=== PATIENT | female | born 1970 | race Caucasian/White ===

== ENCOUNTER 2018-05-03 14:53 | Observation (INO) | payer BC, SELFPAY ==
[2018-05-03] VITALS (9 sets, daily range): BP systolic 123–171; BP diastolic 69–94; PULSE 62–97; RESP 8–18; TEMP 36.3–37; O2SAT 92–100; BMI 36.5; BMI 43.9
--- NOTE | 2018-05-03 16:12 | EKG12_ITS ---
Test Reason : Blood Pressure : / mmHG Vent. Rate : 067 BPM Atrial Rate : 067 BPM P-R Int : 132 ms QRS Dur : 088 ms QT Int : 380 ms P-R-T Axes : 100 142 -06 degrees QTc Int : 401 ms Suspect arm lead reversal, interpretation assumes no reversal Normal sinus rhythm Nonspecific T wave abnormality Abnormal ECG LEAD PLACEMENT VERIFED AND CORRECT Confirmed by NHUNG WHITE, JOSSUE ([id number]), order editor KAMI CARRILLO ([id number]) on 05/10/2018 3:47:51 PM Referred By: MACI Confirmed By:JOSSUE HOOKER MD
--- NOTE | 2018-05-03 16:12 | RAD_ITS ---
STUDY: X-RAY CHEST REASON FOR EXAM: Female, 47 years old. Dizziness pressure in chest TECHNIQUE: Single AP portable view of the chest. COMPARISON: None. FINDINGS: There is elevation of the right hemidiaphragm. There is no demonstrated pleural abnormality. Normal size heart. Normal mediastinum and xavier. Normal visualized pulmonary arteries. Normal visualized aortic arch and descending thoracic aorta. There are diffuse degenerative changes of the visualized thoracic spine. Normal visualized ribs, clavicles, and shoulders. There is no demonstrated abnormality of the visualized soft tissue structures of the upper abdomen. RAD/Chest 1 View (Portable) IMPRESSION: Degenerative changes, as described above. No demonstrated acute cardiopulmonary process. Electronically Signed: Frances Torres MD at 16:28 EDT Tel , Service support ,
--- NOTE | 2018-05-03 16:13 | ED.VISSUMM ---
- ER Visit Summary Date of Service: 05/03/18 Chief Complaint: Chest pain History of Present Illness: The patient is a 47 F denies any significant past medical history. States she has had a cardiac workup including a negative stress test done at the [facility] last year. She has never had a cardiac cath. Patient states she has intermittent chest pain for the last 2 months. She says at times it last hours. It is not at all associated with exertion. She denies any shortness of breath. No prior history of DVT or PEs. No recent travel, surgery or mobilization. No leg pain or swelling. She denies any hemoptysis. The pain is not pleuritic. Nothing specifically makes it better or worse. Physical Examination: Well-appearing middle-aged female vital signs. Pulse ox 90% on room air no signs of hypoxia. HEENT exam unremarkable. Neck nontender. Lungs clear to auscultation bilaterally. Heart regular rhythm no murmur. Rate about 90. No murmur. Chest wall no reproducible tenderness. Abdomen obese but soft. Nontender. Nondistended. Normal bowel sounds. She is moving all 4 extremities. They are neurovascularly intact. 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 Calves are nontender without edema or cords. Neurologically she is awake alert with no focal motor deficits. Test Results: CBC normal. Chemistries normal. Normal creatinine and gap. Troponin normal. EKG sinus rhythm 7 no acute [place] or ischemia. Chest x-ray normal cardiac silhouette mediastinum read both by myself and the radiologist. Emergency Department Course and Treatment: Patient with chest pain that is nonexertional. Intermittent for 2 months. Will undergo a cardiac workup. Treatment Plan: Repeat exam the patient is doing well at 1704. Currently symptom-free pain-free. [facility] they had no old stress tests on record for her. I discussed this with the patient. She is willing to stay to be further evaluated for her chest pain. She and I went over all of her test results. Disposition: Admission Impression: Acute chest pain of uncertain etiology This note was generated with farmbuyation software. It may contain incorrect words, spelling, and punctuation that were not noted in review of the chart prior to signing ED Disposition - Plan for ED Patient: Chief Complaint: Chest Pain
[2018-05-03 16:32] LABS: Absolute Lymphocyte Count 2.42 X10^3/ul (0.83-4.51); Basophil# 0.05 X10^3/uL; Basophil% 0.5 % (0-1); Eosinophil# 0.24 X10^3/uL; Eosinophils% 2.5 % (0-5); Hematocrit 43.7 % (37-47); Hemoglobin 14.1 g/dl (12.0-15.0); Lymphocyte # 2.42 X10^3/ul (4.0); Lymphocyte % 25.5 % (19-41); Mean Corp Hgb Conc 32.3 g/gl (32-36); Mean Corpuscular Hgb 28.7 pg (27.0-32.0); Mean Platelet Vol. 10.2 fl (6.2-12.0); Monocyte# 0.75 X10^3/uL; Monocyte% 7.9 % (0-10); Neutrophil # 6.01 X10^3/uL (2.7-7.7); Neutrophil % 63.4 % (47-70); Platelet Count 332 K/mm3 (150-450); RBC Distribution Width CV 14.4 % (11.6-14.6); Red Blood Count 4.91 M/mm3 (4.2-5.4); White Blood Count 9.5 K/mm3 (4.4-11.0)
[2018-05-03 16:36] LABS: POSITIVE COUNT NO; POSITIVE DIFFERENTIAL NO; POSITIVE MORPHOLOGY NO
[2018-05-03] MEDS: Aspirin 81 MG TAB.CHEW 324 MG PO (16:46)
[2018-05-03 16:48] LABS: Anion Gap 6 (5-15); BUN 12 mg/dL (7-18); BUN/Creat Ratio 17.9 RATIO (10-20); Calcium,Total 9.3 mg/dL (8.5-10.1); Chloride 106 mmol/L (98-107); Creatinine, Serum 0.67 mg/dL (0.55-1.02); EST Glomerular Filtration Rate 99 mL/min (>60); Est Glom Filt Rate - Afr Amer 120 mL/min (>60); Estimated Creatinine Clearance 84.02 ml/min; Glucose 87 mg/dL (74-106); Potassium 4.1 mmol/L (3.5-5.1); Sodium Level 138 mmol/L (136-145)
--- NOTE | 2018-05-03 17:54 | EKG12_ITS ---
Test Reason : ADMISSION EKG Blood Pressure : / mmHG Vent. Rate : 062 BPM Atrial Rate : 062 BPM P-R Int : 132 ms QRS Dur : 092 ms QT Int : 406 ms P-R-T Axes : 014 137 -01 degrees QTc Int : 412 ms Normal sinus rhythm Right axis deviation Nonspecific T wave abnormality Poor R wave progression Abnormal ECG Confirmed by RAINA WHITE, VERN ([id number]), editor managing newspaper KAMI CARRILLO ([id number]) on 05/06/2018 2:27:33 PM Referred By: LUIS Confirmed By:VERN PARIS MD
--- NOTE | 2018-05-03 18:11 | PCM.HP.STD ---
<Epifanio Geiger - Last Filed: 05/03/18 18:11> Problem List (1) Chest pain Status: Acute (2) Morbid obesity Status: Chronic (3) Nicotine abuse Status: Chronic History of Present Illness Date of Admission: 05/03/18 Chief Complaint: chest pain The patient is a 47 year old F with a hx of nicotine abuse and morbid obesity who came to the ER after being advised to come here by her PCP when she told them that she has been having intermittent chest pain over the past 2 months. She has not had any chest pain episodes today. She states that the last episode was thursday night. She was sitting in bed trying to fall asleep when she felt a pressure like someone sitting on her chest that went into her back. She had no SOB, diaphoresis, lh/dizziness, palpitations. She states this sometimes happens daily, sometimes not. She has no medical problems for which she takes any medications. Her father did have heart disease. She smokes 1/2 ppd. [] Past Medical History Past Medical History (Chronic Problems): Chronic Problems Morbid obesity (Chronic) Nicotine abuse (Chronic) Allergies No Known Allergies Allergy (Verified 05/03/18 14:55) Home Medications: Ambulatory Orders Medication Instructions Recorded NK 05/03/18 Surgical History: - - c section Psychiatric History: No pertinent psych hx PARKS RECREATION COORDINATOR History: No pertinent PARKS RECREATION COORDINATOR history Lives: Spouse/ Significant Other Smoking Status: Current every day smoker Tobacco Use: Cigarettes Alcohol: None Drugs: None - *Family History Maternal History Items: COPD Paternal History Items: Heart Disease Review of Systems Constitutional: Denies: Chills, Fever, Weight Change HEENT: Denies: Head Aches, Sinus Congestion, Sinus Drainage Cardiovascular: Reports: Chest Pain, Chest Pressure, Heaviness. Denies: Palpitations Respiratory: Denies: Cough, Shortness of breath at rest, Sputum production Gastrointestinal: Denies: Abdominal Pain, Nausea, Vomiting Genitourinary: Denies: Dysuria Musculoskeletal: Denies: Joint Pain, Joint Tenderness Skin: Denies: Rash, Wounds Neurological: Denies: Numbness, Tingling, Focal weakness Psychiatric: Denies: Anxiety, Depression, Homicidal Ideations, Suicidal Ideations Hematologic/ Lymphatic: Denies: Easy Bruising, Easy Bleeding VTE Information - Inpt Only VTE Present on Admission: No VTE Mechan Device Prophylaxis: None VTE Pharm Prophylaxis ordered?: No Reason prophylaxis not ordered:: Procedure Not Indicated Patient Problems: Active and Suspected Problems Chest pain (Acute) - Physical Exam General: Alert, Oriented x3, Cooperative HEENT: Atraumatic, PERRLA, EOMI, Normocephalic Neck: Supple, No JVD, Negative Carotid Bruits Lungs: Clear to auscultation, Normal air movement Cardiovascular: Regular rate, No murmurs Abdomen: Bowel Sounds Present, Soft, Non Tender, Obese Extremities: No edema, Capillary Refill Less than 3 Seconds Skin: No rashes, No breakdown Musculoskeletal: No Tenderness to Palpation of Joints or Extremities Neurological: Cranial nerves II-XII grossly intact Psych/Mental Status: Normal Affect, Appropriate Vital Signs Temp Pulse Resp BP Pulse Ox 97.3 F L 66 16 123/84 H 99 05/03/18 18:01 05/03/18 18:01 05/03/18 18:01 05/03/18 18:01 05/03/18 18:01 Oxygen Flow Rate (L/min) 2 Oxygen Delivery Method Nasal Cannula Weight: 247 lb 12.793 oz Body Mass Index (BMI) 43.9 Laboratory Tests Past 24 Hrs 05/03/18 05/03/18 16:15 16:15 WBC 9.5 RBC 4.91 Hgb 14.1 Hct 43.7 MCV 89.0 MCH 28.7 MCHC 32.3 RDW 14.4 RDW Differential 47.0 H Plt Count 332 MPV 10.2 Immature Gran % (Auto) 0.200 Neut % (Auto) 63.4 Lymph % (Auto) 25.5 [place] % (Auto) 7.9 Eos % (Auto) 2.5 Baso % (Auto) 0.5 Absolute Neuts (auto) 6.0 Absolute Lymphs (auto) 2.42 Total Counted Not Reportable Sodium 138 Potassium 4.1 Chloride 106 Carbon Dioxide 26.0 Anion Gap 6 BUN 12 Creatinine 0.67 Estim Creat Clear Calc 84.02 Est GFR (MDRD) Af Amer 120 Est GFR (MDRD) Non-Af 99 BUN/Creatinine Ratio 17.9 Glucose 87 Calcium 9.3 Troponin I < 0.015 Assessment/Plan All Active Problems Chest pain (Acute) 1. Chest pain - intermittent x2 months. Last EKG with some t wave flattening. + smoking, + family hx, + obesity. trop neg, cxr neg. Cycle enzymes, repeat am EKG, stress test in AM. 2. Nicotine abuse - patch if desired 3. Morbid obesity - dietary eval. DVT ppx: early ambulation This patient was seen by Epifanio Geiger PA-C under the supervision of Doctor Gallo. <Hussain Holder F - Last Filed: 05/03/18 20:22> History of Present Illness The patient is a 47 year old F [] Past Medical History Allergies No Known Allergies Allergy (Verified 05/03/18 14:55) - Physical Exam Vital Signs Temp Pulse Resp BP Pulse Ox 97.3 F L 66 16 123/84 H 99 05/03/18 18:01 05/03/18 18:01 05/03/18 18:01 05/03/18 18:01 05/03/18 18:01 Oxygen Flow Rate (L/min) 2 Oxygen Delivery Method Nasal Cannula Weight: 247 lb 12.793 oz Body Mass Index (BMI) 43.9 Laboratory Tests Past 24 Hrs 05/03/18 05/03/18 05/03/18 16:15 16:15 19:20 WBC 9.5 RBC 4.91 Hgb 14.1 Hct 43.7 MCV 89.0 MCH 28.7 MCHC 32.3 RDW 14.4 RDW Differential 47.0 H Plt Count 332 MPV 10.2 Immature Gran % (Auto) 0.200 Neut % (Auto) 63.4 Lymph % (Auto) 25.5 [place] % (Auto) 7.9 Eos % (Auto) 2.5 Baso % (Auto) 0.5 Absolute Neuts (auto) 6.0 Absolute Lymphs (auto) 2.42 Total Counted Not Reportable Sodium 138 Potassium 4.1 Chloride 106 Carbon Dioxide 26.0 Anion Gap 6 BUN 12 Creatinine 0.67 Estim Creat Clear Calc 84.02 Est GFR (MDRD) Af Amer 120 Est GFR (MDRD) Non-Af 99 BUN/Creatinine Ratio 17.9 Glucose 87 Calcium 9.3 Troponin I < 0.015 < 0.015 Code Visit Addendum: Dr. Holder I personally examined the patient and reviewed the chart. I agree with the above. 47-year-old female who has been having chest pain intermittently over the last 2 months. Last episode of chest pain was on Thursday. Pain-free on Thursday and Thursday and today she called her doctor to let him know that she been having chest pain and was advised to go to the ER. Denies any syncope, shortness of breath, lightheadedness, dizziness, palpitations. In the ER her EKG was unremarkable and initial troponin was negative. We will do serial cardiac enzymes and schedule her for a stress test in the morning. OBSV E&M: 16192 Initial observation care L3
[2018-05-03] MEDS: Heparin Injection (Vial) 5,000 UNIT/ML VIAL 5000 UNIT SC (22:08)
[2018-05-04 03:00] VITALS: PULSE 62
[2018-05-04 04:00] VITALS: BP 123/63; PULSE 73; RESP 16; TEMP 36.9; O2SAT 96
[2018-05-04 04:13] LABS: Absolute Lymphocyte Count 2.32 X10^3/ul (0.83-4.51); Absolute Neutrophil Count 4.8 X10^3/uL (2.0-7.7); Basophil# 0.05 X10^3/uL; Basophil% 0.6 % (0-1); Eosinophil# 0.25 X10^3/uL; Eosinophils% 3.1 % (0-5); Hematocrit 43.2 % (37-47); Lymphocyte # 2.32 X10^3/ul (4.0); Lymphocyte % 29.1 % (19-41); Mean Corp Hgb Conc 32.4 g/gl (32-36); Mean Corpuscular Volume 89.4 fL (81-99); Mean Platelet Vol. 10.3 fl (6.2-12.0); Monocyte# 0.57 X10^3/uL; Monocyte% 7.2 % (0-10); Neutrophil # 4.77 X10^3/uL (2.7-7.7); Neutrophil % 59.9 % (47-70); Platelet Count 345 K/mm3 (150-450); RBC Distribution Width CV 14.6 % (11.6-14.6); RBC Distribution Width SD 47.2 fl (35.1-43.9); Red Blood Count 4.83 M/mm3 (4.2-5.4)
[2018-05-04 04:14] LABS: POSITIVE COUNT NO; POSITIVE DIFFERENTIAL NO; POSITIVE MORPHOLOGY NO
[2018-05-04 04:20] LABS: Prothrombin Time (Protime)PT. 13.4 SECONDS (11.7-14.9)
[2018-05-04 04:21] LABS: Partial Thromboplast Time 29.5 Seconds (24.1-36.2)
[2018-05-04 04:29] LABS: Anion Gap 7 (5-15); BUN 15 mg/dL (7-18); BUN/Creat Ratio 21.7 RATIO (10-20); Calcium,Total 8.9 mg/dL (8.5-10.1); Chloride 107 mmol/L (98-107); Cholesterol 170 mg/dL (200); Creatinine, Serum 0.69 mg/dL (0.55-1.02); EST Glomerular Filtration Rate 96 mL/min (>60); Est Glom Filt Rate - Afr Amer 116 mL/min (>60); Estimated Creatinine Clearance 81.58 ml/min; Glucose 103 mg/dL (74-106); High Density Lipoprotein 36 mg/dL; Potassium 4.3 mmol/L (3.5-5.1); Sodium Level 141 mmol/L (136-145); Triglycerides 184 mg/dL; Very Low Density Lipoprotein 37 mg/dL (5-40)
--- NOTE | 2018-05-04 05:55 | EKG12_ITS ---
Test Reason : Blood Pressure : / mmHG Vent. Rate : 065 BPM Atrial Rate : 065 BPM P-R Int : 138 ms QRS Dur : 094 ms QT Int : 398 ms P-R-T Axes : 048 133 001 degrees QTc Int : 413 ms Normal sinus rhythm Right axis deviation Low voltage QRS (LIMB LEADS) Nonspecific T wave abnormality Poor R wave progression Abnormal ECG When compared with ECG of 03-MAY-2018 18:04, MANUAL COMPARISON REQUIRED, DATA IS UNCONFIRMED Confirmed by RAINA WHITE, VERN ([id number]), sports editor KAMI CARRILLO ([id number]) on 05/06/2018 2:22:59 PM Referred By: Confirmed By:VERN PARIS MD
[2018-05-04 07:23] VITALS: PULSE 72
[2018-05-04 08:19] VITALS: BP 111/55; PULSE 77; RESP 15; TEMP 36.6; O2SAT 95
[2018-05-04 11:07] VITALS: PULSE 75
--- NOTE | 2018-05-04 12:26 | STRESSREP ---
Stress Test Report Date: 05/04/2018 Procedure: Pharmacologic stress nuclear imaging study Indications: Pain Consent: Per the patient Procedure: The patient underwent pharmacologic (Regadenoson) evaluation with a peak heart rate of 114 beats per minute (66 predicted maximal heart rate) and a peak blood pressure of 144/90 mmHg. The baseline ECG demonstrated normal sinus rhythm; nonspecific T wave abnormality; PVC. The peak pharmacologic ECG demonstrated continued nonspecific T wave abnormality. There was a rare PVC pretest. [There was no complaint of chest discomfort during pharmacologic infusion or recovery]. The examination was discontinued secondary to completion of protocol. Impression: 1. Pharmacologic (Regadenoson) evaluation 2. Peak pharmacologic ECG with continued nonspecific T wave abnormality. 3. There was a rare PVC pretest. 4. Nuclear images pending Myocardial perfusion imaging study: Technique: The patient was injected with 14.3 millicuries of technetium 99m Cardiolite and subsequently rest SPECT Cardiolite nuclear imaging was obtained in the horizontal long, vertical long, and short axis views. The patient underwent pharmacologic (Regadenoson) evaluation with a peak heart rate of 114 beats per minute (66 % percent predicted maximal heart rate) and a peak blood pressure of 144/90 mmHg. The patient was injected with 44.6 millicuries of technetium 99m Cardiolite and subsequently stress SPECT Cardiolite nuclear imaging was obtained in the horizontal long, vertical long, and short axis views. A gated Cardiolite study at peak stress was obtained. Interpretation: Rest and stress SPECT Cardiolite nuclear imaging status post realignment, normalization, and attenuation correction demonstrate significant extracardiac/gastrointestinal tracer uptake and a small area of subtle diminished tracer uptake near the apical segments without significant change between rest and stress. [There is end systolic thickening and brightening]. [The gated Cardiolite study demonstrates myocardial thickening and inward wall motion]. The reported LVEF is 45 %. Impression: 1. Rest and stress SPECT Cardiolite nuclear imaging demonstrate myocardial perfusion changes appearing compatible with extracardiac/gastrointestinal tracer uptake in a small area of subtle diminished tracer uptake near the apical segments without significant change between rest and stress appearing compatible with physiologic apical thinning with no myocardial perfusion changes considered diagnostic for associated stress-induced myocardial ischemia or previous myocardial injury/infarction. 2. The gated Cardiolite study reports an LVEF of 45 %. This note was generated with Snapverse software. It may contain incorrect words, spelling, and punctuation that were not noted in checking the note before signing.
--- NOTE | 2018-05-04 12:32 | STRESSREP_ITS ---
Stress Test Report Date: 05/04/2018 Procedure: Pharmacologic stress nuclear imaging study Indications: Pain Consent: Per the patient Procedure: The patient underwent pharmacologic (Regadenoson) evaluation with a peak heart rate of 114 beats per minute (66 predicted maximal heart rate) and a peak blood pressure of 144/90 mmHg. The baseline ECG demonstrated normal sinus rhythm; nonspecific T wave abnormality; PVC. The peak pharmacologic ECG demonstrated continued nonspecific T wave abnormality. There was a rare PVC pretest. [There was no complaint of chest discomfort during pharmacologic infusion or recovery]. The examination was discontinued secondary to completion of protocol. Impression: 1. Pharmacologic (Regadenoson) evaluation 2. Peak pharmacologic ECG with continued nonspecific T wave abnormality. 3. There was a rare PVC pretest. 4. Nuclear images pending Myocardial perfusion imaging study: Technique: The patient was injected with 14.3 millicuries of technetium 99m Cardiolite and subsequently rest SPECT Cardiolite nuclear imaging was obtained in the horizontal long, vertical long, and short axis views. The patient underwent pharmacologic (Regadenoson) evaluation with a peak heart rate of 114 beats per minute (66 % percent predicted maximal heart rate) and a peak blood pressure of 144/90 mmHg. The patient was injected with 44.6 millicuries of technetium 99m Cardiolite and subsequently stress SPECT Cardiolite nuclear imaging was obtained in the horizontal long, vertical long, and short axis views. A gated Cardiolite study at peak stress was obtained. Interpretation: Rest and stress SPECT Cardiolite nuclear imaging status post realignment, normalization, and attenuation correction demonstrate significant ex tracardiac/gastrointestinal tracer uptake and a small area of subtle diminished tracer uptake near the apical segments without significant change between rest and stress. [There is end systolic thickening and brightening]. [The gated Cardiolite study demonstrates myocardial thickening and inward wall motion]. The reported LVEF is 45 %. Impression: 1. Rest and stress SPECT Cardiolite nuclear imaging demonstrate myocardial perfusion changes appearing compatible with extracardiac/gastrointestinal tracer uptake in a small area of subtle diminished tracer uptake near the apical segments without significant change between rest and stress appearing compatible with physiologic apical thinning with no myocardial perfusion changes considered diagnostic for associated stress-induced myocardial ischemia or previous myocardial injury/infarction. 2. The gated Cardiolite study reports an LVEF of 45 %. This note was generated with SurIDx software. It may contain incorrect words, spelling, and punctuation that were not noted in checking the note before signing.
--- NOTE | 2018-05-04 13:41 | DCINST_ITS ---
- Discharge Diagnoses Current Active Problems: Current Active and Chronic Problems Chest pain (Acute) Morbid obesity (Chronic) Nicotine abuse (Chronic) You will use the following diet at home:: Cardiac Your food should be the consistency of: Regular Your liquids should be the consistency of: Regular/Thin Discharge Activity: Return to Normal Activity Allergies/Adverse Reactions: Allergies No Known Allergies Allergy (Verified 05/03/18 14:55) Medications to take at Discharge NK 05/03/18 Primary Care Physician: Care Physician,No Primary [Primary Care Provider] - Please follow up with your Primary Care Physician in: 1-2 weeks Test Results: Test results from this visit will be discussed in further detail at your follow- up appointment, if applicable. Proposed Discharge Date: 05/04/18
--- NOTE | 2018-05-04 13:45 | PCM.DC.SUM ---
<Epifanio Geiger - Last Filed: 05/04/18 13:45> Discharge Date and Diagnosis Date of Admission: 05/03/18 Date of Discharge: 05/04/18 - Primary Discharge Diagnosis Active and Suspected Problems Chest pain (Acute) - musculoskeletal Nicotine abuse morbid obesity - Secondary Discharge Diagnosis Chronic Problems Morbid obesity (Chronic) Nicotine abuse (Chronic) Hospital Course and Treatment Imaging Results: 05/04/18 05:55 Nuclear Stress Test - Chemical [NM] AM (NON MEDS) Impression: 1. Rest and stress SPECT Cardiolite nuclear imaging demonstrate myocardial perfusion changes appearing compatible with extracardiac/gastrointestinal tracer uptake in a small area of subtle diminished tracer uptake near the apical segments without significant change between rest and stress appearing compatible with physiologic apical thinning with no myocardial perfusion changes considered diagnostic for associated stress-induced myocardial ischemia or previous myocardial injury/infarction. 2. The gated Cardiolite study reports an LVEF of 45 %. RAD/Chest 1 View (Portable) IMPRESSION: Degenerative changes, as described above. No demonstrated acute cardiopulmonary process. Operations: None Procedures: Stress test Summary of Care Provided: Physical exam on day of discharge: General: Resting comfortably NAD Psych: A/Ox3 normal affect HEENT: PEARRLA AT NC Neck: Supple NT CV: RRR no m/t/r/g/h Resp: CTA Abd: [id number] Soft NT no guarding or rigidity Ext: DP2+= no edema Skin: W/D normal turgor Lymph/Heme: No active bleeding or adenopathy Neuro: CN2-12 intact Hospital course: The patient is a 47 year old F with a hx of morbid obesity and nicotine abuse who presents to the ER with c/o chest pain off and on x2 months that last occurred last thursday. She describes it as a heaviness that comes on last time when she laid down at night to fall asleep. In the ER she had an EKG with nonspecific T wave changes. Negative troponin negative CXR. She was admitted to the PCU for chest pain workup. No events on tele. Neg trop x 3. Stress test negative. She was felt to have had musculoskeletal pain. She was discharged in stable condition to follow up with her PCP in 1-2 weeks. This patient was seen by Epifanio Geiger PA-C under the supervision of Doctor Almaraz. [] Discharge Diet: Low fat/ Low Cholesterol, 2000 mg Sodium Diet Discharge Activity: Return to Normal Activity Home Medications: Medications to take at Discharge NK 05/03/18 Primary Care Physician: Care Physician,No Primary [Primary Care Provider] - Please follow up with your Primary Care Physician in: 1-2 weeks Disposition: Home Minutes spent on discharge:: 35 Patient Condition:: Stable Medical Necessity - Tobacco Use Smoking Status: Current every day smoker Tobacco Use: Cigarettes Meaningful Use Info Meaningful Use Diagnoses (Choose all that apply): None applicable <Augustine Almaraz - Last Filed: 05/04/18 14:46> Discharge Date and Diagnosis - Secondary Discharge Diagnosis Chronic Problems Morbid obesity (Chronic) Nicotine abuse (Chronic) Hospital Course and Treatment Imaging Results: 05/04/18 05:55 Nuclear Stress Test - Chemical [NM] AM (NON MEDS) Summary of Care Provided: This patient was seen in conjunction withEpifanio Geiger PA-C. I have independently interviewed and examined the patient and reviewed pertinent historical, laboratory, and other data. Please refer to Epifanio Geiger PA-C note for details of this patient's presentation, findings, and recommendations. I have reviewed Epifanio Geiger PA-C note and concur with documented findings. In brief, patient is a 47-year-old female who was admitted with chest pain. Patient was placed on a monitored bed NH was ruled out with serial cardiac enzymes subsequently underwent a nuclear stress test which is negative for stress-induced ischemia discharge home instructed to follow-up with PCP Code Visit OBSV E&M: 49704 Observation care discharge
--- NOTE | 2018-05-04 13:49 | DS.PCM_ITS ---
<Epifanio Geiger - Last Filed: 05/04/18 13:45> Discharge Date and Diagnosis Date of Admission: 05/03/18 Date of Discharge: 05/04/18 - Primary Discharge Diagnosis Active and Suspected Problems Chest pain (Acute) - musculoskeletal Nicotine abuse morbid obesity - Secondary Discharge Diagnosis Chronic Problems Morbid obesity (Chronic) Nicotine abuse (Chronic) Hospital Course and Treatment Imaging Results: 05/04/18 05:55 Nuclear Stress Test - Chemical [NM] AM (NON MEDS) Impression: 1. Rest and stress SPECT Cardiolite nuclear imaging demonstrate myocardial perfusion changes appearing compatible with extracardiac/gastrointestinal tracer uptake in a small area of subtle diminished tracer uptake near the apical segments without significant change between rest and stress appearing compatible with physiologic apical thinning with no myocardial perfusion changes considered diagnostic for associated stress-induced myocardial ischemia or previous myocardial injury/infarction. 2. The gated Cardiolite study reports an LVEF of 45 %. RAD/Chest 1 View (Portable) IMPRESSION: Degenerative changes, as described above. No demonstrated acute cardiopulmonary process. Operations: None Procedures: Stress test Summary of Care Provided: Physical exam on day of discharge: General: Resting comfortably NAD Psych: A/Ox3 normal affect HEENT: PEARRLA AT NC Neck: Supple NT CV: RRR no m/t/r/g/h Resp: CTA Abd: [id number] Soft NT no guarding or rigidity Ext: DP2+= no edema Skin: W/D normal turgor Lymph/Heme: No active bleeding or adenopathy Neuro: CN2-12 intact Hospital course: The patient is a 47 year old F with a hx of morbid obesity and nicotine abuse wh o presents to the ER with c/o chest pain off and on x2 months that last occurred last thursday. She describes it as a heaviness that comes on last time when she laid down at night to fall asleep. In the ER she had an EKG with nonspecific T wave changes. Negative troponin negative CXR. She was admitted to the PCU for chest pain workup. No events on tele. Neg trop x 3. Stress test negative. She was felt to have had musculoskeletal pain. She was discharged in stable condition to follow up with her PCP in 1-2 weeks. This patient was seen by Epifanio Geiger PA-C under the supervision of Doctor Almaraz. [] Discharge Diet: Low fat/ Low Cholesterol, 2000 mg Sodium Diet Discharge Activity: Return to Normal Activity Home Medications: Medications to take at Discharge NK 05/03/18 Primary Care Physician: Care Physician,No Primary [Primary Care Provider] - Please follow up with your Primary Care Physician in: 1-2 weeks Disposition: Home Minutes spent on discharge:: 35 Patient Condition:: Stable Medical Necessity - Tobacco Use Smoking Status: Current every day smoker Tobacco Use: Cigarettes Meaningful Use Info Meaningful Use Diagnoses (Choose all that apply): None applicable <Augustine Almaraz - Last Filed: 05/04/18 14:46> Discharge Date and Diagnosis - Secondary Discharge Diagnosis Chronic Problems Morbid obesity (Chronic) Nicotine abuse (Chronic) Hospital Course and Treatment Imaging Results: 05/04/18 05:55 Nuclear Stress Test - Chemical [NM] AM (NON MEDS) Summary of Care Provided: This patient was seen in conjunction withEpifanio Geiger PA-C. I have independently interviewed and examined the patient and reviewed pertinent historical, laboratory, and other data. Please refer to Epifanio Geiger PA-C note for details of this patient's presentation, findings, and recommendations. I have reviewed Epifanio Geiger PA-C note and concur with documented findings. In brief, patient is a 47-year-old female who was admitted with chest pain. Patient was placed on a monitored bed IA was ruled out with serial cardiac enzymes subsequently underwent a nuclear stress test which is negative for stre ss-induced ischemia discharge home instructed to follow-up with PCP Code Visit OBSV E&M: 43084 Observation care discharge
[2018-05-04 14:18] VITALS: BP 123/73; PULSE 69; RESP 16; TEMP 36.8; O2SAT 96
--- NOTE | 2018-05-04 14:26 | CHAPLAIN ---
Type of Pastoral Visit _x__ Initial Visit ___ Follow-up Visit ___ On-call Visit ___ General Patient Visit ___ Spiritual Assessment ___ Family Conference ___ Bereavement ___ Rapid Response ___ Code Blue ___ Other (describe below) Pastoral Care Referral From _x__ Patient ___ Family ___ Nurse ___ Physician ___ Hospital Nursing Assistant ___ Payroll And Benefits Specialist ___ Other (describe below) Sacrament/Intervention ___ Active listening ___ Anointing ___ Temple ___ Bereavement ___ Communion ___ Hollie exploration ___ ___ Life review _x__ Prayer ___ Reconciliation ___ Sacrament of Sick _x__ Supportive presence ___ Wedding ___ Other (describe below) Pastoral Comments
== END 2018-05-04 13:41 | disposition home or self-care (01) ==
LOC: ED 16:26 → PCU 17:37
PROVIDERS: Admitting Provider Family Medicine; Emergency Provider Emergency Medicine; Visit Provider Internal Medicine
DX: R07.89 Other chest pain (principal); E66.01 Morbid (severe) obesity due to excess calories; Z68.41 Body mass index [BMI] 40.0-44.9, adult; Z71.3 Dietary counseling and surveillance; F17.210 Nicotine dependence, cigarettes, uncomplicated
CPT/HCPCS: 36415; 71045; 78452; 80048; 80061; 84484; 85025; 85610; 85730; 93005; 93017; 96372; 99218; 99285; 99406; A9500; A4216; G0378; J2785

== ENCOUNTER 2022-11-17 16:42 | Emergency (ER) | payer OTHER, SELFPAY ==
[2022-11-17 16:42] VITALS: BP 162/110; PULSE 71; RESP 14; TEMP 36.6; O2SAT 97; BMI 45.0
--- NOTE | 2022-11-17 18:49 | CT_ITS ---
STUDY: CT BRAIN WITHOUT CONTRAST REASON FOR EXAM: Female, 52 years old. Trauma TECHNIQUE: Transaxial CT imaging of the brain was performed without administration of intravenous contrast material. Individualized dose optimization techniques were used for this CT. COMPARISON: None FINDINGS: Normal calvarium. Normal soft tissues. Normal size ventricles and extra-axial spaces for the patient''s age. Normal white matter tracts of the cerebral hemispheres. Normal basal ganglia and thalami. Normal brainstem. Normal cerebellum. There is no intracranial hemorrhage. There are no findings of an acute ischemic infarction. There is sinus disease. ASPECTS 10 CT/Brain/Head without Contrast IMPRESSION: There are no acute intracranial findings. Electronically Signed: Cory Singh MD at 19:21 EDT ,
--- NOTE | 2022-11-17 18:58 | EX.ED.GENINJ ---
HPI History of Present Illness Chief Complaint: Head Injury Informant: patient Narrative Narrative: Patient had a mechanical fall almost 2 weeks ago. She fell down steps. No loss consciousness. She does report having a CT scan of her head that showed no acute process. But since then she still having a headache where she had an impact on the back of her head. She also gets a headache on the front right side. Her sleep has been very poor. Her appetite is a little bit off. She occasionally gets some mild nausea but is able to eat and drink and is never vomited. No numbness tingling weakness. No vision complaints. She has had a little bit of moodiness which is not typical for her. Her family is concerned because she is not getting better. PFSH PFSH Medical History no medical history Home Medications ondansetron 4 mg disintegrating tablet 4 mg PO Q8H PRN PRN Nausea #10 tabs 11/17/22 [Rx Last Taken Unknown] Allergy/AdvReac Type Severity Reaction Status Date / Time No Known Allergies Allergy Verified 05/03/18 14:55 Surgical History (Updated 11/17/22 @ 19:34 by Leti Cramer) History of Social History Smoking Status: Current every day smoker tobacco type: cigarettes ROS ROS ED Constitutional Constitutional ED: Denies chills, fever(s) or subjective Eyes Eyes: Denies blurry vision or change in vision ENT ENT ED: Denies sore throat Cardiovascular Cardiovascular: Denies palpitations Respiratory/Chest Respiratory/Chest: Denies cough Gastrointestinal Gastrointestinal: Reports nausea; Denies diarrhea or vomiting Genitourinary Genitourinary ED: Denies hematuria Musculoskeletal Musculoskeletal: Denies back pain or neck pain Integumentary Reports other Details: Patient did have a laceration of the back of her scalp but it is healing Neurologic Neurologic: Reports headache(s); Denies paresthesias or weakness Endocrine Endocrinology: Denies polydipsia or polyuria Hematologic/Lymphatic Hematologic/Lymphatic: Denies easy bleeding or easy bruising Allergic/Immunologic Allergic/Immunologic ED: Denies urticaria EXAM Physical Exam Narrative Exam Narrative: Patient awake alert no acute distress. Carries on normal conversation. HEENT does show a healing laceration about 2 cm in length on the back of the scalp. No sign of infection or swelling. No step-off. No other trauma noted. Mucous membranes are moist. Eyes: Normal range of motion. No limitation of gauge. No disconjugate gaze. Pupillary response is normal her pupils go from about 3 to 2 mm with light. Neck is supple no pain with motion and no tenderness. Lungs are clear bilaterally. No pain with a deep breath. Saturations are normal. Heart is regular. No murmur gallop or rub Abdomen is soft nontender. There is no tenderness of cervical thoracic or lumbar spine Extremities show no deformities. Neurologically she is awake alert appropriate. Consistent informant. No confusion. No balance or discoordination. Const Vital Signs: 11/17/22 16:42 11/17/22 19:31 11/17/22 19:31 Temperature 97.9 F Temperature Source Temporal Pulse Rate 71 72 Respiratory Rate 14 18 Respiratory Effort Normal Blood Pressure 162/110 H 148/76 H Blood Pressure Mean 127 100 Pulse Ox 97 96 Oxygen Delivery Method Room Air Room Air MDM MDM MDM Narrative Medical decision making narrative: My independent interpretation of the patient's CT of the head shows no acute process. Final reading is similar. I think patient is safe to go home. I will write for some Zofran as she has had some intermittent nausea. She has Tylenol and nonsteroidals at home which I think are appropriate therapy for this. We explained that concussions can go on for a while. We will give her information about this. Radiography Diagnostic Testing: Clinical Impression(s) from Imaging Studies Brain CT 11/17/22 18:49 IMPRESSION: There are no acute intracranial findings. Electronically Signed: Cory Singh MD at 19:21 EDT Reading Location ID and State: [facility] / [place] , Service support , Discharge Plan Triage Chief Complaint: Head Injury ED Provider: Blayne De Dios Dx/Rx/DC Orders Clinical Impression: Fall from steps, Closed head injury, Concussion Instructions: ED Concussion Prescriptions: New ondansetron [ondansetron] 4 mg tablet,disintegrating 4 mg PO Q8H PRN PRN (Reason: Nausea) Qty: 10 0RF Primary Care Provider: Care Physician,No Primary Referrals: Frida Haq MD [Med Staff - Patient Account Liaison] - 1 Week if not improving Care Physician,No Primary [Primary Care Provider] - Disposition Disposition: Home, Self Care
[2022-11-17 19:31] VITALS: BP 148/76; PULSE 72; RESP 18; O2SAT 96
[2022-11-17 20:23] VITALS: BP 162/82
== END 2022-11-17 20:24 | disposition home or self-care (01) ==
PROVIDERS: Emergency Provider Emergency Medicine; Visit Provider Emergency Medicine
DX: S06.0X0A Concussion without loss of consciousness, initial encounter (principal); F17.210 Nicotine dependence, cigarettes, uncomplicated; R11.0 Nausea; W10.9XXA Fall (on) (from) unspecified stairs and steps, initial encounter
CPT/HCPCS: 70450; 99283

== ENCOUNTER 2024-02-23 14:36 | Emergency (ER) | payer OTHER, SELFPAY ==
[2024-02-23 14:37] VITALS: BP 175/102; PULSE 89; RESP 16; TEMP 36.1; O2SAT 98; BMI 44.4
--- NOTE | 2024-02-23 15:02 | EX.ED.DYSGE1 ---
HPI History of Present Illness Chief Complaint: Back Detail of Chief Complaint: Right flank pain that is started 3 days ago Informant: patient Onset/Context/Timing Onset: Days Context: Sudden Onset Timing: Intermittent (Initially. Now continuously) Quality: Pain Location: Right flank that wraps around anteriorly to the right upper quadrant as wel Current Severity: Mild Maximum Severity: Severe Worsened by: Nothing Relieved by: Nothing Associated Symptoms Associated Symptoms: Nothing Narrative Narrative: Patient is a 53-year-old woman who has not seen a physician in over a decade. She is on no medication. She lists no allergies. There may be a family history cholelithiasis. There is no known family history of ureteral or renal lithiasis. She denies dysuria, frequency, urgency or hematuria. She has slight intolerance to greasy and fried foods. She denies fever, chills night sweats. She does not have history of PE or DVT. She denies shortness of breath, dyspnea exertion or pain with breathing. She denies orthopnea or PND. She denies leg pain, swelling discoloration. She states she has a bruised area on her anterior mid left thigh that is been there for years. Prior similar symptoms: No Recent Illness/Hospitalization: No PFSH PFSH Medical History no medical history no medical history Home Medications ?Medication ?Instructions ?Recorded ?Last Taken ?Type ondansetron 4 mg disintegrating 4 mg PO Q8H PRN PRN Nausea #10 tabs 11/17/22 Unknown Rx tablet cephalexin 500 mg capsule 500 mg PO Q6 #40 CAPSULES 02/23/24 Unknown Rx metformin 500 mg tablet,extended 500 mg PO DAILY #30 tabs 02/23/24 Unknown Rx release 24 hr Allergy/AdvReac Type Severity Reaction Status Date / Time No Known Allergies Allergy Verified 05/03/18 14:55 Surgical History History of Social History (Updated 02/23/24 @ 15:[address] Rocky Velez MD) household members: none Smoking Status: Current every day smoker tobacco type: cigarettes ROS ROS ED Constitutional Constitutional ED: Denies chills, fever(s), subjective or sweats Eyes Eyes: Denies blurry vision or change in vision ENT ENT ED: Denies ear pain, rhinorrhea or sore throat Cardiovascular Cardiovascular: Denies chest pain, orthopnea, palpitations, paroxysmal nocturnal dyspnea or racing heartbeat Respiratory/Chest Respiratory/Chest: Denies cough, dyspnea, dyspnea on exertion, orthopnea or paroxysmal nocturnal dyspnea Gastrointestinal Gastrointestinal: Reports abdominal pain; Denies nausea or vomiting Genitourinary Genitourinary ED: Reports urinary frequency; Denies dysuria or hematuria Musculoskeletal Musculoskeletal: Denies arthralgias, back pain, myalgias or neck pain Integumentary Denies rash Neurologic Neurologic: Denies paresthesias Endocrine Endocrinology: Denies cold intolerance or heat intolerance Hematologic/Lymphatic Hematologic/Lymphatic: Reports systems reviewed and no addt'l complaints, except as documented EXAM Physical Exam Const Vital Signs: 02/23/24 14:37 02/23/24 16:38 Temperature 97.0 F L Temperature Source Temporal Pulse Rate 89 77 Respiratory Rate 16 18 Blood Pressure 175/102 H 132/72 H Blood Pressure Mean 126 92 Pulse Ox 98 98 Oxygen Delivery Method Room Air Room Air Positive well nourished and well developed Constitutional Narrative: BMI is 44.4. Patient appears in slight discomfort. General Appearance ED: well developed; Negative for pallor HEENT Reports moist mucous membranes HEENT Narrative: Head is atraumatic and normocephalic. Ears normal. Nares patent. Eyes PERRL and EOMs intact bilaterally General Eye ED: Negative for pale conjunctiva or scleral icterus Neck no lymphadenopathy, supple and no JVD Resp normal respiratory effort and clear to auscultation bilaterally Cardio regular rate, regular rhythm, S1 normal heart sound, S2 normal heart sound and no murmurs GI normal to inspection, nondistended, normoactive bowel sounds, non-distended and no masses; Negative for non-tender or hepatosplenomegaly GI Narrative: Unable to appreciate hepatosplenomegaly or masses due to BMI greater than 40. Patient has a clinical Hogan sign. Auscultation: hypoactive bowel sounds Palpation: soft Back/Spine Back/Spine Narrative: Equivocal tenderness right flank. Cervical Spine: Negative for cervical spine tenderness Thoracic Spine / Upper Back: Negative for thoracic spinal tenderness Lumbar Spine / Lower Back: Negative for lumbar spinal tenderness Extremity normal to inspection General Extremety ED: Negative for edema or tenderness General Extremity: Negative for edema Neuro oriented x3, CN's II-XII intact bilaterally and no sensory deficits noted Sensorium / Orientation: alert Motor Exam: strength 5/5 throughout Psych mental status grossly normal Skin no rashes or lesions noted, no wounds and skin turgor normal General Skin Exam: Negative for jaundice or pallor MDM MDM MDM Narrative Medical decision making narrative: Differential diagnosis is right flank pain/right upper quadrant pain of unknown etiology, ureterolithiasis, cholelithiasis, cholecystitis. Will obtain appropriate blood work, UA and patient was medicated with IV Toradol since she has no contraindication. Lab Data Attestation: I reviewed the patient's lab results. Lab results narrative: White count is slightly elevated. Differential is normal. Competence of metabolic panel is remarkable glucose of 229. CO2 and anion gap are normal. Patient was told she has diabetes. Urine is suggestive of a UTI. Since she has frequency and right flank pain to percussion will treat for pyelonephritis since CAT scan does not show evidence of stone. Labs: Laboratory Results - last 24 hr 02/23/24 02/23/24 15:00 15:05 WBC 11.6 H RBC 5.19 Hgb 14.9 Hct 45.2 MCV 87.1 MCH 28.7 MCHC 33.0 RDW Std Deviation 43.8 RDW Coeff of Bong 13.7 Plt Count 376 MPV 10.2 Immature Gran % (Auto) 0.600 Neut % (Auto) 58.1 Lymph % (Auto) 30.6 Carlton % (Auto) 7.3 Eos % (Auto) 2.4 Baso % (Auto) 1.0 Absolute Neuts (auto) 6.7 Absolute Lymphs (auto) 3.54 Nucleated RBC % 0 Sodium 139 Potassium 3.9 Chloride 104 Carbon Dioxide 28.0 Anion Gap 7 BUN 13 Creatinine 0.73 Estim Creat Clear Calc 105.77 Est GFR (MDRD) Af Amer 107 Est GFR (MDRD) Non-Af 88 BUN/Creatinine Ratio 17.9 Glucose 229 H Calcium 9.6 Total Bilirubin 0.30 AST 24 ALT 41 Alkaline Phosphatase 123 H Total Protein 7.9 Albumin 3.8 Globulin 4.1 Albumin/Globulin Ratio 0.9 Lipase 51 Urine Color Yellow Urine Clarity Clear Urine pH 5.0 Ur Specific [place] 1.025 Urine Protein Negative Urine Glucose (UA) 1000 H Urine Ketones 5 H Urine Occult Blood 10 H Urine Nitrite Negative Urine Bilirubin Negative Urine Urobilinogen 1 H Ur Leukocyte Esterase 25 H Urine RBC 0-5 SEEN Urine WBC 0-5 SEEN Ur Squamous Epith Cells 0-5 SEEN Urine Bacteria 2+ Urine Mucus 0 SEEN Radiography Diagnostic Testing: Clinical Impression(s) from Imaging Studies Abdomen/Pelvis CT 02/23/24 15:33 IMPRESSION: No acute findings in the abdomen or pelvis. Electronically Signed: Hang Brunson MD at 16:28 EDT Reading Location ID and State: [facility] / [place] Tel , Service support , Treatment and Re-Evaluation :: Culture was sent. Patient was treated with Rocephin. Since she does not have a physician she was assigned to Dr. Bird. Will also start her on metformin. Discharge Plan Triage Chief Complaint: Back ED Provider: Rocky Velez Dx/Rx/DC Orders Clinical Impression: Acute bacterial pyelonephritis, New onset type 2 diabetes mellitus, BMI 40.0-44.9, adult, Elevated blood-pressure reading without diagnosis of hypertension Instructions: ED Diabetes- Overview, ED Hypertension, To Be Confirmed, ED Pyelonephritis, Female (Adult) Prescriptions: New cephalexin 500 mg capsule 500 mg PO Q6 Qty: 40 0RF metformin 500 mg tablet extended release 24 hr 500 mg PO DAILY Qty: 30 0RF No Action ondansetron [ondansetron] 4 mg tablet,disintegrating 4 mg PO Q8H PRN PRN (Reason: Nausea) Qty: 10 0RF Primary Care Provider: Care Physician,No Primary Referrals: Shweta Bird DO [Med Staff - Active Staff] - 5-7 Days Care Physician,No Primary [Primary Care Provider] - Activity Restrictions/Additional Instructions: Contact Dr. Donnelly. You were assigned to her since you do not have a doctor. You will need your blood pressure rechecked since it is elevated. You were started on medication for diabetes. You are also prescribed an antibiotic. Take for the entire 10 days even if you start to feel better. Print Language: French Disposition Disposition: Home, Self Care
[2024-02-23] MEDS: Ketorolac 15 MG/ML Vial IV (15:09)
[2024-02-23 15:11] LABS: Absolute Lymphocyte Count 3.54 X10^3/uL (0.83-4.51); Absolute Neutrophil Count 6.7 X10^3/uL (2.0-7.7); Basophil# 0.11 X10^3/uL; Eosinophil# 0.28 X10^3/uL; Eosinophils% 2.4 % (0-5); Hematocrit 45.2 % (37-47); Hemoglobin 14.9 g/dL (12.0-15.0); Lymphocyte # 3.54 X10^3/ul (0.83-4.51); Lymphocyte % 30.6 % (19-41); Mean Corpuscular Hgb 28.7 pg (27.0-32.0); Mean Corpuscular Volume 87.1 fL (81-99); Mean Platelet Vol. 10.2 fl (6.2-12.0); Monocyte# 0.84 X10^3/uL; Monocyte% 7.3 % (0-10); NRBC Flagged by Analyzer 0 % (0-5); Neutrophil # 6.71 X10^3/uL (2.7-7.7); Neutrophil % 58.1 % (47-70); Platelet Count 376 K/mm3 (150-450); RBC Distribution Width CV 13.7 % (11.6-14.6); RBC Distribution Width SD 43.8 fl (35.1-43.9); Red Blood Count 5.19 M/mm3 (4.2-5.4); White Blood Count 11.6 K/mm3 (4.4-11.0)
[2024-02-23 15:11] LABS: Mucous, Urine 0 SEEN /hpf (<or=2+)
[2024-02-23 15:21] LABS: Color, Urine Yellow (Yellow); Glucose, Dipstick 1000 mg/dl (Normal); Ketone-Dipstick 5 mg/dl (Negative); Leukocyte Esterase-Dipstick 25 /ul (Negative); Nitrite-Dipstick Negative (Negative); Occult Blood-Urine 10 /ul (Negative); Protein-Dipstick Negative (Negative); Specific Gravity, Urine 1.025 (1.002-1.030); Urine Bilirubin Dipstick Negative (Negative); Urine Clarity Clear (Clear); Urine Urobilinogen 1 mg/dl (Normal)
[2024-02-23 15:26] LABS: ALB/GLOB Ratio 0.9 RATIO (0.9-2.4); AST(SGOT) 24 U/L (15-37); Alanine Aminotransfer ALT/SGPT 41 U/L (13-56); Albumin, Serum 3.8 g/dL (3.2-5.0); Alkaline Phosphatase 123 U/L (45-117); Anion Gap 7 (5-15); BUN 13 mg/dL (7-18); BUN/Creat Ratio 17.9 RATIO (10-20); Calcium,Total 9.6 mg/dL (8.5-10.1); Chloride 104 mmol/L (98-107); Creatinine, Serum 0.73 mg/dL (0.55-1.02); EST Glomerular Filtration Rate 88 mL/min (>60); Est Glom Filt Rate - Afr Amer 107 mL/min (>60); Estimated Creatinine Clearance 105.77 ml/min; Globulin 4.1 g/dL (2.2-4.2); Glucose 229 mg/dL (74-106); Lipase 51 U/L (13-75); Potassium 3.9 mmol/L (3.5-5.1); Protein, Total 7.9 g/dL (6.4-8.2); Sodium Level 139 mmol/L (136-145)
[2024-02-23 15:28] LABS: Bacteria 2+ /hpf (None Seen); Red Blood Cells-Urine 0-5 SEEN /hpf (0-5); Squamous Epithelial Cells - UA 0-5 SEEN /hpf (5-10); White Blood Cells 0-5 SEEN /hpf (0-5)
--- NOTE | 2024-02-23 15:33 | CT_ITS ---
EXAM: CT ABDOMEN AND PELVIS WITHOUT INTRAVENOUS CONTRAST CLINICAL INDICATION: Kidney Stone Right flank pain TECHNIQUE: Helically acquired images were obtained of the abdomen and pelvis without intravenous contrast. This CT exam was performed using one or more of the following dose reduction techniques: automated exposure control, adjustment of the mA and/or kV according to patient size, and/or use of iterative reconstruction technique. COMPARISON: No relevant prior studies available. FINDINGS: LOWER THORAX: Unremarkable. Lung bases are clear. No cardiomegaly. No significant pericardial effusion. ABDOMEN: LIVER: Unremarkable. Homogeneous. GALLBLADDER AND BILE DUCTS: Unremarkable. No calcified gallstones. No gallbladder distention or wall edema. No intra- or extrahepatic biliary ductal dilation. PANCREAS: Unremarkable. No focal cystic mass. SPLEEN: Unremarkable. Normal size without focal cystic or solid mass. ADRENALS: There is a low-density lesion on the right adrenal gland that measures 1.9 x 2.0 cm compatible with an adenoma. No follow-up imaging is necessary. Consider biochemical assays to determine functional status and exclude pheochromocytoma if biopsy/resection is planned. KIDNEYS AND URETERS: Unremarkable. Normal renal size and position. No hydronephrosis. STOMACH AND BOWEL: Unremarkable. No stomach or bowel distention. No focal inflammatory change. PELVIS: APPENDIX: No evidence of acute appendicitis. BLADDER: Unremarkable. REPRODUCTIVE: Unremarkable as visualized. No mass. ABDOMEN and PELVIS: INTRAPERITONEAL SPACE: Unremarkable. No ascites or other fluid collection. No free air. BONES/JOINTS: Unremarkable. No suspicious lytic or blastic abnormality. SOFT TISSUES: Unremarkable. No discrete abdominal or pelvic wall hernia. VASCULATURE: Unremarkable. Abdominal aorta is non-dilated. LYMPH NODES: Unremarkable. No enlarged lymph nodes. TUBES, LINES AND DEVICES: Intrauterine device in place. CT/Abdomen/Pelvis without Cont IMPRESSION: No acute findings in the abdomen or pelvis. Electronically Signed: Hang Brunson MD at 16:28 EDT ,
[2024-02-23] MEDS: Ceftriaxone 1 GM/50 ML BAG IV (16:25)
[2024-02-23 16:38] VITALS: BP 132/72; PULSE 77; RESP 18; O2SAT 98
[2024-02-23 17:32] VITALS: BP 147/82; PULSE 71; RESP 16; TEMP 36.4; O2SAT 95
== END 2024-02-23 17:35 | disposition home or self-care (01) ==
PROVIDERS: Emergency Provider Emergency Medicine; Visit Provider Emergency Medicine
DX: N10 Acute pyelonephritis (principal); E11.9 Type 2 diabetes mellitus without complications; F17.210 Nicotine dependence, cigarettes, uncomplicated; R03.0 Elevated blood-pressure reading, without diagnosis of hypertension; Z79.84 Long term (current) use of oral hypoglycemic drugs; R35.0 Frequency of micturition
CPT/HCPCS: 74176; 80053; 81001; 83690; 85025; 87086; 87088; 96365; 96375; 99284; J7030; A4216

== ENCOUNTER 2024-02-24 04:21 | Emergency (ER) | payer OTHER, SELFPAY ==
[2024-02-24 04:22] VITALS: BP 180/96; PULSE 82; RESP 18; TEMP 35.6; O2SAT 96; BMI 45.2
[2024-02-24 04:25] VITALS: BP 180/96; PULSE 75; RESP 18; TEMP 35.6; O2SAT 97
--- NOTE | 2024-02-24 04:40 | EDS_ITS ---
HPI History of Present Illness Chief Complaint: Flank Pain Informant: patient Narrative Narrative: Patient is a 53-year-old female who is seen roughly 12 hours ago secondary to right-sided flank/back pain. At that time she was worked up with a noncontrast CT scan as well as basic blood work and a urine sample. Noncontrast CT scan revealed no acute. Blood work revealed no clinically significant findings other than mild leukocytosis and urine showed questionable infection with +2 bacteria but no white blood cells. She was given Rocephin and Toradol in the ER covering her for pyelonephritis and pain relief. According to the vitals in the chart her blood pressure improved with pain control. Patient states that she was unable to get to the pharmacy to start her antibiotics and while at home the pain began to worsen. She states that there was no injury or excessive activity. She denies any loss of bowel or bladder control or IV drug use. However she took [id number] medications without improvement of her pain and therefore returns for repeat evaluation. [facility] Medical History (Updated 02/24/24 @ 04:[address] Ramo Garcia DO) Kidney infection Home Medications ?Medication ?Instructions ?Recorded ?Last Taken ?Type cephalexin 500 mg capsule 500 mg PO Q6 #40 CAPSULES 02/23/24 Unknown Rx metformin 500 mg tablet,extended 500 mg PO DAILY #30 tabs 02/23/24 Unknown Rx release 24 hr oxycodone-acetaminophen 5 mg-325 1 tab PO Q6H PRN pain 3 days #12 02/24/24 Unknown Rx mg tablet (Percocet) tabs Allergy/AdvReac Type Severity Reaction Status Date / Time No Known Allergies Allergy Verified 05/03/18 14:55 Surgical History History of Social History (Updated 02/23/24 @ 15:[address] Rocky Velez MD) household members: none Smoking Status: Current every day smoker tobacco type: cigarettes ROS ROS ED Constitutional Constitutional ED: Denies chills or fever(s) ENT ENT ED: Denies sore throat Cardiovascular Cardiovascular: Denies chest pain Respiratory/Chest Respiratory/Chest: Denies cough or dyspnea Gastrointestinal Gastrointestinal: Denies abdominal pain, diarrhea, nausea or vomiting Genitourinary Genitourinary ED: Reports urinary frequency; Denies dysuria or hematuria Musculoskeletal Musculoskeletal: Reports back pain; Denies myalgias Integumentary Denies rash Neurologic Neurologic: Denies headache(s) or weakness Hematologic/Lymphatic Hematologic/Lymphatic: Denies easy bleeding or easy bruising EXAM Physical Exam Const Vital Signs: 02/24/24 04:22 02/24/24 04:25 Temperature 96.1 F L 96.1 F L Temperature Source Temporal Temporal Pulse Rate 82 75 Respiratory Rate 18 18 Blood Pressure 180/96 H 180/96 H Blood Pressure Mean 124 124 Pulse Ox 96 97 Oxygen Delivery Method Room Air Room Air Positive well nourished, well developed and obese General Appearance ED: well developed; Negative for pallor Nutritional Appearance: obese HEENT HEENT Narrative: Normocephalic atraumatic Eyes PERRL and EOMs intact bilaterally General Eye ED: Negative for scleral icterus Neck supple Neck Narrative: No nuchal rigidity or meningeal signs Resp normal respiratory effort and clear to auscultation bilaterally Cardio regular rate and regular rhythm Rate: other Other Details: Heart is regular rate and rhythm without murmurs rubs or gallops Radial and carotid pulses equal and symmetric GI normal to inspection, nondistended, normoactive bowel sounds, non-tender, non- distended and no masses GI Narrative: No voluntary guarding or rigidity. No pulsatile mass or fluid wave. Negative Hogan sign. No pain with palpation over top McBurney's point. Auscultation: normoactive bowel sounds Palpation: soft Back/Spine Back/Spine Narrative: Mild right CVA pain noted No bony deformity or step-off of the thoracic or lumbar spine no midline tenderness to palpation No saddle anesthesia. Negative straight leg raise. No clonus or Babinski. Patellar reflexes are plus 2 out of 4 bilaterally Extremity normal to inspection Neuro oriented x3, CN's II-XII intact bilaterally and no sensory deficits noted Sensorium / Orientation: alert Motor Exam: strength 5/5 throughout Psych mental status grossly normal Skin no rashes or lesions noted General Skin Exam: Negative for jaundice or pallor MDM MDM MDM Narrative Medical decision making narrative: Patient arrived to the ER hypertensive but chart review reveals that she has been hypertensive previously and that the blood pressure did improve with improvement of pain. She was worked up roughly 12 hours ago with blood work urine sample and noncontrast CT. I discussed with patient the potential of repeating laboratory studies as well as a potential CT scan with IV contrast. However she does not have pain in the right upper quadrant to suggest atypical presentation for biliary colic or acute cholecystitis there is no pain in the midepigastric region going against pancreatitis and there is no pain located in the right lower quadrant going against acute appendicitis. Also her radial and carotid pulses are equal and she does not have a pulsatile mass and therefore my concern for a aortic dissection or aneurysm is low as well. We did discuss to the patient's back pain may not be related to infection but simply related to a anatomical issue such as spinal stenosis or a compressed nerve root from a ruptured disc. However because there is no radiation of the pain down the leg reflexes are equal there is no derangement and strength this is less likely as well. Also there is no overlying soft tissue changes to suggest a skin infection such as shingles or cellulitis or abscess. The patient states that the only reason she is return is that the pain has persisted and she does not want any type of workup but would like pain control. Therefore as the patient was worked up fully roughly 12 hours ago does not want repeat studies done at this time and the only derangement is to her blood pressure with chart review reveals has been elevated in the past I will comply and he will be provided pain medication and discharged home in still recommend outpatient follow-up History & Record Review Discussion w/independent historian: Patient Discharge Plan Triage Chief Complaint: Flank Pain ED Provider: Ramo Garcia Dx/Rx/DC Orders Clinical Impression: Acute bacterial pyelonephritis, New onset type 2 diabetes mellitus, Morbid obesity, Elevated blood-pressure reading without diagnosis of hypertension Instructions: ED Pyelonephritis, Female (Adult) Prescriptions: New oxycodone-acetaminophen [Percocet] 5-325 mg tablet 1 tab PO Q6H PRN (Reason: pain) 3 Days Qty: 12 0RF No Action cephalexin 500 mg capsule 500 mg PO Q6 Qty: 40 0RF Patient Comments: has not picked up from pharmacy yet metformin 500 mg tablet extended release 24 hr 500 mg PO DAILY Qty: 30 0RF Patient Comments: has not picked up from pharmacy yet Primary Care Provider: Care Physician,No Primary Referrals: Shweta Bird DO [Med Staff - Active Staff] - Care Physician,No Primary [Primary Care Provider] - Activity Restrictions/Additional Instructions: Please take your antibiotic as directed. Will typically take 48 to 72 hours for the antibiotic to take effect. Use the prescribed pain medication to help keep pain under control during this time. Follow-up with your family doctor for repeat evaluation and return to the ER should you have any further concerns. Print Language: Hebrew Disposition Disposition: Home, Self Care
[2024-02-24 04:43] VITALS: BP 180/96; PULSE 75; RESP 18; TEMP 35.6; O2SAT 97
[2024-02-24] MEDS: oxyCODONE 5 MG Tablet 10 MG PO (04:47)
== END 2024-02-24 04:49 | disposition home or self-care (01) ==
PROVIDERS: Emergency Provider Emergency Medicine; Visit Provider Emergency Medicine
DX: N10 Acute pyelonephritis (principal); E66.01 Morbid (severe) obesity due to excess calories; E11.9 Type 2 diabetes mellitus without complications; R03.0 Elevated blood-pressure reading, without diagnosis of hypertension; F17.210 Nicotine dependence, cigarettes, uncomplicated
CPT/HCPCS: 99282

== ENCOUNTER 2024-03-01 08:20 | Emergency (ER) | payer OTHER, SELFPAY ==
[2024-03-01 08:20] VITALS: BP 168/91; PULSE 73; RESP 16; TEMP 36.1; O2SAT 97; BMI 44.3
[2024-03-01 08:22] VITALS: BP 163/91; PULSE 73; RESP 16; TEMP 36.1; O2SAT 97
--- NOTE | 2024-03-01 08:57 | EX.ED.DYSGE1 ---
HPI History of Present Illness Chief Complaint: Complaint Informant: patient Narrative Narrative: Presents waxing waning right flank pain radiating to her lower back for the past week. Patient reports was seen a week ago in the ED for her pain symptoms workup including CAT scan. States she was treated for pyelonephritis. She is on Keflex 4 times a day she has been taking this. She is also started on metformin once a day. She is taking with food. Over the last couple days increasing nausea. No vomiting. She only able to take her pills early this morning for Keflex. She is having hot flashes. Denies fever. She has appointment with PCP scheduled for this Thursday. She states per pain she did return to the ED later that evening was prescribed Percocet however she does not like taking them. She denies history of kidney injury or gastric ulcers. Pain does sometimes worse with movement. Denies any dysuria or frequency. After workup initiated, I evaluated records, noncontrast CT scan flank no acute process incidental adenoma up to 2.0 cm with no recommended further workup. No nephrolithiasis noted normal appendix noted. Labs were urine had slight leukocytes and bacteria however culture had contaminated specimen with multiple gram-positive organisms. She was treated for pyelonephritis due to her flank pain symptoms. She had abdominal pain at that time, however no current abdominal pain today. No issues with eating. Prior similar symptoms: No PFSH PFSH Medical History Kidney infection Home Medications ?Medication ?Instructions ?Recorded ?Last Taken ?Type cephalexin 500 mg capsule 500 mg PO Q6 #40 CAPSULES 02/23/24 Unknown Rx metformin 500 mg tablet,extended 500 mg PO DAILY #30 tabs 02/23/24 Unknown Rx release 24 hr oxycodone-acetaminophen 5 mg-325 1 tab PO Q6H PRN pain 3 days #12 02/24/24 Unknown Rx mg tablet (Percocet) tabs ibuprofen 600 mg tablet 600 mg PO Q6H PRN PRN pain #20 03/01/24 Unknown Rx TABLETS ondansetron 4 mg disintegrating 4 mg PO Q8H PRN PRN Nausea #10 tabs 03/01/24 Unknown Rx tablet Allergy/AdvReac Type Severity Reaction Status Date / Time No Known Allergies Allergy Verified 05/03/18 14:55 Surgical History History of Social History household members: none Smoking Status: Current every day smoker tobacco type: cigarettes ROS ROS ED Constitutional Constitutional ED: Denies chills, fever(s) or sweats Eyes Eyes: Denies change in vision ENT ENT ED: Denies dysphagia or sore throat Cardiovascular Cardiovascular: Denies chest pain, leg edema, palpitations or racing heartbeat Respiratory/Chest Respiratory/Chest: Denies cough, dyspnea or dyspnea on exertion Gastrointestinal Gastrointestinal: Denies abdominal pain, diarrhea, nausea or vomiting Genitourinary Genitourinary ED: Denies dysuria, hematuria or urinary frequency Musculoskeletal Musculoskeletal: Reports back pain; Denies extremity pain or neck pain Integumentary Denies rash or wounds Neurologic Neurologic: Denies headache(s), paresthesias or weakness EXAM Physical Exam Const Vital Signs: 03/01/24 08:20 03/01/24 08:22 03/01/24 09:22 Temperature 97.0 F L 97 F L 98.1 F Temperature Source Temporal Temporal Oral Pulse Rate 73 73 74 Respiratory Rate 16 16 15 Blood Pressure 168/91 H 163/91 H 131/69 H Blood Pressure Mean 116 115 89 Pulse Ox 97 97 97 Oxygen Delivery Method Room Air Room Air Room Air 03/01/24 10:00 Temperature 97.5 F L Temperature Source Oral Pulse Rate 69 Respiratory Rate 15 Blood Pressure 125/67 H Blood Pressure Mean 86 Pulse Ox 97 Oxygen Delivery Method Room Air Positive well nourished and well developed General Appearance ED: well developed and NAD HEENT Reports moist mucous membranes normocephalic and atraumatic Eyes EOMs intact bilaterally and conjunctivae normal General Eye ED: Yes normal appearance of both eyes Neck no lymphadenopathy and supple General: Negative for tenderness Chest Wall Chest: Negative for tenderness Resp normal respiratory effort and normal air movement Effort and Inspection: symmetric chest movement; Negative for respiratory distress Cardio regular rate, regular rhythm and no murmurs Peripheral Pulses: pulses 2+ throughout GI normal to inspection, nondistended, normoactive bowel sounds and non-tender GI Narrative: Negative Hogan's or McBurney's tenderness. No rash of the abdomen. Palpation: Negative for guarding or rebound tenderness present Back/Spine no thoracic nor lumbar tenderness Back/Spine Narrative: Tenderness right flank, there is no rash noted. Extremity normal to inspection General Extremety ED: Negative for edema or tenderness General Extremity: Negative for edema Neuro oriented x3 and no sensory deficits noted Sensorium / Orientation: awake and alert Skin no rashes or lesions noted and no wounds MDM MDM MDM Narrative Medical decision making narrative: Interventions / MDM: Differential diagnosis: Musculoskeletal flank pain, electrolyte abnormalities Diagnosis considered but do not suspect: Shingles however no rash. No nephrolithiasis on recent CT for concerns for kidney stones. My EKG interpretation: N/A Imaging independently reviewed and interpreted by myself: N/A External documents reviewed: Recent workup in the ED with image studies. Test considered but not ordered:N/A ED course: Patient nontoxic vital signs stable. Increasing nausea today with persistent pain. Will recheck labs and urine, fluids and IV Toradol ordered. 1015: Symptom proving on reevaluation. Labs are all stable glucose of 227, gap is normal. Urine essentially negative. Patient pain symptoms that did not fully improve with her antibiotics, lower suspicion for pyelonephritis at this time. Discussed this with the patient. However she has 3 more days of antibiotics that she will finish as she is being treated. Prescription for ibuprofen as she did not like the opiates. Zofran also given for symptom control. She has a follow-up in 3 days with primary care office she will keep this appointment. In addition I reviewed the imaging from 6 days ago, did not appreciate any spinal issues especially at T10 region for any etiologies from this. At this time do not feel repeat imaging's are necessary. She is able to ambulate. All questions were answered. Re-evaluation: stable Disposition discussed with patient/family/significant other: Patient Case discussed with consulting clinician: N/A This note was generated with Inuvo dictation software. It may contain incorrect words, spelling, and punctuation that were not noted in checking the note before signing. Lab Data Attestation: I reviewed the patient's lab results. Labs: Laboratory Results - last 24 hr 03/01/24 03/01/24 08:50 09:37 WBC 7.7 RBC 5.01 Hgb 14.2 Hct 44.5 MCV 88.8 MCH 28.3 MCHC 31.9 L RDW Std Deviation 44.8 H RDW Coeff of Bong 13.7 Plt Count 335 MPV 10.5 Immature Gran % (Auto) 0.300 Neut % (Auto) 62.9 Lymph % (Auto) 28.1 [place] % (Auto) 5.2 Eos % (Auto) 2.6 Baso % (Auto) 0.9 Absolute Neuts (auto) 4.9 Absolute Lymphs (auto) 2.17 Nucleated RBC % 0 Sodium 139 Potassium 4.0 Chloride 107 Carbon Dioxide 26.0 Anion Gap 6 BUN 10 Creatinine 0.67 Estim Creat Clear Calc 115.08 Est GFR (MDRD) Af Amer 117 Est GFR (MDRD) Non-Af 97 BUN/Creatinine Ratio 14.9 Glucose 227 H Calcium 9.1 Urine Color Yellow Urine Clarity Clear Urine pH 5.0 Ur Specific [place] 1.025 Urine Protein Negative Urine Glucose (UA) 250 H Urine Ketones Negative Urine Occult Blood Negative Urine Nitrite Negative Urine Bilirubin Negative Urine Urobilinogen Normal Ur Leukocyte Esterase Negative Urine RBC 0 SEEN Urine WBC 0-5 SEEN Ur Squamous Epith Cells 0-5 SEEN Ur Transition Epith Cell 0 SEEN Amorphous Sediment 1+ Urine Bacteria 1+ Urine Mucus 1+ Discharge Plan Triage Chief Complaint: Complaint ED Provider: Santi Reyes Dx/Rx/DC Orders Clinical Impression: Right flank pain, Nausea, Hyperglycemia Instructions: ED Flank Pain, Uncertain Cause Prescriptions: New ibuprofen 600 mg tablet 600 mg PO Q6H PRN PRN (Reason: pain) Qty: 20 0RF ondansetron 4 mg tablet,disintegrating 4 mg PO Q8H PRN PRN (Reason: Nausea) Qty: 10 0RF No Action cephalexin 500 mg capsule 500 mg PO Q6 Qty: 40 0RF Patient Comments: has not picked up from pharmacy yet metformin 500 mg tablet extended release 24 hr 500 mg PO DAILY Qty: 30 0RF Patient Comments: has not picked up from pharmacy yet oxycodone-acetaminophen [Percocet] 5-325 mg tablet 1 tab PO Q6H PRN (Reason: pain) 3 Days Qty: 12 0RF Primary Care Provider: Care Physician,No Primary Referrals: Care Physician,No Primary [Primary Care Provider] - Activity Restrictions/Additional Instructions: Your labs are stable urine without infection glucose 222. Finish your antibiotic, use Motrin. Zofran as needed. Keep your follow-up in 3 days. Print Language: Malian Disposition Disposition: Home, Self Care
[2024-03-01] MEDS: 0.9% Normal Saline (500mL Bag) 500 ML 1000 ML IV (08:59)
[2024-03-01] MEDS: Ketorolac 15 MG/ML Vial IV (08:59)
[2024-03-01] MEDS: Ondansetron 4 MG/2 ML Vial IV (09:01)
[2024-03-01 09:03] LABS: Absolute Lymphocyte Count 2.17 X10^3/uL (0.83-4.51); Absolute Neutrophil Count 4.9 X10^3/uL (2.0-7.7); Basophil# 0.07 X10^3/uL; Basophil% 0.9 % (0-1); Eosinophils% 2.6 % (0-5); Hematocrit 44.5 % (37-47); Hemoglobin 14.2 g/dL (12.0-15.0); Lymphocyte # 2.17 X10^3/ul (0.83-4.51); Lymphocyte % 28.1 % (19-41); Mean Corp Hgb Conc 31.9 g/dL (32-36); Mean Corpuscular Hgb 28.3 pg (27.0-32.0); Mean Corpuscular Volume 88.8 fL (81-99); Mean Platelet Vol. 10.5 fl (6.2-12.0); Monocyte% 5.2 % (0-10); NRBC Flagged by Analyzer 0 % (0-5); Neutrophil # 4.85 X10^3/uL (2.7-7.7); Neutrophil % 62.9 % (47-70); Platelet Count 335 K/mm3 (150-450); RBC Distribution Width CV 13.7 % (11.6-14.6); RBC Distribution Width SD 44.8 fl (35.1-43.9); Red Blood Count 5.01 M/mm3 (4.2-5.4); White Blood Count 7.7 K/mm3 (4.4-11.0)
[2024-03-01 09:22] VITALS: BP 131/69; PULSE 74; RESP 15; TEMP 36.7; O2SAT 97
[2024-03-01 09:22] LABS: Anion Gap 6 (5-15); BUN 10 mg/dL (7-18); BUN/Creat Ratio 14.9 RATIO (10-20); Calcium,Total 9.1 mg/dL (8.5-10.1); Chloride 107 mmol/L (98-107); Creatinine, Serum 0.67 mg/dL (0.55-1.02); EST Glomerular Filtration Rate 97 mL/min (>60); Est Glom Filt Rate - Afr Amer 117 mL/min (>60); Estimated Creatinine Clearance 115.08 ml/min; Glucose 227 mg/dL (74-106); Sodium Level 139 mmol/L (136-145)
[2024-03-01 09:42] LABS: Red Blood Cells-Urine 0 SEEN /hpf (0-5)
[2024-03-01 09:49] LABS: Color, Urine Yellow (Yellow); Glucose, Dipstick 250 mg/dl (Normal); Ketone-Dipstick Negative (Negative); Leukocyte Esterase-Dipstick Negative /ul (Negative); Nitrite-Dipstick Negative (Negative); Occult Blood-Urine Negative /ul (Negative); Protein-Dipstick Negative (Negative); Specific Gravity, Urine 1.025 (1.002-1.030); Urine Bilirubin Dipstick Negative (Negative); Urine Clarity Clear (Clear); Urine Urobilinogen Normal (Normal)
[2024-03-01 09:56] LABS: Bacteria 1+ /hpf (None Seen); Mucous, Urine 1+ /hpf (<or=2+)
[2024-03-01 09:57] LABS: Squamous Epithelial Cells - UA 0-5 SEEN /hpf (5-10); Transitional Epithelial - Ur 0 SEEN /hpf (0-5); White Blood Cells 0-5 SEEN /hpf (0-5)
[2024-03-01 09:58] LABS: Amorphous Sediment 1+
[2024-03-01 10:00] VITALS: BP 125/67; PULSE 69; RESP 15; TEMP 36.4; O2SAT 97
[2024-03-01 10:17] VITALS: BP 124/69; PULSE 75; RESP 16; TEMP 36.2; O2SAT 99
== END 2024-03-01 10:19 | disposition home or self-care (01) ==
PROVIDERS: Emergency Provider Emergency Medicine; Visit Provider Emergency Medicine
DX: R10.9 Unspecified abdominal pain (principal); R11.0 Nausea; R73.9 Hyperglycemia, unspecified; F17.210 Nicotine dependence, cigarettes, uncomplicated
CPT/HCPCS: 80048; 81001; 85025; 96361; 96374; 96375; 99283; J7040; A4216; J2405

== ENCOUNTER → 2024-04-01 | Outpatient (CLI) | payer OTHER, SELFPAY ==
--- NOTE | 2024-04-01 08:19 | BI_ITS ---
MAMMOGRAPHY - BILATERAL SCREENING REASON FOR EXAM: Female, 53 years old. Routine annual screening examination. PERTINENT HISTORY: Non-contributory. TECHNIQUE: Digital bilateral breast [place] (3D mammographic acquisition) in the CC and MLO projections. 2-D mediolateral oblique (MLO) and craniocaudad (CC) views of both breasts were obtained. CAD: Full Field Digital Mammography with Computer Added Detection was performed. COMPARISON: Comparison is made with prior outside examination of September 06, 2018. FINDINGS: Breast Composition: The breasts are almost entirely fatty. There are no dominant masses or suspicious calcifications. Bilateral axillary lymph nodes. No other significant abnormalities are identified. There has been no significant change since the prior study. BI/SCRN MAMM (CAD)W/[place] BILAT IMPRESSION: Stable bilateral screening mammogram. Yearly follow-up mammogram recommended. (A) ASSESSMENT CATEGORY: BIRADS Category 2: Benign. A letter regarding these results will be sent to the patient by the facility within 30 days. Approximately 10% of breast cancers are not detected by mammography. A normal mammogram should not delay biopsy of a clinically suspicious abnormality. [id number] Electronically Signed: Addison Tate MD at 8:26 EDT ,
== END | disposition home or self-care (01) ==
LOC: OPBI 08:18
PROVIDERS: PCP Nurse Practitioner Family; Referring Provider Nurse Practitioner Family; Visit Provider Nurse Practitioner Family
DX: Z12.31 Encounter for screening mammogram for malignant neoplasm of breast (principal)
CPT/HCPCS: 77063; 77067

== ENCOUNTER 2024-04-15 07:04 | Day surgery (SDC) | payer OTHER, SELFPAY ==
[2024-04-15] VITALS (10 sets, daily range): BP systolic 80–145; BP diastolic 39–80; PULSE 68–87; RESP 16–18; TEMP 36.1; O2SAT 92–97; BMI 43.4
[2024-04-15] MEDS: Lactated Ringers 1,000 ML 15 ML IV (07:21)
--- NOTE | 2024-04-15 07:33 | PRE.ANES_ITS ---
ASA Classification* ASA Classification ASA Classification: 3 Assessment & Plan Anesthesia* Anesthesia Assessment Anesthesia Assessment: Discussed sedation and/or anesthesia options, risks, benefits, and alternatives with patient/parents/legal guardian/POA. Questions invited. The patient/parents/legal guardian/POA seems to understand and agrees to proceed with anesthesia plan. Reviewed the physical assessment, medical history, allergy history and patient home medications list prior to surgery/procedure/anesthetic and documented any changes. Performed airway and anesthesia risk assessments. Anesthesia Type Anesthesia Type: MAC (see written pre anesthesia record for full assessment) Anesthesia Focused Assessment* Temperature: 96.9 F Pulse Rate: 87 Blood Pressure: 145/71 Respiratory Rate: 18 Pulse Ox: 97 Airway Assessment Mouth opens: >3 cm Mallampati Score: II Focused Labs Anesthesia Preop lab: CBC WBC 7.7 K/mm3 (4.4-11.0) 03/01/24 08:50 RBC 5.01 M/mm3 (4.2-5.4) 03/01/24 08:50 Hgb 14.2 g/dL (12.0-15.0) 03/01/24 08:50 Hct 44.5 % (37-47) 03/01/24 08:50 Plt Count 335 K/mm3 (150-450) 03/01/24 08:50 CHEMISTRY Potassium 4.0 mmol/L (3.5-5.1) 03/01/24 08:50 Sodium 139 mmol/L (136-145) 03/01/24 08:50 BUN 10 mg/dL (7-18) 03/01/24 08:50 Creatinine 0.67 mg/dL (0.55-1.02) 03/01/24 08:50 Glucose 227 mg/dL (74-106) H 03/01/24 08:50 COAG PT 13.4 SECONDS (11.7-14.9) 05/04/18 04:00 Pre-Assessment Diagnosis/Proposed Procedure Planned Operative Procedure(s): CSCOPE Anesthesia History Anesthesia History - auto servicer: Anesthesia History - auto servicer Hx Hospitalization No 04/12/24 13:28 Any Problems With Anesthesia No 04/12/24 13:28 Cholinesterase deficiency No 04/12/24 13:28 You/Your Family Experience No 04/12/24 13:28 fever (hyperthermia) with Relationship Recent Exposure to Contagious No 04/15/24 07:23 Disease Does patient have nerve No 04/12/24 13:28 stimulator Patient instructed to have device shut off --Does patient have Pacemaker No 04/15/24 07:23 or ICD? When Was Last Pacemaker Check QUESTION #4 FULL TEXT: You/Your Family Experience fever (hyperthermia) with Anesthesia Last Oral Intake Last Oral intake: Last Oral Intake NPO since 04:00 04/15/24 07:23 Meds taken in AM with sips of No 04/15/24 07:23 water? Meds patient instructed to take am of surgery PONV PONV - auto servicer: PONV - auto servicer Female Yes 04/12/24 13:28 HX of Motion Sickness No 04/12/24 13:28 HX of N/V After Surgery No 04/12/24 13:28 Non-Smoker No 04/12/24 13:28 Duration of Surgery greater Yes 04/12/24 13:28 than 60 minutes Number of Risk Factors 2 04/12/24 13:28 PONV Score Moderate Risk 04/12/24 13:28 Height & Weight Height & Weight: Anesthesia: Height & Weight Height 5 ft 3 in 04/15/24 07:23 Weight: 111.13 kg 04/15/24 07:23 Body Mass Index (BMI) 43.4 04/15/24 07:23 Respiratory Assessment Respiratory Assessment - auto servicer: Respiratory Tract Infection Hx - auto servicer Hx Respiratory Tract Infection No 04/12/24 13:28 STOP Sleep Apnea STOP Sleep Apnea - auto servicer: STOP Sleep Apnea - auto servicer Hx Hypertension No: CURRENTLY BEING LOOKED 04/12/24 13:28 AT BY PCP Hx Sleep Apnea No 04/12/24 13:28 CPAP BIPAP Do you snore loudly (louder Yes 04/12/24 13:28 than talking or can be heard Do you often feel tired/ No 04/12/24 13:28 fatigued/ sleepy during daytime? Has anyone observed you stop No 04/12/24 13:28 breathing during sleep? STOP Results Negative 04/12/24 13:28 QUESTION #5 FULL TEXT : Do you snore loudly (louder than talking or can be heard through closed doors)? Tobacco Use History Tobacco Use History - auto servicer: Tobacco Use History - auto servicer Tobacco Use Smoking Status Current every day smoker 04/12/24 13:28 Hx Tobacco Use Yes 04/12/24 13:28 Years Smoking 20 04/12/24 13:28 Packs Smoked per Day 1 04/12/24 13:28 Smoking Cessation Date was within the last 15 years Hx Smoking Cessation Date Hx Smoking Cessation No 04/12/24 13:28 Counseling Hematologic Medial History Hematologic Hx - auto servicer: Hematologic Medical Hx - physician pediatrician Hx of Blood Transfusion No 04/12/24 13:28 Hx of Transfusion in last 3 No 04/12/24 13:28 Months Date of Last Transfusion (if within last 3 months) Ever experience any problems No 04/12/24 13:28 with transfusion(s)? Specify any problems Hx of Preganancy in last 3 N/A 04/12/24 13:28 Months Nurse Filling Out Transfusion NBUCHER 04/12/24 13:28 & Questions: Date: 04/12/24 04/12/24 13:28 Time: 13:30 04/12/24 13:28 Patient unable to answer at this time (ie. confused, unrespo /Reproduction History /Reproductive History - auto servicer: /Reproductive Hx- auto servicer Hx Now No 04/12/24 13:28 Gestational Age (in weeks): EDC: Hx Hx Para Hx Section SAB No 04/12/24 13:28 Active Medications Active Medications: Current Medications Generic Name Dose Route Start Last Admin Trade Name Freq PRN Reason Stop Dose Admin Lactated Ringer's 1,000 mls @ 15 mls/hr 04/15/24 07:15 04/15/24 07:21 IV 15 mls/hr .Q48H MIGUEL ANGEL Administration PFSH Medical History Wears glasses Heartburn Gastric reflux History of edema History of echocardiogram History of stress test Smoker Headache, migraine Type 2 diabetes mellitus Kidney infection Home Medications ?Medication ?Instructions ?Recorded ?Last Taken ?Type metformin 500 mg tablet,extended 500 mg PO BID 04/01/24 04/13/24 History release 24 hr Allergy/AdvReac Type Severity Reaction Status Date / Time No Known Allergies Allergy Verified 04/15/24 07:22 Family History Father Diabetes Heart disease Mother COPD (chronic obstructive pulmonary disease) Surgical History History of tubal ligation (~1995) History of (~1989) Social History household members: none current occupational status: employed current occupation: [employer] Smoking Status: Current every day smoker tobacco type: cigarettes substance use type: does not use Review of Systems (Anesthesia) ROS Narrative System reviewed and no additional complaints, except as documented.
--- NOTE | 2024-04-15 07:42 | HP.PCM_ITS ---
HPI - General General Date of Admission: 04/15/24 Date of Service: 04/15/24 HPI Narrative SIDDHARTH MARVIN, is a 53 F who presents for screening colonoscopy no prior no sympotoms no family h/o PFSH Medical History Wears glasses Heartburn Gastric reflux History of edema History of echocardiogram History of stress test Smoker Headache, migraine Type 2 diabetes mellitus Kidney infection Home Medications ?Medication ?Instructions ?Recorded ?Last Taken ?Type metformin 500 mg tablet,extended 500 mg PO BID 04/01/24 04/13/24 History release 24 hr Allergy/AdvReac Type Severity Reaction Status Date / Time No Known Allergies Allergy Verified 04/15/24 07:22 Family History Father Diabetes Heart disease Mother COPD (chronic obstructive pulmonary disease) Surgical History History of tubal ligation (~1995) History of (~1989) Social History household members: none current occupational status: employed 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 Smoking Status: Current every day smoker tobacco type: cigarettes substance use type: does not use ROS Constitutional Constitutional: Reports systems reviewed and no addt'l complaints, except as documented Vital Signs Vital Signs Vital Signs: 04/15/24 07:23 04/15/24 07:23 04/15/24 07:33 Temperature 96.9 F L 96.9 F L Temperature Source Temporal Pulse Rate 87 87 Respiratory Rate 18 18 Respiratory Pattern Normal Blood Pressure 145/71 H 145/71 H Blood Pressure Mean 95 Blood Pressure Source Monitor Blood Pressure Position Semi-Fowlers Blood Pressure Location Left Arm Pulse Ox 97 97 Oxygen Delivery Method Room Air Weight Weight: 245 lb Body Mass Index (BMI) 43.4 Physical Exam Const General Appearance: cooperative and comfortable Orientation / Consciousness: awake, oriented to person and oriented to place HEENT Head and Scalp: normal to inspection Chest Chest: symmetrical chest wall rise Resp Effort and Inspection: able to speak in complete sentences Cardio regular rate and regular rhythm Assessment & Plan Assessment/Plan (1) Encounter for screening for malignant neoplasm of colon: PLAN: Plan colonoscopy today Charges/Coding Visit Charges Inpatient E&M: 76429 Init Hosp L2
[2024-04-15 07:51] LABS: Bedside Glucose 169 mg/dL (74-106)
--- NOTE | 2024-04-15 08:42 | OP.CCLET_ITS ---
04/15/2024 Emeka Andino Re : Colonoscopy procedure for Aletha Hubbard Dear Caleb This procedure was performed on Monday, April 15, 2024. My impressions and recommendations are as follows: Impressions : - Preparation of the colon was fair. - The entire examined colon is normal on direct and retroflexion views. - No specimens collected. Recommendations : - Discharge patient to home (ambulatory). - High fiber diet. - Repeat colonoscopy in 10 years for screening purposes. - Return to my office PRN. - Continue present medications. My findings are described in the full procedure note, which is enclosed. If I can be of further assistance, please feel free to contact me at . Sincerely, Antonio Rios MD 04/15/2024 8:41:41 AM This report has been signed electronically.
--- NOTE | 2024-04-15 08:42 | OP.COLON_ITS ---
Patient Name: Aletha Hubbard Procedure Date: 04/15/2024 7:41 AM Date of : 1970 Age: 53 Procedure: Colonoscopy Indications: Screening for colorectal malignant neoplasm Providers: Antonio Rios MD Referring MD: Emeka Andino Medicines: Propofol per Anesthesia Patient Profile: Refer to note in patient chart for documentation of history and physical. Last Colonoscopy: none. The patient's first colonoscopy is today. Complications: No immediate complications. Estimated blood loss: None. Procedure: Pre-Anesthesia Assessment: - Prior to the procedure, a History and Physical was performed, and patient medications and allergies were reviewed. The patient's tolerance of previous anesthesia was also reviewed. The risks and benefits of the procedure and the sedation options and risks were discussed with the patient. All questions were answered, and informed consent was obtained. Prior Anticoagulants: The patient has taken no anticoagulant or antiplatelet agents. ASA Grade Assessment: II - A patient with mild systemic disease. After reviewing the risks and benefits, the patient was deemed in satisfactory condition to undergo the procedure. After I obtained informed consent, the scope was passed under direct vision. Throughout the procedure, the patient's blood pressure, pulse, and oxygen saturations were monitored continuously. The colonoscope was introduced through the anus and advanced to the cecum, identified by the appendiceal orifice, ileocecal valve and palpation. The ileocecal valve, appendiceal orifice, and rectum were photographed. The entire colon was well visualized. The colonoscopy was performed without difficulty. The patient tolerated the procedure well. The quality of the bowel preparation was fair. Moderate Sedation: See the other procedure note for documentation of moderate sedation with intraservice time. Scope In: 7:57:06 AM Scope Withdrawal Time 0 hours 8 minutes 7 seconds Scope Out: 8:30:01 AM Total Procedure Duration Time 0 hours 32 minutes 55 seconds Findings: The perianal and digital rectal examinations were normal. The entire examined colon appeared normal on direct and retroflexion views. Impression: - Preparation of the colon was fair. - The entire examined colon is normal on direct and retroflexion views. - No specimens collected. Recommendation: - Discharge patient to home (ambulatory). - High fiber diet. - Repeat colonoscopy in 10 years for screening purposes. - Return to my office PRN. - Continue present medications. Procedure Code(s): --- Professional --- 97778, Colonoscopy, flexible; diagnostic, including collection of specimen(s) by brushing or washing, when performed (separate procedure) Diagnosis Code(s): --- Professional --- Z12.11, Encounter for screening for malignant neoplasm of colon CPT copyright 2021 [employer]. All rights reserved. The codes documented in this report are preliminary and upon emergency vehicle dispatcher review may be revised to meet current compliance requirements. Antonio Rios MD 04/15/2024 8:41:41 AM This report has been signed electronically. Number of Addenda: 0 Note Initiated On: 04/15/2024 7:41 AM
--- NOTE | 2024-04-15 08:43 | PCM.POST.ANE ---
Anesthesia: Postop Eval I Current Vital Signs Temperature: 97 F Pulse Rate: 79 Blood Pressure: 108/80 Respiratory Rate: 16 Pulse Ox: 97 Oxygen Delivery Method: Room Air Assessment Airway patent: Yes Spontaneous unlabored respirations: Yes Mental status: Awake and Calm nausea: No Vomiting: No Anesthesia Complication: No Fluid Hydration Crystalloid volume administer (ml): 800 Total IV fluid infused: 800 Progress Note Anesthesia document: Postop Eval 1 completed: Yes
--- NOTE | 2024-04-15 08:58 | PCM.POSTANE2 ---
Anesthesia Postop Eval I Sum Postop Eval Completion status Anesthesia document: Postop Eval 1 completed: Yes Anesthesia Postop Eval I Summary Anesthesia Postop Eval I Summary: Anesthesia Postop Eval I: Assessment Summary Airway patent Yes 04/15/24 08:44 [email or web address] Spontaneous unlabored Yes 04/15/24 08:44 [email or web address] respirations Mental status Awake,Calm 04/15/24 08:44 [email or web address] nausea No 04/15/24 08:44 [email or web address] Vomiting No 04/15/24 08:44 [email or web address] Anesthesia Postop Eval I: Fluid Summary Crystalloid volume administer 800 04/15/24 08:44 [email or web address] (ml) Colloids volume administered ( ml) Blood Product volume administered (ml) Total IV fluid infused 800 04/15/24 08:44 [email or web address] Anesthesia Postop Eval I: Summary Notes Anesthesia Complication No 04/15/24 08:44 [email or web address] Anesthesia Complication Comment: Post-operative progress note Anesthesia: Postop Eval II Evaluation Mental status: Awake Pain Level: 0 nausea: No Vomiting: No
== END 2024-04-15 09:37 | disposition home or self-care (01) ==
LOC: EN 07:06 → AC 07:07
PROVIDERS: PCP Nurse Practitioner Family; Referring Provider Nurse Practitioner Family; Visit Provider Surgery
PROC: 0DJD8ZZ Inspection of Lower Intestinal Tract, Via Natural or Artificial Opening Endoscopic (ICD-10-PCS; CPT 45378; principal; 2024-04-15 08:10)
DX: Z12.11 Encounter for screening for malignant neoplasm of colon (principal); E11.9 Type 2 diabetes mellitus without complications; Z79.84 Long term (current) use of oral hypoglycemic drugs; F17.210 Nicotine dependence, cigarettes, uncomplicated; K21.9 Gastro-esophageal reflux disease without esophagitis
CPT/HCPCS: 45378; 82962; J7120; J2405

== ENCOUNTER → 2024-04-19 | Outpatient (CLI) | payer OTHER, SELFPAY ==
--- NOTE | 2024-04-19 12:55 | CT_ITS ---
STUDY: LOW DOSE CT LUNG CANCER SCREENING REASON FOR EXAM: Female, 53 years old. Lung cancer screening -- and gt;30 pk yr hx;current smoker; asymptomatic RADIATION DOSAGE (If Supplied By Facility): CTDIvol = ( 4.02 ) mGy, DLP = ( 140.94 ) mGycm TECHNIQUE: No contrast was administered. Low dose technique was utilized (average mAS-38 and kVp 120). 1.25 mm axial source images with a slice interval of 1.25-mm were reconstructed in lung windows. 2.5 mm axial source images with a slice interval of 2.5-mm were reconstructed in lung windows. 5.0 mm axial source images with a slice interval of 5.0-mm were reconstructed in soft tissue windows. COMPARISON: None. NODULES: No suspicious nodules are seen. Emphysema: No significant emphysematous changes. Endobronchial lesion: None Aorta: Minimal atherosclerotic calcification of the aortic arch. CORONARY ARTERIES: Coronary artery calcification is seen. Heart: Unremarkable Pulmonary artery: Unremarkable Mediastinal nodes: Unremarkable Other chest and abdominal findings: CT/Low Dose CT Lung Screening IMPRESSION: Lung-RADS category 2 - Continue annual screening with LDCT in 12 months. IMPORTANT NOTES FOR USE: ACR Lung-RADS Version 1.1 Assessment Categories Release Date: 2018 Category: Coded 0-4 bases on nodule(s) with highest degree of suspicion. Negative screen is defined as categories 1 and 2; a positive screen is defined as categories 3 and 4. Category 3 and 4A nodules that are unchanged on interval CT should be coded as category 2, and individuals returned to screening in 12 months. Category 4X: Category 3 or 4 nodules with additional imaging findings that increase the suspicion of lung cancer, such as spiculation, GGN that doubles in size in 1 year, enlarged lymph notes, etc. Category Modifiers: S (significant finding unrelated to lung cancer) Electronically Signed: Addison Tate MD at 13:48 EDT ,
== END | disposition home or self-care (01) ==
LOC: CT 12:54
PROVIDERS: PCP Nurse Practitioner Family; Referring Provider Nurse Practitioner Family; Visit Provider Nurse Practitioner Family
DX: Z12.2 Encounter for screening for malignant neoplasm of respiratory organs (principal); Z87.891 Personal history of nicotine dependence
CPT/HCPCS: 71271

== ENCOUNTER 2024-04-29 10:24 | Emergency (ER) | payer OTHER, SELFPAY ==
[2024-04-29 10:25] VITALS: BP 172/100; PULSE 81; RESP 16; TEMP 36.3; O2SAT 97; BMI 44.2
--- NOTE | 2024-04-29 11:42 | EX.ED.DYSGE1 ---
HPI <GRIFFIN Deutsch - Last Filed: 04/29/24 12:01> History of Present Illness Chief Complaint: Rash Narrative Narrative: Patient is a 53-year-old female with complaints of diabetes who presents to the emergency department for rash, itching to the neck, bilateral arms and face. 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 Patient states she does start itching, she denies any shortness of breath, fever chills nausea or vomiting. Patient states that this scared her if she was itching and is here for evaluation. [facility] <GRIFFIN Deutsch - Last Filed: 04/29/24 12:01> [facility] Medical History (Updated 04/29/24 @ 11:45 by GRIFFIN Deutsch) Tobacco use disorder, continuous Encounter for screening for malignant neoplasm of lung Wears glasses Heartburn Gastric reflux History of edema History of echocardiogram History of stress test Smoker Headache, migraine Type 2 diabetes mellitus Kidney infection Home Medications ?Medication ?Instructions ?Recorded ?Last Taken ?Type metformin 500 mg tablet,extended 500 mg PO BID 04/01/24 04/13/24 History release 24 hr amoxicillin 500 mg capsule 500 mg PO TID 04/19/24 Unknown History prednisone 50 mg tablet 50 mg PO DAILY #5 tabs 04/29/24 Unknown Rx Allergy/AdvReac Type Severity Reaction Status Date / Time No Known Allergies Allergy Verified 04/29/24 10:27 Family History Father Diabetes Heart disease Mother COPD (chronic obstructive pulmonary disease) Surgical History History of tubal ligation (~1995) History of (~1989) Social History household members: none current occupational status: employed 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 Smoking Status: Current every day smoker tobacco type: cigarettes substance use type: does not use ROS <GRIFFIN Deutsch - Last Filed: 04/29/24 12:01> ROS ED ROS Narrative Constitutional: Negative for fever, chills, weight loss, weakness Eyes: Negative for vision loss, vision change, double vision ENT: Negative for any sore throat, ear pain, congestion Cardiovascular: Negative for any chest pain, tightness, palpitations Respiratory: Negative for any cough, sputum production, hemoptysis, dyspnea, dyspnea on exertion, orthopnea Gastrointestinal: Negative for any abdominal pain, nausea, vomiting, diarrhea, constipation, blood in stool, blood in vomit : Negative for any urinary frequency, dysuria, retention, blood in urine Muscle skeletal: Negative for any neck pain, back pain Neurological: Negative for any headache, syncope, dizziness Skin: Negative for any abrasions, lacerations. Positive for itching, rash Psychiatric: Negative for any depression, anxiety, stress, suicidal ideation, homicidal ideation Hematologic: Negative for any excessive bruising, easy bleeding EXAM <GRIFFIN Deutsch - Last Filed: 04/29/24 12:01> Physical Exam Narrative Exam Narrative: Vital signs reviewed. HEET: Head normocephalic atraumatic, TMs clear bilaterally. Posterior pharynx is clear, moist mucous membranes. Nares clear bilaterally. Neck: Supple with no lymphadenopathy or tenderness. No signs of meningismus. No angioedema. Speaking without difficulty, no stridor Cardiac: Regular rate and rhythm no murmurs gallops or rubs, equal peripheral pulses bilaterally. Respiratory: Lungs clear to auscultation bilaterally. No chest tenderness. Abdomen: Soft, nontender, nondistended. No abdominal bruit or pulsatile masses. No hepatosplenomegaly Extremities: No peripheral edema, no signs of gross trauma or deformity. Active full range of motion of all extremities. Neuro: Cranial nerves II through XII intact, no focal neurological deficits. Skin: Clean dry and intact with no rash, purpura, petechiae, vesicles or pustules. Patient does have hives to the back of her neck, both arms, left side of neck and face. Backs/flank: No CVA tenderness, no midline spinal tenderness, no deformity. Psych: Normal mood and affect. No SI, HI or acute psychosis. Const Vital Signs: 04/29/24 10:25 Temperature 97.4 F L Temperature Source Oral Pulse Rate 81 Respiratory Rate 16 Blood Pressure 172/100 H Blood Pressure Mean 124 Pulse Ox 97 Oxygen Delivery Method Room Air <Dr. Orlando Knight DO - Last Filed: 04/29/24 12:02> Physical Exam Const Vital Signs: 04/29/24 10:25 Temperature 97.4 F L Temperature Source Oral Pulse Rate 81 Respiratory Rate 16 Blood Pressure 172/100 H Blood Pressure Mean 124 Pulse Ox 97 Oxygen Delivery Method Room Air [facility] [place] <GRIFFIN Deutsch - Last Filed: 04/29/24 12:01> [facility] [place] Treatment and Re-Evaluation :: Differential diagnosis includes however is not limited to: Contact dermatitis, allergic rhinitis, cellulitis, urticaria. Patient appears generally well, vital signs are stable, patient is nontoxic-appearing. Presenting to the emergency department with complaints of itching, hives to both her arms, neck, face. Patient will be given oral Benadryl here, as well as oral prednisone. Patient placed on prednisone burst. Instructed to check her sugars regularly. All questions answered, instructed return for any worsening symptoms. Stable for discharge. <Dr. Orlando Knight DO - Last Filed: 04/29/24 12:02> [facility] [place] Treatment and Re-Evaluation :: Differential diagnosis includes however is not limited to: Contact dermatitis, allergic rhinitis, cellulitis, urticaria. Patient appears generally well, vital signs are stable, patient is nontoxic-appearing. Presenting to the emergency department with complaints of itching, hives to both her arms, neck, face. Patient will be given oral Benadryl here, as well as oral prednisone. Patient placed on prednisone burst. Instructed to check her sugars regularly. All questions answered, instructed return for any worsening symptoms. Stable for discharge. I have personally performed a face to face assessment of the patient and have reviewed the HOWARD Note. I performed a substantive portion of the visit including all aspects of the following. My barriga findings include: History is 53-year-old female presenting to the emergency room with hives. Patient denies any usual changes in soaps lotions detergents. She denies any recent illnesses. No diarrhea shortness of breath tongue swelling change in voice. She notes some hives on her arms and neck. Patient is a diabetic Exam is there are obvious hives to the back of the neck and bilateral AC regions. There is no uvular swelling tongue swelling. Lung sounds are clear and equal. She clinically appears well. Medical Decison Making patient was given Benadryl and prednisone. She will continue these at home. She will monitor for any worsening symptoms return if needed. No clear offending cause is noted at this time Discharge Plan Triage Chief Complaint: Rash ED Midlevel Provider: Avinash John ED Provider: Orlando Knight Dx/Rx/DC Orders Clinical Impression: Urticaria Instructions: Understanding Hives (Urticaria), ED Hives (Adult) Prescriptions: New prednisone 50 mg tablet 50 mg PO DAILY Qty: 5 0RF No Action metformin 500 mg tablet extended release 24 hr 500 mg PO BID amoxicillin 500 mg capsule 500 mg PO TID Rx Instructions: x7days Primary Care Provider: Raya Ellis Referrals: Raya Ellis, TEST CELL TECHNICIAN-C [Primary Care Provider] - Activity Restrictions/Additional Instructions: He may use 25 mg Benadryl for the itching, this does cause tiredness. Take the prednisone for the next 5 days in the morning. Print Language: New Zealander Disposition Disposition: Home, Self Care
[2024-04-29] MEDS: predniSONE 20 MG Tablet 60 MG PO (11:44)
[2024-04-29] MEDS: DiphenhydrAMINE 25 MG Capsule PO (11:44)
[2024-04-29 12:19] VITALS: BP 146/73; PULSE 90; RESP 16; TEMP 36.8; O2SAT 99
== END 2024-04-29 12:20 | disposition home or self-care (01) ==
PROVIDERS: Emergency Provider Emergency Medicine; PCP Nurse Practitioner Family; Visit Provider Emergency Medicine
DX: L50.9 Urticaria, unspecified (principal); E11.9 Type 2 diabetes mellitus without complications; F17.210 Nicotine dependence, cigarettes, uncomplicated; K21.9 Gastro-esophageal reflux disease without esophagitis
CPT/HCPCS: 99283

== ENCOUNTER 2024-04-30 19:36 | Emergency (ER) | payer OTHER, SELFPAY ==
[2024-04-30 19:36] VITALS: BP 157/87; PULSE 88; RESP 17; TEMP 36.1; O2SAT 96; BMI 43.9
--- NOTE | 2024-04-30 19:47 | EDS_ITS ---
HPI History of Present Illness Chief Complaint: Allergic Reaction [facility] Medical History (Updated 04/30/24 @ 22:[address] Blair Lopez, DO) Tobacco use disorder, continuous Encounter for screening for malignant neoplasm of lung Wears glasses Heartburn Gastric reflux History of edema History of echocardiogram History of stress test Smoker Headache, migraine Type 2 diabetes mellitus Kidney infection Home Medications ?Medication ?Instructions ?Recorded ?Last Taken ?Type metformin 500 mg tablet,extended 500 mg PO BID 04/01/24 04/13/24 History release 24 hr amoxicillin 500 mg capsule 500 mg PO TID 04/19/24 Unknown History prednisone 50 mg tablet 50 mg PO DAILY #5 tabs 04/29/24 Unknown Rx Allergy/AdvReac Type Severity Reaction Status Date / Time No Known Allergies Allergy Verified 04/30/24 19:36 Family History Father Diabetes Heart disease Mother COPD (chronic obstructive pulmonary disease) Surgical History History of tubal ligation (~1995) History of (~1989) Social History household members: none current occupational status: employed 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 She know she was seen yesterday and diagnosed with urticaria. Notes today the hives are more irritated and starting approximately 5 hours prior to arrival patient's mouth and throat became scratchy and sore. REVIEW OF SYSTEMS: Pertinent positives: Hives, throat scratchiness and soreness Pertinent negatives: Vomiting, shortness of breath, abdominal pain, drooling, difficulty swallowing PHYSICAL EXAM: Nursing triage notes reviewed, Vital signs reviewed Constitutional: please see mdm HENT: MMM, patent oral pharynx, no posterior oropharyngeal edema, slight swelling the left tonsil, no exudates. Uvula midline, no pooling secretions, no trismus. No submandibular edema. Neck: No stridor, no JVD, full neck ROM, no anterior lymphadenopathy Lungs: Clear to auscultation, No wheezing or rales. No increased work of breathing, no conversational dyspnea, no accessory muscle use, no nasal flaring. No respiratory distress noted Heart: Regular rate and rhythm, No murmurs, No rubs and No gallops, 2+ distal pulses (radial, femoral, posterior tibial) in all extremities Abdomen: Soft, there is no tenderness, rigidity, rebound or guarding, no obvious peritoneal signs, no palpable pulsatile abdominal masses, no auscultated abdominal bruit Neuro: No focal neurological deficits, cranial nerves II through XII intact, 5/5 strength in all extremities. Intact sensation to light touch in all extremities, 2+ reflexes bilateral patella tendons. Normal gait. No ataxia. Skin: No rash or lesions noted MEDICAL DECISION MAKING: Chief Complaint: Hives/allergic reaction External records reviewed: Reviewed patient's vital signs, problems, allergy list, medication list. Reviewed ED note from yesterday Factors affecting care: Type 2 diabetes, urticaria Social determinants of health: History of tobacco abuse History obtained from others: none Consults: none MDM Narrative: Patient was initially hemodynamically stable, afebrile and nontoxic-appearing. No signs of sepsis with initial vital signs without tachycardia, tachypnea or fever. Exam without signs of respiratory compromise. No indication for advanced airway at this time. No clinical signs of Marquez's angina, Lemierre's syndrome, RPA or [employer]. I considered the following differential diagnosis: Allergic reaction, urticaria, anaphylaxis, anaphylactic shock There is no clinical physical exam evidence to suggest anaphylaxis or anaphylactic shock. I treat patient symptomatically with IM epinephrine, Pepcid, loratadine and Decadron. ALL IMAGES (IF OBTAINED) HAVE BEEN PERSONALLY REVIEWED AND INTERPRETED BY MY SELF. Upon reassessment P approximately 3-1/2 hours into the patient's ED course she noted NO improvement in symptoms still noted a sore throat. On reassessment of her throat exam I did noted some left tonsillar swelling, but no exudates so obtained a strep test which was negative. There is no submandibular edema or signs of Marquez angina. There is no significant neck stiffness to suggest Paul ierre's syndrome. No signs of RPA or [employer]. She had no fever. No indication for advanced imaging at this time. Patient was observed for approximately 3 and half hours with no rebound symptoms. Offered to 4-hour observation however patient refused and she like to go home. Recommended the patient to continue oral antihistamines including Zyrtec or Claritin as well as Pepcid. Encouraged her to continue steroids. Strict return precautions were discussed including fever, drooling, difficulty opening the mouth or neck stiffness. The patient and/or family, caregivers express understanding. The patient and/or family, caregivers agrees with the plan. Shared decision making: I will have a discussion with the patient and or visitors regarding risk/benefits of further testing or admission. They will be made aware of of the risk/benefits inherent in this decision they will be given the opportunity to voice understanding. Total critical care time today provided was at least 0 minutes. This excludes separately billable procedures. Critical care time (if documented) is secondary to the patient having high probability of clinically significant/life threatening deterioration in the patient's condition which required my urgent intervention. Impression: 1. Allergic reaction 2. Urticaria 3. Sore throat Dispo: Discharge home This note was generated with [employer] dictation software. It may contain incorrect words, spelling, and punctuation that were not noted in review of the chart prior to signing. Discharge Plan Triage Chief Complaint: Allergic Reaction ED Provider: Blair Lopez Dx/Rx/DC Orders Clinical Impression: Urticaria Instructions: ED Hives (Adult) Prescriptions: No Action metformin 500 mg tablet extended release 24 hr 500 mg PO BID amoxicillin 500 mg capsule 500 mg PO TID Rx Instructions: x7days prednisone 50 mg tablet 50 mg PO DAILY Qty: 5 0RF Primary Care Provider: Raya Ellis Referrals: Raya Ellis, [facility]ER-C [Primary Care Provider] - Activity Restrictions/Additional Instructions: Thank you for trusting us with your care today! Your strep test was negative. Please continue to take your steroid as prescribed. Please add to this Pepcid and Zyrtec or Claritin. These are histamine blockers. Please take Tylenol (2 pills, 650 mg), ibuprofen (2 pills, 400 mg) every 6 hours as needed for pain and fever control. Please return to the emergency department if your symptoms change or worsen. Specifically develop fever, sore throat, difficulty swallowing, drooling, neck stiffness, difficulty opening her mouth, feeling of scratchiness or soreness in her throat. Please follow with your primary care physician for further outpatient evaluation and management. Print Language: Citizen Of [place] Disposition Disposition: Home, Self Care
[2024-04-30] MEDS: dexAMETHasone 4 MG/ML Vial 8 MG IM (20:03)
[2024-04-30] MEDS: Famotidine 20 MG Tablet PO (20:03)
[2024-04-30] MEDS: Loratadine 10 MG Tablet PO (20:03)
[2024-04-30] MEDS: Epi Pen (EQUIV) 0.3 MG Syringe IM (20:03)
[2024-04-30 21:36] VITALS: BP 147/90; PULSE 81; RESP 20; TEMP 36.6; O2SAT 99
[2024-04-30 22:55] VITALS: BP 125/75; PULSE 86; RESP 16; TEMP 37.3; O2SAT 98
== END 2024-04-30 22:56 | disposition home or self-care (01) ==
PROVIDERS: Emergency Provider Emergency Medicine; PCP Nurse Practitioner Family; Visit Provider Emergency Medicine
DX: T78.40XA Allergy, unspecified, initial encounter (principal); E11.9 Type 2 diabetes mellitus without complications; J02.9 Acute pharyngitis, unspecified; F17.210 Nicotine dependence, cigarettes, uncomplicated; L50.9 Urticaria, unspecified; K21.9 Gastro-esophageal reflux disease without esophagitis; Z79.52 Long term (current) use of systemic steroids; X58.XXXA Exposure to other specified factors, initial encounter
CPT/HCPCS: 87651; 96372; 99285

== ENCOUNTER → 2024-06-17 | Outpatient (CLI) | payer OTHER, SELFPAY ==
[2024-06-27 12:08] LABS: Age Gdln ACOG Testing 30-65 (.); HPV APTIMA, High Risk Negative (Negative)
[2024-06-27 12:49] LABS: HPV Reflexed? YES, CHARGE PATIENT
== END | disposition home or self-care (01) ==
LOC: LABSPEC 09:54
PROVIDERS: PCP Nurse Practitioner Family; Referring Provider Nurse Practitioner Family; Visit Provider Nurse Practitioner Family
DX: Z12.4 Encounter for screening for malignant neoplasm of cervix (principal)
CPT/HCPCS: 87624; 88175; G0145

== ENCOUNTER → 2025-03-20 | Outpatient (CLI) | payer OTHER, SELFPAY ==
[2025-03-20 12:04] LABS: Hematocrit 42.9 % (37-47); Hemoglobin 14.0 g/dL (12.0-15.0); Immature Granulocytes Count 0.030 X10^3/uL (0.0-0.0); Mean Corp Hgb Conc 32.6 g/dL (32-36); Mean Corpuscular Volume 90.5 fL (81-99); Mean Platelet Vol. 10.6 fl (6.2-12.0); NRBC Flagged by Analyzer 0 % (0-5); Platelet Count 350 K/mm3 (150-450); RBC Distribution Width CV 13.8 % (11.6-14.6); RBC Distribution Width SD 45.8 fl (35.1-43.9); Red Blood Count 4.74 M/mm3 (4.2-5.4); White Blood Count 8.7 K/mm3 (4.4-11.0)
[2025-03-20 12:46] LABS: AST(SGOT) 21 U/L (<=31); Alanine Aminotransfer ALT/SGPT 26 U/L (<=34); Albumin, Serum 4.2 g/dL (3.5-5.0); Alkaline Phosphatase 85 U/L (35-104); Anion Gap 14 (5-15); BUN 10 mg/dL (4-19); BUN/Creat Ratio 17.2 RATIO (10-20); Calcium,Total 9.4 mg/dL (7.6-11.0); Carbon Dioxide 23.8 mmol/L (21.0-32.0); Chloride 103 mmol/L (98-108); Cholesterol 180 mg/dL (<=200); Globulin 3.0 g/dL (2.2-4.2); Glucose 111 mg/dL (70-99); Low Density Lipoprotein Calc. 85 mg/dL; Potassium 4.2 mmol/L (3.3-5.1); Triglycerides 224 mg/dL; Very Low Density Lipoprotein 45 mg/dL (5-40); cholesterol:hdl ratio screen 3.59
== END | disposition home or self-care (01) ==
LOC: BFHLAB 08:54
PROVIDERS: PCP Nurse Practitioner Family; Visit Provider Nurse Practitioner Family
DX: Z00.01 Encounter for general adult medical examination with abnormal findings (principal)
CPT/HCPCS: 36415; 80053; 80061; 85025

== ENCOUNTER 2025-03-21 16:27 | Observation (INO) | payer OTHER, SELFPAY ==
[2025-03-21 16:29] VITALS: BP 154/109; PULSE 91; RESP 16; TEMP 36.7; O2SAT 98; BMI 41.3
--- NOTE | 2025-03-21 17:20 | CT_ITS ---
PROCEDURE: CT BRAIN/HEAD WITHOUT CONTRAST 03/21/2025 REASON FOR EXAM: HEADACHE TECHNIQUE: CT BRAIN/HEAD WITHOUT CONTRAST Coronal and Sagittal reconstruction series were provided. One or more dose reduction techniques were used (e.g., Automated exposure control, adjustment of the mA and/or kV according to patient size, use of iterative reconstruction technique. RADIATION DOSE SUMMARY: CTDlvol: 44.99 mGy DLP: 796.11 mGycm COMPARISON: CT head 11/17/2022 FINDINGS: No acute intracranial hemorrhage, extra-axial collection, mass-effect, or hydrocephalus. Nonspecific partially empty sella turcica. Borderline low-lying cerebellar tonsils. There is a small ill-defined parenchymal hypodense focus within the right frontal bartholomew radiata white matter, which is new from prior exam, and probably related to chronic small-vessel ischemic change, however is indeterminate. No other regions of abnormal parenchymal attenuation appreciated. No acute territorial infarct. Unremarkable orbits. Mild mucosal thickening in the floors of the maxillary sinuses without fluid levels. No mastoid effusions. The skull base and calvarium are intact. CT/Brain/Head without Contrast IMPRESSION: 1. No acute intracranial hemorrhage, mass-effect, hydrocephalus, or territorial infarct. 2. Small indeterminate hypodense focus in the right frontal bartholomew radiata whit e matter, new since prior exam. Suggest contrast-enhanced MRI to further evaluate. 3. Partially empty sella, and borderline low-lying cerebellar tonsils, both of which are nonspecific but can be associated with headaches in the setting of elevated intracranial CSF pressure. Reading Location: [id number]
--- NOTE | 2025-03-21 17:55 | EDS_ITS ---
HPI History of Present Illness Chief Complaint: Headache Narrative Narrative: Patient is a 54-year-old female with past medical history of GERD, tobacco use, migraine headaches, type 2 diabetes who presents to the emergency department the chief complaint of discomfort in her head. She states that this been going on for years however over the last few months she feels like it has been more intermittent than it was in the past. States that her family numbers wanted her to be evaluated therefore she came here. Patient notes that she has not had any injuries to her head recently. She notes that she is on a blood thinner medications. She states that she not take anything for pain as she does not have a headache she states that just is a warm sensation. Patient states that she did not want anything for pain here in the emergency department as she does not like to take medication [facility] Medical History Tobacco use disorder, continuous Encounter for screening for malignant neoplasm of lung Wears glasses Heartburn Gastric reflux History of edema History of echocardiogram History of stress test Smoker Headache, migraine Type 2 diabetes mellitus Kidney infection Home Medications ?Medication ?Instructions ?Recorded ?Last Taken ?Type metformin 1,000 mg tablet 1,000 mg PO BID 03/21/25 Unk nown History Allergy/AdvReac Type Severity Reaction Status Date / Time amoxicillin Allergy Rash Verified 03/21/25 16:31 Family History Father Diabetes Heart disease Mother COPD (chronic obstructive pulmonary disease) Surgical History History of tubal ligation (~1995) History of (~1989) Social History household members: none current occupational status: employed 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 Smoking Status: Current every day smoker tobacco type: cigarettes substance use type: does not use ROS ROS ED ROS Narrative Constitutional: Denies fevers, chills, lightness, dizziness Eyes: Denies double vision Cardiovascular: Denies chest pain Respiratory: Shortness of breath Abdomen: Denies nausea vomit diarrhea : Denies any urinary symptoms Neurological: Denies any numbness, weakness, tingling Musculoskeletal: Denies back pain Skin: Denies any rashes or lesions EXAM Physical Exam Narrative Exam Narrative: General: Patient was lying in bed rest comfortably did not appear to be in acute distress Head: Atraumatic, normocephalic Eyes: PERRL bilaterally, EOMI bilateral, no conjunctival injection noted Neck: Soft, supple, trachea midline Cardiovascular: Regular rate Respiratory: Clear to auscultation bilaterally Abdomen: No tenderness to palpation Extremities: +5/5 strength noted in the bilateral lower extremities, radial pulses +2/4 in above extremities, no pedal edema on exam Neurological: Patient on commands that she was at [facility] year is 2024 sensation grossly intact NIH of 0 GCS 15. Patient completed finger-nose testing bilaterally without any difficulty Skin: Warm, dry, intact no rashes or lesions noted Const Vital Signs: 03/21/25 16:29 03/21/25 18:33 03/21/25 18:33 Temperature 98.0 F Temperature Source Oral Pulse Rate 91 72 Respiratory Rate 16 18 Blood Pressure 154/109 H 156/86 H Blood Pressure Mean 124 109 Pulse Ox 98 97 97 Oxygen Delivery Method Room Air Room Air Room Air 03/21/25 20:00 03/21/25 20:54 Temperature 98.6 F Temperature Source Pulse Rate 69 70 Respiratory Rate 18 18 Blood Pressure 131/73 H 148/61 H Blood Pressure Mean 92 90 Pulse Ox 94 99 Oxygen Delivery Method Room Air MDM MDM MDM Narrative Medical decision making narrative: Patient is a 54-year-old female who presents to the emergency department with a sensation of warmth in her head. On the differential diagnosis includes but limited to intracranial mass, migraine headache although she states that she does not feel like she has a headache, intracranial hemorrhage, aneurysm, trigeminal neuralgia. Once workup is obtained reviewed she will be reevaluated. Patient once again states that she does not want take any medication for pain Patient CT and brain without contrast showed no acute intracranial hemorrhage mass effect or territorial infarct. Small indeterminate hyperdense focus in the right frontal bartholomew radiata white matter new since prior exam suggesting an MRI to further evaluate. Partially empty sella and borderline low-lying cerebellar tonsils both of which are nonspecific but can be associate with headaches in the setting of elevated intracranial CSF pressure. Given the abnormality of the small and indeterminate hypodense focus this could be related to a previous stroke and she was noted be hypertensive here in the emergency department and she is not any blood pressure medication and she is also diabetic do believe she would likely benefit from admission for a stroke workup. Remainder of the workup was added on which showed a white blood count of 12.9, he was 14.3, platelet count 376. Patient sodium normal at 140, potassium normal at 4, creatinine was 0.64. Patient's hemoglobin A1c was 6. Patient TSH normal at 2.41, free T4 and T3 was noted be 1.10 and 3.3 respectively. Patient chest x-ray reviewed by myself by radiology which showed no acute cardiopulmonary processes. Patient's EKG showed sinus rhythm rate of 69 bpm. At this point time will discuss case with hospitalist for admission for observation for stroke workup with the new finding on her CT her head and her headaches/sensation increasing recently. Patient was given 325 mg aspirin. Discussed case with hospitalist Dr. Curtis who accept patient for admission. Patient notified is agreeable spinal course concerns answered. Lab Data Labs: Laboratory Results - last 24 hr 03/21/25 18:35 WBC 12.9 H RBC 4.89 Hgb 14.3 Hct 43.7 MCV 89.4 MCH 29.2 MCHC 32.7 RDW Std Deviation 44.8 H RDW Coeff of Bong 13.8 Plt Count 376 MPV 9.9 Immature Gran % (Auto) 0.400 Neut % (Auto) 49.4 Lymph % (Auto) 40.2 [place] % (Auto) 6.0 Eos % (Auto) 3.3 Baso % (Auto) 0.7 Absolute Neuts (auto) 6.4 Absolute Lymphs (auto) 5.19 H Nucleated RBC % 0 Atypical Lymphocytes 2+ Platelet Estimate ADEQUATE Sodium 140 Potassium 4.0 Chloride 102 Carbon Dioxide 24.2 Anion Gap 15 BUN 12 Creatinine 0.64 L Estim Creat Clear Calc 114.33 Est GFR (MDRD) Non-Af 104 BUN/Creatinine Ratio 19.3 Glucose 83 Hemoglobin A1c 6.0 H Calcium 10.1 TSH 2.410 Free T4 1.10 Free T3 pg/dL 3.3 Radiography Diagnostic Testing: Clinical Impression(s) from Imaging Studies Brain CT 03/21/25 17:20 IMPRESSION: 1. No acute intracranial hemorrhage, mass-effect, hydrocephalus, or territorial infarct. 2. Small indeterminate hypodense focus in the right frontal bartholomew radiata white matter, new since prior exam. Suggest contrast-enhanced MRI to further evaluate. 3. Partially empty sella, and borderline low-lying cerebellar tonsils, both of which are nonspecific but can be associated with headaches in the setting of elevated intracranial CSF pressure. Reading Location: [facility] Chest X-Ray 03/21/25 18:25 IMPRESSION: No evidence of acute cardiopulmonary disease. Reading Location: [facility] Discharge Plan Triage Chief Complaint: Headache ED Provider: Kashif Wan Dx/Rx/DC Orders Clinical Impression: Headache, Hypertension, Abnormal CT of the head Prescriptions: No Action metformin 1,000 mg tablet 1,000 mg PO BID Primary Care Provider: Raya Ellis Referrals: Raya Ellis, BUSINESS REPRESENTATIVE-C [Primary Care Provider] - Print Language: Finnish Disposition Disposition: Home, Self Care
--- NOTE | 2025-03-21 18:19 | EKG12_ITS ---
Test Reason : DYSRHYTHMIA Blood Pressure : */* mmHG Vent. Rate : 69 BPM Atrial Rate : 69 BPM P-R Int : 148 ms QRS Dur : 94 ms QT Int : 422 ms P-R-T Axes : 19 137 22 degrees QTcB Int : 452 ms Normal sinus rhythm Right axis deviation Abnormal ECG Confirmed by MOHAN ABBOTT ([id number]), social media editor HILARIO HOWARD ([id number]) on 03/22/2025 1:52:00 PM Referred By: TB Confirmed By: MOHAN ABBOTT
--- NOTE | 2025-03-21 18:25 | RAD_ITS ---
PROCEDURE: CHEST 1 VIEW (PORTABLE) 03/21/2025 REASON FOR EXAM: CHEST PAIN TECHNIQUE: Frontal view of the chest. COMPARISON: 05/03/2018 FINDINGS: Lungs/Pleura: Clear. No pneumothorax or sizable pleural effusion. Heart/Mediastinum: Mildly enlarged, although likely exaggerated by technique. Bones/Soft tissues: Mild degenerative changes of the thoracic spine. RAD/Chest 1 View (Portable) IMPRESSION: No evidence of acute cardiopulmonary disease. Reading Location: [id number]
[2025-03-21 18:33] VITALS: BP 156/86; PULSE 72; RESP 18; O2SAT 97
[2025-03-21 18:53] LABS: Hematocrit 43.7 % (37-47); Hemoglobin 14.3 g/dL (12.0-15.0); Immature Granulocytes Count 0.050 X10^3/uL (0.0-0.0); Mean Corp Hgb Conc 32.7 g/dL (32-36); Mean Corpuscular Volume 89.4 fL (81-99); Mean Platelet Vol. 9.9 fl (6.2-12.0); NRBC Flagged by Analyzer 0 % (0-5); POSITIVE DIFFERENTIAL YES; POSITIVE MORPHOLOGY YES; Platelet Count 376 K/mm3 (150-450); RBC Distribution Width CV 13.8 % (11.6-14.6); RBC Distribution Width SD 44.8 fl (35.1-43.9); Red Blood Count 4.89 M/mm3 (4.2-5.4); White Blood Count 12.9 K/mm3 (4.4-11.0)
[2025-03-21 18:59] LABS: Differential Indicated SCAN CRITERIA MET
[2025-03-21 19:52] LABS: Free T3 3.3 pg/mL (2.18-3.98)
[2025-03-21 19:55] LABS: Anion Gap 15 (5-15); BUN 12 mg/dL (4-19); BUN/Creat Ratio 19.3 RATIO (10-20); Calcium,Total 10.1 mg/dL (7.6-11.0); Carbon Dioxide 24.2 mmol/L (21.0-32.0); Chloride 102 mmol/L (98-108); Estimated Creatinine Clearance 114.33 ml/min (50-250); Glucose 83 mg/dL (70-99); Potassium 4.0 mmol/L (3.3-5.1)
[2025-03-21 20:00] VITALS: BP 131/73; PULSE 69; RESP 18; O2SAT 94
[2025-03-21 20:54] VITALS: BP 148/61; PULSE 70; RESP 18; TEMP 37; O2SAT 99
--- NOTE | 2025-03-21 20:54 | HP.PCM.HOS_ITS ---
[facility] - General General Date of Admission: 03/21/25 Date of Service: 03/21/25 Chief Complaint: Headache. [facility] Narrative SIDDHARTH MARVIN, is a 54 F with a past medical history of morbid obesity (class III); with BMI of 41.3 this admission, DM-2; of unknown control on metformin BID, history of tobacco abuse, history of migraine headaches for years and history of GERD who presents to [facility] ER complaining of headache. Ms. Marvin reports her symptoms began a few months prior to admission with a gradual-worsening of her chronic headaches with increased intensity and frequency with not specifically pain - but a warm sensation in her head. She denies recent head trauma or other injury. She denies taking medicine to treat her symptoms because she does not like to take medications. Her family members wanted her to be evaluated further so they insisted she be brought here. There was no reports of fever, chills, nausea, vomiting, diarrhea, constipation, chest pain, palpitations, heart racing, lower extremity edema, dysuria, hematuria, rash or visual disturbances. In the ER she underwent a CT of the brain without contrast that revealed no acute ICH, mass-effect, hydrocephalus or territorial infarct but did reveal indeterminate hypodense focus in the Right bartholomew radiata white matter, mew since previous exam with contrast-enhanced MRI recommended to further evaluate with partially empty sella, and borderline low-lying cerebellar tonsils, both of which are nonspecific but can be associated with headaches om the setting of elevated intracranial CSF pressure in the setting of Worsening Headaches with Leukocytosis of 12.9K present on admission suspected to be due to acute-stress response with no signs of infection at this time. She was then admitted to the PCU under observation status for ongoing care for a stay that is expected to be less than 2 midnights. [facility] Medical History Tobacco use disorder, continuous Encounter for screening for malignant neoplasm of lung Wears glasses Heartburn Gastric reflux History of edema History of echocardiogram History of stress test Smoker Headache, migraine Type 2 diabetes mellitus Kidney infection Home Medications ?Medication ?Instructions ?Recorded ?Last Taken ?Type metformin 1,000 mg tablet 1,000 mg PO BID 03/21/25 Unk nown History Allergy/AdvReac Type Severity Reaction Status Date / Time amoxicillin Allergy Rash Verified 03/21/25 16:31 Family History Father Diabetes Heart disease Mother COPD (chronic obstructive pulmonary disease) Surgical History History of tubal ligation (~1995) History of (~1989) Social History household members: none current occupational status: employed current occupation: [employer] Smoking Status: Current every day smoker tobacco type: cigarettes substance use type: does not use ROS ROS Narrative Review of Systems: Constitutional: Patient denies fever or chills. Eyes: Patient denies changes in vision or discharge from eyes. ENT: Patient denies runny nose, sore throat or ear pain. Resp: Patient denies SOB or cough. CV: Patient denies chest pain, palpitations or heart racing. GI: Patient denies abdominal pain, nausea, vomiting, diarrhea or constipation. : Patient denies dysuria or hematuria. MSK: Patient denies arthralgias or myalgias. Skin: Patient denies rash, abscess, wounds or jaundice. Psych: Patient denies symptoms of uncontrolled depression or anxiety. Neuro: Patient admits to worsening of headaches with increased intensity and frequency with warm sensation as per HPI. Allergy: Patient denies lip swelling, tongue swelling or urticaria. Hematology: Patient denies easy bleeding or easy bruisability. Endocrinology: Patient denies polyuria, polydipsia, polyphagia or heat/cold intolerance. 14 point ROS otherwise negative except for positives noted above in HPI. Vital Signs Vital Signs Vital Signs: 03/21/25 16:29 03/21/25 18:33 03/21/25 18:33 Temperature 98.0 F Temperature Source Oral Pulse Rate 91 72 Respiratory Rate 16 18 Blood Pressure 154/109 H 156/86 H Blood Pressure Mean 124 109 Pulse Ox 98 97 97 Oxygen Delivery Method Room Air Room Air Room Air 03/21/25 20:00 Temperature Temperature Source Pulse Rate 69 Respiratory Rate 18 Blood Pressure 131/73 H Blood Pressure Mean 92 Pulse Ox 94 Oxygen Delivery Method Room Air Weight Weight: 233 lb 6.4 oz Body Mass Index (BMI) 41.3 Physical Exam Const alert, oriented x3, no apparent distress and healthy appearing Constitutional Narrative: Morbidly obese. General Appearance: cooperative HEENT normocephalic, head/scalp atraumatic and hearing grossly normal bilaterally Eyes PERRL, EOMs intact bilaterally and conjunctivae normal Neck no lymphadenopathy, supple and no JVD Resp normal respiratory effort, no use of accessory muscles and clear to auscultation bilaterally Cardio regular rate and regular rhythm GI normal to inspection, nondistended, normoactive bowel sounds, soft to palpation, non-tender and non-distended GI Narrative: Morbidly obese. Extremity normal to inspection, full ROM and no clubbing, cyanosis or edema Skin Skin Narrative: Patient has no evidence of rash, abscess, wounds or jaundice. Neuro oriented x3, CN's II-XII intact bilaterally, moves all extremities and no focal motor deficits Sensorium / Orientation: awake, alert, oriented to person, oriented to place and oriented to time Speech: speech normal Psych affect normal Results Medical Records Data Attestation: I reviewed the patient's medical records Lab / Micro Data Attestation: I reviewed the patient's lab results. 03/21/25 18:35 03/21/25 18:35 Labs: Laboratory Results - last 24 hr 03/21/25 18:35: WBC 12.9 H, RBC 4.89, Hgb 14.3, Hct 43.7, MCV 89.4, MCH 29.2, MCHC 32.7, RDW Std Deviation 44.8 H, RDW Coeff of Bong 13.8, Plt Count 376, MPV 9.9, Immature Gran % (Auto) 0.400, Neut % (Auto) 49.4, Lymph % (Auto) 40.2, [place] % (Auto) 6.0, Eos % (Auto) 3.3, Baso % (Auto) 0.7, Absolute Neuts (auto) 6.4, A bsolute Lymphs (auto) 5.19 H, Nucleated RBC % 0, Atypical Lymphocytes 2+, Platelet Estimate ADEQUATE, Sodium 140, Potassium 4.0, Chloride 102, Carbon Dioxide 24.2, Anion Gap 15, BUN 12, Creatinine 0.64 L, Estim Creat Clear Calc 114.33, Est GFR (MDRD) Non-Af 104, BUN/Creatinine Ratio 19.3, Glucose 83, H emoglobin A1c 6.0 H, Calcium 10.1, TSH 2.410, Free T4 1.10, Free T3 pg/dL 3.3 Imaging Radiology Impression Brain CT 03/21/25 17:20 IMPRESSION: 1. No acute intracranial hemorrhage, mass-effect, hydrocephalus, or territorial infarct. 2. Small indeterminate hypodense focus in the right frontal bartholomew radiata white matter, new since prior exam. Suggest contrast-enhanced MRI to further evaluate. 3. Partially empty sella, and borderline low-lying cerebellar tonsils, both of which are nonspecific but can be associated with headaches in the setting of elevated intracranial CSF pressure. Reading Location: [facility], [place] Chest X-Ray 03/21/25 18:25 IMPRESSION: No evidence of acute cardiopulmonary disease. Reading Location: [facility] [place] Assessment & Plan Assessment/Plan (1) Headache: QUALIFIERS: Headache type: unspecified Headache chronicity pattern: chronic headache Intractability: not intractable Qualified Code(s): R 51.9 - Headache, unspecified; G89.29 - Other chronic pain (2) History of migraine headaches: (3) Abnormal CT of the head: (4) Tobacco use disorder, continuous: (5) Morbid obesity: PLAN: Plan 1. CT of the brain without contrast that revealed no acute ICH, mass-effect, hydrocephalus or territorial infarct but did reveal indeterminate hypodense focus in the Right bartholomew radiata white matter, mew since previous exam with contrast-enhanced MRI recommended to further evaluate with partially empty sella, and borderline low-lying cerebellar tonsils, both of which are nonspecific but can be associated with headaches om the setting of elevated intracranial CSF pressure in the setting of Worsening Headaches with Leukocytosis of 12.9K present on admission suspected to be due to acute-stress response - Admit to PCU under observation status. Check MRI of the brain with IV contrast to evaluate apparently new lesion in Right bartholomew radiata as per radiologist's recommendations. Check LP at IR to evaluate for possible elevated opening pressure. Check UA C&S to evaluate for possible underlying infection with increased WBC. Check TSH, B12, Folate, HgbA1c, Lipid Profile, MICAH and UDS. Continue ECASA and begin statin. Give acetaminophen prn pain or fever. Check echocardiogram to evaluate LVEF. Check carotid Doppler to evaluate for stenosis. Finally, we will consult [facility] to evaluate this patient on-rounds in the AM for further recommendations with help appreciated in advance. 2. History of migraine headaches for years complicating #1 - Noted. 3. Chronic Tobacco Abuse compounding #1 & #2 - Tobacco Cessation was strongly encouraged with Nicotine patch offered to control cravings. 4. Morbid obesity (class III); with BMI of 41.3 this admission adding to the burden of disease outlined from #1 - #3 - Weight loss will be recommended. Check TSH. This complicates her case and may hamper recovery. 5. DM-2; of unknown control on metformin BID - Hold metformin and cover with SSI plus FSBS q. AC/HS. Check HgbA1c to objectively assess quality of diabetic control. 6. History of GERD - Continue PPI. 7. DVT prophylaxis - Enoxaparin 40 mg sq BID plus SCD's. Total time: Approximately (but not less than) 70 minutes. Charges/Coding Visit Charges OBSV E&M: 08427 Observ/hosp same date L2
--- NOTE | 2025-03-21 21:24 | CDU_ITS ---
Reason For Study Reason For Study: Evaluate for stenosis Rt. Velocities/BP Lt. Velocities/BP Prox CCA 69.1/16.3 cm/sec. Prox CCA 88.2/27.9 cm/sec. Mid CCA 60.5/16.3 cm/sec. Mid CCA 63.0/18.8 cm/sec. Dist CCA 66.7/18.8 cm/sec. Dist CCA 67.9/22.5 cm/sec. Prox ICA 72.8/24.9 cm/sec. Prox ICA 82.6/27.4 cm/sec. Mid ICA 99.2/38.9 cm/sec. Mid ICA 115.6/38.9 cm/sec. Dist ICA 90.0/29.8 cm/sec. Dist ICA 83.2/32.4 cm/sec. Rt. ICA/CCA = 1.6. Lt. ICA/CCA = 1.8. Prox ECA 85.1/11.4 cm/sec. Prox ECA 77.7/9.0 cm/sec. Rt. Vert. 46.2/18.8 cm/sec. Lt. Vert. 73.6/18.8 cm/sec. Right Extracranial There is homogeneous, smooth atherosclerotic plaque noted in the right common carotid artery. There is heterogeneous, irregular atherosclerotic plaque noted in the right internal carotid artery. There is intimal thickening but no significant atherosclerotic plaque noted in the right external carotid artery. Antegrade flow is noted in the right vertebral artery. Left Extracranial There is homogeneous, smooth atherosclerotic plaque noted in the left common carotid artery. There is homogeneous, smooth atherosclerotic plaque noted in the left internal carotid artery. There is heterogeneous, irregular atherosclerotic plaque noted in the left external carotid artery. Antegrade flow is noted in the left vertebral artery. Procedure Carotid Duplex 74883. This is a Carotid Duplex examination using B-mode, color flow and specral Doppler. Exam performed portable in patient room. VL/Carotid Duplex Ultrasound Interpretation Summary Mild (<50%) stenosis right extracranial internal carotid. Mild (<50%) stenosis left extracranial internal carotid. Patent and antegrade vertebrals bilaterally. Ordering Physician: Augustine Flores Performed By: Hollie Hallman RVT
--- NOTE | 2025-03-21 21:24 | ECHOD_ITS ---
Reason For Study Reason For Study: TIA/CVA Procedure This was a 2D Doppler, Color Flow transthoracic echocardiogram. Exam performed portable in patient room. Left Ventricle Normal left ventricle. The left ventricle is normal in size, thickness, and systolic function. The left ventricular ejection fraction is 65 %. Normal diastololic function. No regional wall motion abnormalities noted. Right Ventricle Normal right ventricle. Normal systolic function. Atria Normal left atrium. Normal right atrium. Bubble study is positive for left to right shunt. Mitral Valve The mitral valve is structurally normal. No prolapse or stenosis seen. Trivial mitral valve insufficiency. Tricuspid Valve Normal tricuspid valve. Trivial tricuspid valve insufficiency. Aortic Valve Trisinus/trileaflet aortic valve. There is no aortic stenosis. No aortic valve insufficiency. Pulmonic Valve Normal pulmonic valve. Great Vessels Normal ascending aorta. The inferior vena cava is dilated. Inferior vena cava collapse with sniff. Pericardium/Pleural No pericardial effusion. Medication Performed a rapid injection of agitated mix of 9 cc saline and 1cc air to assess for atrial septal defect. MMode/2D Measurements & Calculations LVIDd: 5.7 cm IVSd: 0.93 cm LVOT diam: 2.1 cm LVIDs: 4.0 cm LVPWd: 0.99 cm RVDd: 3.4 cm FS: 29.8 % LVOT area: 3.5 cm2 CO(Teich): 6.4 l/min asc Aorta Diam: 3.4 cm LAV(MOD- bp): 36.2 ml LAV(MOD- bp) Indexed: 17.6 ml/m2 LAV(MOD- sp2): 31.3 ml LAV(MOD- sp4): 39.6 ml CO(MOD- sp4): 2.7 l/min LVAd ap4: 21.4 cm2 LVAd ap2: 23.0 cm2 SV(MOD- sp4): 38.7 ml LVLd ap4: 6.9 cm LVLd ap2: 6.9 cm EDV(MOD-sp4): 57.7 ml EDV(MOD-sp2): 62.9 ml SI(MOD- sp4): 18.8 ml/m2 EDV(sp4-el): 56.6 ml EDV(sp2-el): 64.7 ml LVAs ap4: 10.8 cm2 LVAs ap2: 11.3 cm2 LVLs ap4: 5.6 cm LVLs ap2: 5.6 cm ESV(MOD-sp4): 19.0 ml ESV(MOD-sp2): 20.2 ml ESV(sp4-el): 17.9 ml ESV(sp2-el): 19.3 ml EF(MOD-sp4): 67.1 % EF(MOD-sp2): 67.9 % EF(sp4-el): 68.3 % SV(MOD-sp2): 42.7 ml SV(sp4-el): 38.7 ml Ao sinus diam: 3.2 cm SI(MOD-sp2): 20.7 ml/m2 Ao ST Junction: 2.7 cm LA dimension(2D): 4.2 cm LA A4 area: 15.3 cm2 RA A4 area: 13.9 cm2 TAPSE: 1.8 cm Time Measurements MV dec time: 0.22 sec Doppler Measurements & Calculations MV E max jeremy: 67.3 cm/sec Lat Peak E' Jeremy: 8.8 cm/sec Med Peak E' Jeremy: 6.6 cm/sec MV A max jeremy: 79.0 cm/sec E/E' lat: 7.7 E/E' med: 10.2 MV E/A: 0.85 Ao V2 max: 161.6 cm/sec LV V1 max: 116.8 cm/sec MV dec slope: 309.3 cm/sec2 Ao max P.4 mmHg LV V1 max P.5 mmHg Ao V2 mean: 107.9 cm/sec LV V1 mean P.0 mmHg Ao mean P.3 mmHg LV V1 mean: 80.8 cm/sec Ao V2 VTI: 35.1 cm LV V1 VTI: 25.6 cm AV (velocity ratio): 0.73 KEYSHAWN(I,D): 2.5 cm2 KEYSHAWN(V,D): 2.5 cm2 CO(LVOT): 6.3 l/min PA V2 max: 73.4 cm/sec TR max jeremy: 201.4 cm/sec SV(LVOT): 88.7 ml TR max P.2 mmHg ECHO/Echo Complete Interpretation Summary The left ventricular ejection fraction is 65 %. Bubble study is positive for left to right shunt. No previous echo to compare Ordering Physician: Augustine Flores Performed By: Rea Talbert RDCS
[2025-03-21 22:04] LABS: Alcohol, Blood (Medical)-Serum < 10.1 mg/dL (<=10.0)
[2025-03-21 22:12] VITALS: BP 155/84; PULSE 65; RESP 18; TEMP 36.7; O2SAT 96; BMI 41.2
--- OUTSIDE RECORDS SUMMARY | 2025-03-21 22:37 | XMS RPT_ITS | CCD ---
Author Organization [facility] RECRUITER COORDINATOR [facility] Care Team Providers Care Ski Tow Operator Name Role Phone OMAYRA CHAO DO Unavailable Unavailable DIDOMAYRA ALEXANDER DO Unavailable Unavailable DIDOMAYRA ALEXANDER DO Unavailable Unavailable NO, DOCTOR ON Unavailable Unavailable NO, DOCTOR ON Unavailable Unavailable MANSI RIDER Attending Unavailable NO, PHYSICIAN Primary Care Unavailable Required, No Pcp Unavailable Unavailable MoomagokulAntoinette Vic Unavailable Unavailable [place], Mr. Antoinette Bennett Attending Unavailable NICOLETTE HERNANDEZ DO Attending Unavailable ONEYDA COMMERCIAL LOAN MANAGER, CORTEZ Primary Care Unavailable ONEYDA COMMERCIAL LOAN MANAGER, CORTEZ Primary Care Physician [phone] Melanie DATA TECHNICIAN, Pam Attending Unavailable Melanie DATA TECHNICIAN, Pam Referring Unavailable Oneyda, Cortez Primary Care Unavailable Deedee Anders Attending Unavailable Oneyda, Cortez Primary Care Unavailable Oneyda, Cortez Primary Care Unavailable Antonio Rios Consulting Unavailable Antonio Rios Attending Unavailable Oneyda, Cortez Referring Unavailable Oneyda, Cortez Primary Care Unavailable Orlando Knight Attending Unavailable Oneyda, Cotrez Primary Care Unavailable Oneyda, Cortez Attending Unavailable Oneyda, Cortez Primary Care Unavailable Oneyda, Cortez Attending Unavailable Oneyda, Cortez Referring Unavailable Oneyda, Cortez Referring Unavailable Oneyda, Cortez Primary Care Unavailable Oneyda, Cortez Attending Unavailable Melanie DATA TECHNICIAN, Pam Attending Unavailable Melanie DATA TECHNICIAN, Pam Referring Unavailable Oneyda, Cortez Primary Care Unavailable Oneyda, Cortez Primary Care Unavailable Antonio Rios Attending Unavailable Oneyda, Cortez Referring Unavailable Oneyda, Cortez Primary Care Unavailable Blair Lopez Attending Unavailable Medications Current Medications Medication Drug Class(es) Dates Sig (Normalized) Sig (Original) amoxicillin 500 mg oral capsule (1 source) Penicillin-class Antibacterial Start: 05-02-2024 End: 05-09-2024 amoxicillin 500 mg oral capsule Dose : 500 mg = 1 cap(s), Oral, TID, # 21 cap(s), 0 Refill(s) Start Date: 05/02/24 Stop Date: 05/09/24 Status: Ordered amoxicillin 875 mg / clavulanate 125 mg oral tablet (1 source) Penicillin-class Antibacterial Start: 05-02-2024 End: 05-09-2024 take 1 tablet by mouth every twelve hours amoxicillin-clavu lanate 875 mg-125 mg oral tablet 1 tab(s), Oral, q12h, X 7 day(s), # 14 tab(s), 0 Refill(s), 05/09/24 9:12:00 AM EDT, 11.6 Start Date: 05/02/24 Stop Date: 05/09/24 Status: Ordered metFORMIN hydrochloride 500 mg oral tablet (1 source) Biguanide Start: 05-02-2024 MetFORMIN (Eqv-Glucophage XR) 500 mg oral tablet, EXTENDED RELEASE Dose : 500 mg = 1 tab(s), Oral, qDay, # 100 tab(s), 0 Refill(s) Start Date: 05/02/24 Status: Ordered ondansetron 4 mg disintegrating oral tablet (1 source) Serotonin-3 Receptor Antagonist Start: 11-17-2022 take 4 mg by mouth every eight hours as needed Ondansetron Active 4 MG PO EVERY 8 HOURS NEEDED November 17, 2022 12:00am predniSONE 20 mg oral tablet (2 sources) Start: 05-02-2024 End: 05-07-2024 predniSONE 20 mg oral tablet Dose : 40 mg = 2 tab(s), Oral, qDay, Take with food, X 5 day(s), # 10 tab(s), 0 Refill(s), 05/07/24 9:13:00 AM EDT Start Date: 05/02/24 Stop Date: 05/07/24 Status: Ordered Start: 05-02-2024 predniSONE 50 mg oral tablet Dose : 50 mg = 1 tab(s), Oral, qDay, # 10 tab(s), 0 Refill(s) Start Date: 05/02/24 Status: Ordered Problems Active Problems Problem Classification Problem Date Documented Da te Episodic/Chronic E Codes: Fall (3 sources) Fall; Translations: [Unspecified fall] Onset: 11-04-2022 11-03-2022 Episodic E Codes: Fall (3 sources) Fall 11-03-2022 Comment on above: FALL Headache; including migraine (1 source) Headache; including migraine; Translations: [Headache, unspecified] Onset: 11-04-2022 Intracranial injury (1 source) Concussion injury of body structure; Translations: [Concussion] 11-17-2022 Episodic Nonspecific chest pain (1 source) Chest pain; Translations: [Chest pain, unspecified] 05-03-2018 Episodic Other injuries and conditions due to external causes (1 source) Unspecified injury of head, initial encounter; Translations: [Unspecified injury of head, initial encounter] Onset: 11-04-2022 Episodic Other injuries and conditions due to external causes (1 source) Closed injury of head; Translations: [Unspecified injury of head, initial encounter] 11-17-2022 Episodic Other nutritional; endocrine; and metabolic disorders (1 source) Morbid obesity; Translations: [Morbid (severe) obesity due to excess calories] 05-03-2018 Chronic Residual codes; unclassified (1 source) Harmful pattern of use of nicotine; Translations: [Tobacco use] 05-03-2018 Episodic Substance-related disorders (1 source) Nicotine dependence, unspecified, with unspecified nicotine-induced disorders; Translations: [Nicotine dependence, unspecified, with unspecified nicotine-induced disorders] Onset: 04-27-2024 Chronic Superficial injury; contusion (3 sources) Abrasion of scalp; Translations: [Abrasion or friction burn of face, neck, and scalp except eye, without mention of infection] Onset: 11-04-2022 11-03-2022 Episodic Unclassified (1 source) Scalp abrasion 11-03-2022 Viral infection (2 sources) COVID-19; Translations: [COVID-19] Onset: 07-25-2022 Past or Other Problems Problem Classification Problem Date Documented Da te Episodic/Chronic Allergic reactions (3 sources) Urticaria; Translations: [Urticaria, unspecified] Onset: 05-02-2024 Episodic Other screening for suspected conditions (not mental disorders or infectious disease) (5 sources) Encounter for screening for malignant neoplasm of cervix; Translations: [Encounter for screening for malignant neoplasm of respiratory organs] Onset: 04-22-2024 Episodic Other skin disorders (1 source) Rash and other nonspecific skin eruption; Translations: [Rash and other nonspecific skin eruption] Onset: 05-24-2024 Episodic Results Test Name Value Interpretation Reference Range Facil ity CBC W/Diff, Automatedon -2 Absolute Lymph 3.10 X10 3/uL Normal 0.83-4.51 [facility] Comment on above: Performed By: #### L 500.4050, L500.4100, L100.0100 #### [facility] [address] [place], [address] Absolute Neut 4.7 X10 3/uL Normal 2.0-7.7 [facility] Comment on above: Performed By: #### L 500.4050, L500.4100, L100.0100 #### [facility] [address] [place], [address] Basophils/100 WBC (Bld) 0.7 % Normal 0-1 [facility] Comment on above: Performed By: #### L 500.4050, L500.4100, L100.0100 #### [facility] [address] [place], [address] Eosinophils/100 WBC (Bld) 3.6 % Normal 0-5 [facility] Comment on above: Performed By: #### L 500.4050, L500.4100, L100.0100 #### [facility] [address] [place], [address] Erythrocyte distribution width (RBC) [Ratio] 13.8 % Normal 11.6-14.6 [facility] Comment on above: Performed By: #### L 500.4050, L500.4100, L100.0100 #### [facility] [address] [place], [address] Hematocrit (Bld) [Volume fraction] 42.9 % Normal 37-47 [facility] Comment on above: Performed By: #### L 500.4050, L500.4100, L100.0100 #### [facility] [address] [place], [address] Hemoglobin (Bld) [Mass/Vol] 14.0 g/dL Normal 12.0-15.0 [facility] Comment on above: Performed By: #### L 500.4050, L500.4100, L100.0100 #### [facility] [address] [place], [address] IG% 0.300 Normal 0.0-0.9 [facility] Comment on above: Result Comment: IG% - Immature Granulocytes (promyelocytes, myelocytes and metamyelocytes) > 1% indicates that a LEFT SHIFT is Present. Performed By: #### L 500.4050, L500.4100, L100.0100 #### [facility] [address] [place], [address] Lymphocytes/100 WBC (Bld) 35.8 % Normal 19-41 [facility] Comment on above: Performed By: #### L 500.4050, L500.4100, L100.0100 #### [facility] [address] [place], [address] MCH (RBC) [Entitic mass] 29.5 pg Normal 27.0-32.0 [facility] Comment on above: Performed By: #### L 500.4050, L500.4100, L100.0100 #### [facility] [address] [place], [address] MCHC (RBC) [Mass/Vol] 32.6 g/dL Normal 32-36 [facility] Comment on above: Performed By: #### L 500.4050, L500.4100, L100.0100 #### [facility] [address] [place], [address] MCV (RBC) [Entitic vol] 90.5 fL Normal 81-99 [facility] Comment on above: Performed By: #### L 500.4050, L500.4100, L100.0100 #### [facility] [address] [place], [address] Monocytes/100 WBC (Bld) 5.9 % Normal 0-10 [facility] Comment on above: Performed By: #### L 500.4050, L500.4100, L100.0100 #### [facility] [address] [place], [address] Neutrophils/100 WBC (Bld) 53.7 % Normal 47-70 [facility] Comment on above: Performed By: #### L 500.4050, L500.4100, L100.0100 #### [facility] [address] [place], [address] Nucleated RBC (Bld) [#/Vol] 0 10*3/uL Normal 0-5 [facility] Comment on above: Performed By: #### L 500.4050, L500.4100, L100.0100 #### [facility] [address] [place], [address] Platelet mean volume (Bld) [Entitic vol] 10.6 fL Normal 6.2-12.0 [facility] Comment on above: Performed By: #### L 500.4050, L500.4100, L100.0100 #### [facility] [address] [place], [address] Platelets (Bld) [#/Vol] 350 10*3/uL Normal 150-450 [facility] Comment on above: Performed By: #### L 500.4050, L500.4100, L100.0100 #### [facility] [address] [place], [address] RBC (Bld) [#/Vol] 4.74 10*6/uL Normal 4.2-5.4 [facility] Comment on above: Performed By: #### L 500.4050, L500.4100, L100.0100 #### [facility] [address] [place], [address] RDW SD 45.8 fl High 35.1-43.9 [facility] Comment on above: Performed By: #### L 500.4050, L500.4100, L100.0100 #### [facility] [address] [place], [address] WBC (Bld) [#/Vol] 8.7 10*3/uL Normal 4.4-11.0 [facility] Comment on above: Performed By: #### L 500.4050, L500.4100, L100.0100 #### [facility] [address] [place], [address] Comprehensive Metabolic Prof [facility] 03-20-2025 Albumin [Mass/Vol] 4.2 g/dL Normal 3.5-5.0 [facility] Comment on above: Performed By: #### L 500.4050, L500.4100, L100.0100 #### [facility] [address] [place], [address] Albumin/Globulin [Mass ratio] 1.4 {ratio} Normal 0.9-2.4 [facility] Comment on above: Performed By: #### L 500.4050, L500.4100, L100.0100 #### [facility] [address] [place], [address] ALK PHOS 85 U/L Normal 35-104 [facility] Comment on above: Performed By: #### L 500.4050, L500.4100, L100.0100 #### [facility] [address] [place], [address] ALT [Catalytic activity/Vol] 26 U/L Normal <=34 [facility] Comment on above: Performed By: #### L 500.4050, L500.4100, L100.0100 #### [facility] [address] [place], [address] AST [Catalytic activity/Vol] 21 U/L Normal <=31 [facility] Comment on above: Performed By: #### L 500.4050, L500.4100, L100.0100 #### [facility] [address] [place], [address] Bilirubin [Mass/Vol] 0.33 mg/dL Normal 0.00-1.30 [facility] Comment on above: Performed By: #### L 500.4050, L500.4100, L100.0100 #### [facility] [address] [place], [address] BUN/CRE 17.2 RATIO Normal 10-20 [facility] Comment on above: Performed By: #### L 500.4050, L500.4100, L100.0100 #### [facility] [address] [place], [address] Calcium [Mass/Vol] 9.4 mg/dL Normal 7.6-11.0 [facility] Comment on above: Performed By: #### L 500.4050, L500.4100, L100.0100 #### [facility] [address] [place], [address] Chloride [Moles/Vol] 103 mmol/L Normal 98-108 [facility] Comment on above: Performed By: #### L 500.4050, L500.4100, L100.0100 #### [facility] [address] [place], [address] CO2 [Moles/Vol] 23.8 mmol/L Normal 21.0-32.0 [facility] Comment on above: Performed By: #### L 500.4050, L500.4100, L100.0100 #### [facility] [address] [place], [address] Creatinine [Mass/Vol] 0.57 mg/dL Low 0.70-1.20 [facility] Comment on above: Performed By: #### L 500.4050, L500.4100, L100.0100 #### [facility] [address] [place], [address] GAP 14 Normal 5-15 [facility] Comment on above: Performed By: #### L 500.4050, L500.4100, L100.0100 #### [facility] [address] [place], [address] GFR/1.73 sq M.predicted among non-blacks MDRD (S/P/Bld) [Vol rate/Area] 107 mL/min/{1.73_m2} Normal >60 [facility] Comment on above: Result Comment: mL/m in/1.73m2 CKD-EPI Creatinine Equation (2020) Performed By: #### L 500.4050, L500.4100, L100.0100 #### [facility] [address] [place], [address] Globulin (S) [Mass/Vol] 3.0 g/dL Normal 2.2-4.2 [facility] Comment on above: Performed By: #### L 500.4050, L500.4100, L100.0100 #### [facility] [address] [place], [address] Glucose [Mass/Vol] 111 mg/dL High 70-99 [facility] Comment on above: Performed By: #### L 500.4050, L500.4100, L100.0100 #### [facility] [address] [place], [address] Potassium [Moles/Vol] 4.2 mmol/L Normal 3.3-5.1 [facility] Comment on above: Performed By: #### L 500.4050, L500.4100, L100.0100 #### [facility] [address] [place], [address] Sodium [Moles/Vol] 141 mmol/L Normal 133-145 [facility] Comment on above: Performed By: #### L 500.4050, L500.4100, L100.0100 #### [facility] [address] [place], [address] T PROT 7.2 g/dL Normal 5.9-8.4 [facility] Comment on above: Performed By: #### L 500.4050, L500.4100, L100.0100 #### [facility] [address] [place], [address] Urea nitrogen [Mass/Vol] 10 mg/dL Normal 4-19 [facility] Comment on above: Performed By: #### L 500.4050, L500.4100, L100.0100 #### [facility] [address] [place], [address] Lipid Profileon 03-20-2025 CHOL:HDL 3.59 Normal [facility] Comment on above: Performed By: #### L 500.4050, L500.4100, L100.0100 #### [facility] [address] [place], [address] Cholesterol [Mass/Vol] 180 mg/dL Normal <=200 [facility] Comment on above: Result Comment: Chol esterol level, Desirable <200 mg/dL Borderline high cholesterol 200-239 mg/dL High cholesterol >=240 mg/dL Recommendations of the NCEP Adult Treatment Panel for the following risk-cutoff thresholds for the [place] population. Performed By: #### L 500.4050, L500.4100, L100.0100 #### [facility] [address] [place], [address] Cholesterol in HDL [Mass/Vol] 50 mg/dL Normal [facility] Comment on above: Result Comment: Natalia onal Cholesterol Education Program (NCEP) guidelines: <40 mg/dL: Low HDL-cholesterol (major risk factor for CHD) >= 60 mg/dL: High HDL-cholesterol (negative risk factor for CHD) HDL-cholesterol is affected by a number of factors, e.g. smoking, exercise, hormones, sex and age. Performed By: #### L 500.4050, L500.4100, L100.0100 #### [facility] [address] [place], [address] Cholesterol in LDL [Mass/Vol] 85 mg/dL Normal [facility] Comment on above: Result Comment: Bord prbktr=507-704 mg/dL Higher Inmj=894 mg/dL or greater Friedwald Equation for LDL-C Performed By: #### L 500.4050, L500.4100, L100.0100 #### [facility] [address] [place], [address] Cholesterol in VLDL [Mass/Vol] 45 mg/dL High 5-40 [facility] Comment on above: Performed By: #### L 500.4050, L500.4100, L100.0100 #### [facility] [address] [place], [address] Triglyceride [Mass/Vol] 224 mg/dL High [facility] Comment on above: Result Comment: The drugs N-Acetylcysteine and Metamizole may falsely depress this assay. Normal range: <150 mg/dL Borderline High: 150-199 mg/dL High: 200-499 mg/dL Very High: >500 mg/dL Performed By: #### L 500.4050, L500.4100, L100.0100 #### [facility] [address] [place], [address] PAP IG w/Reflex HPV GDLNon 1 08-28-2023 ADEQ Comment Normal . [facility] Comment on above: Order Comment: Speci men Comment: [id number] Specimen Comment: Source.............Cervix;Endocervix Specimen Comment: No. of containers..01 ThinPrep Vial Result Comment: Sati sfactory for evaluation. Endocervical and/or squamous metaplastic cells (endocervical component) are present. Performed By: #### L 7400.0290 #### [facility] [address] [place], [place], [address] Age Gdln ACOG T 30-65 Normal . [facility] Comment on above: Order Comment: Speci men Comment: [id number] Specimen Comment: Source.............Cervix;Endocervix Specimen Comment: No. of containers..01 ThinPrep Vial Performed By: #### L 7400.0290 #### [facility] [address] [place], [place], [address] COMM . Normal . [facility] Comment on above: Order Comment: Speci men Comment: [id number] Specimen Comment: Source.............Cervix;Endocervix Specimen Comment: No. of containers..01 ThinPrep Vial Performed By: #### L 7400.0290 #### [facility] [address] [place], [place], [address] COMMENT Comment Normal . [facility] Comment on above: Order Comment: Speci men Comment: [id number] Specimen Comment: Source.............Cervix;Endocervix Specimen Comment: No. of containers..01 ThinPrep Vial Result Comment: This liquid based ThinPrep(R) pap test was screened with the use of an image guided system. Performed By: #### L 7400.0290 #### [facility] [address] [place], [place], [address] DIAG Comment Normal . [facility] Comment on above: Order Comment: Speci men Comment: [id number] Specimen Comment: Source.............Cervix;Endocervix Specimen Comment: No. of containers..01 ThinPrep Vial Result Comment: NEGA TIVE FOR INTRAEPITHELIAL LESION OR MALIGNANCY. Performed By: #### L 7400.0290 #### [facility] [address] [place], [place], [address] HPV APTIMA, HR Negative Normal Negative [facility] Comment on above: Order Comment: Speci men Comment: [id number] Specimen Comment: Source.............Cervix;Endocervix Specimen Comment: No. of containers..01 ThinPrep Vial Result Comment: This nucleic acid amplification test detects fourteen high- risk HPV types (16,18,31,33,35,39,45,51,52,56,58,59,66,68) without differentiation. Performed By: #### L 7400.0290 #### [facility] [address] [place], [address] HPV Macy Rfx Comment Normal . [facility] Comment on above: Order Comment: Speci men Comment: [id number] Specimen Comment: Source.............Cervix;Endocervix Specimen Comment: No. of containers..01 ThinPrep Vial Result Comment: Crit eria not met, HPV Genotype not performed. Performed at: =[address] [id number] Drywall Carrier: Bianca Rosenbaum MD, Phone: [phone] Performed at: [address] [id number] Drywall Carrier: Bianca Rosenbaum MD, Phone: [phone] Performed By: #### L 7400.0290 #### [facility] [address] [place], [place], [address] PAPSMR Comment Normal . [facility] Comment on above: Order Comment: Speci men Comment: [id number] Specimen Comment: Source.............Cervix;Endocervix Specimen Comment: No. of containers..01 ThinPrep Vial Result Comment: The Pap smear is a screening test designed to aid in the detection of premalignant and malignant conditions of the uterine cervix. It is not a diagnostic procedure and should not be used as the sole means of detecting cervical cancer. Both false-positive and false-negative reports do occur. Performed By: #### L 7400.0290 #### [facility] [address] [facility]. [place], [place], [address] PERFORM Comment Normal . [facility] Comment on above: Order Comment: Speci men Comment: [id number] Specimen Comment: Source.............Cervix;Endocervix Specimen Comment: No. of containers..01 ThinPrep Vial Result Comment: Catrachita Hoover, Bobcat Operator (ASCP) Performed By: #### L 7400.0290 #### [facility] [address] [facility] [place], [place], [address] Emergency Department Summary on 04-30-2024 Emergency Department Summary [facility] Medical Records Department [address] [place] [address] Emergency Department Summary 04/30/24 MR#: [id number] Acct: [id number] Name: SIDDHARTH MARVIN Rep #: [id number] : 1970 53 From: Blair Lopez DO PCP: GRIFFIN Andino Status:REG ER Location: ED HPI History of Present Illness Chief Complaint: Allergic Reaction [facility] Medical History (Updated 04/30/24 @ 22:[address] Blair Lopez DO) Tobacco use disorder, continuous Encounter for screening for malignant neoplasm of lung Wears glasses Heartburn Gastric reflux History of edema History of echocardiogram History of stress test Smoker Headache, migraine Type 2 diabetes mellitus Kidney infection Home Medications ???Medication ???Instructions ???Recorded ???Last Taken ???Type metformin 500 mg tablet,extended 500 mg PO BID 04/01/24 04/13/24 History release 24 hr amoxicillin 500 mg capsule 500 mg PO TID 04/19/24 Unknown History prednisone 50 mg tablet 50 mg PO DAILY #5 tabs 04/29/24 Unknown Rx Allergy/AdvReac Type Severity Reaction Status Date / Time No Known Allergies Allergy Verified 04/30/24 19:36 Family History Father Diabetes Heart disease Mother COPD (chronic obstructive pulmonary disease) Surgical History History of tubal ligation ( 1995) History of ( 1989) Social History household members: none current occupational status: employed current occupation: [employer] Smoking Status: Current every day smoker tobacco type: cigarettes substance use type: does not use EXAM Physical Exam Const Vital Signs: 04/30/24 19:36 04/30/24 21:36 Temperature 96.9 F L 98 F Temperature Source Temporal Oral Pulse Rate 88 81 Respiratory Rate 17 20 H Blood Pressure 157/87 H 147/90 H Blood Pressure Mean 110 109 Pulse Ox 96 99 Oxygen Delivery Method Room Air Room Air MDM MDM MDM Narrative Medical decision making narrative: HISTORY OF PRESENT ILLNESS: 53-year-old female presents concern for hives. She know she was seen yesterday and diagnosed with urticaria. Notes today the hives are more irritated and starting approximately 5 hours prior to arrival patient's mouth and throat became scratchy and sore. REVIEW OF SYSTEMS: Pertinent positives: Hives, throat scratchiness and soreness Pertinent negatives: Vomiting, shortness of breath, abdominal pain, drooling, difficulty swallowing PHYSICAL EXAM: Nursing triage notes reviewed, Vital signs reviewed Constitutional: please see mdm HENT: MMM, patent oral pharynx, no posterior oropharyngeal edema, slight swelling the left tonsil, no exudates. Uvula midline, no pooling secretions, no trismus. No submandibular edema. Neck: No stridor, no JVD, full neck ROM, no anterior lymphadenopathy Lungs: Clear to auscultation, No wheezing or rales. No increased work of breathing, no conversational dyspnea, no accessory muscle use, no nasal flaring. No respiratory distress noted Heart: Regular rate and rhythm, No murmurs, No rubs and No gallops, 2+ distal pulses (radial, femoral, posterior tibial) in all extremities Abdomen: Soft, there is no tenderness, rigidity, rebound or guarding, no obvious peritoneal signs, no palpable pulsatile abdominal masses, no auscultated abdominal bruit Neuro: No focal neurological deficits, cranial nerves II through XII intact, 5/5 strength in all extremities. Intact sensation to light touch in all extremities, 2+ reflexes bilateral patella tendons. Normal gait. No ataxia. Skin: No rash or lesions noted MEDICAL DECISION MAKING: Chief Complaint: Hives/allergic reaction External records reviewed: Reviewed patient's vital signs, problems, allergy list, medication list. Reviewed ED note from yesterday Factors affecting care: Type 2 diabetes, urticaria Social determinants of health: History of tobacco abuse History obtained from others: none Consults: none [facility] Narrative: Patient was initially hemodynamically stable, afebrile and nontoxic-appearing. No signs of sepsis with initial vital signs without tachycardia, tachypnea or fever. Exam without signs of respiratory compromise. No indication for advanced airway at this time. No clinical signs of Marquez's angina, Lemierre's syndrome, RPA or GORE SEAMER. I considered the following differential diagnosis: Allergic reaction, urticaria, anaphylaxis, anaphylactic shock There is no clinical physical exam evidence to suggest anaphylaxis or anaphylactic shock. I treat patient symptomatically with IM epinephrine, Pepcid, loratadine and Decadron. ALL IMAGES (IF OBTAINED) HAVE BEEN PERSONALLY REVIEWED AND INTERPRETED BY MYS (more content not included)... Normal [facility] M100.677on 04-30-2024 M100.677 Negative Normal [facility] Comment on above: Performed By: #### M 100.677 #### [facility] Laboratory [address] [place], [address] Emergency Department Summary on 04-29-2024 Emergency Department Summary [facility] Medical Records Department [address] [place] [address] Emergency Department Summary 04/29/24 MR#: [id number] Acct: [id number] Name: SIDDHARTH MARVIN Rep #: [id number] : 1970 53 From: Avinash MOYA PCP: GRIFFIN Andino Status:DEP ER Location: ED HPI History of Present Illness Chief Complaint: Rash Narrative Narrative: Patient is a 53-year-old female with complaints of diabetes who presents to the emergency department for rash, itching to the neck, bilateral arms and face. 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 Patient states she does start itching, she denies any shortness of breath, fever chills nausea or vomiting. Patient states that this scared her if she was itching and is here for evaluation. [facility] Medical History (Updated 04/29/24 @ 11:45 by GRIFFIN Deutsch) Tobacco use disorder, continuous Encounter for screening for malignant neoplasm of lung Wears glasses Heartburn Gastric reflux History of edema History of echocardiogram History of stress test Smoker Headache, migraine Type 2 diabetes mellitus Kidney infection Home Medications ???Medication ???Instructions ???Recorded ???Last Taken ???Type metformin 500 mg tablet,extended 500 mg PO BID 04/01/24 04/13/24 History release 24 hr amoxicillin 500 mg capsule 500 mg PO TID 04/19/24 Unknown History prednisone 50 mg tablet 50 mg PO DAILY #5 tabs 04/29/24 Unknown Rx Allergy/AdvReac Type Severity Reaction Status Date / Time No Known Allergies Allergy Verified 04/29/24 10:27 Family History Father Diabetes Heart disease Mother COPD (chronic obstructive pulmonary disease) Surgical History History of tubal ligation ( 1995) History of ( 1989) Social History household members: none current occupational status: employed current occupation: [employer] Smoking Status: Current every day smoker tobacco type: cigarettes substance use type: does not use ROS ROS ED ROS Narrative Constitutional: Negative for fever, chills, weight loss, weakness Eyes: Negative for vision loss, vision change, double vision ENT: Negative for any sore throat, ear pain, congestion Cardiovascular: Negative for any chest pain, tightness, palpitations Respiratory: Negative for any cough, sputum production, hemoptysis, dyspnea, dyspnea on exertion, orthopnea Gastrointestinal: Negative for any abdominal pain, nausea, vomiting, diarrhea, constipation, blood in stool, blood in vomit : Negative for any urinary frequency, dysuria, retention, blood in urine Muscle skeletal: Negative for any neck pain, back pain Neurological: Negative for any headache, syncope, dizziness Skin: Negative for any abrasions, lacerations. Positive for itching, rash Psychiatric: Negative for any depression, anxiety, stress, suicidal ideation, homicidal ideation Hematologic: Negative for any excessive bruising, easy bleeding EXAM Physical Exam Narrative Exam Narrative: Vital signs reviewed. HEET: Head normocephalic atraumatic, TMs clear bilaterally. Posterior pharynx is clear, moist mucous membranes. Nares clear bilaterally. Neck: Supple with no lymphadenopathy or tenderness. No signs of meningismus. No angioedema. Speaking without difficulty, no stridor Cardiac: Regular rate and rhythm no murmurs gallops or rubs, equal peripheral pulses bilaterally. Respiratory: Lungs clear to auscultation bilaterally. No chest tenderness. Abdomen: Soft, nontender, nondistended. No abdominal bruit or pulsatile masses. No hepatosplenomegaly Extremities: No peripheral edema, no signs of gross trauma or deformity. Active full range of motion of all extremities. Neuro: Cranial nerves II through XII intact, no focal neurological deficits. Skin: Clean dry and intact with no rash, purpura, petechiae, vesicles or pustules. Patient does have hives to the back of her neck, both arms, left side of neck and face. Backs/flank: No CVA tenderness, no midline spinal tenderness, no deformity. Psych: Normal mood and affect. No SI, HI or acute psychosis. Const Vital Signs: 04/29/24 10:25 Temperature 97.4 F L Temperature Source Oral Pulse Rate 81 Respiratory Rate 16 Blood Pressure 172/100 H Blood Pressure Mean 124 Pulse Ox 97 Oxygen Delivery Method Room Air Physical Exam Const Vital Signs: 04/29/24 10:25 Temperature 97.4 F L Temperature Source Oral Pulse Rate 81 Respiratory Rate 16 Blood Pressure 172/100 H Blood Pressure Mean 124 Pulse Ox 97 Oxygen Delivery Method Room Air MDM MDM Treatment and Re-Evaluation :: (more content not included)... Normal [facility] Low Dose CT Lung Screeningon 04-19-[address] Lung Screening [facility] Imaging Services [address] [place] [address] Lung Screening MR#: [id number] Acct: [id number] Name: SIDDHARTH MARVIN Rep #: [id number] : 1970 F 53 From: Addison lawson MD PCP: Cortez Call DATA TECHNICIAN-C Status: REG CLI Study: Low Dose CT Lung Screening Date of Exam: 04/19 Exam# [id number] Ordering Dr: Pam Navarro NP DATA TECHNICIAN -C [id number] STUDY: LOW DOSE CT LUNG CANCER SCREENING REASON FOR EXAM: Female, 53 years old. Lung cancer screening -- and gt;30 pk yr hx;current smoker; asymptomatic RADIATION DOSAGE (If Supplied By Facility): CTDIvol = ( 4.02 ) mGy, DLP = ( 140.94 ) mGycm TECHNIQUE: No contrast was administered. Low dose technique was utilized (average mAS-38 and kVp 120). 1.25 mm axial source images with a slice interval of 1.25-mm were reconstructed in lung windows. 2.5 mm axial source images with a slice interval of 2.5-mm were reconstructed in lung windows. 5.0 mm axial source images with a slice interval of 5.0-mm were reconstructed in soft tissue windows. COMPARISON: None. NODULES: No suspicious nodules are seen. Emphysema: No significant emphysematous changes. Endobronchial lesion: None Aorta: Minimal atherosclerotic calcification of the aortic arch. CORONARY ARTERIES: Coronary artery calcification is seen. Heart: Unremarkable Pulmonary artery: Unremarkable Mediastinal nodes: Unremarkable Other chest and abdominal findings: CT/Low Dose CT Lung Screening IMPRESSION: Lung-RADS category 2 - Continue annual screening with LDCT in 12 months. IMPORTANT NOTES FOR USE: ACR Lung-RADS Version 1.1 Assessment Categories Release Date: 2018 Category: Coded 0-4 bases on nodule(s) with highest degree of suspicion. Negative screen is defined as categories 1 and 2; a positive screen is defined as categories 3 and 4. Category 3 and 4A nodules that are unchanged on interval CT should be coded as category 2, and individuals returned to screening in 12 months. Category 4X: Category 3 or 4 nodules with additional imaging findings that increase the suspicion of lung cancer, such as spiculation, GGN that doubles in size in 1 year, enlarged lymph notes, etc. Category Modifiers: S (significant finding unrelated to lung cancer) Electronically Signed: Addison Tate MD at 13:48 EDT Reading Location ID and State: [address] [place] [address] , Service support , CC: GRIFFIN Call; GRIFFIN Navarro Mounter: Signed Normal [facility] Oncology Visit Reporton 03-28 Oncology Visit Report [facility] [address] [place] [address] [id number] OFFICE VISIT Date of Service: 04/19/24 1221 MR#: [id number] Acct: [id number] Name: SIDDHARTH MARVIN Rep #: [id number] : 1970 From: Pam Angel Age/Sex: 53/F Location: [facility] Status: Signed HPI HPI Reviewed eligibility criteria: 53 year old F with a 30+ pack year smoking history (1 ppd x 30+ years). Smoking Status: Current every day smoker (1 ppd ) Decision Making Engaged in shared decision making visit utilizing a visual aid. Discussed the risks and benefits of lung cancer screening including the total radiation exposure, false positive rate, over diagnosis and potential need for follow-up diagnostic testing all associated with low-dose chest CT. Comorbidities DM ROS Const Denies anorexia, Denies fatigue, Denies headache(s), Denies poor appetite and Denies weight loss ENT Denies headache(s) Card Denies chest pain, Reports dyspnea on exertion and Denies palpitations Resp Reports cough (occasional non productive ), Reports dyspnea on exertion, Denies hemoptysis and Denies wheezing GI Reports system reviewed and no additional complaints, except as documented Musc Reports system reviewed and no additional complaints, except as documented Skin/Breast Reports system reviewed and no additional complaints, except as documented Neuro Yes system reviewed and no additional complaints, except as documented and No headache(s) Psych Reports system reviewed and no additional complaints, except as documented Endo Reports system reviewed and no additional complaints, except as documented, Denies fatigue and Denies palpitations Brannon/Lymph Reports system reviewed and no additional complaints, except as documented Aller/Immun Denies wheezing Exam Const General: not in acute distress Orientation: alert and oriented x3 HENMT Head: normocephalic and atraumatic Neck Neck: trachea midline, supple and no lymphadenopathy noted Resp Effort Inspection: normal respiratory effort and symmetric chest movement Auscultation: Bilateral: Clear to Auscultation Cardio Rate: regular rate Rhythm: regular rhythm Heart Sounds: S1 normal and S2 normal Psych Affect: normal affect Speech and Movement: speech and movement normal Results Results April 19, [address] Lung Screening COMPARISON: None. NODULES: No suspicious nodules are seen. Emphysema: No significant emphysematous changes. Endobronchial lesion: None Aorta: Minimal atherosclerotic calcification of the aortic arch. CORONARY ARTERIES: Coronary artery calcification is seen. Heart: Unremarkable Pulmonary artery: Unremarkable Mediastinal nodes: Unremarkable Other chest and abdominal findings: IMPRESSION: Lung-RADS category 2 - Continue annual screening with LDCT in 12 months. IMPORTANT NOTES FOR USE: ACR Lung-RADS Version 1.1 Assessment Categories Release Date: 2018 Category: Coded 0-4 bases on nodule(s) with highest degree of suspicion. Negative screen is defined as categories 1 and 2; a positive screen is defined as categories 3 and 4. Category 3 and 4A nodules that are unchanged on interval CT should be coded as category 2, and individuals returned to screening in 12 months. Category 4X: Category 3 or 4 nodules with additional imaging findings that increase the suspicion of lung cancer, such as spiculation, GGN that doubles in size in 1 year, enlarged lymph notes, etc. Category Modifiers: S (significant finding unrelated to lung cancer) Intake Vital Signs 04/01/24 11:49 04/15/24 07:23 04/19/24 12:24 Height 5 ft 3 in 5 ft 3 in 5 ft 3 in Weight: 249 lb 9 oz BMI 44.1 BP 137/83 H Blood Pressure Location Lt brachial Position Sitting Respiration 16 Pulse 73 Pulse Source Monitor Temp 96.8 F L Temp Source Temporal Pulse Oximetry (%) 93 Oxygen Delivery Method room air Intake Visit Reasons: Lung Cancer Screening Is patient in pain?: No Allergies No Known Allergies Allergy (Verified 04/19/24 12:23) Medications ???Medication ???Instructions ???Recorded ???Confirmed ???Type metformin 500 mg tablet,extended 500 mg PO BID 04/01/24 04/19/24 History release 24 hr amoxicillin 500 mg capsule 500 mg PO TID 04/19/24 04/19/24 History PFSH Medical History (Updated 04/19/24 @ 14:50 by Pam Navarro NP, DATA TECHNICIAN-C) Tobacco use disorder, continuous Encounter for screening for malignant neoplasm of lung Wears glasses Heartburn Gastric reflux History of edema History of echocardiogram History of stress test Smoker Headache, migraine Type 2 diabetes mellitus Kidney infection Surgical History History of tubal ligation ( 1995) History of ( (more content not included)... Normal [facility] Bedside Glucoseon 04-15-2024 FINGERSTICK GLU 169 mg/dL High 74-106 [facility] Comment on above: Result Comment: JOSH GENAO OF PATIENT CARE PER NURSING PROTOCOL Performed By: #### L 501.080 #### [facility] [address] [place], [address] Colonoscopy Reporton 024 Colonoscopy Report [facility] Medical Records Department [address] [place] [address] Colonoscopy Report MR#: [id number] Acct: [id number] Name: SIDDHARTH MARVIN Rep #: [id number] : 1970 53 From: Antonio Rios MD PCP: GRIFFIN Andino Status:[place] [facility] Patient Name: Siddharth Marvin Procedure Date: 04/15/2024 7:41 AM Date of : 1970 Age: 53 Procedure: Colonoscopy Indications: Screening for colorectal malignant neoplasm Providers: Antonio Rios MD Referring MD: Griffin Andino Medicines: Propofol per Anesthesia Patient Profile: Refer to note in patient chart for documentation of history and physical. Last Colonoscopy: none. The patient's first colonoscopy is today. Complications: No immediate complications. Estimated blood loss: None. Procedure: Pre-Anesthesia Assessment: - Prior to the procedure, a History and Physical was performed, and patient medications and allergies were reviewed. The patient's tolerance of previous anesthesia was also reviewed. The risks and benefits of the procedure and the sedation options and risks were discussed with the patient. All questions were answered, and informed consent was obtained. Prior Anticoagulants: The patient has taken no anticoagulant or antiplatelet agents. ASA Grade Assessment: II - A patient with mild systemic disease. After reviewing the risks and benefits, the patient was deemed in satisfactory condition to undergo the procedure. After I obtained informed consent, the scope was passed under direct vision. Throughout the procedure, the patient's blood pressure, pulse, and oxygen saturations were monitored continuously. The colonoscope was introduced through the anus and advanced to the cecum, identified by the appendiceal orifice, ileocecal valve and palpation. The ileocecal valve, appendiceal orifice, and rectum were photographed. The entire colon was well visualized. The colonoscopy was performed without difficulty. The patient tolerated the procedure well. The quality of the bowel preparation was fair. Moderate Sedation: See the other procedure note for documentation of moderate sedation with intraservice time. Scope In: 7:57:06 AM Scope Withdrawal Time 0 hours 8 minutes 7 seconds Scope Out: 8:30:01 AM Total Procedure Duration Time 0 hours 32 minutes 55 seconds Findings: The perianal and digital rectal examinations were normal. The entire examined colon appeared normal on direct and retroflexion views. Impression: - Preparation of the colon was fair. - The entire examined colon is normal on direct and retroflexion views. - No specimens collected. Recommendation: - Discharge patient to home (ambulatory). - High fiber diet. - Repeat colonoscopy in 10 years for screening purposes. - Return to my office PRN. - Continue present medications. Procedure Code(s): --- Professional --- 67041, Colonoscopy, flexible; diagnostic, including collection of specimen(s) by brushing or washing, when performed (separate procedure) Diagnosis Code(s): --- Professional --- Z12.11, Encounter for screening for malignant neoplasm of colon CPT copyright 2021 [employer]. All rights reserved. The codes documented in this report are preliminary and upon group sales manager review may be revised to meet current compliance requirements. Antonio Rios MD 04/15/2024 8:41:41 AM This report has been signed electronically. Number of Addenda: 0 Note Initiated On: 04/15/2024 7:41 AM 04/15/24840 Date nAtonio Guzman Signature: Date (if indicated) CC: DATA TECHNICIAN-C Cortez Call; Dr. Antonio Rios MD Date Dictated: 04/15/24740 Date Transcribed: Mounter: RYAN Hector [facility] MR/POSTOP.[facility] [place] 04-15-2024 MR/POSTOP.[facility] Medical Records Department [address] [place] [address] Anesthesia Postop Eval I 04/15/24842 MR#: [id number] Acct: [id number] Name: SIDDHARTH MARVIN Rep #: [id number] : 1970 53 From: Gold Wan PCP: GRIFFIN Andino Status:REG SDC Y Race: C Location: [place] [address] Anesthesia: Postop Eval I Current Vital Signs Temperature: 97 F Pulse Rate: 79 Blood Pressure: 108/80 Respiratory Rate: 16 Pulse Ox: 97 Oxygen Delivery Method: Room Air Assessment Airway patent: Yes Spontaneous unlabored respirations: Yes Mental status: Awake and Calm nausea: No Vomiting: No Anesthesia Complication: No Fluid Hydration Crystalloid volume administer (ml): 800 Total IV fluid infused: 800 Progress Note Anesthesia document: Postop Eval 1 completed: Yes 04/15/24843 Date Gold Guzman Signature: Date CC: Signed Normal [facility] MR/[id number] 04-15-2024 MR/POSTOPAN2 [facility] Medical Records Department [address] [place] [address] Anesthesia Postop Eval II 04/15/24857 MR#: [id number] Acct: [id number] Name: SIDDHARTH MARVIN Rep #: [id number] : 1970 53 From: Enzo Swanson MD PCP: Cortez Call NP-C Status:REG SDC Y Race: C Location: [address] Anesthesia Postop Eval I Sum Postop Eval Completion status Anesthesia document: Postop Eval 1 completed: Yes Anesthesia Postop Eval I Summary Anesthesia Postop Eval I Summary: Anesthesia Postop Eval I: Assessment Summary Airway patent Yes 04/15/24 08:44 [email or web address] Spontaneous unlabored Yes 04/15/24 08:44 [email or web address] respirations Mental status Awake,Calm 04/15/24 08:44 [email or web address] nausea No 04/15/24 08:44 [email or web address] Vomiting No 04/15/24 08:44 [email or web address] Anesthesia Postop Eval I: Fluid Summary Crystalloid volume administer 800 04/15/24 08:44 [email or web address] (ml) Colloids volume administered ( ml) Blood Product volume administered (ml) Total IV fluid infused 800 04/15/24 08:44 [email or web address] Anesthesia Postop Eval I: Summary Notes Anesthesia Complication No 04/15/24 08:44 [email or web address] Anesthesia Complication Comment: Post-operative progress note Anesthesia: Postop Eval II Evaluation Mental status: Awake Pain Level: 0 nausea: No Vomiting: No 04/15/24857 Date Enzo Swanson MD Cosigner Signature: Date CC: Signed Normal [facility] SCRN MAMM (CAD)W/[place] BILATo n 04-01-2024 SCRN MAMM (CAD)W/[place] BILAT [facility] Imaging Services [address] [place] [address] SCRN MAMM (CAD)W/[place] BILAT MR#: [id number] Acct: [id number] Name: SIDDHARTH MARVIN Rep #: [id number] : 1970 F 53 From: Addison lawson MD PCP: GRIFFIN Andino Status: REG CL Study: SCRN MAMM (CAD)W/[place] BILAT Date of Exam: 01/17 Exam# [id number] Ordering Dr: Cortez Call [id number] MAMMOGRAPHY - BILATERAL SCREENING REASON FOR EXAM: Female, 53 years old. Routine annual screening examination. PERTINENT HISTORY: Non-contributory. TECHNIQUE: Digital bilateral breast [place] (3D mammographic acquisition) in the CC and MLO projections. 2-D mediolateral oblique (MLO) and craniocaudad (CC) views of both breasts were obtained. CAD: Full Field Digital Mammography with Computer Added Detection was performed. COMPARISON: Comparison is made with prior outside examination of September 06, 2018. FINDINGS: Breast Composition: The breasts are almost entirely fatty. There are no dominant masses or suspicious calcifications. Bilateral axillary lymph nodes. No other significant abnormalities are identified. There has been no significant change since the prior study. BI/SCRN MAMM (CAD)W/[place] BILAT IMPRESSION: Stable bilateral screening mammogram. Yearly follow-up mammogram recommended. (A) ASSESSMENT CATEGORY: BIRADS Category 2: Benign. A letter regarding these results will be sent to the patient by the facility within 30 days. Approximately 10% of breast cancers are not detected by mammography. A normal mammogram should not delay biopsy of a clinically suspicious abnormality. [id number] Electronically Signed: Addison Tate MD at 8:26 EDT , CC: GRIFFIN Call Mounter: Signed Normal [facility] CT HEAD WO CONTRASTon 2022 CT HEAD WO CONTRAST Patient Name: SIDDHARTH MARVIN STUDY: CT HEAD WO CONTRAST; 11/03/2022 9:01 pm INDICATION: Trauma. fall . COMPARISON: None. ACCESSION NUMBER(S): [id number] ORDERING CLINICIAN: ANTOINETTE ALEJANDRA TECHNIQUE: Axial noncontrast head CT FINDINGS: Parenchyma: The sun-white differentiation is intact. There is no mass effect or midline shift. There is no intracranial hemorrhage. CSF Spaces: The ventricles, sulci and basal cisterns are within normal limits. There is no extraaxial fluid collection. Calvarium: There is focal soft tissue laceration/hematoma in the left posterior high parieto-occipital region. No evidence of fracture was identified. Paranasal sinuses and mastoids: Visualized paranasal sinuses and mastoids are clear. Brain Injury (BIG) guidelines CT values: Skull fracture: No SDH (subdural hematoma): None detected EDH (epidural hemtoma): None detected IPH (intraparenchymal hemorrhage): None detected SAH (subarachnoid hemorrhage): None detected IVH (intraventricular hemorrhage): No Reference: Shabbir B, Christi RS, Ying M, et al. The BIG (brain injury guidelines) project: defining the management of traumatic brain injury by acute care surgeons. J Trauma Acute Care Surg. 2014;76:468f101. IMPRESSION: Soft tissue laceration in the left high parieto-occipital region. Otherwise no acute intracranial abnormality. Electronically signed by: AIDAN REDD MD [facility] Provider Note - ED v3on 04- Provider Note - ED v3 Provider Note: Chart Review: ED NOTES ED NOTES: HPI: Apparently patient was at a local playground and missed a step on one of the pieces of play equipment in fell back approximately a hard plastic steps. She complains of pain in the left parietal region of the scalp. She denies any loss of consciousness vomiting or vision changes. Denies any musculoskeletal pain. Unsure of tetanus status. Medical/Family HX: Denies any chronic medical history Physical Exam I have reviewed the triage vital signs. Const: Well nourished, well developed, appears stated age, no acute distress Eyes: PERRL, EOM intact, no conjunctival injection, vision grossly normal HENT: Neck supple without meningismus , no cervical vertebral tenderness. No pain with full range of motion of neck. Moist mucous membranes, no pharyengeal swelling or exudate CV: Regular rate and rhythm, Warm, well-perfused extremities. Chest non tender RESP: Lungs clear bilaterally, Unlabored respiratory effort GI: soft, non-tender, non-distended, no masses : MSK: No gross deformities appreciated Back: Non tender, no pain with ROM Skin: Warm, dry. No rashes, mid left parietal scalp there is approximately a 2 cm in diameter abrasion. Neuro: Alert and oriented x4, GCS 15 , traffic control technician II-XII grossly intact. Sensation and motor function of extremities grossly intact. Psych: Appropriate mood and affect. I have reviewed and confirmed nurses/medics notes for patient past, social and family history. Portions of this note were dictated by speech recognition. An attempt at proof reading was made to minimize errors. Minor errors in fitness teacher may be present. HISTORY OF PRESENTING ILLNESS SIDDHARTH is a 52 year old Female and was seen by me at 03-Nov-2022 20:32 for a chief complaint of head injury (Pt was at the park playing with her grandchildren and fell on the steps. When pt fell she hit her head. Pt has a laceration on her head. Pt also has an abrasion on her left thigh. Pt has no other complaints. Pt had no LOC.)(1). Triage Information: Most recent Vital Sign Value Date Temp (F): 97.2 11-03-2022 20:31 Temp (C): 36.2 11-03-2022 20:31 Heart Rate (beats/min): 85 11-03-2022 20:31 Respirations (breaths/min): 18 11-03-2022 20:31 SpO2 (%): 96 11-03-2022 20:31 BP Systolic (mm Hg): 131 11-03-2022 20:31 BP Diastolic (mm Hg): 103 11-03-2022 20:31 PAST MEDICAL HISTORY ALLERGIES/INTOLERANCES : Allergy Status Unknown HEALTH HISTORY: No documented data. OUTPATIENT MEDICATIONS: Home Medications Review Status for Reconciliation: N/A Med Status: N/A No documented data. SIGNIFICANT EVENTS: No documented data. CRITICAL CARE RESULTS: Radiology Results: Impression: No evidence for an acute fracture or traumatic malalignment of the cervical spine. CT C Spine without Contrast [Nov 03 2022 9:49PM] Impression: Soft tissue laceration in the left high parieto-occipital region. Otherwise no acute intracranial abnormality. CT Head without Contrast [Nov 03 2022 9:47PM] VITAL SIGNS: T PRBP SpO2O2(LPM) %FiO2 Method 03-Nov-2022 20:31:[id number] 03 96 room air, no respiratory support MDM MDM/ED COURSE: CT scan of the head and neck is reviewed by myself was unremarkable. Scalp area was consistent with abrasion and no suturing needed. Patient discharged home as noted below and comfortable with plan. Differential Diagnoses Considered: Subdural hematoma, scalp laceration, scalp abrasion Chronic Medical Conditions Significantly Affecting Care: None Escalation of Care: Appropriate for discharge home to follow up with PCP Social Determinants of Health Significantly Affecting Care: None that affect their care today Diagnostic testing considered: As above Independent Interpretation of Studies: I independently reviewed and agree with radiology reads: As above The CAT scan of your head and neck did not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 [facility] Comment on above: Performed By: #### 2 90523 ####[facility],[address] [place] [address] Vital Signs Date Time Vital Sign Value Performing Clinician Facility 05-02-2024 08:50-0400 Body temperature 97.7 [degF] NICOLETTE HERNANDEZ DO [facility] 05-02-2024 08:50-0400 Body weight 11.6 kg NICOLETTE HERNANDEZ DO [facility] 05-02-2024 08:50-0400 Diastolic Blood Pressure Non-Invasive 70 mm[Hg] NICOLETTE HERNANDEZ DO [facility] 05-02-2024 08:50-0400 Heart rate 98 /min NICOLETTE HERNANDEZ DO [facility] 05-02-2024 08:50-0400 Respiratory rate 16 /min NICOLETTE HERNANDEZ DO [facility] 05-02-2024 08:50-0400 Systolic Blood Pressure Non-Invasive 140 mm[Hg] NICOLETTE HERNANDEZ DO [facility] 11-17-2022 20:23-0400 Diastolic blood pressure 82 mm[Hg] [facility] 11-17-2022 20:23-0400 Systolic blood pressure 162 mm[Hg] [facility] 11-17-2022 19:31-0400 Heart rate 72 /min [facility] 11-17-2022 19:31-0400 Respiratory rate 18 /min [facility] 11-17-2022 19:31-0400 SaO2% (BldA) [Mass fraction] 96 % [facility] 11-17-2022 16:42-0400 Body height 160.02 cm [facility] 11-17-2022 16:42-0400 Body mass index (BMI) [Ratio] 45 kg/m2 [facility] 11-17-2022 16:42-0400 Body temperature 97.9 [degF] [facility] 11-17-2022 16:42-0400 Body weight 115.25 kg [facility] 11-04-2022 00:00-0400 Diastolic blood pressure 87 mm[Hg] No Pcp Required [facility] 11-04-2022 00:00-0400 Heart rate 80 /min No Pcp Required [facility] 11-04-2022 00:00-0400 Respiratory rate 17 /min No Pcp Required [facility] 11-04-2022 00:00-0400 SaO2% (BldA) [Mass fraction] 97 % No Pcp Required [facility] 11-04-2022 00:00-0400 Systolic blood pressure 127 mm[Hg] No Pcp Required [facility] 11-03-2022 22:31-0400 Body height 160 cm No Pcp Required [facility] 11-03-2022 22:31-0400 Body temperature 97.16 [degF] No Pcp Required [facility] 11-03-2022 22:31-0400 Body weight 113.5 kg No Pcp Required [facility] Encounters Encounter Date Encounter Type Care Provider Facility Start: 03-20-2025 ambulatory [facility] Facility:[facility] Start: 06-17-2024 End: 06-17-2024 ambulatory [facility] Facility:[facility] Start: 05-02-2024 End: 05-02-2024 Emergency department patient visit NICOLETTE HERNANDEZ DO Facility:[facility] Start: 04-30-2024 End: 04-30-2024 Emergency department patient visit Cortez Call Facility:[facility] Start: 04-29-2024 End: 04-29-2024 Emergency department patient visit Cortez Call Facility:[facility] Start: 04-19-2024 End: 04-19-2024 ambulatory Pam Melanie DATA TECHNICIAN Facility:[facility] Start: 04-19-2024 End: 04-19-2024 ambulatory Pam Melanie DATA TECHNICIAN Facility:[facility] Start: 04-15-2024 End: 04-15-2024 ambulatory Cortez Oneyda Facility:[facility] Start: 04-01-2024 ambulatory Deedee Chago Facility:[facility] Start: 04-01-2024 End: 04-01-2024 ambulatory [facility] Facility:[facility] Start: 11-17-2022 End: 11-17-2022 Emergency department patient visit [facility] Start: 11-03-2022 End: 11-04-2022 Emergency department patient visit Antoinette Alejandra [facility] Emergency 03 Start: 07-25-2022 End: 07-25-2022 Emergency department patient visit MANSI COLEMANW [facility] Start: 09-13-2017 End: 09-14-2017 Emergency department patient visit OMAYRA CHERRY [facility] Procedures Date Procedure Procedure Detail Performing Clinician Start: 11-17-2022 CT of head without contrast Plan of Treatment Date Care Activity Detail Author Patient Education ED Concussion [facility] Work Phone: Patient referral [facility] Work Phone: Payers Date Payer Category Payer Self-pay [id number] 2024 Private Health Insurance [id number] 1970 Unknown [id number] 1970 Unknown [id number] Unknown [id number] Unknown See Registration System\SELF PAY Unknown [id number] Unknown RAMSES [id number] Unknown [id number] Unknown [id number] .462 Unknown [id number] .462 Unknown [id number] .462 Unknown [id number] .462 Unknown [id number] .462 Unknown [id number] .462 Unknown [id number] .462 Unknown [id number] .462 Unknown [id number] .462 Social History Date Type Detail Facility [facility] Start: 11-17-2022 Tobacco smokin g consumption unknown [facility] Start: 05-03-2018 None [facility] Start: 05-03-2018 Spouse/ Signif icant Other [facility] Start: 05-04-2018 Cigarettes [facility] Start: 1970 Sex Assigned At Female [facility] Tobacco smoking status No Smoking Status Entered [facility] Functional Status Date Assessment Result Facility 05-02-2024 Functional Status ID band on, Call device within reach, Bed in low position, Wheels locked, personal items within reach [facility] Mental Status Date Assessment Result Facility 05-02-2024 Mental Status Oriented x 4 [facility] Discharge instructions 05-02-2024 Note Date & Type Note Facility 05-02-2024 Hospital Discharg e instructions Patient Education 05/02/2024 09:11:28 Hives (Adult) Hives (Adult) Hives are pink or red bumps on the skin. These bumps are also known as wheals. The bumps can itch, burn, or sting. Hives can occur anywhere on the body. They vary in size and shape and can form in clusters. Individual hives can appear and go away quickly. New hives may develop as old ones fade. Hives are common and usually harmless. Occasionally hives are a sign of a serious allergy. Hives are often caused by an allergic reaction. It may be an allergic reaction to foods such as fruit, shellfish, chocolate, nuts, or tomatoes. It may be a reaction to pollens, animal fur, or mold spores. Medicines, chemicals, and insect bites can also cause hives. And hives can be caused by hot sun or cold air. The cause of hives can be difficult to find. You may be given medicines to relieve swelling and itching. Follow all instructions when using these medicines. The hives will usually fade in a few days, but can last up to 2 weeks. Home care Follow these tips: Try to find the cause of the hives and eliminate it. Discuss possible causes with your healthcare provider. Future reactions to the same allergen may be worse. Don t scratch the hives. Scratching will delay healing. To reduce itching, apply cool, wet compresses to the skin. Dress in soft, loose cotton clothing. Don t bathe in hot water. This can make the itching worse. Apply an ice pack or cool pack wrapped in a thin towel to your skin. This will help reduce redness and itching. But if your hives were caused by exposure to cold, then do not apply more cold to them. You may use over-the counter antihistamines to reduce itching. Some older antihistamines, such as diphenhydramine and chlorpheniramine, are inexpensive. But they need to be taken often and may make you sleepy. They are best used at bedtime. Don t use diphenhydramine if you have glaucoma or have trouble urinating because of an enlarged prostate. Newer antihistamines, such as loratadine, cetirizine, and fexofenadine, are generally more expensive. But they tend to have fewer side effects, such as drowsiness. They can be taken less often. Another type of antihistamine is used to treat heartburn. This type includes ranitidine, nizatidine, famotidine, and cimetidine. These are sometimes used along with the above antihistamines if a single medicine is not working. Follow-up care Follow up with your healthcare provider if your symptoms don't get better in 2 days. Ask your provider about allergy testing if you have had a severe reaction, or have had several episodes of hives. He or she can use the allergy testing to find out what you are allergic to. When to seek medical advice Call your healthcare provider right away if any of these occur: Fever of 100.4 F (38.0 C) or higher, or as directed by your healthcare provider Redness, swelling, or pain Foul-smelling fluid coming from the rash Call 911 Call 911 if any of the following occur: Swelling of the face, throat, or tongue Trouble breathing or swallowing Dizziness, weakness, or fainting [id number] [employer] [place] [address]. All rights reserved. This information is not intended as a substitute for professional medical care. Always follow your healthcare professional's instructions. 05/02/2024 09:11:26 Allergic Reaction, Other (General) General Allergic Reactions An allergic reaction is a set of symptoms caused by an allergen. An allergen is something that causes a person s immune system to react. When a person comes in contact with an allergen, it causes the body to release chemicals. These include the chemical histamine. Histamine causes swelling and itching. It may affect the entire body. This is called a general allergic reaction. Often symptoms affect only 1 part of the body. This is called a local allergic reaction. You are having an allergic reaction. Almost anything can cause one. Different people are allergic to different things. It is usually something that you ate or swallowed, came into contact with by getting or putting it on your skin or clothes, or something you breathed in the air. This can be very annoying and sometimes scary. Most of us think of allergic reactions when we have a rash or itchy skin. Symptoms can include: Itching of the eyes, nose, and roof of the mouth Runny or stuffy nose Watery eyes Sneezing or coughing A blocked feeling in the ear Red, itchy rash called hives Red and purple spots Rash, redness, welts, blisters Itching, burning, stinging, pain Dry, flaky, cracking, scaly skin Severe symptoms include: Swelling of the face, lips, or other parts of the body Hoarse voice Trouble swallowing, feeling like your throat is closing Trouble breathing, wheezing Nausea, vomiting, diarrhea, stomach cramps Feeling faint or lightheaded, rapid heart rate Sometimes the cause may be obvious. But there are so many things that can cause a reaction that you may not be able to figure out. The most important things to help find your allergen are: Remembering when it started What you were doing at the time or just before that Any activities you were involved in Any new products or contacts Below are some common causes. But remember that almost anything can cause a reaction. You may not even be aware that you came into contact with one of these things: Dust, mold, pollen Plants (common ones are poison ethan and poison oak, but there are many others) Animals Foods such as shrimp, shellfish, peanuts, milk products, gluten, and eggs. Also food colorings, flavorings, and additives. Insect bites or stings such as bees, mosquitos, fleas, ticks Medicines such as penicillin, sulfa medicines, amoxicillin, aspirin, and ibuprofen. But any medicine can cause a reaction. Jewelry such as nickel or gold. This can be new, or something you ve worn for a while, including zippers and buttons. Latex such as in gloves, clothes, toys, balloons, or some tapes. Some people allergic to latex may also have problems with foods like bananas, avocados, kiwi, papaya, or chestnuts. Lotions, perfumes, cosmetics, soaps, shampoos, skincare products, nail products Chemicals or dyes in clothing, linen, watch assembly inspector, hair dyes, soaps, iodine Many viruses and common colds can cause a rash that is not an allergic reaction. Sometimes it is hard to tell the difference between allergies, sensitivity, or an intolerance to something. This is especially true with food. Many things can cause diarrhea, vomiting, stomach cramps, and skin irritation. Home care The goal of treatment is to help relieve the symptoms and get you feeling better. The rash will usually fade over several days. But it can sometimes last a couple of weeks. Over the next couple of days, there may be times when it is gets a little worse, and then better again. Here are some things to do: If you know what you are allergic to, stay away from it. Future reactions could be worse than this one. Avoid tight clothing and anything that heats up your skin (hot showers or baths, direct sunlight). Heat will make itching worse. An ice pack will relieve local areas of intense itching and redness. To make an ice pack, put ice cubes in a plastic bag that seals at the top. Wrap it in a thin, clean towel. Don t put the ice directly on the skin because it can damage the skin. Oral diphenhydramine is an gytd-ekb-ftosilh antihistamine sold at pharmacy and grocery stores. Unless a prescription antihistamine was given, diphenhydramine may be used to reduce itching if large areas of the skin are involved. It may make you sleepy. So be careful using it in the daytime or when going to school, working, or driving. Note: Don t use diphenhydramine if you have glaucoma or if you are a man with trouble urinating due to an enlarged prostate. There are other antihistamines that won t make you so sleepy. These are good choices for daytime use. Ask your pharmacist for suggestions. Don t use diphenhydramine cream on your skin. It can cause a further reaction in some people. To help prevent an infection, don't scratch the affected area. Scratching may worsen the reaction and damage your skin. It can also lead to an infection. Always check the affected for signs of an infection. Call your healthcare provider and ask what you can use to help decrease the itching. To decrease allergic reactions, try the following: Use heat-steam to clean your home Use high-efficiency particulate (HEPA) vacuums and filters Stay away from food and pet triggers Kill any cockroaches Clean your house often Follow-up care Follow up with your healthcare provider, or as advised. If you had a severe reaction today, or if you have had several mild to medium allergic reactions in the past, ask your provider about allergy testing. This can help you find out what you are allergic to. If your reaction included dizziness, fainting, or trouble breathing or swallowing, ask your provider about carrying auto-injectable epinephrine. Call 911 Call 911 if any of these occur: Trouble breathing or swallowing, wheezing Cool, moist, pale skin Shortness of breath Hoarse voice or trouble speaking Confused Very drowsy or trouble awakening Fainting or loss of consciousness Rapid heart rate Feeling of dizziness or weakness or a sudden drop in blood pressure Feeling of doom Feeling lightheaded Severe nausea or vomiting, or diarrhea Seizure Swelling in the face, eyelids, lips, mouth, throat or tongue Drooling When to seek medical advice Call your healthcare provider right away if any of these occur: Spreading areas of itching, redness or swelling Nausea or stomach cramps or abdominal pain Continuing or recurring symptoms Spreading areas of redness, swelling, or itching Signs of infection at the affected site: oSpreading redness oIncreased pain or swelling oFluid or colored drainage from the site oFever of 100.4 F (38 C) or above lasting for 24 to 48 hours, or as directed by your provider [id number] [employer]. [address] [place] [address]. All rights reserved. This information is not intended as a substitute for professional medical care. Always follow your healthcare professional's instructions. Follow Up Care 05/02/2024 08:47:57 With:follow up with your dentist thursday as discussed Address:Unknown When:2-4 days With:Go to emergency room if symptoms worsen Address:Unknown When:2-4 days With:CORTE[facility] CALL Address: [address] [place] [phone] When:2-[address] [facility] Clinical Note 05-02-2024 Note Date & Type Note Facility 05-02-2024 Note Discharge Instructions Thank you for allowing [facility] to assist you with your healthcare needs. The following is important discharge information regarding your hospital visit. Diagnosis from Today's Visit Allergic reaction Urticaria What to Do Next Instructions from Your Care Team Please take steroids and antibiotics as prescribed. Please avoid gluing your dentures back in as this may be contributing to recurrence of hives and allergic reaction symptoms. Please take Pepcid and Zyrtec or Claritin daily as Zyrtec and Claritin are less likely to cause drowsiness rather than Benadryl. Please follow-up with your dentist Thursday as scheduled. Please return to the emergency department if you develop any difficulty swallowing, trouble breathing, shortness of breath or experiencing any worsening symptoms or other acute concerns. Discharge Return to Work, School, or Sports (Return to Work, School, or Sports) - Ordered -- 05/04/24, May return to: work, 05/02/24 9:13:00 EDT Post Acute Orders No qualifying data available. You Need to Schedule the Following Appointments Follow Up with follow up with your dentist thursday as discussed When:Within 2-4 days Follow Up with Go to emergency room if symptoms worsen When:Within 2-4 days Follow Up with [facility] CALL When:Within 2-4 days Where:[address] [place] [phone] Allergies No Known Medication Allergies Medications Please ask your primary doctor or pharmacist before taking any other medication not listed, including over the counter drugs, herbal medications, vitamins and or supplements as they may interact with your home medications. What How Much When Instructions Last Dose New amoxicillin-clavulanate (amoxicillin-clavulanate 875 mg-125 mg oral tablet) 1 tab(s) by mouth Every 12 hours Duration: 7 Days Printed Prescription Changed predniSONE (predniSONE 20 mg oral tablet) 2 tab(s) by mouth Once a day Duration: 5 Days Take with food Printed Prescription Changed predniSONE (predniSONE 50 mg oral tablet) 1 tab(s) by mouth Once a day Unchanged amoxicillin (amoxicillin 500 mg oral capsule) 1 cap by mouth Three (3) times a day Duration: 7 Days Unchanged metFORMIN (MetFORMIN (Eqv-Glucophage XR) 500 mg oral tablet, EXTENDED RELEASE) 1 tab(s) by mouth Once a day Please take this list to your next doctor s visit. Bring all medications you take, including over the counter medications, herbals and other supplements with you to your doctor s visit. Patients and families are reminded to discard old lists and to update any records with all medication providers or retail pharmacies. Medication Leaflets prednisone (GERI Owens What is the most important information I should know about prednisone? You should not use prednisone if you have a fungal infection anywhere in your body. You should not stop using prednisone suddenly. Follow your doctor's instructions about tapering your dose. What is prednisone? Prednisone is a steroid that reduces inflammation in the body, and also suppresses your immune system. Prednisone is used to treat many different conditions such as hormonal disorders, skin diseases, arthritis, lupus, psoriasis, allergic conditions, ulcerative colitis, Crohn's disease, eye diseases, lung diseases, asthma, tuberculosis, blood cell disorders, kidney disorders, leukemia, lymphoma, multiple sclerosis, organ transplant rejection, swelling from a brain tumor or injury. Prednisone may also be used for purposes not listed in this medication guide. What should I discuss with my healthcare provider before taking prednisone? You should not use prednisone if you are allergic to it, or if you have a fungal infection anywhere in your body. Steroid medication can weaken your immune system, making it easier for you to get an infection or worsening an infection you already have. Tell your doctor about any illness or infection you've had within the past several weeks. Tell your doctor if you have ever had: heart problems, high blood pressure, or a heart attack; glaucoma or cataracts; herpes infection of the eyes; past or present tuberculosis; a parasite infection that causes diarrhea (such as threadworms); any illness that causes diarrhea; underactive thyroid; diabetes; a stomach ulcer, diverticulitis; a colostomy or ileostomy; osteoporosis or low bone mineral density (steroid medication can increase your risk of bone loss); low levels of calcium or potassium in your blood; cirrhosis or other liver disease; mental illness or psychosis; or a muscle disorder such as myasthenia gravis. Long-term use of steroids may lead to bone loss (osteoporosis), especially if you smoke or drink alcohol, if you do not exercise, or if you do not get enough vitamin D or calcium in your diet. It is not known whether this medicine will harm an unborn baby. Tell your doctor if you are or plan to become . You should not breastfeed while using prednisone. How should I take prednisone? Follow all directions on your prescription label and read all medication guides or instruction sheets. Your doctor may occasionally change your dose. Use the medicine exactly as directed. Prednisone is taken daily or every other day, depending on the condition being treated. You may need to take the medicine at a certain time of day. Follow your doctor's instructions about when and how often to take this medicine. Take with food if prednisone upsets your stomach. Measure liquid medicine carefully. Use the dosing syringe provided, or use a medicine dose-measuring device (not a kitchen spoon). Swallow the delayed-release tablet whole and do not crush, chew, or break it. Prednisone can weaken (suppress) your immune system, and you may get an infection more easily. Call your doctor if you have signs of infection (fever, weakness, cold or flu symptoms, skin sores, diarrhea, frequent or recurring illness). If you have major surgery or a severe injury or infection, your prednisone dose needs may change. Make sure any doctor caring for you knows you are using this medicine. If you use this medicine long-term, you may need medical tests and vision exams. In case of emergency, wear or carry medical identification to let others know you use a steroid. You should not stop using prednisone suddenly. Follow your doctor's instructions about tapering your dose. Store at room temperature away from moisture, heat, and light. What happens if I miss a dose? Take the medicine as soon as you can, but skip the missed dose if it is almost time for your next dose. Do not take two doses at one time. What happens if I overdose? Seek emergency medical attention or call the Poison Help line at . High doses or long-term use of prednisone can lead to thinning skin, easy bruising, changes in body fat (especially in your face, neck, back, and waist), increased acne or facial hair, menstrual problems, impotence, or loss of interest in sex. What should I avoid while taking prednisone? Do not receive a 'live' vaccine while using prednisone. The vaccine may not work as well and may not fully protect you from disease. Live vaccines include measles, mumps, rubella (MMR), polio, rotavirus, typhoid, yellow fever, varicella (chickenpox), zoster (shingles), and nasal flu (influenza) vaccine. Avoid being near people who are sick or have infections. Call your doctor for preventive treatment if you are exposed to chickenpox or measles. These conditions can be serious or even fatal in people who are using steroid medicine. Avoid drinking alcohol. What are the possible side effects of prednisone? Get emergency medical help if you have signs of an allergic reaction: hives; difficult breathing; swelling of your face, lips, tongue, or throat. Call your doctor at once if you have: muscle pain or weakness; blurred vision, tunnel vision, eye pain, or seeing halos around lights; severe depression, changes in personality, unusual thoughts or behavior; bloody or tarry stools, coughing up blood or vomit that looks like coffee grounds; swelling, rapid weight gain, feeling short of breath; irregular heartbeats; severe headache, pounding in your neck or ears; decreased adrenal gland hormones--muscle weakness, tiredness, diarrhea, nausea, menstrual changes, skin discoloration, craving salty foods, and feeling light-headed; or low potassium level--leg cramps, constipation, irregular heartbeats, fluttering in your chest, increased thirst or urination, numbness or tingling, muscle weakness or limp feeling. Prednisone can affect growth in children. Tell your doctor if your child is not growing at a normal rate while using this medicine. Common side effects may include: weight gain (especially in your face or your upper back and torso); increased appetite; mood changes, trouble sleeping; changes in your menstrual periods; problems with memory or thought; muscle or joint pain; weakness; headache, dizziness, spinning sensation; nausea, bloating, loss of appetite; slow wound healing; or acne, increased sweating, thinning skin, bruising, pinpoint spots under your skin. This is not a complete list of side effects and others may occur. Call your doctor for medical advice about side effects. You may report side effects to FDA at 8-090-LCR-5122. What other drugs will affect prednisone? Sometimes it is not safe to use certain medications at the same time. Some drugs can affect your blood levels of other drugs you take, which may increase side effects or make the medications less effective. Tell your doctor about all your current medicines. Many drugs can affect prednisone, especially: bupropion; cyclosporine; digoxin; ketoconazole; an antibiotic; control pills or hormone replacement therapy; a diuretic or 'water pill'; insulin or oral diabetes medicine; a blood thinner--warfarin, Coumadin, Jantoven; or NSAIDs (nonsteroidal anti-inflammatory drugs)--aspirin, ibuprofen (Advil, Motrin), naproxen (Aleve), celecoxib, diclofenac, indomethacin, meloxicam, and others. This list is not complete and many other drugs may affect prednisone. This includes prescription and [id number] medicines, vitamins, and herbal products. Not all possible drug interactions are listed here. Where can I get more information? Your pharmacist can provide more information about prednisone. Remember, keep this and all other medicines out of the reach of children, never share your medicines with others, and use this medication only for the indication prescribed. Every effort has been made to ensure that the information provided by [employer] is accurate, up-to-date, and complete, but no guarantee is made to that effect. Drug information contained herein may be time sensitive. [employer] information has been compiled for use by healthcare practitioners and consumers in the [place] and therefore [employer] does not warrant that uses outside of the [place] are appropriate, unless specifically indicated otherwise. [employer]'s drug information does not endorse drugs, diagnose patients or recommend therapy. [employer] drug information is an informational resource designed to assist licensed healthcare practitioners in caring for their patients and/or to serve consumers viewing this service as a supplement to, and not a substitute for, the expertise, skill, knowledge and judgment of healthcare practitioners. The absence of a warning for a given drug or drug combination in no way should be construed to indicate that the drug or drug combination is safe, effective or appropriate for any given patient. [employer] does not assume any responsibility for any aspect of healthcare administered with the aid of information [employer] provides. The information contained herein is not intended to cover all possible uses, directions, precautions, warnings, drug interactions, allergic reactions, or adverse effects. If you have questions about the drugs you are taking, check with your doctor, nurse or pharmacist. Copyright 8196-4598 [employer] Version: 10.. Revision Date: 10/21/2018. amoxicillin and clavulanate potassium (am OK i AUGUSTO in KLAV ue IRMA ate fernanda TAS ee um) Augmentin What is the most important information I should know about amoxicillin and clavulanate potassium? You should not use this medicine if you have severe kidney disease, if you have had liver problems or jaundice while taking amoxicillin and clavulanate potassium, or if you are allergic to any penicillin or cephalosporin antibiotic, such as Amoxil, Ceftin, Cefzil, Moxatag, Omnicef, and others. What is amoxicillin and clavulanate potassium? Amoxicillin is a penicillin antibiotic. Clavulanate potassium helps prevent certain bacteria from becoming resistant to amoxicillin. Amoxicillin and clavulanate potassium is a combination medicine used to treat many different infections caused by bacteria, such as sinusitis, pneumonia, ear infections, bronchitis, urinary tract infections, and infections of the skin. Amoxicillin and clavulanate potassium may also be used for purposes not listed in this medication guide. What should I discuss with my healthcare provider before taking amoxicillin and clavulanate potassium? You should not use this medicine if you are allergic to it, or if: you have severe kidney disease (or if you are on dialysis); you have had liver problems or jaundice while taking amoxicillin and clavulanate potassium; or you are allergic to any penicillin or cephalosporin antibiotic, such as Amoxil, Ceftin, Cefzil, Moxatag, Omnicef, and others. Tell your doctor if you have ever had: liver disease (hepatitis or jaundice); kidney disease; or mononucleosis. The liquid or chewable tablet may contain phenylalanine. Tell your doctor if you have phenylketonuria (PKU). Tell your doctor if you are or . Amoxicillin and clavulanate potassium can make control pills less effective. Ask your doctor about using a non-hormonal control (condom, diaphragm, cervical cap, or contraceptive sponge) to prevent . Do not give this medicine to a child without medical advice. How should I take amoxicillin and clavulanate potassium? Follow all directions on your prescription label and read all medication guides or instruction sheets. Use the medicine exactly as directed. Amoxicillin and clavulanate potassium may work best if you take it at the start of a meal. Take the medicine every 12 hours. Do not crush or chew the extended-release tablet. Swallow the pill whole, or break the pill in half and take both halves one at a time. Tell your doctor if you have trouble swallowing a whole or half pill. You must chew the chewable tablet before you swallow it. Shake the oral suspension (liquid) before you measure a dose. Use the dosing syringe provided, or use a medicine dose-measuring device (not a kitchen spoon). This medicine can affect the results of certain medical tests. Tell any doctor who treats you that you are using amoxicillin and clavulanate potassium. Use this medicine for the full prescribed length of time, even if your symptoms quickly improve. Skipping doses can increase your risk of infection that is resistant to medication. Amoxicillin and clavulanate potassium will not treat a viral infection such as the flu or a common cold. Store the tablets at room temperature away from moisture and heat. Store the liquid in the refrigerator. Throw away any unused liquid after 10 days. What happens if I miss a dose? Take the medicine as soon as you can, but skip the missed dose if it is almost time for your next dose. Do not take two doses at one time. What happens if I overdose? Seek emergency medical attention or call the Poison Help line at . Overdose can cause nausea, vomiting, stomach pain, diarrhea, skin rash, drowsiness, hyperactivity, and decreased urination. What should I avoid while taking amoxicillin and clavulanate potassium? Avoid taking this medicine together with or just after eating a high-fat meal. This will make it harder for your body to absorb the medication. Antibiotic medicines can cause diarrhea, which may be a sign of a new infection. If you have diarrhea that is watery or bloody, call your doctor before using anti-diarrhea medicine. What are the possible side effects of amoxicillin and clavulanate potassium? Get emergency medical help if you have signs of an allergic reaction (hives, difficult breathing, swelling in your face or throat) or a severe skin reaction (fever, sore throat, burning eyes, skin pain, red or purple skin rash with blistering and peeling). Stop using amoxicillin and clavulanate potassium and seek medical treatment if you have a serious drug reaction that can affect many parts of your body. Symptoms may include skin rash, fever, swollen glands, muscle aches, severe weakness, unusual bruising, or yellowing of your skin or eyes. Call your doctor at once if you have: severe stomach pain, diarrhea that is watery or bloody (even if it occurs months after your last dose); pale or yellowed skin, dark colored urine, fever, confusion or weakness; loss of appetite, upper stomach pain; little or no urination; or easy bruising or bleeding. Common side effects may include: nausea, vomiting; diarrhea; rash, itching; vaginal itching or discharge; or diaper rash. This is not a complete list of side effects and others may occur. Call your doctor for medical advice about side effects. You may report side effects to FDA at 1-733-MGR-9774. What other drugs will affect amoxicillin and clavulanate potassium? Tell your doctor about all your other medicines, especially: allopurinol; probenecid; or a blood thinner--warfarin, Coumadin, Jantoven. This list is not complete. Other drugs may affect amoxicillin and clavulanate potassium, including prescription and jesm-dmz-jlgnflp medicines, vitamins, and herbal products. Not all possible drug interactions are listed here. Where can I get more information? Your doctor or pharmacist can provide more information about amoxicillin and clavulanate potassium. Remember, keep this and all other medicines out of the reach of children, never share your medicines with others, and use this medication only for the indication prescribed. Every effort has been made to ensure that the information provided by [employer] is accurate, up-to-date, and complete, but no guarantee is made to that effect. Drug information contained herein may be time sensitive. [employer] information has been compiled for use by healthcare practitioners and consumers in the [place] and therefore [employer] does not warrant that uses outside of the [place] are appropriate, unless specifically indicated otherwise. [employer] drug information does not endorse drugs, diagnose patients or recommend therapy. [employer] drug information is an informational resource designed to assist licensed healthcare practitioners in caring for their patients and/or to serve consumers viewing this service as a supplement to, and not a substitute for, the expertise, skill, knowledge and judgment of healthcare practitioners. The absence of a warning for a given drug or drug combination in no way should be construed to indicate that the drug or drug combination is safe, effective or appropriate for any given patient. [employer] does not assume any responsibility for any aspect of healthcare administered with the aid of information [employer] provides. The information contained herein is not intended to cover all possible uses, directions, precautions, warnings, drug interactions, allergic reactions, or adverse effects. If you have questions about the drugs you are taking, check with your doctor, nurse or pharmacist. Copyright [id number] [employer] Version: 14.. Revision Date: 05/02/2022. Education [employer] Hives (Adult) Hives are pink or red bumps on the skin. These bumps are also known as wheals. The bumps can itch, burn, or sting. Hives can occur anywhere on the body. They vary in size and shape and can form in clusters. Individual hives can appear and go away quickly. New hives may develop as old ones fade. Hives are common and usually harmless. Occasionally hives are a sign of a serious allergy. Hives are often caused by an allergic reaction. It may be an allergic reaction to foods such as fruit, shellfish, chocolate, nuts, or tomatoes. It may be a reaction to pollens, animal fur, or mold spores. Medicines, chemicals, and insect bites can also cause hives. And hives can be caused by hot sun or cold air. The cause of hives can be difficult to find. You may be given medicines to relieve swelling and itching. Follow all instructions when using these medicines. The hives will usually fade in a few days, but can last up to 2 weeks. Home care Follow these tips: Try to find the cause of the hives and eliminate it. Discuss possible causes with your healthcare provider. Future reactions to the same allergen may be worse. Don t scratch the hives. Scratching will delay healing. To reduce itching, apply cool, wet compresses to the skin. Dress in soft, loose cotton clothing. Don t bathe in hot water. This can make the itching worse. Apply an ice pack or cool pack wrapped in a thin towel to your skin. This will help reduce redness and itching. But if your hives were caused by exposure to cold, then do not apply more cold to them. You may use over-the counter antihistamines to reduce itching. Some older antihistamines, such as diphenhydramine and chlorpheniramine, are inexpensive. But they need to be taken often and may make you sleepy. They are best used at bedtime. Don t use diphenhydramine if you have glaucoma or have trouble urinating because of an enlarged prostate. Newer antihistamines, such as loratadine, cetirizine, and fexofenadine, are generally more expensive. But they tend to have fewer side effects, such as drowsiness. They can be taken less often. Another type of antihistamine is used to treat heartburn. This type includes ranitidine, nizatidine, famotidine, and cimetidine. These are sometimes used along with the above antihistamines if a single medicine is not working. Follow-up care Follow up with your healthcare provider if your symptoms don't get better in 2 days. Ask your provider about allergy testing if you have had a severe reaction, or have had several episodes of hives. He or she can use the allergy testing to find out what you are allergic to. When to seek medical advice Call your healthcare provider right away if any of these occur: Fever of 100.4 F (38.0 C) or higher, or as directed by your healthcare provider Redness, swelling, or pain Foul-smelling fluid coming from the rash Call 911 Call 911 if any of the following occur: Swelling of the face, throat, or tongue Trouble breathing or swallowing Dizziness, weakness, or fainting [id number] [employer] [place] [address]. All rights reserved. This information is not intended as a substitute for professional medical care. Always follow your healthcare professional's instructions. General Allergic Reactions An allergic reaction is a set of symptoms caused by an allergen. An allergen is something that causes a person s immune system to react. When a person comes in contact with an allergen, it causes the body to release chemicals. These include the chemical histamine. Histamine causes swelling and itching. It may affect the entire body. This is called a general allergic reaction. Often symptoms affect only 1 part of the body. This is called a local allergic reaction. You are having an allergic reaction. Almost anything can cause one. Different people are allergic to different things. It is usually something that you ate or swallowed, came into contact with by getting or putting it on your skin or clothes, or something you breathed in the air. This can be very annoying and sometimes scary. Most of us think of allergic reactions when we have a rash or itchy skin. Symptoms can include: Itching of the eyes, nose, and roof of the mouth Runny or stuffy nose Watery eyes Sneezing or coughing A blocked feeling in the ear Red, itchy rash called hives Red and purple spots Rash, redness, welts, blisters Itching, burning, stinging, pain Dry, flaky, cracking, scaly skin Severe symptoms include: Swelling of the face, lips, or other parts of the body Hoarse voice Trouble swallowing, feeling like your throat is closing Trouble breathing, wheezing Nausea, vomiting, diarrhea, stomach cramps Feeling faint or lightheaded, rapid heart rate Sometimes the cause may be obvious. But there are so many things that can cause a reaction that you may not be able to figure out. The most important things to help find your allergen are: Remembering when it started What you were doing at the time or just before that Any activities you were involved in Any new products or contacts Below are some common causes. But remember that almost anything can cause a reaction. You may not even be aware that you came into contact with one of these things: Dust, mold, pollen Plants (common ones are poison ethan and poison oak, but there are many others) Animals Foods such as shrimp, shellfish, peanuts, milk products, gluten, and eggs. Also food colorings, flavorings, and additives. Insect bites or stings such as bees, mosquitos, fleas, ticks Medicines such as penicillin, sulfa medicines, amoxicillin, aspirin, and ibuprofen. But any medicine can cause a reaction. Jewelry such as nickel or gold. This can be new, or something you ve worn for a while, including zippers and buttons. Latex such as in gloves, clothes, toys, balloons, or some tapes. Some people allergic to latex may also have problems with foods like bananas, avocados, kiwi, papaya, or chestnuts. Lotions, perfumes, cosmetics, soaps, shampoos, skincare products, nail products Chemicals or dyes in clothing, linen, watch assembly inspector, hair dyes, soaps, iodine Many viruses and common colds can cause a rash that is not an allergic reaction. Sometimes it is hard to tell the difference between allergies, sensitivity, or an intolerance to something. This is especially true with food. Many things can cause diarrhea, vomiting, stomach cramps, and skin irritation. Home care The goal of treatment is to help relieve the symptoms and get you feeling better. The rash will usually fade over several days. But it can sometimes last a couple of weeks. Over the next couple of days, there may be times when it is gets a little worse, and then better again. Here are some things to do: If you know what you are allergic to, stay away from it. Future reactions could be worse than this one. Avoid tight clothing and anything that heats up your skin (hot showers or baths, direct sunlight). Heat will make itching worse. An ice pack will relieve local areas of intense itching and redness. To make an ice pack, put ice cubes in a plastic bag that seals at the top. Wrap it in a thin, clean towel. Don t put the ice directly on the skin because it can damage the skin. Oral diphenhydramine is an fbpl-lfr-lhiqnny antihistamine sold at pharmacy and grocery stores. Unless a prescription antihistamine was given, diphenhydramine may be used to reduce itching if large areas of the skin are involved. It may make you sleepy. So be careful using it in the daytime or when going to school, working, or driving. Note: Don t use diphenhydramine if you have glaucoma or if you are a man with trouble urinating due to an enlarged prostate. There are other antihistamines that won t make you so sleepy. These are good choices for daytime use. Ask your pharmacist for suggestions. Don t use diphenhydramine cream on your skin. It can cause a further reaction in some people. To help prevent an infection, don't scratch the affected area. Scratching may worsen the reaction and damage your skin. It can also lead to an infection. Always check the affected for signs of an infection. Call your healthcare provider and ask what you can use to help decrease the itching. To decrease allergic reactions, try the following: Use heat-steam to clean your home Use high-efficiency particulate (HEPA) vacuums and filters Stay away from food and pet triggers Kill any cockroaches Clean your house often Follow-up care Follow up with your healthcare provider, or as advised. If you had a severe reaction today, or if you have had several mild to medium allergic reactions in the past, ask your provider about allergy testing. This can help you find out what you are allergic to. If your reaction included dizziness, fainting, or trouble breathing or swallowing, ask your provider about carrying auto-injectable epinephrine. Call 911 Call 911 if any of these occur: Trouble breathing or swallowing, wheezing Cool, moist, pale skin Shortness of breath Hoarse voice or trouble speaking Confused Very drowsy or trouble awakening Fainting or loss of consciousness Rapid heart rate Feeling of dizziness or weakness or a sudden drop in blood pressure Feeling of doom Feeling lightheaded Severe nausea or vomiting, or diarrhea Seizure Swelling in the face, eyelids, lips, mouth, throat or tongue Drooling When to seek medical advice Call your healthcare provider right away if any of these occur: Spreading areas of itching, redness or swelling Nausea or stomach cramps or abdominal pain Continuing or recurring symptoms Spreading areas of redness, swelling, or itching Signs of infection at the affected site: oSpreading redness oIncreased pain or swelling oFluid or colored drainage from the site oFever of 100.4 F (38 C) or above lasting for 24 to 48 hours, or as directed by your provider 4485-2664 [employer]. [address] [place] [address]. All rights reserved. This information is not intended as a substitute for professional medical care. Always follow your healthcare professional's instructions. Additional Information VACCINATE! IT SAVES LIVES! Members of the community who have not yet received the COVID-19 vaccine and would like to receive it can visit one of [facility] vaccine clinics. There are many vaccine clinic locations within the [facility]. For locations and available times, please visit www.gettheshot.coronavirus.[place].gov/. It is important to note that some COVID mobile vaccine clinics are held outdoors and may be canceled in rainy or stormy conditions. To learn more about pediatric vaccinations (ages 5-11), we invite you to visit the [facility] webpage. [email or web address].[email or web address].org/pages/2 862-Cakll-Toxvpsucasf-Frequently-Asked -Questions.html To learn more about the COVID-19 vaccine, we invite you to visit the CDC website for a list of frequently asked questions. https://www.cdc.gov/coronavirus/2019-n cov/vaccines/faq.html [facility] Patient Portal Access Instructions: Stay connected with your healthcare team and access your personal medical information anytime with the [facility] Patient Portal. If you would like a full copy of your medical records please contact the [facility] Medical Records Department Thursday through Thursday between 8a.m. and 4:30p.m. Please follow the directions below to access the portal: 1.Access the email account you provided upon registration to the [facility].2.Look for an invitation email from [facility].3.Open the email and access the invitation link: [facility] to [facility]4.Fill in the required wagnre to create your account. Sign into [email or web address] with your username and password that you created in the above steps to stay up to date. You can then view a summary of results, a summary of your visits, and the ability to download your summaries to your computer or send the information securely to a physician. Remember that your healthcare information is confidential, so carefully consider who you will allow to register on the [facility] Patient Portal for access to your information. You can also access the [employer] Patient Portal on the [employer]. Simply click on Health Records under Health Data and then click on the [employer] logo. HOW TO SAFELY DISPOSE OF PRESCRIPTION MEDICATIONS Please use one of the following methods to safely dispose of your unused medications. 1.Use a drug disposal kit: the drug disposal pouch allows you to safely discard your old and unused drugs. Ask your nurse to give you one when you are discharged.2.Visit a local take-back location: Many local pharmacies and police departments have programs that collect old and unwanted prescription drugs. Call your local pharmacy or go to http://[employer].Viewdle/6R4Fs3i to find one close to you.3.Make use of household items: Use cat litter or old coffee grounds to dispose medications if other options are not available. Mix your drugs with these household products, seal them in an airtight container and throw it into the garbage. Call [facility]: [phone] to be sure your drugs can be disposed of in this way. Some medicines may require a different approach.4.Never flush your medications down the toilet. IF YOU HAVE BEEN PRESCRIBED AN OPIOIDS FOR PAIN If you have been prescribed an opioid (such as hydrocodone, oxycodone or morphine), it is critical to understand the possible side effects and risks of opioid pain medications. Even when taken as directed, opioids can have several side effects including: Tolerance, meaning you might need to take more of a medication for the same pain relief. Nausea, vomiting and/or constipation. Sleepiness, dizziness, dry mouth, confusion, depression or itching. Physical dependence, meaning you have withdrawal symptoms when a medication is stopped ? this can develop within a few days. KNOW YOUR RESPONSIBILITIES It is important to know exactly how much and how often to take the opioid pain medications you are prescribed. Never take opioids in higher amounts or more often than prescribed. Do not combine opioids with alcohol or other drugs that cause drowsiness, such as benzodiazepines, also known as benzos, including diazepam and alprazolam, muscle relaxants or sleep aids. Never sell or share prescription opioids. This is illegal. Store opioids in a secure place and out of reach of others (including children, family, friends and visitors). The last page(s) of this document has been signed and retained as a CHART COPY Signatures Patient Education Materials Hives (Adult) Allergic Reaction, Other (General) Medication Leaflets prednisone, amoxicillin and clavulanate potassium My discharge plan and instructions have been reviewed and explained to me and I,SIDDHARTH MARVIN understand my current condition and have read and understand these discharge instructions. I have received a written copy of the plan/instructions. If I have questions, I am aware that I should contact my doctor. 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 Clinical Note 04-15-2024 Note Date & Type Note Facility 04-15-2024 Note [facility] Medical Records Department [address] [place] [address] History Physical Exam 04/15/24 0742 MR#: [id number] Acct: [id number] Name: SIDDHARTH MARVIN Rep #: [id number] : 1970 53 From: Antonio Rios MD PCP: GRIFFIN Andino Status:[facility] Location: [place] [address] HPI - General General Date of Admission: 04/15/24 Date of Service: 04/15/24 HPI Narrative SIDDHARTH MARVIN, is a 53 F who presents for screening colonoscopy no prior no sympotoms no family h/o PFSH Medical History Wears glasses Heartburn Gastric reflux History of edema History of echocardiogram History of stress test Smoker Headache, migraine Type 2 diabetes mellitus Kidney infection Home Medications ???Medication ???Instructions ???Recorded ???Last Taken ???Type metformin 500 mg tablet,extended 500 mg PO BID 04/01/24 04/13/24 History release 24 hr Allergy/AdvReac Type Severity Reaction Status Date / Time No Known Allergies Allergy Verified 04/15/24 07:22 Family History Father Diabetes Heart disease Mother COPD (chronic obstructive pulmonary disease) Surgical History History of tubal ligation ( 1995) History of ( 1989) Social History household members: none current occupational status: employed current occupation: [employer] Smoking Status: Current every day smoker tobacco type: cigarettes substance use type: does not use ROS Constitutional Constitutional: Reports systems reviewed and no addt'l complaints, except as documented Vital Signs Vital Signs Vital Signs: 04/15/24 07:23 04/15/24 07:23 04/15/24 07:33 Temperature 96.9 F L 96.9 F L Temperature Source Temporal Pulse Rate 87 87 Respiratory Rate 18 18 Respiratory Pattern Normal Blood Pressure 145/71 H 145/71 H Blood Pressure Mean 95 Blood Pressure Source Monitor Blood Pressure Position Semi-Fowlers Blood Pressure Location Left Arm Pulse Ox 97 97 Oxygen Delivery Method Room Air Weight Weight: 245 lb Body Mass Index (BMI) 43.4 Physical Exam Const General Appearance: cooperative and comfortable Orientation / Consciousness: awake, oriented to person and oriented to place HEENT Head and Scalp: normal to inspection Chest Chest: symmetrical chest wall rise Resp Effort and Inspection: able to speak in complete sentences Cardio regular rate and regular rhythm Assessment Plan Assessment/Plan (1) Encounter for screening for malignant neoplasm of colon: PLAN: Plan colonoscopy today Charges/Coding Visit Charges Inpatient E M: 74002 Init Hosp L2 04/15/24 0745 Cosigner Signature (if applicable): CC: DATA TECHNICIANThomasC Cortez Call; Dr. Antonio Rios MD Signed [facility] Discharge summary 11-17-2022 Note Date & Type Note Facility 11-17-2022 Discharge summary Note Date/Time November 17, 2022 7:01pm [facility] Medical Records Department [address] [place] [address] Emergency Department Summary 11/17/22 MR#: [id number] Acct: [id number] Name: SIDDHARTH MARVIN Rep #:[id number] : 1970 52 From: Blayne De Dios MD PCP: Care Physician,No Primary Status :REG ER Location: ED HPI History of Present Illness Chief Complaint: Head Injury Informant: patient Narrative Narrative: Patient had a mechanical fall almost 2 weeks ago. She fell down steps. No lossconsciousness. She does report having a CT scan of her head that showed no acute process. But since then she still having a headache where she had an impact on the back of her head. She also gets a headache on the front right side. Her sleep has been very poor. Her appetite is a little bit off. She occasionally gets some mild nausea but is able to eat and drink and is never vomited. No numbness tingling weakness. No vision complaints. She has had a little bit of moodiness which is not typical for her. Her family is concerned because she is not getting better. PFSH PFSH Medical History no medical history Home Medications ondansetron 4 mg disintegrating tablet 4 mg PO Q8H PRN PRN Nausea #10 tabs 11/17/22 [Rx Last Taken Unknown] Allergy/AdvReac Type Severity Reaction Status Date / Time No Known Allergies Allergy Verified 05/03/18 14:55 Surgical History (Updated 11/17/22 @ 19:34 by Leti Cramer) History of Social History Smoking Status: Current every day smoker tobacco type: cigarettes ROS ROS ED Constitutional Constitutional ED: Denies chills, fever(s) or subjective Eyes Eyes: Denies blurry vision or change in vision ENT ENT ED: Denies sore throat Cardiovascular Cardiovascular: Denies palpitations Respiratory/Chest Respiratory/Chest: Denies cough Gastrointestinal Gastrointestinal: Reports nausea; Denies diarrhea or vomiting Genitourinary Genitourinary ED: Denies hematuria Musculoskeletal Musculoskeletal: Denies back pain or neck pain Integumentary Reports other Details: Patient did have a laceration of the back of her scalp but it is healing Neurologic Neurologic: Reports headache(s); Denies paresthesias or weakness Endocrine Endocrinology: Denies polydipsia or polyuria Hematologic/Lymphatic Hematologic/Lymphatic: Denies easy bleeding or easy bruising Allergic/Immunologic Allergic/Immunologic ED: Denies urticaria EXAM Physical Exam Narrative Exam Narrative: Patient awake alert no acute distress. Carries on normal conversation. HEENT does show a healing laceration about 2 cm in length on the back of the scalp. No sign of infection or swelling. No step-off. No other trauma noted. Mucous membranes are moist. Eyes: Normal range of motion. No limitation of gauge. No disconjugate gaze. Pupillary response is normal her pupils go from about 3 to 2 mm with light. Neck is supple no pain with motion and no tenderness. Lungs are clear bilaterally. No pain with a deep breath. Saturations are normal. Heart is regular. No murmur gallop or rub Abdomen is soft nontender. There is no tenderness of cervical thoracic or lumbar spine Extremities show no deformities. Neurologically she is awake alert appropriate. Consistent informant. No confusion. No balance or discoordination. Const Vital Signs: 11/17/22 16:42 11/17/22 19:31 11/17/22 19:31 Temperature 97.9 F Temperature Source Temporal Pulse Rate 71 72 Respiratory Rate 14 18 Respiratory Effort Normal Blood Pressure 162/110 H 148/76 H Blood Pressure Mean 127 100 Pulse Ox 97 96 Oxygen Delivery Method Room Air Room Air MDM MDM MDM Narrative Medical decision making narrative: My independent interpretation of the patient's CT of the head shows no acute process. Final reading is similar. I think patient is safe to go home. I will write for some Zofran as she has hadsome intermittent nausea. She has Tylenol and nonsteroidals at home which I think are appropriate therapy for this. We explained that concussions can go onfor a while. We will give her information about this. Radiography Diagnostic Testing: Clinical Impression(s) from Imaging Studies Brain CT 11/17/22 18:49 IMPRESSION: There are no acute intracranial findings. Electronically Signed: Cory Singh MD at 19:21 EDT Reading Location ID and State: [facility] / [place] , Service support , Discharge Plan Triage Chief Complaint: Head Injury ED Provider: Blayne De Dios Dx/Rx/DC Orders Clinical Impression: Fall from steps, Closed head injury, Concussion Instructions: ED Concussion Prescriptions: New ondansetron [ondansetron] 4 mg tablet,disintegrating 4 mg PO Q8H PRN PRN (Reason: Nausea) Qty: 10 0RF Primary Care Provider: Care Physician,No Primary Referrals: Frida Haq MD [Med Staff - Fiber Artist] - 1 Week if not improving Care Physician,No Primary [Primary Care Provider] - Disposition Disposition: Home, Self Care What to do if you have Problems For any increased pain, shortness of breath, bleeding, nausea or vomiting, chestpain, or any unexpected problems, contact your Primary Care Provider. Call [facility] ([phone]) or report to the closest Emergency Room. Call 911 if necessary. 11/17/222006 <Electronically signed by Blayne De Dios MD> Cosigner Signature (if applicable): CC: No Primary Care Physician ~ Signed [facility] Work Phone: Clinical Note 02-15-2021 Note Date & Type Note Facility 02-15-2021 Note Patient Outreach (IN TMMN) SIDDHARTH MARVIN ([id number]) 1970 F Date Time Provider Department 02/15/21 HAMMAD HAMMOND During your visit today, we recorded the following information about you: Allergies As of Date: 02/15/2021 (No Known Allergies) Date Reviewed: 09/16/2018 Reviewed by: Castro Belcher) Janett BAEZ - Fully Assessed Visit Diagnosis:Encounter for screening mammogram for breast cancer [Z12.31] Order(s):[facility] SCREENING [[id number]] Order #: [id number] FUTURE Prescriptions as of 02/18/2021 - levonorgestrel (MIRENA) 20 mcg/24 hr (5 years) IUD 1 Each by INTRAUTERINE route one time only for 1 dose. Inserted 01/01/2017 - nicotine (NICODERM) 14 mg/24 hr Apply 1 Patch as directed every 24 hours. No smoking with patch. - nicotine (NICODERM) 7 mg/24 hr Apply 1 Patch as directed every 24 hours. - clotrimazole (LOTRIMIN, CLOTRIM) 1 % cream Apply 1 application to affected area twice daily. - levonorgestrel (MIRENA) 20 mcg/24 hr (5 years) IUD 1 Each by INTRAUTERINE route one time only for 1 dose. Problem List As Of Date 02/15/2021 Noted Resolved Tobacco use disorder [F17.200] 09/29/2016 Irregular menses [N92.6] 09/29/2016 12/04/2016 Menorrhagia with irregular cycle [N92.1] 12/04/2016 Obesity, Class III, BMI >= 40 (morbid obesity) *12/30/2016 Regular astigmatism, bilateral [H52.223] 09/16/2018 Presbyopia [H52.4] 09/16/2018 Vitreous floaters of both eyes [H43.393] 09/16/2018 JASON (obstructive sleep apnea) [G47.33] Encounter Status:Closed by MAREK SCHAEFFER on 02/18/21 [facility] Clinical Note 11-27-2020 Note Date & Type Note Facility 11-27-2020 Note Patient Outreach (FA MPBR) SIDDHARTH MARVIN ([id number]) 1970 F Date Time Provider Department 11/27/20 LYUDMILA JESSICA During your visit today, we recorded the following information about you: WESTLEY Pearce 11/27/2020 11:18 AM Sign when Signing Visit POPULATION HEALTH NAVIGATION OUTREACH Action/FYI Mammogram screening Contact made with patient or family member? NO Pt identified by name and : NO Outreach Outcome/Action Unable to reach patient: Left message Reason for Outreach Care Gap or Scheduling/Wellness visits Payer: Payor: VISION SERVICE PLAN / Plan: VSP VISION / Product Type: Indemnity / Care Gap Reviewed:: Breast Cancer screening Reminder: Reminder note to check Health Maintenance for items below Health Maintenance items due: HEPATITIS C SCREENING Never done HIV SCREENING Never done COLORECTAL CANCER SCREENING Never done SHINGRIX VACCINE(1 of 2) Never done DEPRESSION SCREENING due on 06/10/2019 MAMMOGRAM due on 09/06/2019 DIABETES SCREEN due on 10/01/2019 Advanced Directives Completed: Have you ever planned for future healthcare decisions with a power of attorney recruiter, living will, or advance directives? Referrals: N/A Message Sent to Practice: NO Navigation Signature: WESTLEY Pearce November 27, 2020 11:17 AM Allergies As of Date: 11/27/2020 (No Known Allergies) Date Reviewed: 09/16/2018 Reviewed by: Castro Michele (Od) Janett II - Fully Assessed Reason for Visit: Population Health Navigation Outreach [3910] Cmt: deferred care Prescriptions as of 11/27/2020 Sig: LEVONORGESTREL 20 MCG/24 HOUR* 1 Each by INTRAUTERINE route * NICOTINE 14 MG/24 HR DAILY TR* Apply 1 Patch as directed umer* NICOTINE 7 MG/24 HR DAILY TRA* Apply 1 Patch as directed umer* CLOTRIMAZOLE 1 % TOPICAL CREAM Apply 1 application to affect* LEVONORGESTREL 20 MCG/24 HOUR* 1 Each by INTRAUTERINE route * Problem List As Of Date 11/27/2020 Noted Resolved Tobacco use disorder [F17.200] 09/29/2016 Irregular menses [N92.6] 09/29/2016 12/04/2016 Menorrhagia with irregular cycle [N92.1] 12/04/2016 Obesity, Class III, BMI >= 40 (morbid obesity) *12/30/2016 Regular astigmatism, bilateral [H52.223] 09/16/2018 Presbyopia [H52.4] 09/16/2018 Vitreous floaters of both eyes [H43.393] 09/16/2018 JASON (obstructive sleep apnea) [G47.33] Encounter Status:Closed by LYUDMILA JESSICA on 11/27/20 [facility] Progress note 11-27-2020 Note Date & Type Note Facility 11-27-2020 Note HNO ID: [id number] Author: WESTLEY Pearce Service: ? Author Type: Patient Pattern Painter Type: Progress Notes Filed: 11/27/2020 12:56 PM Note Text: POPULATION HEALTH NAVIGATION OUTREACH Action/FYI Mammogram screening Contact made with patient or family member? NO Pt identified by name and : NO Outreach Outcome/Action Unable to reach patient: Left message Reason for Outreach Care Gap or Scheduling/Wellness visits Payer: Payor: VISION SERVICE PLAN / Plan: VSP VISION / Product Type: Indemnity / Care Gap Reviewed:: Breast Cancer screening Reminder: Reminder note to check Health Maintenance for items below Health Maintenance items due: HEPATITIS C SCREENING Never done HIV SCREENING Never done COLORECTAL CANCER SCREENING Never done SHINGRIX VACCINE(1 of 2) Never done DEPRESSION SCREENING due on 06/10/2019 MAMMOGRAM due on 09/06/2019 DIABETES SCREEN due on 10/01/2019 Advanced Directives Completed: Have you ever planned for future healthcare decisions with a power of attorney recruiter, living will, or advance directives? Referrals: N/A Message Sent to Practice: NO Navigation Signature: WESTLEY Pearce November 27, 2020 11:17 AM [facility] Evaluation + Plan note Note Date & Type Note Facility Evaluation + Plan note No data available for this section [facility] Evaluation note Note Date & Type Note Facility Evaluation note No assessment information availa [facility] Work Phone: Summary Purpose Family History No Family History Records Found Relationship Condition Age at Onset Recorded Date/T zoila Unknown Family History?COPD Unknown May 03, 2018 6:21pm Family History?Heart Disease Unknown May 03, 2018 6:21pm Advance Directives No Advanced Directives Records Found Advance Directive Response Recorded Date/ Time Living Will No November 17, 2022 7:31pm Power of Furniture Dipper No November 17 7:31pm Chief Complaint and Reason for Visit Chief Complaint HEAD INJURY Additional Source Comments INFORMATION SOURCE (unrecogn ized section and content) DATE CREATED AUTHOR 01/15/2018 Kumar Johnson [facility] DATE CREATED AUTHOR AUTHOR'S ORGANIZ ATION 08/26/2021 [facility] DATE CREATED AUTHOR AUTHOR'S ORGANIZ ATION 08/20/2022 [facility] DATE CREATED AUTHOR AUTHOR'S ORGANIZ ATION 11/07/2022 [facility] DATE CREATED AUTHOR AUTHOR'S ORGANIZ ATION 05/07/2024 [facility] DATE CREATED AUTHOR AUTHOR'S ORGANIZ ATION 03/21/2025 [facility] <item> Privacy Markings (unrecogniz ed section and content) Section Author: Erica Girard PROHIBITION ON REDISCLOSURE OF CONFIDENTIAL INFORMATION This notice accompanies a disclosure of information concerning a client made to you with the consent of such client. Care Teams (unrecognized sec tion and content) Team Status: Active Member Role Status Dates No Primary Care Physician Family Provider Active No Primary Care Physician Primary Care Provider Active Team Status: Inactive Member Role Status Dates No Primary Care Physician Primary Care Provider Active Dr. Blayne De Dios MD Emergency Provider Active Goals (unrecognized section and content) Goals may be documented in a n alternate section No data available for this section FOR RECORDS PERTAINING TO PATIENTS WHO ARE OR HAVE BEEN ENROLLED IN A CHEMICAL DEPENDENCY/SUBSTANCEABUSE PROGRAM, SOME INFORMATION MAY BE OMITTED. This clinical summary was aggregated from multiple sources. Caution should be exercised in using it in the provision of clinical care. This summary normalizes information from multiple sources, and as a consequence, information in this document may materially change the coding, format and clinical context of patient data. In addition, data may be omitted in some cases. CLINICAL DECISIONS SHOULD BE BASED ON THE PRIMARY CLINICAL RECORDS. [facility] [employer] [facility]. provides no warranty or guarantee of the accuracy or completeness of information in this document.
[2025-03-21] MEDS: 0.9% Normal Saline (1000mL) 1,000 ML 70 ML IV (22:38)
[2025-03-21 23:15] LABS: Vitamin B12 362 pg/mL (180-914)
--- NOTE | 2025-03-22 | FLU_PTH ---
PATIENT: SIDDHARTH MARVIN LOC: [facility] U#:[id number] AGE/SX: 54/F ROOM: [facility] RE03/21/[address]: Dr. Екатерина Belcher DO : 1970 BED: 1 DIS: 03/22/2025 SPEC #: [id number] RECD: 03/22/25 11:43 STATUS: SOUT REQ #: [id number] [place]: 03/22/25 00:[address]: Екатерина Belcher DEPT: CYTOLOGY RECD BY: David Yee ENTERED: 03/22/25 14:37 SP TYPE: Fluid OTHR DR: MD Dr. Tri Gonzales MD Archana Hinduja, MD Dr. Allison Jordan, MD Dr. Augustine Paris Dr., DO Dr. Deepak Gulati, MD Dr. Hera Kamdar, MD Dr. Jan Bittar, MD Dr. James Burke, MD Dr. Jorge Morales, MD Margaret Beigel, MD Dr. Matthew Gusler, MD Dr. Maryam Mian, MD Dr. Mohamed Ridha, MD Dr. Mhd Ezzat Zaghlouleh, MD Dr. Peter Robinson, MD Dr. Rami Ibrahim, MD Dr. Sushil Lakhani, MD Dr. Vivien Lee, MD Yousef Hannawi, MD Rachel Edgar, [facility] ATTENDANT-C Tissues: A - Cerebrospinal Fluid Procedures: Special Stain Group II Cytospin Fluid HEADER OPERATION: Not noted PRE-OP DIAGNOSIS: Headache TISSUE SUBMITTED: A- Cerebrospinal fluid for cytology DIAGNOSIS CYTOLOGY A. Cerebral spinal fluid (cytospin): - No malignant cells identified. - Rare white blood cells observed. CYTOLOGY STUDY Slides are reviewed. CYTOLOGY GROSS A. Received is 4 ml of clear-colorless fluid labeled with the patient's name and and designated per the requisition as Cerebrospinal fluid. Submitted for cytology preparation. Mr 03/22/2025 CPT: 06282
[2025-03-22 01:00] LABS: Barbiturate Urine NEGATIVE (< 200 ng/mL); Benzodiazepine Urine NEGATIVE (< 200 ng/mL); PCP Urine NEGATIVE (< 25 ng/mL); THC Urine NEGATIVE (< 50 ng/mL)
[2025-03-22 02:00] VITALS: BP 137/69; PULSE 64; RESP 18; TEMP 36.1; O2SAT 95
[2025-03-22 06:00] VITALS: BP 141/83; PULSE 68; RESP 18; TEMP 36; O2SAT 94
[2025-03-22 06:19] LABS: Cholesterol 170 mg/dL (<=200); Low Density Lipoprotein Calc. 84 mg/dL; Triglycerides 207 mg/dL; Very Low Density Lipoprotein 41 mg/dL (5-40); cholesterol:hdl ratio screen 3.85
[2025-03-22 06:53] LABS: FOLATES,SERUM (FOLIC ACID) 8.81 ng/mL (4.60-34.80)
[2025-03-22 08:12] VITALS: O2SAT 94
[2025-03-22 08:59] VITALS: BP 171/94; PULSE 65; RESP 14; TEMP 36.8; O2SAT 96
--- NOTE | 2025-03-22 09:50 | MRI_ITS ---
EXAM: BRAIN W/WO CONTRAST CLINICAL HISTORY: ABNROMAL HEAD CT WITH WORSENING HEADACHES. COMPARISON: None. TECHNIQUE: Multiplanar, multisequence MR images of the brain were obtained without gadolinium contrast and with 15 cc Clariscan material. FINDINGS: There is a 1.5 x 1.0 cm focus of encephalomalacia in the right periventricular deep white matter. No intracranial hemorrhage, mass, mass effect, midline shift or pathologic extra- axial fluid collection. No hydrocephalus. Preservation of the huitron- white parenchymal differentiation. No areas of restricted diffusion to suggest acute ischemia or infarction. No gradient signal blooming artifacts are identified. 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 An empty sella is noted. The ocular globes and intraorbital soft tissues are symmetrically unremarkable. Mucosal thickening is visible in the left maxillary sinus. There is fluid signal in a portion of the left mastoid air cells. There are no suspicious enhancing lesions following contrast administration. MRI/Brain W/WO Contrast IMPRESSION: There is a 1.5 x 1.0 cm focus of encephalomalacia in the right periventricular deep white matter. An empty sella is noted. 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 Mucosal thickening is visible in the left maxillary sinus. There is fluid signal in a portion of the left mastoid air cells. Reading Location: [facility]
--- NOTE | 2025-03-22 11:00 | RAD_ITS ---
PROCEDURE: DX LUMBAR PUNCTURE W/IMG GUIDE 03/22/2025 REASON FOR EXAM: WORSENING HEADACHES WITH ? INCREASED CSF PRESSURE TECHNIQUE: DX LUMBAR PUNCTURE W/IMG GUIDE Fluoroscopy time: 6 seconds. Dose: 9.9 mGy. COMPARISON: CT abdomen and pelvis 02/23/2024. FINDINGS: Procedure: Following informed consent, and using standard sterile technique, a fluoroscopically guided lumbar puncture was performed via a posterior oblique approach. 2% lidocaine local anesthesia was followed by placement of a 20 gauge spinal needle into the spinal canal at the L2 level. Opening pressure was 17 cm of water. Closing pressure was 3 cm of water. A total of 15.5 mL clear fluid was successfully removed, as sent to the laboratory for evaluation. No complication was encountered, and the patient left the department in good condition without significant complaint. RAD/Dx Lumbar Puncture w/IMG Guide IMPRESSION: Successful fluoroscopically guided lumbar puncture, with opening and closing pr essures as noted. Laboratory results pending. Reading Location: [place] [id number]
[2025-03-22 12:06] LABS: Cytology, Body Fluid / CSF SEE PATHOLOGY REPORT
[2025-03-22 12:28] LABS: Appearance CSF (character) CLEAR (Clear); CSF Color COLORLESS (Colorless); Tested Tube # 4
[2025-03-22 12:41] LABS: Glucose Spinal Fluid 80 mg/dL (40-75); Protein Spinal Fluid 27.0 mg/dL (15.0-45.0)
--- NOTE | 2025-03-22 12:59 | NEURO.CONS ---
Assessment and Plan: Neuro Assessment/Plan OSMAN MARVIN, is a 54 woman with history of migraines who is presenting with 2 years of chronic sporadic headaches following TBI. Frequency is once every 1-2 months, lasting for a couple hours, not significant enough for her to stop her from daily activity or take meds, an resolve spontaneously. MRI brain with no findings to explain headache. LP with normal opening pressure. Headaches are likely chronic post traumatic headaches. I discussed with patient, given headache are insignificant in frequency and intensity, will defer Meds for now. She will ask her PCP for headache referral if these headache become more bothersome at any point. We will sign off. Please call with questions. I personally attended this patient and spent a total time of 45 minutes evaluating this patient including clinical assessment, review of chart, medical history imaging, and determining appropriate treatment and workup. HPI Consult Data Date of Consult: 03/22/25 HPI Narrative HPI Narrative: SIDDHARTH MARVIN, is a 54 woman with history of migraines who is presenting with headache. Patient reports she has been having headache on and off for a couple years. This all started after she had a fall a couple years ago, she fell backwards down a flight of steps and hit her head all the way down. She went to the ER back then and workup was negative. On average once a month. Usually last for a couple hours. Located at the posterior/top of her head more towards the left side. Feels like dull aching pain. No N/V. 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 MRI cuate with no acute findings.There is 1.5 x 1.0 cm focus of encephalomalacia in the right periventricular deep white matter resembling old lacunar stroke. There is also Chiari malformation I LP with normal opening pressure PHYSICAL EXAM: Exam performed with help of the nurse/HOWARD present with patient on Tele site NEURO: AAOx3, follows commands, no aphasia/dysarthria EOMI, no gaze preference/nystagmus Face symmetric, Intact facial sensation. Tongue midline Motor: All extremities antigravity Coordination: FTN intact bilaterally PFSH Medical History Tobacco use disorder, continuous Encounter for screening for malignant neoplasm of lung Wears glasses Heartburn Gastric reflux History of edema History of echocardiogram History of stress test Smoker Headache, migraine Type 2 diabetes mellitus Kidney infection Home Medications ?Medication ?Instructions ?Recorded ?Last Taken ?Type metformin 1,000 mg tablet 1,000 mg PO BID 03/21/25 Unknown History Allergy/AdvReac Type Severity Reaction Status Date / Time amoxicillin Allergy Rash Verified 03/21/25 16:31 Family History Father Diabetes Heart disease Mother COPD (chronic obstructive pulmonary disease) Surgical History History of tubal ligation (~1995) History of (~1989) Social History household members: none current occupational status: employed 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 Smoking Status: Current every day smoker tobacco type: cigarettes substance use type: does not use Vital Signs Vital Signs Vital Signs: 03/21/25 16:29 03/21/25 18:33 03/21/25 18:33 Temperature 98.0 F Temperature Source Oral Pulse Rate 91 72 Pulse Strength Respiratory Rate 16 18 Respiratory Effort Respiratory Depth Respiratory Pattern Blood Pressure 154/109 H 156/86 H Blood Pressure Mean 124 109 Blood Pressure Source Blood Pressure Position Blood Pressure Location Pulse Ox 98 97 97 Oxygen Delivery Method Room Air Room Air Room Air 03/21/25 20:00 03/21/25 20:54 03/21/25 22:12 Temperature 98.6 F 98.0 F Temperature Source Oral Pulse Rate 69 70 65 Pulse Strength Respiratory Rate 18 18 18 Respiratory Effort Respiratory Depth Respiratory Pattern Blood Pressure 131/73 H 148/61 H 155/84 H Blood Pressure Mean 92 90 107 Blood Pressure Source Monitor Blood Pressure Position Semi-Fowlers Blood Pressure Location Left Forearm Pulse Ox 94 99 96 Oxygen Delivery Method Room Air Room Air 03/21/25 23:00 03/22/25 02:00 03/22/25 06:00 Temperature 97.0 F L 96.8 F L Temperature Source Temporal Oral Pulse Rate 64 68 Pulse Strength Respiratory Rate 18 18 Respiratory Effort Normal Respiratory Depth Normal Respiratory Pattern Normal Blood Pressure 137/69 H 141/83 H Blood Pressure Mean 91 102 Blood Pressure Source Monitor Monitor Blood Pressure Position Semi-Fowlers Semi-Fowlers Blood Pressure Location Left Forearm Left Arm Pulse Ox 95 94 Oxygen Delivery Method Room Air Room Air Room Air 03/22/25 08:12 03/22/25 08:59 03/22/25 10:00 Temperature 98.2 F Temperature Source Oral Pulse Rate 65 Pulse Strength Normal (2+) Respiratory Rate 14 Respiratory Effort Respiratory Depth Respiratory Pattern Blood Pressure 171/94 H Blood Pressure Mean 119 Blood Pressure Source Monitor Blood Pressure Position Sitting Blood Pressure Location Left Forearm Pulse Ox 94 96 Oxygen Delivery Method Room Air Room Air Weight Weight: 105.5 kg Body Mass Index (BMI) 41.2 EEG Results Procedure Details EEG Procedure Details: SIDDHARTH MARVIN is a 54 year old F with a past medical history of , who presents for evaluation of Electroencephalogram on DATE at TIME Lab / Micro Data 03/21/25 18:35 03/21/25 18:35 Labs: Laboratory Results - last 24 hr 03/21/25 18:35: WBC 12.9 H, RBC 4.89, Hgb 14.3, Hct 43.7, MCV 89.4, MCH 29.2, MCHC 32.7, RDW Std Deviation 44.8 H, RDW Coeff of Bong 13.8, Plt Count 376, MPV 9.9, Immature Gran % (Auto) 0.400, Neut % (Auto) 49.4, Lymph % (Auto) 40.2, Sheridan % (Auto) 6.0, Eos % (Auto) 3.3, Baso % (Auto) 0.7, Absolute Neuts (auto) 6.4, Absolute Lymphs (auto) 5.19 H, Nucleated RBC % 0, Atypical Lymphocytes 2+, Platelet Estimate ADEQUATE, Sodium 140, Potassium 4.0, Chloride 102, Carbon Dioxide 24.2, Anion Gap 15, BUN 12, Creatinine 0.64 L, Estim Creat Clear Calc 114.33, Est GFR (MDRD) Non-Af 104, BUN/Creatinine Ratio 19.3, Glucose 83, Hemoglobin A1c 6.0 H, Calcium 10.1, Vitamin B12 362, TSH 2.410, Free T4 1.10, Free T3 pg/dL 3.3, Ethyl Alcohol < 10.1 03/21/25 22:43: POC Glucose 119 H 03/22/25 00:05: Urine Opiates Screen NEGATIVE, U Buprenorphine Qual NEGATIVE, Ur Oxycodone Screen NEGATIVE, Urine Methadone Screen NEGATIVE, Urine Fentanyl Screen NEGATIVE, Ur Barbiturates Screen NEGATIVE, Ur Phencyclidine Scrn NEGATIVE, Ur Amphetamines Screen NEGATIVE, U Benzodiazepines Scrn NEGATIVE, Urine Cocaine Screen NEGATIVE, U Cannabinoids Screen NEGATIVE 03/22/25 05:23: Triglycerides 207 H, Cholesterol 170, LDL Cholesterol, Calc 84, VLDL Cholesterol 41 H, HDL Cholesterol 44, Cholesterol/HDL Ratio 3.85, Serum Folate 8.81 03/22/25 06:27: POC Glucose 139 H 03/22/25 11:05: CSF Appearance CLEAR, CSF Color COLORLESS, CSF Cell Count Tube # 4, CSF Total Cell Counted TNP, CSF Comment May follow, CSF Glucose 80 H, CSF Total Protein 27.0 03/22/25 12:05: POC Glucose 102 Imaging Radiology Impression Brain CT 03/21/25 17:20 IMPRESSION: 1. No acute intracranial hemorrhage, mass-effect, hydrocephalus, or territorial infarct. 2. Small indeterminate hypodense focus in the right frontal bartholomew radiata white matter, new since prior exam. Suggest contrast-enhanced MRI to further evaluate. 3. Partially empty sella, and borderline low-lying cerebellar tonsils, both of which are nonspecific but can be associated with headaches in the setting of elevated intracranial CSF pressure. Reading Location: [facility] Chest X-Ray 03/21/25 18:25 IMPRESSION: No evidence of acute cardiopulmonary disease. Reading Location: [facility] Brain MRI 03/22/25 09:50 IMPRESSION: There is a 1.5 x 1.0 cm focus of encephalomalacia in the right periventricular deep white matter. An empty sella is noted. 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 Mucosal thickening is visible in the left maxillary sinus. There is fluid signal in a portion of the left mastoid air cells. Reading Location: [facility] Lumbar Puncture Fluoroscopy 03/22/25 11:00 IMPRESSION: Successful fluoroscopically guided lumbar puncture, with opening and closing pressures as noted. Laboratory results pending. Reading Location: [place] [address] Active Medications Active Medications Active Medications: Current Medications Generic Name Dose Route Start Last Admin Trade Name Freq PRN Reason Stop Dose Admin Acetaminophen 650 mg 03/21/25 22:11 Acetaminophen 325 Mg Tablet PO Q4H PRN PRN Pain 1-10 Or Fever>99.6 Aspirin 81 mg 03/22/25 08:00 03/22/25 09:05 Aspirin 81 Mg Tab.Chew PO 81 mg BREAKFAST MIGUEL ANGEL Administration Atorvastatin Calcium 80 mg 03/21/25 21:25 03/21/25 23:31 Atorvastatin Calcium 80 Mg Tablet PO 80 mg QHS MIGUEL ANGEL Administration Enoxaparin Sodium 40 mg 03/22/25 10:00 03/22/25 11:57 Enoxaparin 40 Mg/0.4 Ml Syringe SC Not Given BID MIGUEL ANGEL Sodium Chloride 250 mls @ 15 mls/hr 03/21/25 22:28 IV .[id number] PRN Saline Flush Sodium Chloride 250 mls @ 15 mls/hr 03/21/25 22:28 IV .[id number] PRN Additional IVPB Infusion Ondansetron HCl 4 mg 03/21/25 22:11 Ondansetron 4 Mg/2 Ml Vial IV Q4H PRN PRN NAUSEA/VOMITING Sodium Chloride 10 - 40 ml 03/21/25 22:28 0.9% Saline Lock 10 Ml Syringe IV UD PRN SALINE FLUSH NIHSS NIHSS Nursing Documentation NIHSS Nursing Documentation: NIHSS: Ischemic Stroke/TIA Start: 03/21/25 22:11 Text: For PCU Patients: NIH and Neuro Check every 4 Status: Active hours, PRN and with change in RN caregiver. Freq: [id number] Protocol: Activity Type Activity Date Activity User E-sign Co-sign Detail Recorded Client Recorded Date Recorded By Document 03/22/25 08:59 SHANNAN [id number] 03/22/25 09:03 NB 03/22/25 08:59 NIH Stroke Scale [NIHSS] A score of 0 is normal or asymptomatic . Total possible score is 42. Inpatient: RN or Physician to activate a stroke alert for onset of new stroke symptoms or with NIHSS increase >/= 3 points. Following change in neurological status, NIHSS will be performed per physician order or more frequently PRN. -1a. Level of Consciousness 0 - Alert; keenly responsive -1b. LOC Questions 0 - Answers BOTH questions correctly -2. Best Gaze 0 - Normal -3. Visual 0 - No visual loss -5a. Left Arm 0 - No drift; arm holds 90 ( or 45) degrees for full 10 seconds -5b. Right Arm 0 - No drift; arm holds 90 ( or 45) degrees for full 10 seconds -6a. Left Leg 0 - No drift; leg holds 30- degree position for full 5 seconds -6b. Right Leg 0 - No drift; leg holds 30- degree position for full 5 seconds -7. Limb Ataxia 0 - Absent -8. Sensory 0 - Normal; no sensory loss -9. Best Language 0 - No aphasia; normal -10. Dysarthria 0 - Normal -11. Extinction and Inattention 0 - No abnormality -Total 0 Query Text:A score of 0 is normal or asymptomatic. Total possible score is 42 . ED: Notify Physician for NIHSS increase by > / = 3 points. Inpatient: RN or Physician to activate a stroke alert for NIHSS increase of > / = 3 points. Coma Scale [Assess] -Eye Opening Spontaneous -Motor Obeys Commands -Verbal Oriented [Total] -Coma Scale Total 15
[2025-03-22 13:01] LABS: RBC Count, Spinal Fluid 1 /mm-3 (None seen); White Count, CSF 2 /mm-3 (0 - 5)
[2025-03-22 13:30] LABS: Body Fluid QC Type(s) BF1Q
--- NOTE | 2025-03-22 14:13 | PCM.DC.SUM ---
Providers Date of Admission: 03/21/25 Date of Discharge: 03/22/25 Primary Care Physician: GRIFFIN Andino Consultations 03/21/25 22:11 Consult: Tele-Neurology Routine Consulting Provider: [facility] Reason for Consult: Acute Ischemic Stroke/TIA EMERGENT Consult: No MD Notified: Yes Date Notified: 03/22/25 Time Notified: 01:15 Method of Notification: Answering Service Method of Consult:: Telemedicine Nursing Unit Staff Notify [facility] of Tele-Neurology Consult: Yes Reason For Visit: WORSENING HEADACHE W/ ABNORMAL HEAD CT Diagnosis Discharge Diagnosis (1) Headache: Status: Acute Code(s): R51.9 - Headache, unspecified Qualifiers: Headache chronicity pattern: chronic headache Headache type: unspecified Intractability: not intractable Qualified Code(s): R51.9 - Headache, unspecified; G89.29 - Other chronic pain (2) History of migraine headaches: Status: Acute Code(s): Z86.69 - Personal history of other diseases of the nervous system and sense organs (3) Abnormal CT of the head: Status: Acute Code(s): R93.0 - Abnormal findings on diagnostic imaging of skull and head, not elsewhere classified (4) Tobacco use disorder, continuous: Status: Acute Code(s): F17.209 - Nicotine dependence, unspecified, with unspecified nicotine-induced disorders (5) Morbid obesity: Status: Chronic Code(s): E66.01 - Morbid (severe) obesity due to excess calories Medications at Discharge Home Medications metformin 1,000 mg tablet 1,000 mg PO BID 03/21/25 losartan 50 mg tablet 50 mg PO BID #60 tabs 03/22/25 Weight / BMI Weight Weight: 105.5 kg Body Mass Index (BMI) 41.2 ABG / Lab / Microbiology Data 03/21/25 18:35 03/21/25 18:35 Laboratory: Laboratory Results - last 24 hr 03/21/25 18:35: WBC 12.9 H, RBC 4.89, Hgb 14.3, Hct 43.7, MCV 89.4, MCH 29.2, MCHC 32.7, RDW Std Deviation 44.8 H, RDW Coeff of Bong 13.8, Plt Count 376, MPV 9.9, Immature Gran % (Auto) 0.400, Neut % (Auto) 49.4, Lymph % (Auto) 40.2, Bullock % (Auto) 6.0, Eos % (Auto) 3.3, Baso % (Auto) 0.7, Absolute Neuts (auto) 6.4, Absolute Lymphs (auto) 5.19 H, Nucleated RBC % 0, Atypical Lymphocytes 2+, Platelet Estimate ADEQUATE, Sodium 140, Potassium 4.0, Chloride 102, Carbon Dioxide 24.2, Anion Gap 15, BUN 12, Creatinine 0.64 L, Estim Creat Clear Calc 114.33, Est GFR (MDRD) Non-Af 104, BUN/Creatinine Ratio 19.3, Glucose 83, Hemoglobin A1c 6.0 H, Calcium 10.1, Vitamin B12 362, TSH 2.410, Free T4 1.10, Free T3 pg/dL 3.3, Ethyl Alcohol < 10.1 03/21/25 22:43: POC Glucose 119 H 03/22/25 00:05: Urine Opiates Screen NEGATIVE, U Buprenorphine Qual NEGATIVE, Ur Oxycodone Screen NEGATIVE, Urine Methadone Screen NEGATIVE, Urine Fentanyl Screen NEGATIVE, Ur Barbiturates Screen NEGATIVE, Ur Phencyclidine Scrn NEGATIVE, Ur Amphetamines Screen NEGATIVE, U Benzodiazepines Scrn NEGATIVE, Urine Cocaine Screen NEGATIVE, U Cannabinoids Screen NEGATIVE 03/22/25 05:23: Triglycerides 207 H, Cholesterol 170, LDL Cholesterol, Calc 84, VLDL Cholesterol 41 H, HDL Cholesterol 44, Cholesterol/HDL Ratio 3.85, Serum Folate 8.81 03/22/25 06:27: POC Glucose 139 H 03/22/25 11:05: CSF Appearance CLEAR, CSF Color COLORLESS, CSF WBC 2, CSF RBC 1 H, CSF Cell Count Tube # 4, CSF Total Cell Counted TNP, CSF Lymphocytes 100 H, CSF Comment Reviewed, CSF Glucose 80 H, CSF Total Protein 27.0 03/22/25 12:05: POC Glucose 102 Microbiology: Microbiology 03/22/25 11:05 Csf, Spinal Fluid Gram Stain - Final Radiography Diagnostic Testing: Radiology Impression Brain CT 03/21/25 17:20 IMPRESSION: 1. No acute intracranial hemorrhage, mass-effect, hydrocephalus, or territorial infarct. 2. Small indeterminate hypodense focus in the right frontal bartholomew radiata white matter, new since prior exam. Suggest contrast-enhanced MRI to further evaluate. 3. Partially empty sella, and borderline low-lying cerebellar tonsils, both of which are nonspecific but can be associated with headaches in the setting of elevated intracranial CSF pressure. Reading Location: [facility] Chest X-Ray 03/21/25 18:25 IMPRESSION: No evidence of acute cardiopulmonary disease. Reading Location: [facility] Echocardiogram 03/21/25 21:24 Interpretation Summary The left ventricular ejection fraction is 65 %. Bubble study is positive for left to right shunt. No previous echo to compare Ordering Physician: Augustine Flores Performed By: Rea Talbert RDCS Brain MRI 03/22/25 09:50 IMPRESSION: There is a 1.5 x 1.0 cm focus of encephalomalacia in the right periventricular deep white matter. An empty sella is noted. 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 Mucosal thickening is visible in the left maxillary sinus. There is fluid signal in a portion of the left mastoid air cells. Reading [facility] Lumbar Puncture Fluoroscopy 03/22/25 11:00 IMPRESSION: Successful fluoroscopically guided lumbar puncture, with opening and closing pressures as noted. Laboratory results pending. Reading [facility] Instructions Discharge Activity: Return to Normal Activity Return to work on: 03/23/25 DC O2, CPAP, BIPAP Needs Home O2 Discharge instructions: No Meaningful Use Info Meaningful Use Meaningful Use Diagnoses (Choose all that apply): None applicable Discharge Plan Admission Admit Date/Time: 03/21/25 21:17 Primary Reason for Your Visit: Headache Attending Provider: Екатерина Belcher Primary Care Provider: Raya Ellis Consulting Providers: Jake Alonzo; Tri Thomson; Aminata العلي; Alona Crocker; Kacey Recinos; Nik Fragoso; Shayy Martins; Papo Rosen; Kong uRssell; Wally Tellez; Sharon Dixon; Nino Reid; Chelle Wilson; Terese Desai; Teresa Bowen; Blayne Acosta; Haydee Toro; Javi Doll; Joan Belcher; Bethany Olson; Augustine Flores Discharge Orders/Prescriptions Prescriptions: New losartan 50 mg Tablet 50 mg PO BID Qty: 60 1RF Continued metformin 1,000 mg tablet 1,000 mg PO BID Referrals / Follow Up: Raya Ellis, [employer] [Primary Care Provider] - In 1 Week Disposition Disposition (needs filled in before D/C Order can be placed): Home, Self Care Charges/Coding Visit Charges Inpatient E&M: 11241 Disch Hosp >30min
--- NOTE | 2025-03-22 15:39 | PCM.DC.SUM ---
Providers Date of Admission: 03/21/25 Date of Discharge: 03/22/25 Primary Care Physician: GRIFFIN Andino Consultations 03/21/25 22:11 Consult: Tele-Neurology Routine Consulting Provider: [facility] Reason for Consult: Acute Ischemic Stroke/TIA EMERGENT Consult: No MD Notified: Yes Date Notified: 03/22/25 Time Notified: 01:15 Method of Notification: Answering Service Method of Consult:: Telemedicine Nursing Unit Staff Notify [facility] of Tele-Neurology Consult: Yes Reason For Visit: WORSENING HEADACHE W/ ABNORMAL HEAD CT Diagnosis Discharge Diagnosis (1) Headache: Status: Acute Code(s): R51.9 - Headache, unspecified Qualifiers: Headache type: unspecified Headache chronicity pattern: chronic headache Intractability: not intractable Qualified Code(s): R51.9 - Headache, unspecified; G89.29 - Other chronic pain (2) History of migraine headaches: Status: Acute Code(s): Z86.69 - Personal history of other diseases of the nervous system and sense organs (3) Abnormal CT of the head: Status: Acute Code(s): R93.0 - Abnormal findings on diagnostic imaging of skull and head, not elsewhere classified (4) Tobacco use disorder, continuous: Status: Acute Code(s): F17.209 - Nicotine dependence, unspecified, with unspecified nicotine-induced disorders (5) Morbid obesity: Status: Chronic Code(s): E66.01 - Morbid (severe) obesity due to excess calories Medications at Discharge Home Medications metformin 1,000 mg tablet 1,000 mg PO BID 03/21/25 losartan 50 mg tablet 50 mg PO BID #60 tabs 03/22/25 Hospital Course Procedures 2-D Echocardiogram, EKG and - (LP/CT brain/chest x-ray/MRI brain) Summary of Care Provided Minutes Spent on Discharge: 30 Hospital Course: Ms. Hubbard is a 54-year-old white female who presented to the emergency department at [facility] on 03/21/2025 with chief complaint of headache. She has chronic headaches that have been gradually worsening over the past several months. They have increased in intensity and frequency but not specifically the amount of pain she is feeling. She complained of a warm sensation in her head. She had no recent trauma or other injuries. She had not been taking any medication for symptoms because she does not like to take medications. Family wanted her to be evaluated so they brought her in to emergency department. 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 Headache frequency is noted to be 1 headache every 1 to 2 months the last few hours but do not stop her from doing her daily activities. She was admitted to the floor for further workup as she had a CT that showed a partially empty sella with borderline low-lying cerebellar tonsils and indeterminant hypodense foci in the right bartholomew radiata. Vital signs were stable on admission other than her blood pressure seem to be fairly elevated and remained elevated throughout hospitalization so she was started on losartan 50 mg p.o. twice daily prior to discharge. Her CBC had a mildly elevated white count of 12.9 and was otherwise unremarkable. She did not have a left shift. Chemistry panel was unremarkable. Hemoglobin was A1c and patient is a known diabetic on metformin noting good control. Total cholesterol is 170 with an LDL of 84, HDL 44 and triglyceride level of 207. Serum folate was normal. B12 was normal. TSH was normal. She was admitted to PCU monitored on telemetry with no events. MRI of the brain showed no acute findings it did show a 1.5 x 1.8 cm foci of encephalomalacia in the right periventricular white matter, empty sella, Chiari I malformation that 7 mm on the right, mucosal thickening in the left neck and slight sinus and some fluid in the left mastoid air cells. Echocardiogram showed EF of 65% with positive PFO. LP was performed and opening pressures were normal. She was evaluated by [facility] neurology and they felt that her headaches were likely chronic posttraumatic headaches and given the and significant frequency and intensity medications were not initiated by neurology. Per discussion with neurology and the patient if her headaches become more bothersome at a point she will discuss with her primary care physician and referral for headache neurology. Neurology felt she was stable discharge home. Her only new medication was losartan help with her blood pressure. Prescription was sent to local pharmacy. I have asked her follow-up with her primary care physician in 1 week. Discharge diagnoses: Headache-resolved Empty sella Chiari I malformation Hypertension History of migraine headaches DM-2 GERD Morbid obesity Tobacco abuse Physical Exam Const alert, oriented x3, no apparent distress, no limitations, healthy appearing and well nourished; Negative for average body habitus Constitutional Narrative: Middle-aged, white female, lying in bed, appears comfortable, nontoxic General Appearance: cooperative, comfortable, well kempt and well developed Orientation / Consciousness: awake Exam Limitations: no limitations Nutritional Appearance: morbidly obese HEENT normocephalic, head/scalp atraumatic, hearing grossly normal bilaterally and moist oral mucous membranes HEENT Narrative: Mallampati is 3, no thrush Resp normal respiratory effort, no retractions, no use of accessory muscles and clear to auscultation bilaterally Auscultation: Negative for rales, rhonchi or wheezes Cardio regular rate, regular rhythm, S1 normal heart sound, S2 normal heart sound, no murmurs, no rub, no gallops and no clicks GI normal to inspection, nondistended, normoactive bowel sounds, soft to palpation and non-tender Extremity no clubbing, cyanosis or edema Extremity Narrative: Pedal pulses and radial pulses are 2+ Neuro oriented x3, moves all extremities, no focal motor deficits and no sensory deficits noted Speech: speech normal Psych affect normal Psych Narrative: Pleasant, eye contact is good and patient interacts appropriately Weight / BMI Weight Weight: 105.5 kg Body Mass Index (BMI) 41.2 ABG / Lab / Microbiology Data 03/21/25 18:35 03/21/25 18:35 Laboratory: Laboratory Results - last 24 hr 03/21/25 18:35: WBC 12.9 H, RBC 4.89, Hgb 14.3, Hct 43.7, MCV 89.4, MCH 29.2, MCHC 32.7, RDW Std Deviation 44.8 H, RDW Coeff of Bong 13.8, Plt Count 376, MPV 9.9, Immature Gran % (Auto) 0.400, Neut % (Auto) 49.4, Lymph % (Auto) 40.2, [place] % (Auto) 6.0, Eos % (Auto) 3.3, Baso % (Auto) 0.7, Absolute Neuts (auto) 6.4, Absolute Lymphs (auto) 5.19 H, Nucleated RBC % 0, Atypical Lymphocytes 2+, Platelet Estimate ADEQUATE, Sodium 140, Potassium 4.0, Chloride 102, Carbon Dioxide 24.2, Anion Gap 15, BUN 12, Creatinine 0.64 L, Estim Creat Clear Calc 114.33, Est GFR (MDRD) Non-Af 104, BUN/Creatinine Ratio 19.3, Glucose 83, Hemoglobin A1c 6.0 H, Calcium 10.1, Vitamin B12 362, TSH 2.410, Free T4 1.10, Free T3 pg/dL 3.3, Ethyl Alcohol < 10.1 03/21/25 22:43: POC Glucose 119 H 03/22/25 00:05: Urine Opiates Screen NEGATIVE, U Buprenorphine Qual NEGATIVE, Ur Oxycodone Screen NEGATIVE, Urine Methadone Screen NEGATIVE, Urine Fentanyl Screen NEGATIVE, Ur Barbiturates Screen NEGATIVE, Ur Phencyclidine Scrn NEGATIVE, Ur Amphetamines Screen NEGATIVE, U Benzodiazepines Scrn NEGATIVE, Urine Cocaine Screen NEGATIVE, U Cannabinoids Screen NEGATIVE 03/22/25 05:23: Triglycerides 207 H, Cholesterol 170, LDL Cholesterol, Calc 84, VLDL Cholesterol 41 H, HDL Cholesterol 44, Cholesterol/HDL Ratio 3.85, Serum Folate 8.81 03/22/25 06:27: POC Glucose 139 H 03/22/25 11:05: CSF Appearance CLEAR, CSF Color COLORLESS, CSF WBC 2, CSF RBC 1 H, CSF Cell Count Tube # 4, CSF Total Cell Counted TNP, CSF Lymphocytes 100 H, CSF Comment Reviewed, CSF Glucose 80 H, CSF Total Protein 27.0 03/22/25 12:05: POC Glucose 102 Microbiology: Microbiology 03/22/25 11:05 Csf, Spinal Fluid Gram Stain - Final Radiography Diagnostic Testing: Radiology Impression Brain CT 03/21/25 17:20 IMPRESSION: 1. No acute intracranial hemorrhage, mass-effect, hydrocephalus, or territorial infarct. 2. Small indeterminate hypodense focus in the right frontal bartholomew radiata white matter, new since prior exam. Suggest contrast-enhanced MRI to further evaluate. 3. Partially empty sella, and borderline low-lying cerebellar tonsils, both of which are nonspecific but can be associated with headaches in the setting of elevated intracranial CSF pressure. Reading Location: [facility] Chest X-Ray 03/21/25 18:25 IMPRESSION: No evidence of acute cardiopulmonary disease. Reading Location: [facility] Echocardiogram 03/21/25 21:24 Interpretation Summary The left ventricular ejection fraction is 65 %. Bubble study is positive for left to right shunt. No previous echo to compare Ordering Physician: Augustine Flores Performed By: Rea Talbert RDCS Brain MRI 03/22/25 09:50 IMPRESSION: There is a 1.5 x 1.0 cm focus of encephalomalacia in the right periventricular deep white matter. An empty sella is noted. 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 Mucosal thickening is visible in the left maxillary sinus. There is fluid signal in a portion of the left mastoid air cells. Reading Location: [facility] Lumbar Puncture Fluoroscopy 03/22/25 11:00 IMPRESSION: Successful fluoroscopically guided lumbar puncture, with opening and closing pressures as noted. Laboratory results pending. Reading Location: [place] [id number] D/C Instructions Discharge Activity: Return to Normal Activity Return to work on: 03/23/25 DC O2, CPAP, BIPAP Needs Home O2 Discharge instructions: No Meaningful Use Info Meaningful Use Meaningful Use Diagnoses (Choose all that apply): None applicable Discharge Plan Admission Admit Date/Time: 03/21/25 21:17 Primary Reason for Your Visit: Headache Attending Provider: Екатерина Belcher Primary Care Provider: Raya Ellis Consulting Providers: Jake Alonzo; Tri Thomson; Aminata العلي; Alona Crocker; Kacey Recinos; Nik Fragoso; Shayy Martins; Papo Rosen; Kong Russell; Wally Tellez; Sharon Dixon; Nino Reid; Chelle Wilson; Terese Desai; Teresa Bowen; Blayne Acosta; Haydee Toro; Javi Doll; Joan Belcher; Bethany Olson; Augustine Flores Discharge Orders/Prescriptions Prescriptions: New losartan 50 mg Tablet 50 mg PO BID Qty: 60 1RF Continued metformin 1,000 mg tablet 1,000 mg PO BID Referrals / Follow Up: Raya Ellis, [employer] [Primary Care Provider] - In 1 Week Disposition Disposition (needs filled in before D/C Order can be placed): Home, Self Care Charges/Coding Visit Charges Inpatient E&M: 85112 Disch Hosp >30min
[2025-03-22 15:58] VITALS: BP 149/86; PULSE 83; RESP 12; TEMP 36.9; O2SAT 98
--- NOTE | 2025-03-22 16:12 | PHA.DC.MR.R ---
Pharmacy [facility]con[facility] Pharmacy Service has performed discharge medication reconciliation for this patient. Medication education papers prepared, patient discharged when counseling was attempted. The patient's discharge medication list was reviewed for discrepancies and discrepancies were resolved. Medications at Discharge Home Medications metformin 1,000 mg tablet 1,000 mg PO BID 03/21/25 losartan 50 mg tablet 50 mg PO BID #60 tabs 03/22/25
== END 2025-03-22 16:08 | disposition home or self-care (01) ==
LOC: ED 20:55 → PCU 21:29
PROVIDERS: Admitting Provider Internal Medicine; Emergency Provider Emergency Medicine; PCP Nurse Practitioner Family; Visit Provider Internal Medicine
DX: G43.909 Migraine, unspecified, not intractable, without status migrainosus (principal); G93.5 Compression of brain; Z68.41 Body mass index [BMI] 40.0-44.9, adult; E66.813 Obesity, class 3; E11.9 Type 2 diabetes mellitus without complications; Z82.49 Family history of ischemic heart disease and other diseases of the circulatory system; K21.9 Gastro-esophageal reflux disease without esophagitis; Z79.84 Long term (current) use of oral hypoglycemic drugs; G89.29 Other chronic pain; I10 Essential (primary) hypertension; F17.210 Nicotine dependence, cigarettes, uncomplicated; R93.0 Abnormal findings on diagnostic imaging of skull and head, not elsewhere classified; E23.6 Other disorders of pituitary gland; R94.39 Abnormal result of other cardiovascular function study; I65.23 Occlusion and stenosis of bilateral carotid arteries; R94.31 Abnormal electrocardiogram [ECG] [EKG]
CPT/HCPCS: 36415; 62328; 70450; 70553; 71045; 80048; 80061; 80307; 82077; 82607; 82746; 82945; 82962; 83036; 84157; 84439; 84443; 84481; 85025; 87070; 87205; 88108; 88305; 88313; 89050; 89051; 93005; 93306; 93880; 94762; 97802; 99221; 99285; A9575; G0378

== ENCOUNTER → 2025-05-22 | Outpatient (CLI) | payer OTHER, SELFPAY ==
--- OUTSIDE RECORDS SUMMARY | 2025-05-22 07:09 | XMS RPT_ITS | CCD ---
Author Organization [facility] Care Team Providers Care Movie Editor Name Role Phone OMAYRA CHAO DO Unavailable Unavailable DIDOMAYRA ALEXANDER DO Unavailable Unavailable DIDOMAYRA ALEXANDER DO Unavailable Unavailable NO, DOCTOR ON Unavailable Unavailable NO, DOCTOR ON Unavailable Unavailable MANSI RIDER Attending Unavailable NO, PHYSICIAN Primary Care Unavailable Required, No Pcp Unavailable Unavailable MoomagokulAntoinette I Unavailable Unavailable [place], Mr. Antoinette Bennett Attending Unavailable DAVID DO, NICOLETTE Attending Unavailable ONEYDA COFFEE MAKER SERVICER, CORTEZ Primary Care Unavailable ONEYDA COFFEE MAKER SERVICER, WAUPUN Primary Care Physician [phone] Oneyda ASSOCIATE DATA SCIENTIST-C, [place] Primary Care Provider [phone] Oneyda ASSOCIATE DATA SCIENTIST-C, [place] Attending Provider Dr. Kashif Wan DO Emergency Provider [phone] de Flo ROBERTS, Dr. Bradshaw Admit Provider Unavail able de Flo ROBERTS, Dr. Bradshaw Attending Provider Unav ailable de Flo ROBERTS, Dr. Bradshaw Other Provider Unavail able Jake Alonzo MD Other Provider Unavailable Dr. Tri Thomson MD Other Provider [phone] Aminata العلي MD Other Provider Unavailable Dr. Alona Crocker DO Other Provider [phone] Dr. Kacey Recinos MD Other Provider Dr. Nik Fragoso MD Other Provider Dr. Shayy Martins MD Other Provider [phone] Papo Rosen MD Other Provider Dr. Kong Russell MD Other Provider Geoff WHITE, Dr. Lo Other Provider Destiny WHITE, Sharon Other Provider Franklin WHITE, Dr. Oneill Other Provider Steve WHITE, Dr. Corbett Other Provider Lloyd WHITE, Dr. Gudino Other Provider Jessi WHITE, Dr. Teresa Patricio Other Provider Dave WHITE, Dr. Cisneros Other Provider [place] WHITE, Dr. Hubbard Other Provider Sharmila WHITE, Dr. Caldwell Other Provider Ye WHITE, Dr. Franco Other Provider Unavailable Wesley WHITE, Bethany Other Provider Unavailable Ye ROBERTS, Dr. Willams Attending Provider Joselo WHITE, Dr. Chambers Attending Provider Dr. Екатерина Belcher DO Other Provider Elizabeth WHITE, Dr. Giraldo Attending Provider Oneyda ASSOCIATE DATA SCIENTIST-CCortez Primary Care Physician Oneyda ASSOCIATE DATA SCIENTIST-C, [place] Attending Physician Dr. Kashif Wan DO Emergency Department Physic alfredo Dr. Omayra Flores DO Admitting Physician Winifred vailable Flores DO, Dr. Bradshaw Nurse Practitioner Unav ailable Clinton WHITE, Jake Nurse Practitioner Unavailable Alix WHITE, Dr. Bartlett Nurse Practitioner Zohra WHITE, Aminata Nurse Practitioner Unavailab norman Crocker DO, Dr. Sage Nurse Practitioner Jorje WHITE, Dr. Erazo Nurse Practitioner [phone] Fouzia WHITE, Dr. Zaragoza Nurse Practitioner Eliezer WHITE, Dr. Lucas Nurse Practitioner Silas WHITE, Dr. Barros Nurse Practitioner Drew WHITE, Dr. Triana Nurse Practitioner Geoff WHITE, Dr. Lo Nurse Practitioner Destiny WHITE, Sharon Nurse Practitioner Franklin WHITE, Dr. Oneill Nurse Practitioner Steve WHITE, Dr. Corbett Nurse Practitioner Lloyd WHITE, Dr. Gudino Nurse Practitioner Jessi WHITE, Dr. Teresa Patricio Nurse Practitioner Dave WHITE, Dr. Cisneros Nurse Practitioner Cortez WHITE, Dr. Hubbard Nurse Practitioner Sharmila WHITE, Dr. Caldwell Nurse Practitioner Ye WHITE, Dr. Franco Nurse Practitioner Unavailella Olson MD, [facility] Nurse Practitioner Unavailella Belcher DO, Dr. Willams Attending Physician Amy WHITE, Dr. Kerns Attending Physician Elizabeth WHITE, Dr. Giraldo Attending Physician Ye ROBERTS, Dr. Willams Nurse Practitioner Oneyda ASSOCIATE DATA SCIENTIST-CCortez Referring Provider Antonio Solorzano Attending Physician Jake Alonzo Consulting Unavailable Екатерина Belcher Attending Unavailable [place] Call Primary Care Unavailable Omayra Flores Admitting Unavailable Adeli, Amir Consulting Unavailable Hinduja, Aminata Consulting Unavailable Obi, Alona Consulting Unavailable Zha, Kacey Consulting Unavailable Fouzia, Nik Consulting Unavailable Eliezer, Shayy Consulting Unavailable Bittanadine, Papo Consulting Unavailable Kong Russell Consulting Unavailable Wally Tellez Consulting Unavailable Sharon Dixon Consulting Unavailable Nino Reid Consulting Unavailable Chelle Wilson Consulting Unavailable Terese Desai Consulting Unavailable Teresa Bowen Consulting UnavailBlayne August Consulting Unavailable Hyadee Toro Consulting Unavailable Javi Doll Consulting Unavailable Joan Belcher Consulting Unavailable Bethany Olson Consulting Unavailable Omayra Flores Consulting Unavailable Oneyda, [place] Referring Unavailable Oneyda, [place] Attending Unavailable Oneyda, [place] Primary Care Unavailable Angelica Clement Referring Unavailable Angelica Clement Attending Unavailable Oneyda, [place] Primary Care Unavailable Oneyda, [place] Attending Unavailable Oneyda, [place] Primary Care Unavailable Enzo Johnson Attending Unavailable Oneyda, [place] Primary Care Unavailable Omayra Flores Referring Unavailable Angelica Clement Attending Unavailable Oneyda, [place] Primary Care Unavailable Oneyda, [place] Referring Unavailable Oneyda, [place] Primary Care Unavailable Oneyda, [place] Referring Unavailable Antonio Solorzano Attending Unavailable Jake Alonzo Consulting Unavailable Екатерина Belcher Attending Unavailable Oneyda, Coretz Primary Care Unavailable Omayra Flores Admitting Unavailable Tri Thomson Consulting Unavailable Aminata العلي Consulting Unavailable Alona Crocker Consulting Unavailable Kacey Recinos Consulting Unavailable Nik Fragoso Consulting Unavailable Shayy Martins Consulting Unavailable Papo Rosen Consulting Unavailable Kong Russell Consulting Unavailable Wally Tellez Consulting Unavailable Sharon Dixon Consulting Unavailable Nino Reid Consulting Unavailable Chelle Wilson Consulting Unavailable Terese Desai Consulting Unavailable Teresa Bowen Consulting UnavailBlayne August Consulting Unavailable Haydee Toro Consulting Unavailable Javi Doll Consulting Unavailable Joan Belcher Consulting Unavailable Bethany Olson Consulting Unavailable Omayra Flores Consulting Unavailable Екатерина Belcher Consulting Unavailable Omayra Flores Attending Unavailable Oneyda, [place] Primary Care Unavailable Mohan Josue Attending Unavailable Luis F Reyes Attending Unavailable Allergies Allergy Classification Reported Allergen(s) Allergy Type Date of Onset Reaction(s) Facility (5 sources) Amoxicillin Drug Allergy 03-21-2025 Rash [facility] (1 source) Amoxicillin Drug Allergy 05-09-2025 [facility] Repository Medications Current Medications Medication Drug Class(es) Dates Sig (Normalized) Sig (Original) amoxicillin 875 mg / clavulanate 125 mg oral tablet (1 source) Penicillin-class Antibacterial Start: 05-02-2024 End: 05-09-2024 take 1 tablet by mouth every twelve hours amoxicillin-clav ulanate 875 mg-125 mg oral tablet 1 tab(s), Oral, q12h, X 7 day(s), # 14 tab(s), 0 Refill(s), 05/09/24 9:12:00 AM EDT, 11.6 Start Date: 05/02/24 Stop Date: 05/09/24 Status: Ordered losartan potassium 50 mg oral tablet (4 sources) Angiotensin 2 Receptor Sajan Start: 03-22-2025 take 1 tablet by mouth twice daily metFORMIN hydrochloride 1000 mg oral tablet (16 sources) Biguanide Start: 03-21-2025 take 1 tablet by mouth twice daily Start: 05-02-2024 MetFORMIN (Eqv -Glucophage XR) 500 mg oral tablet, EXTENDED RELEASE Dose : 500 mg = 1 tab(s), Oral, qDay, # 100 tab(s), 0 Refill(s) Start Date: 05/02/24 Status: Ordered Start: 04-01-2024 End: 03-21-2025 take 1 tablet by mouth twice daily Metformin 500 mg tablet extended release 24 hr Discontinued 500 mg PO TWICE A DAY April 01, 2024 11:53am March 21, 2025 6:34pm Start: 02-23-2024 End: 04-01-2024 take 1 tablet by mouth once daily Metformin 500 mg tablet extended release 24 hr Discontinued 500 mg PO DAILY 30 February 23, 2024 12:00am April 01, 2024 11:54am predniSONE 20 mg oral tablet (7 sources) Start: 05-02-2024 End: 05-07-2024 predniSONE 20 mg oral tablet Dose : 40 mg = 2 tab(s), Oral, qDay, Take with food, X 5 day(s), # 10 tab(s), 0 Refill(s), 05/07/24 9:13:00 AM EDT Start Date: 05/02/24 Stop Date: 05/07/24 Status: Ordered Start: 04-29-2024 End: 03-21-2025 take 1 tablet by mouth once daily Prednisone 50 mg tablet Discontinued 50 mg PO DAILY 5 April 29, 2024 12:00am March 21, 2025 6:34pm Completed/Discontinued Medications Medication Drug Class(es) Dates Sig (Normalized) Sig (Original) acetaminophen 325 mg / oxyCODONE hydrochloride 5 mg oral tablet (5 sources) Opioid Agonist Start: 02-24-2024 End: 04-01-2024 Oxycodone-Acetamino phen (Percocet) 5-325 mg tablet Discontinued 1 {tbl} PO EVERY 6 HOURS as needed for pain 12 3 0 February 24, 2024 April 01, 2024 11:53am Acute pyelonephritis due to bacteria Acute pyelonephritis Other specified bacterial agents as the cause of diseases classified elsewhere amoxicillin 500 mg oral capsule (6 sources) Penicillin-class Antibacterial Start: 04-19-2024 End: 03-21-2025 take 1 capsule by mouth three times daily Amoxicillin 500 mg capsule Discontinued 500 mg PO THREE TIMES A DAY April 19, 2024 12:00am March 21, 2025 6:34pm x7days cephalexin 500 mg oral capsule (5 sources) Cephalosporin Antibacterial Start: 02-23-2024 End: 04-01-2024 take 1 capsule by mouth every six hours Cephalexin 500 mg capsule Discontinued 500 mg PO EVERY 6 HOURS 40 0 February 23, 2024 12:00am April 01, 2024 11:53am ibuprofen 600 mg oral tablet (5 sources) Nonsteroidal Anti-inflammatory Drug Start: 03-01-2024 End: 04-12-2024 take 1 tablet by mouth every six hours as needed for pain Ibuprofen 600 mg tablet Discontinued 600 mg PO EVERY 6 HOURS NEEDED as needed for pain 20 0 March 01, 2024 12:00am April 12, 2024 1:27pm ondansetron 4 mg disintegrating oral tablet (11 sources) Serotonin-3 Receptor Antagonist Start: 03-01-2024 End: 04-12-2024 take 1 tablet by mouth every eight hours as needed for nausea Ondansetron 4 mg tablet,disintegrati ng Discontinued 4 mg PO EVERY 8 HOURS NEEDED as needed for Nausea 10 0 March 01, 2024 12:00am April 12, 2024 1:27pm Start: 11-17-2022 End: 02-24-2024 take 1 tablet by mouth every eight hours as needed for nausea Ondansetron 4 mg tablet,disintegrating Discontinued 4 mg PO EVERY 8 HOURS NEEDED as needed for Nausea 10 0 November 17, 2022 12:00am February 24, 2024 4:28am Problems Problem Classification Problem Date Documented Date Episodic/Chronic Abdominal pain (5 sources) Right flank pain; Translations: [Unspecified abdominal pain] 03-09-2024 Episodic Allergic reactions (7 sources) Urticaria; Translations: [Urticaria, unspecified] Onset: 05-02-2024 Episodic Diabetes mellitus without complication (5 sources) Type 2 diabetes mellitus; Translations: [Type 2 diabetes mellitus without complications] 03-02-2024 Chronic Diabetes mellitus without complication (5 sources) Hyperglycemia; Translations: [Hyperglycemia, unspecified] 03-09-2024 Episodic E Codes: Fall (8 sources) Fall; Translations: [Unspecified fall] Onset: 11-04-2022 11-03-2022 Episodic E Codes: Fall (3 sources) Fall 11-03-2022 Comment on above: FALL Essential hypertension (10 sources) Hypertensive disorder; Translations: [Essential (primary) hypertension] 03-21-2025 Chronic Headache; including migraine (10 sources) Headache; Translations: [Headache] 03-21-2025 Episodic Headache; including migraine (3 sources) Headache; including migraine; Translations: [Headache, unspecified] Onset: 11-04-2022 Intracranial injury (7 sources) Concussion injury of body structure; Translations: [Concussion] Onset: 05-18-2025 11-17-2022 Episodic Nausea and vomiting (5 sources) Nausea; Translations: [Nausea] 03-09-2024 Episodic Nonspecific chest pain (6 sources) Chest pain; Translations: [Chest pain, unspecified] 05-03-2018 Episodic Other circulatory disease (5 sources) Elevated blood-pressure reading without diagnosis of hypertension; Translations: [Elevated blood-pressure reading, without diagnosis of hypertension] 03-02-2024 Episodic Other injuries and conditions due to external causes (1 source) Unspecified injury of head, initial encounter; Translations: [Unspecified injury of head, initial encounter] Onset: 11-04-2022 Episodic Other injuries and conditions due to external causes (6 sources) Closed injury of head; Translations: [Unspecified injury of head, initial encounter] 11-17-2022 Episodic Other nervous system disorders (1 source) Other chronic pain; Translations: [Other chronic pain] Onset: 03-22-2025 Chronic Other nervous system disorders (8 sources) H/O: migraine; Translations: [Personal history of other diseases of the nervous system and sense organs] 03-22-2025 Episodic Other nervous system disorders (1 source) Personal history of other diseases of the nervous system and sense organs; Translations: [Personal history of other diseases of the nervous system and sense organs] Onset: 03-22-2025 Episodic Other nutritional; endocrine; and metabolic disorders (11 sources) Morbid obesity; Translations: [Morbid (severe) obesity due to excess calories] 05-03-2018 Chronic Other nutritional; endocrine; and metabolic disorders (5 sources) Body mass index 40+ - severely obese; Translations: [Body mass index (BMI) 40.0-44.9, adult] 03-02-2024 Chronic Other nutritional; endocrine; and metabolic disorders (1 source) Morbid (severe) obesity due to excess calories; Translations: [Morbid (severe) obesity due to excess calories] Onset: 03-22-2025 Chronic Other screening for suspected conditions (not mental disorders or infectious disease) (20 sources) CT of head abnormal; Translations: [Abnormal findings on diagnostic imaging of skull and head, not elsewhere classified] Onset: 07-15-2024 03-21-2025 Episodic Residual codes; unclassified (6 sources) Harmful pattern of use of nicotine; Translations: [Tobacco use] 05-03-2018 Episodic Residual codes; unclassified (1 source) Family history of other specified conditions; Translations: [Family history of other specified conditions] Onset: 05-18-2025 Episodic Substance-related disorders (11 sources) Tobacco dependence, continuous; Translations: [Nicotine dependence, unspecified, with unspecified nicotine-induced disorders] Onset: 03-22-2025 04-19-2024 Chronic Superficial injury; contusion (3 sources) Abrasion of scalp; Translations: [Abrasion or friction burn of face, neck, and scalp except eye, without mention of infection] Onset: 11-04-2022 11-03-2022 Episodic Unclassified (1 source) Scalp abrasion 11-03-2022 Urinary tract infections (5 sources) Acute pyelonephritis; Translations: [Acute pyelonephritis due to bacteria] 03-02-2024 Episodic Viral infection (2 sources) COVID-19; Translations: [COVID-19] Onset: 07-25-2022 Results Test Name Value Interpretation Reference Range Facility Neurology Visit Reporton Neurology Visit Report [facility] [address] [facility] [facility], [address] [place] [address] OFFICE VISIT Date of Service: 05/09/25 MR#: [id number] Acct: [id number] Name: SIDDHARTH MARVIN Rep #: [id number] : 1970 Provider: GRIFFIN acuna Age/Sex: 54/F Location: [facility] [place] Status: Signed HPI HPI Chief Complaint: Establish care Details: History of present illness: Mrs. Marvin is a 54-year-old right-handed female who presents to neurology today 05/09/2025 to establish care for headaches. Pertinent past medical history includes diabetes melitis type II (on metformin, A1C 6%), hypertension, obesity, and tobacco use disorder (1 ppd for 20 years and recently reduced to 1/2 ppd). 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 She does not have a prior history of migraines. ER workup at the time of that event was reported negative. Since this occurred, patient had chronic posttraumatic headaches. Mild headaches were occurring approximately once per month or every 2 months, lasting a couple hours. They resolved spontaneously without any medications. Patient has had a recent change in headache pattern with a change in frequency, duration, and characteristics. They are occurring approximately 2 days/week and now describes a burning pain along the top/posterior portion of the left side of her head. It does not extend to the occipital region. She denies neck pain. The pain duration is 10 minutes to a maximum of 1 hour. She has associated dizziness, brain fog, and possibly mild confusion. She denies any visual phenomenons, nausea/vomiting, photophobia, and phonophobia. MRI brain was conducted on 03/22/2025. There is a 1.5 x 1cm focus of encephalomalacia in the right periventricular deep white matter. There is a Chiari 1 malformation, measuring 7mm on the right aspect, and an empty sella. Patient was unaware of a prior stroke. An echocardiogram showed EF 65% with positive PFO. Carotid ultrasound demonstrated mild (<50%) stenosis of the left ICA and right ICA with patent and antegrade vertebrals bilaterally. EKG was normal sinus rhythm. A lumbar puncture was also conducted on 03/22/2025. She had normal opening pressure (17cm H2O) and normal closing pressure (3cm H2O). CSF analysis was unremarkable. She was recently started on gabapentin by her PCP for the neuropathic-like head pain described above. Patient discontinued this due to intolerable sedative effects. Additionally, patient was started on losartan for hypertension. She states she has not been taking this because her blood pressure has been in the 130s at home. Her BP today was 150/100. Patient states that her younger sister was recently diagnosed with a seizure disorder and is uncertain of the etiology. Patient does not have a personal history of seizures. There is no other neurological disorders in the family that the patient is aware of. ---- ROS: General: No fatigue. No recent weight loss/gain. No recent illness. No fevers. No recent falls. Neuro: Headaches described above. History of TBI. Sister with seizure disorder. No weakness. No tremors. Psych: No insomnia or hypersomnia, sleeps approximately 6 hours per night. No history of sleep apnea. Cardio: No palpitations. No chest pain or discomfort. No edema. Hypertension. Respiratory: Current daily smoker. Intermittent cough. No shortness of breath. No wheezing. Musculoskeletal: No use of assistive devices. No neck pain. No back pain. HEENT: No hearing loss. No blurry vision, she wears glasses. Occasional floaters. No diplopia. No photophobia/phonophobia. No dysphagia. GI: No hematochezia. No NVD. No constipation. No abdominal pain or discomfort. : No hematuria. No frequency or urgency. No incontinence. No dysuria. Skin: No ecchymosis. No wounds, rashes, or lesions. ---- PHYSICAL EXAM: Constitutional: Well-developed, well-nourished right-handed female in no acute distress. BMI 41.5% Psych: Cooperative. Judgement and insight good. HEENT: Normocephalic. Atraumatic. Hearing grossly normal bilaterally. Periorbital findings are normal. Respiratory: Normal effort. Symmetric chest movement. Clear to auscultation bilaterally. Cardio: Regular rate and rhythm. No auscultated murmurs. No auscultated carotid bruit. BP 150/100, HR 82 bpm GI: Abdomen is soft, obese. Nontender. Musculoskeletal: No muscle weakness. No difficulties with ROM. Extremities: Absence of edema. No peripheral cyanosis. Skin: No visible wounds or lesions. No visible ecchymosis. Normal skin turgor. Neurological exam: Mental status: Alert, awake, oriented x 4. MMSE 30/30. Immedi (more content not included)... Normal [facility] Office Visit Reporton 2024 Office Visit Report [facility] [address] 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 Normal [facility] Comment on above: Performed By: #### L [id number], L506.0400, L501.9520, L501.9985, L500.2500, L100.0100 #### [facility] [address] [place], [address] Amphetamine detection with 1 000 ng/mL as cutoffOrdered By: Omayra Rossi on 03-22-2025 Amphetamines Screen method >1000 ng/mL Ql (U) Negative < 200 ng/mL [facility] Bedside Glucoseon 03-22-2025 FINGERSTICK GLU 102 mg/dL Normal 74-106 [facility] Comment on above: Result Comment: JOSH GEMENT OF PATIENT CARE PER NURSING PROTOCOL Performed By: #### L 501.27888, L506.0400, L501.9520, L501.9985, L500.2500, L100.0100 #### [facility] [address] [place], [address] FINGERSTICK GLU 139 mg/dL High 74-106 [facility] Comment on above: Result Comment: JOSH GEMENT OF PATIENT CARE PER NURSING PROTOCOL Performed By: #### L 501.080 #### [facility] [address] [place], [address] Brain W/WO Contraston 2024 Brain W/WO Contrast [facility] [address] [place] [address] Brain W/WO Contrast MR#: [id number] Acct: [id number] Name: SIDDHARTH MARVIN Rep #: [id number] : 1970 F 54 From: Santana Burden MD PCP: GRIFFIN Andino Status: ADM ROB Study: Brain W/WO Contrast Date of Exam: 03/22/25 Exam# [id number] Ordering Dr: Omayra Flores DO EXAM: BRAIN W/WO CONTRAST CLINICAL HISTORY: ABNROMAL HEAD CT WITH WORSENING HEADACHES. COMPARISON: None. TECHNIQUE: Multiplanar, multisequence MR images of the brain were obtained without gadolinium contrast and with 15 cc Clariscan material. FINDINGS: There is a 1.5 x 1.0 cm focus of encephalomalacia in the right periventricular deep white matter. No intracranial hemorrhage, mass, mass effect, midline shift or pathologic extra- axial fluid collection. No hydrocephalus. Preservation of the huitron- white parenchymal differentiation. No areas of restricted diffusion to suggest acute ischemia or infarction. No gradient signal blooming artifacts are identified. 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 An empty sella is noted. The ocular globes and intraorbital soft tissues are symmetrically unremarkable. Mucosal thickening is visible in the left maxillary sinus. There is fluid signal in a portion of the left mastoid air cells. There are no suspicious enhancing lesions following contrast administration. MRI/Brain W/WO Contrast IMPRESSION: There is a 1.5 x 1.0 cm focus of encephalomalacia in the right periventricular deep white matter. An empty sella is noted. 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 Mucosal thickening is visible in the left maxillary sinus. There is fluid signal in a portion of the left mastoid air cells. Reading Location: [facility] CC: GRIFFIN Call; Dr. Omayra Flores DO Perioperative Manager: Signed Normal [facility] Calculated very low density lipoprotein (VLDL) cholesterol measurementOrdered By: Omayra Rossi on 03-22-2025 Calculated very low density lipoprotein (VLDL) cholesterol measurement 41 mg/dL High 5-40 [facility] Cerebrospinal fluid color id entificationOrdered By: Екатерина Belcher on 03-22-2025 Color (CSF) COLORLESS Colorless [facility] Cerebrospinal fluid erythroc ytes count (number/volume)Ordered By: Екатерина Belcher on 03-22-2025 RBC (CSF) [#/Vol] 1 /mm-3 High None seen [facility] Cerebrospinal fluid glucose measurement (mass/volume)Ordered By: Екатерина Belcher on 03-22-2025 Glucose (CSF) [Mass/Vol] 80 mg/dL High 40-75 [facility] Cerebrospinal fluid leukocyt es count (number/volume)Ordered By: Екатерина Belcher on 03-22-2025 WBC (CSF) [#/Vol] 2 /mm-3 0-5 [facility] Cerebrospinal fluid total ce ll countOrdered By: Екатерина Belcher on 03-22-2025 Cells Counted Total (CSF) [#] TNP [facility] Comment on above: Test not performed Cytology report of Body flui d Cyto stainOrdered By: Екатерина Belcher on 03-22-2025 Cytology report Cyto stain Doc (Body fld) SEE PATHOLOGY REPORT [facility] Comment on above: Specimen submitted t o Anatomical Pathology Department for testing. Cytology, Body Fluid / CSFon 03-22-2025 CYTOLOGY,BF/CSF SEE PATHOLOGY REPORT Normal [facility] Comment on above: Result Comment: Spec imen submitted to Anatomical Pathology Department for testing. Performed By: #### L 501.03542, L506.0400, L501.9520, L501.9985, L500.2500, L100.0100 #### [facility] [address] [facility] [address]. [place], [place], [id number] Determination of appearance of cerebrospinal fluid (nominal result)Ordered By: Екатерина Belcher on 03-22-2025 Appearance (CSF) CLEAR Clear [facility] Dx Lumbar Puncture w/IMG Isidro david 03-22-2025 Dx Lumbar Puncture w/IMG Guide [facility] Imaging Services [address], [place] [id number] Dx Lumbar Puncture w/IMG Guide MR#: [id number] Acct: [id number] Name: SIDDHARTH MARVIN Rep #: [id number] : 1970 F 54 From: Omayra Lawson PCP: Cortez Oneyda, ASSOCIATE DATA SCIENTIST-C Status: ADM ROB Study: Dx Lumbar Puncture w/IMG Guide Date of Exam: 0 03/22/25 Exam# [id number] Ordering Dr: Omayra Flores DO PROCEDURE: DX LUMBAR PUNCTURE W/IMG GUIDE 03/22/2025 REASON FOR EXAM: WORSENING HEADACHES WITH ? INCREASED CSF PRESSURE TECHNIQUE: DX LUMBAR PUNCTURE W/IMG GUIDE Fluoroscopy time: 6 seconds. Dose: 9.9 mGy. COMPARISON: CT abdomen and pelvis 02/23/2024. FINDINGS: Procedure: Following informed consent, and using standard sterile technique, a fluoroscopically guided lumbar puncture was performed via a posterior oblique approach. 2% lidocaine local anesthesia was followed by placement of a 20 gauge spinal needle into the spinal canal at the L2 level. Opening pressure was 17 cm of water. Closing pressure was 3 cm of water. A total of 15.5 mL clear fluid was successfully removed, as sent to the laboratory for evaluation. No complication was encountered, and the patient left the department in good condition without significant complaint. RAD/Dx Lumbar Puncture w/IMG Guide IMPRESSION: Successful fluoroscopically guided lumbar puncture, with opening and closing pressures as noted. Laboratory results pending. Reading Location: [place] [address] CC: ASSOCIATE DATA SCIENTIST-C Cortez Call; Dr. Omayra Flores DO Perioperative Manager: Signed Normal [facility] Echocardiogram study reportO rdered By: Mohan Josue on 03-22-2025 Study report [facility] Cardiovascular Services [address] [place] [address] Echo Complete 03/22/25 08 MR#: [id number] Acct: [id number] Name: SIDDHARTH MARVIN Rep #:[id number] : 1970 54 From: Mohan Josue MD Attending Dr: DO Jerrell De Leon tatus: ADM ROB Ordering Dr: Omayra Flores DO Date: 03/21/25 Location: U Sex: F C Admitted: 03/21/25 Reason For Study Reason For Study: TIA/CVA Procedure This was a 2D Doppler, Color Flow transthoracic echocardiogram. Exam performed portable in patient room. Left Ventricle Normal left ventricle. The left ventricle is normal in size, thickness, and systolic function. The left ventricular ejection fraction is 65 %. Normal diastololic function. No regional wall motion abnormalities noted. Right Ventricle Normal right ventricle. Normal systolic function. Atria Normal left atrium. Normal right atrium. Bubble study is positive for left to right shunt. Mitral Valve The mitral valve is structurally normal. No prolapse or stenosis seen. Trivial mitral valve insufficiency. Tricuspid Valve Normal tricuspid valve. Trivial tricuspid valve insufficiency. Aortic Valve Trisinus/trileaflet aortic valve. There is no aortic stenosis. No aortic valve insufficiency. Pulmonic Valve Normal pulmonic valve. Great Vessels Normal ascending aorta. The inferior vena cava is dilated. Inferior vena cava collapse with sniff. Pericardium/Pleural No pericardial effusion. Medication Performed a rapid injection of agitated mix of 9 cc saline and 1cc air to assessfor atrial septal defect. MMode/2D Measurements & Calculations LVIDd: 5.7 cm IVSd: 0.93 cm LVOT diam: 2.1 cm LVIDs: 4.0 cm LVPWd: 0.99 cm RVDd: 3.4 cm FS: 29.8 % LVOT area: 3.5 cm2 ____ CO(Teich): 6.4 l/min asc Aorta Diam: 3.4 cm LAV(MOD-bp): 36.2 ml LAV(MOD-bp) Indexed: 17.6 ml/m2 LAV(MOD-sp2): 31.3 ml LAV(MOD-sp4): 39.6 ml CO(MOD-sp4): 2.7 l/min LVAd ap4: 21.4 cm2 LVAd ap2: 23.0 cm2 SV(MOD-sp4): 38.7 ml LVLd ap4: 6.9 cm LVLd ap2: 6.9 cm EDV(MOD-sp4): 57.7 ml EDV(MOD-sp2): 62.9 ml SI(MOD-sp4): 18.8 ml/m2 EDV(sp4-el): 56.6 ml EDV(sp2-el): 64.7 ml LVAs ap4: 10.8 cm2 LVAs ap2: 11.3 cm2 LVLs ap4: 5.6 cm LVLs ap2: 5.6 cm ESV(MOD-sp4): 19.0 ml ESV(MOD-sp2): 20.2 ml ESV(sp4-el): 17.9 ml ESV(sp2-el): 19.3 ml EF(MOD-sp4): 67.1 % EF(MOD-sp2): 67.9 % EF(sp4-el): 68.3 % SV(MOD-sp2): 42.7 ml SV(sp4-el): 38.7 ml Ao sinus diam: 3.2 cm SI(MOD-sp2): 20.7 ml/m2 Ao ST Junction: 2.7 cm LA dimension(2D): 4.2 cm LA A4 area: 15.3 cm2 _ RA A4 area: 13.9 cm2 TAPSE: 1.8 cm Time Measurements MV dec time: 0.22 sec Doppler Measurements & Calculations MV E max maude: 67.3 cm/sec Lat Peak E' Maude: 8.8 cm/sec Med Peak E' Maude: 6.6 cm/sec MV A max maude: 79.0 cm/sec E/E' lat: 7.7 E/E' med: 10.2 MV E/A: 0.85 Ao V2 max: 161.6 cm/sec LV V1 max: 116.8 cm/sec MV dec slope: 309.3 cm/sec2 Ao max P.4 mmHg LV V1 max P.5 mmHg Ao V2 mean: 107.9 cm/sec LV V1 mean P.0 mmHg Ao mean P.3 mmHg LV V1 mean: 80.8 cm/sec Ao V2 VTI: 35.1 cm LV V1 VTI: 25.6 cm AV (velocity ratio): 0.73 KEYSHAWN(I,D): 2.5 cm2 KEYSHAWN(V,D): 2.5 cm2 CO(LVOT): 6.3 l/min PA V2 max: 73.4 cm/sec TR max maude: 201.4 cm/sec SV(LVOT): 88.7 ml TR max P.2 mmHg ECHO/Echo Complete Interpretation Summary The left ventricular ejection fraction is 65 %. Bubble study is positive for left to right shunt. No previous echo to compare Ordering Physician: Omayra Flores Performed By: Rea Talbert RDCS 03/22/25 1513 Date _ Mohan Josue MD CC: ASSOCIATE DATA SCIENTIST-C Cortez Call; Dr. Omayra Flores DO; Dr. Екатерина Belcher DO ~ Date Dictated: 03/22/25813 Date Transcribed: 03/22/25 151 Perioperative Manager: Signed [facility] Work Phone: Electrocardiogram reportOrde red By: Mohan Josue on 03-22-2025 EKG study [facility] Cardiovascular Services [address] [place] [address] 12 Lead EKG 03/21/25 1914 MR#: [id number] Acct: [id number] Name: SIDDHARTH MARVIN Rep #:[id number] : 1970 54 From: Mohan Josue MD Attending Dr: Dr. Екатерина Belcher DO S tatus: ADM ROB Ordering Dr: Kashif Wan DO Date: Location: [facility] Sex: F C Admitted: 03/21/25 Test Reason : DYSRHYTHMIA Blood Pressure : */* mmHG Vent. Rate : 69 BPM Atrial Rate : 69 BPM P-R Int : 148 ms QRS Dur : 94 ms QT Int : 422 ms P-R-T Axes : 19 137 22 degrees QTcB Int : 452 ms Normal sinus rhythm Right axis deviation Abnormal ECG Confirmed by MOHAN JOSUE ([id number]), editor news HILARIO HOWARD ([id number]) on 03/22/2025 1:52:00 PM Referred By: TB Confirmed By: MOHAN JOSUE 03/22/25 1352 Date _ Mohan Josue MD CC: ASSOCIATE DATA SCIENTIST-C Cortez Call; Dr. Екатерина Belcher DO; Dr. Kashif Wan DO ~ Signed [facility] Work Phone: Folate [Moles/volume] in Ser um or PlasmaOrdered By: Omayra Rossi on 03-22-2025 Folate [Moles/Vol] 8.81 ng/mL 4.60-34.[address] [facility] Comment on above: Hemolysis, Results w ill be affected, Requires Recollection. Folates,Serum (Folic Acid)on 03-22-2025 FOLATES,SERUM 8.81 ng/mL Normal 4.60-34.80 [facility] Comment on above: Order Comment: N Result Comment: Hemo lysis, Results will be affected, Requires Recollection. Performed By: #### L 506.0200 #### [facility] [address] [place], [address] Glucose Spinal Fluidon 03-22 GLU SPINAL FLD 80 mg/dL High 40-75 [facility] Comment on above: Performed By: #### L 501.71915, L506.0400, L501.9520, L501.9985, L500.2500, L100.0100 #### [facility] [address] [place], [address] Gl[facility] deOrdered By: Екатерина Belcher on 03-22-2025 Glucose [Mass/Vol] 102 mg/dL 74-[address] [facility] Comment on above: MANAGEMENT OF PATIEN T CARE PER NURSING PROTOCOL Gram Stainon 03-22-2025 GS Centrifuged Specimen ? Culture performed on centrifuged specimen Gram Stain Rare White Blood Cells No organisms seen Normal [facility] Comment on above: Performed By: #### L 501.22273, L506.0400, L501.9520, L501.9985, L500.2500, L100.0100 #### [facility] [address] [place], [address] Gram stainOrdered By: Gerard Belcher on 03-22-2025 Microscopic observation Gram stain Nom (Unsp spec) [facility] LDL calc ser/plasOrdered By: Omayra Rossi on 03-22-2025 Cholesterol in LDL [Mass/Vol] 84 mg/dL [facility] Comment on above: Glkurjofda=841-343 m g/dL & Higher Xphl=960 mg/dL or greaterFriedwald Equation for LDL-C Laboratory - Specimen inform ationOrdered By: Екатерина Belcher on 03-22-2025 Tube number Nom (CSF) [ID] 4 [facility] Lipid Profileon 03-22-2025 CHOL:HDL 3.85 Normal [facility] Comment on above: Order Comment: Comme nts: NPO at [place] prior to lipid panel Performed By: #### L 500.4100 #### [facility] [address], [address] Cholesterol [Mass/Vol] 170 mg/dL Normal <=200 [facility] Comment on above: Order Comment: Comme nts: NPO at [place] prior to lipid panel Result Comment: Chol esterol level, Desirable <200 mg/dL Borderline high cholesterol 200-239 mg/dL High cholesterol >=240 mg/dL Recommendations of the NCEP Adult Treatment Panel for the following risk-cutoff thresholds for the [place] population. Performed By: #### L 500.4100 #### [facility] [address] [place], [address] Cholesterol in HDL [Mass/Vol] 44 mg/dL Normal [facility] Comment on above: Order Comment: Comme nts: NPO at [place] prior to lipid panel Result Comment: Natalia onal Cholesterol Education Program (NCEP) guidelines: <40 mg/dL: Low HDL-cholesterol (major risk factor for CHD) >= 60 mg/dL: High HDL-cholesterol (negative risk factor for CHD) HDL-cholesterol is affected by a number of factors, e.g. smoking, exercise, hormones, sex and age. Performed By: #### L 500.4100 #### [facility] [address] [place], [address] Cholesterol in LDL [Mass/Vol] 84 mg/dL Normal [facility] Comment on above: Order Comment: Comme nts: NPO at [place] prior to lipid panel Result Comment: Bord mcrsrx=456-088 mg/dL Higher Tenr=420 mg/dL or greater Friedwald Equation for LDL-C Performed By: #### L 500.4100 #### [facility] [address] [place], [address] Cholesterol in VLDL [Mass/Vol] 41 mg/dL High 5-40 [facility] Comment on above: Order Comment: Comme nts: NPO at [place] prior to lipid panel Performed By: #### L 500.4100 #### [facility] [address] [place], [address] Triglyceride [Mass/Vol] 207 mg/dL High [facility] Comment on above: Order Comment: Comme nts: NPO at [place] prior to lipid panel Result Comment: The drugs N-Acetylcysteine and Metamizole may falsely depress this assay. Normal range: <150 mg/dL Borderline High: 150-199 mg/dL High: 200-499 mg/dL Very High: >500 mg/dL Performed By: #### L 500.4100 #### [facility] [address] [place], [address] MR/CON.PCM.NEon 03-22-2025 MR/CON.PCM.NE [facility] Medical Records Department [address] [address] Consultation - Neurology 03/22/25 1259 MR#: [id number] Acct: [id number] Name: SIDDHARTH MARVIN Rep #: [id number] : 1970 54 From: Haydee Toro MD PCP: Cortez Call NP-C Status:ADM ROB Location: [place] [address] Assessment and Plan: Neuro Assessment/Plan OSMAN MARVIN, is a 54 woman with history of migraines who is presenting with 2 years of chronic sporadic headaches following TBI. Frequency is once every 1-2 months, lasting for a couple hours, not significant enough for her to stop her from daily activity or take meds, an resolve spontaneously. MRI brain with no findings to explain headache. LP with normal opening pressure. Headaches are likely chronic post traumatic headaches. I discussed with patient, given headache are insignificant in frequency and intensity, will defer Meds for now. She will ask her PCP for headache referral if these headache become more bothersome at any point. We will sign off. Please call with questions. I personally attended this patient and spent a total time of 45 minutes evaluating this patient including clinical assessment, review of chart, medical history imaging, and determining appropriate treatment and workup. HPI Consult Data Date of Consult: 03/22/25 HPI Narrative HPI Narrative: SIDDHARTH MARVIN, is a 54 woman with history of migraines who is presenting with headache. Patient reports she has been having headache on and off for a couple years. This all started after she had a fall a couple years ago, she fell backwards down a flight of steps and hit her head all the way down. She went to the ER back then and workup was negative. On average once a month. Usually last for a couple hours. Located at the posterior/top of her head more towards the left side. Feels like dull aching pain. No N/V. 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 MRI cuate with no acute findings.There is 1.5 x 1.0 cm focus of encephalomalacia in the right periventricular deep white matter resembling old lacunar stroke. There is also Chiari malformation I LP with normal opening pressure PHYSICAL EXAM: Exam performed with help of the nurse/HOWARD present with patient on Tele site NEURO: AAOx3, follows commands, no aphasia/dysarthria EOMI, no gaze preference/nystagmus Face symmetric, Intact facial sensation. Tongue midline Motor: All extremities antigravity Coordination: FTN intact bilaterally PFSH Medical History Tobacco use disorder, continuous Encounter for screening for malignant neoplasm of lung Wears glasses Heartburn Gastric reflux History of edema History of echocardiogram History of stress test Smoker Headache, migraine Type 2 diabetes mellitus Kidney infection Home Medications ???Medication ???Instructions ???Recorded ???Last Taken ???Type metformin 1,000 mg tablet 1,000 mg PO BID 03/21/25 Unknown H istory Allergy/AdvReac Type Severity Reaction Status Date / Time amoxicillin Allergy Rash Verified 03/21/25 16:31 Family History Father Diabetes Heart disease Mother COPD (chronic obstructive pulmonary disease) Surgical History History of tubal ligation ( 1995) History of ( 1989) Social History household members: none current occupational status: employed current occupation: [email or web address] Smoking Status: Current every day smoker tobacco type: cigarettes substance use type: does not use Vital Signs Vital Signs Vital Signs: 03/21/25 16:29 03/21/25 18:33 03/21/25 18:33 Temperature 98.0 F Temperature Source Oral Pulse Rate 91 72 Pulse Strength Respiratory Rate 16 18 Respiratory Effort Respiratory Depth Respiratory Pattern Blood Pressure 154/109 H 156/86 H Blood Pressure Mean 124 109 Blood Pressure Source Blood Pressure Position Blood Pressure Location Pulse Ox 98 97 97 Oxygen Delivery Method Room Air Room Air Room Air 03/21/25 20:00 03/21/25 20:54 03/21/25 22:12 Temperature 98.6 F 98.0 F Temperature Source Oral Pulse Rate 69 70 65 Pulse Strength Respiratory Rate 18 18 18 Respiratory Effort Respiratory Depth Respiratory Pattern Blood Pre (more content not included)... Normal [facility] Magnetic resonance imaging r eportOrdered By: Santana Burden on 03-22-2025 Study report [facility] Imaging Services [address] [place] [address] Brain W/WO Contrast MR#: [id number] Acct: [id number] Name: SIDDHARTH MARVIN Rep #: [id number] : 1970 F 54 From: Federica Burden MD PCP: GRIFFIN Andino Status: ADM ROB Study:Brain W/WO Contrast Date of Exam: 03/22/25 Exam# [id number] Ordering Dr: Omayra Juárez DO EXAM: BRAIN W/WO CONTRAST CLINICAL HISTORY: ABNROMAL HEAD CT WITH WORSENING HEADACHES. COMPARISON: None. TECHNIQUE: Multiplanar, multisequence MR images of the brain were obtained without gadolinium contrast and with 15 cc Clariscan material. FINDINGS: There is a 1.5 x 1.0 cm focus of encephalomalacia in the right periventricular deep white matter. No intracranial hemorrhage, mass, mass effect, midline shift or pathologic extra- axial fluid collection. No hydrocephalus. Preservation of the huitron- white parenchymal differentiation. No areas of restricted diffusion to suggest acute ischemia or infarction. No gradient signal blooming artifacts are identified. 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 An empty sella is noted. The ocular globes and intraorbital soft tissues are symmetrically unremarkable. Mucosal thickening is visible in the left maxillary sinus. There is fluid signal in a portion of the left mastoid air cells. There are no suspicious enhancing lesions following contrast administration. MRI/Brain W/WO Contrast IMPRESSION: There is a 1.5 x 1.0 cm focus of encephalomalacia in the right periventricular deep white matter. An empty sella is noted. 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 Mucosal thickening is visible in the left maxillary sinus. There is fluid signal in a portion of the left mastoid air cells. Reading Location: [facility] CC: GRIFFIN Call; Dr. Omayra Flores, DO ~ Perioperative Manager: Signed [facility] No Panel InformationOrdered By: Omayra Rossi on 03-22-2025 Urine Buprenorphine Qualitative Negative < 200 ng/mL [facility] Urine Oxycodone Screen Negative < 100 ng/mL [facility] Protein Spinal Fluidon 03-22 PROTEIN CSF 27.0 mg/dL Normal 15.0-45.0 [facility] Comment on above: Performed By: #### L 501.40266, L506.0400, L501.9520, L501.9985, L500.2500, L100.0100 #### [facility] [address] [place], [address] Quantitative urine opiates m easurementOrdered By: Omayra Rossi on 03-22-2025 Opiates Ql (U) Negative < 300 ng/mL [facility] Review by pathologistOrdered By: Екатерина Belhcer on 03-22-2025 Pathologist review Germán (Unsp spec) [Interp] Reviewed [facility] Comment on above: Previous reported re sult: May follow Edited by: MRABE on 03/22/25:1406NORMAL WBC COUNT.UNREMARKABLE LYMPHOCYTES OBSERVED.Claudia Fajardo MD 03/22/2025 AMENDED REPORT 03/22/25 1406 PATH REV previously reported as: May follow Screening total cholesterol/ high density lipoprotein (HDL) cholesterol ratioOrdered By: Omayra Rossi on 03-22-2025 Cholesterol.total/Choles terol in HDL [Mass ratio] 3.85 {ratio} [facility] Screening urine fentanyl chirag surementOrdered By: Omayra Rossi on 03-22-2025 fentaNYL Screen Ql (U) Negative <5 ng/mL [facility] Comment on above: CONFIRMATORY TESTING FOR ALL POSITIVE URINE DRUG SCREENRESULTS WILL ONLY BE SENT OUT UPON PHYSICIAN ORDER. Shraddha Pro Urine Drug Screen methods provide only preliminaryanalytical test results. A more specific alternate chemicalmethod must be used in order to obtain a confirmedanalytical result. Gas chromatography/mass spectrometery(GC/MS) is the preferred confirmatory method. Clinicalconsideration and professional judgement should be appliedto any drug of abuse test result, particularly whenpreliminary positive results are used. Urine TCA testing must be ordered separately. Use test mnemonic: UTCA Serum or plasma cholesterol in HDL measurement (mass/volume)Ordered By: Omayra Rossi on 03-22-2025 Cholesterol in HDL [Mass/Vol] 44 mg/dL >40 [facility] Comment on above: National Cholesterol Education Program (NCEP) guidelines:<40 mg/dL: Low HDL-cholesterol (major risk factor for CHD)>= 60 mg/dL: High HDL-cholesterol (negative risk factor for CHD)HDL-cholesterol is affected by a number of factors, e.g. smoking, exercise, hormones, sex and age. Serum or plasma cholesterol measurement (mass/volume)Ordered By: Omayra Rossi on 03-22-2025 Cholesterol [Mass/Vol] 170 mg/dL <201 [facility] Comment on above: Cholesterol level, D esirable <200 mg/dLBorderline high cholesterol 200-239 mg/dLHigh cholesterol >=240 mg/dLRecommendations of the NCEP Adult Treatment Panel for the following risk-cutoff thresholds for the [place] population. Special Stain Group IIon Special Stain Group II ------- Patient Age/Sex Location Account Attending Physician YONSIDDHARTH Darshan 54/F [facility] [id number] Dr. Екатерина Belcher, DO Specimen: [id number] Received: 03/22/25 Status: ELLI Stark Num: [id number] Spec Type: Fluid Subm Dr: Dr. Екатерина Belcher, HEADER OPERATION: Not noted PRE-OP DIAGNOSIS: Headache TISSUE SUBMITTED: A- Cerebrospinal fluid for cytology DIAGNOSIS CYTOLOGY A. Cerebral spinal fluid (cytospin): - No malignant cells identified. - Rare white blood cells observed. CYTOLOGY STUDY Slides are reviewed. CYTOLOGY GROSS A. Received is 4 ml of clear-colorless fluid labeled with the patient's name and and designated per the requisition as Cerebrospinal fluid. Submitted for cytology preparation. 03/22/2025 CPT: 03011 Signed (signature on file) Dr. Claudia Fajardo MD 03/23/25 1651 Normal [facility] Comment on above: Performed By: #### L 501.41048, L506.0400, L501.9520, L501.9985, L500.2500, L100.0100 #### [facility] [address] [place], [address] Spinal Fluid Cell Count+Diff on 03-22-2025 PATH REV Reviewed Normal [facility] Comment on above: Result Comment: NORM AL WBC COUNT. UNREMARKABLE LYMPHOCYTES OBSERVED. Claudia Fajardo MD 03/22/2025 AMENDED REPORT 03/22/25 1406 PATH REV previously reported as: May follow Performed By: #### L 501.86578, L506.0400, L501.9520, L501.9985, L500.2500, L100.0100 #### [facility] [address] [place], [address] Triglycerides measurementOrd ered By: Omayra Rossi on 03-22-2025 Triglyceride [Mass/Vol] 207 mg/dL High <199 [facility] Comment on above: The drugs N-Acetylcy steine and Metamizole may falsely depress this assay. Normal range: <150 mg/dLBorderline High: 150-199 mg/dLHigh: 200-499 mg/dLVery High: >500 mg/dL Urinalysis, Completeon 03-22 BACTERIA Normal None Seen [facility] Comment on above: Order Comment: CLEAN CATCH Result Comment: PT D ISCHARGED Performed By: #### L 501.97334, L506.0400, L501.9520, L501.9985, L500.2500, L100.0100 #### [facility] [address] [place], [address] BILIRUBIN URINE Normal Negative [facility] Comment on above: Order Comment: CLEAN CATCH Result Comment: PT D ISCHARGED Performed By: #### L 501.32429, L506.0400, L501.9520, L501.9985, L500.2500, L100.0100 #### [facility] [address] [place], [address] Clarity (U) Normal Clear [facility] Comment on above: Order Comment: CLEAN CATCH Result Comment: PT D ISCHARGED Performed By: #### L 501.50453, L506.0400, L501.9520, L501.9985, L500.2500, L100.0100 #### [facility] [address] [place], [address] Color (U) Normal Yellow [facility] Comment on above: Order Comment: CLEAN CATCH Result Comment: PT D ISCHARGED Performed By: #### L 501.04009, L506.0400, L501.9520, L501.9985, L500.2500, L100.0100 #### [facility] [address] [place], [address] EPI,SQUAMOUS Normal 5-10 [facility] Comment on above: Order Comment: CLEAN CATCH Result Comment: PT D ISCHARGED Performed By: #### L 501.93000, L506.0400, L501.9520, L501.9985, L500.2500, L100.0100 #### [facility] [address] [place], [address] GLUCOSE, UR Normal Normal [facility] Comment on above: Order Comment: CLEAN CATCH Result Comment: PT D ISCHARGED Performed By: #### L 501.50795, L506.0400, L501.9520, L501.9985, L500.2500, L100.0100 #### [facility] [address] [place], [address] KETONE UR Normal Negative [facility] Comment on above: Order Comment: CLEAN CATCH Result Comment: PT D ISCHARGED Performed By: #### L 501.93819, L506.0400, L501.9520, L501.9985, L500.2500, L100.0100 #### [facility] [address] [place], [address] LEUK ESTERASE Normal Negative [facility] Comment on above: Order Comment: CLEAN CATCH Result Comment: PT D ISCHARGED Performed By: #### L 501.37308, L506.0400, L501.9520, L501.9985, L500.2500, L100.0100 #### [facility] [address] [place], [address] Mucus Ql (Urine sed) Normal [facility] Comment on above: Order Comment: CLEAN CATCH Result Comment: PT D ISCHARGED Performed By: #### L 501.41559, L506.0400, L501.9520, L501.9985, L500.2500, L100.0100 #### [facility] [address] [place], [address] Nitrite Ql (U) Normal Negative [facility] Comment on above: Order Comment: CLEAN CATCH Result Comment: PT D ISCHARGED Performed By: #### L 501.25245, L506.0400, L501.9520, L501.9985, L500.2500, L100.0100 #### [facility] [address] [place], [address] OCCULT BLOOD-UR Normal Negative [facility] Comment on above: Order Comment: CLEAN CATCH Result Comment: PT D ISCHARGED Performed By: #### L 501.21281, L506.0400, L501.9520, L501.9985, L500.2500, L100.0100 #### [facility] [address] [place], [address] pH UR Normal 5.0 - 8.0 [facility] Comment on above: Order Comment: CLEAN CATCH Result Comment: PT D ISCHARGED Performed By: #### L 501.77919, L506.0400, L501.9520, L501.9985, L500.2500, L100.0100 #### [facility] [address] [place], [address] PROT DIPSTX Normal Negative [facility] Comment on above: Order Comment: CLEAN CATCH Result Comment: PT D ISCHARGED Performed By: #### L 501.64604, L506.0400, L501.9520, L501.9985, L500.2500, L100.0100 #### [facility] [address] [place], [address] RBC Normal 0-5 [facility] Comment on above: Order Comment: CLEAN CATCH Result Comment: PT D ISCHARGED Performed By: #### L 501.99162, L506.0400, L501.9520, L501.9985, L500.2500, L100.0100 #### [facility] [address] [place], [address] SP.GR. DIPSTX Normal 1.002-1.030 [facility] Comment on above: Order Comment: CLEAN CATCH Result Comment: PT D ISCHARGED Performed By: #### L 501.55275, L506.0400, L501.9520, L501.9985, L500.2500, L100.0100 #### [facility] [address] [place], [address] UR Preservative Normal [facility] Comment on above: Order Comment: CLEAN CATCH Result Comment: PT D ISCHARGED Performed By: #### L 501.89333, L506.0400, L501.9520, L501.9985, L500.2500, L100.0100 #### [facility] [address] [place], [address] UROBILI Normal Normal [facility] Comment on above: Order Comment: CLEAN CATCH Result Comment: PT D ISCHARGED Performed By: #### L 501.48711, L506.0400, L501.9520, L501.9985, L500.2500, L100.0100 #### [facility] [address] [place], [address] WBC Normal 0-5 [facility] Comment on above: Order Comment: CLEAN CATCH Result Comment: PT D ISCHARGED Performed By: #### L 501.41581, L506.0400, L501.9520, L501.9985, L500.2500, L100.0100 #### [facility] [address] [place], [address] Urine Drug Screen (VISTA)on 03-22-2025 AMPHETAMINES Negative Normal <1000 ng/mL [facility] Comment on above: Order Comment: U Performed By: #### L 501.80929, L506.0400, L501.9520, L501.9985, L500.2500, L100.0100 #### [facility] [address] [place], [address] BARBITIURATES Negative Normal < 200 ng/mL [facility] Comment on above: Order Comment: U Performed By: #### L 501.69257, L506.0400, L501.9520, L501.9985, L500.2500, L100.0100 #### [facility] [address] [place], [place], [id number] ([address] BENZODIAZIPINE Negative Normal < 200 ng/mL [facility] Comment on above: Order Comment: U Performed By: #### L 501.93208, L506.0400, L501.9520, L501.9985, L500.2500, L100.0100 #### [facility] [address] [place], [address] BUP Ur Drug Scr Negative Normal < 200 ng/mL [facility] Comment on above: Order Comment: U Performed By: #### L 501.01562, L506.0400, L501.9520, L501.9985, L500.2500, L100.0100 #### [facility] [address] [place], [address] COCAINE Negative Normal < 300 ng/mL [facility] Comment on above: Order Comment: U Performed By: #### L 501.39383, L506.0400, L501.9520, L501.9985, L500.2500, L100.0100 #### [facility] [address] [place], [address] Fentanyl Negative Normal <5 ng/mL [facility] Comment on above: Order Comment: U Result Comment: CONF IRMATORY TESTING FOR ALL POSITIVE URINE DRUG SCREEN RESULTS WILL ONLY BE SENT OUT UPON PHYSICIAN ORDER. Shraddha Pro Urine Drug Screen methods provide only preliminary analytical test results. A more specific alternate chemical method must be used in order to obtain a confirmed analytical result. Gas chromatography/mass spectrometery (GC/MS) is the preferred confirmatory method. Clinical consideration and professional judgement should be applied to any drug of abuse test result, particularly when preliminary positive results are used. Urine TCA testing must be ordered separately. Use test mnemonic: UTCA Performed By: #### L 501.44066, L506.0400, L501.9520, L501.9985, L500.2500, L100.0100 #### [facility] [address] [place], [address] METHADONE Negative Normal < 300 ng/mL [facility] Comment on above: Order Comment: U Performed By: #### L 501.79918, L506.0400, L501.9520, L501.9985, L500.2500, L100.0100 #### [facility] [address] [place], [address] OPIATES Negative Normal < 300 ng/mL [facility] Comment on above: Order Comment: U Performed By: #### L 501.14871, L506.0400, L501.9520, L501.9985, L500.2500, L100.0100 #### [facility] [address] [place], [address] OXYCODONE Negative Normal < 100 ng/mL [facility] Comment on above: Order Comment: U Performed By: #### L 501.38257, L506.0400, L501.9520, L501.9985, L500.2500, L100.0100 #### [facility] [address] [place], [address] PCP Negative Normal < 25 ng/mL [facility] Comment on above: Order Comment: U Performed By: #### L 501.21028, L506.0400, L501.9520, L501.9985, L500.2500, L100.0100 #### [facility] [address] [place], [address] THC Negative Normal < 50 ng/mL [facility] Comment on above: Order Comment: U Performed By: #### L 501.65664, L506.0400, L501.9520, L501.9985, L500.2500, L100.0100 #### [facility] [address] [place], [address] Urine benzodiazepine levelOr dered By: Omayra Rossi on 03-22-2025 Benzodiazepines Ql (U) Negative < 200 ng/mL [facility] Urine cocaine levelOrdered B y: Omayra Rossi on 03-22-2025 Cocaine Ql (U) Negative < 300 ng/mL [facility] Urine zyhhe-5-rkpsnwsjgdzhky abinol (THC) measurementOrdered By: Omayra Rossi on 03-22-2025 Cannabinoids Screen Ql (U) Negative < 50 ng/mL [facility] Urine phencyclidine (PCP) de tectionOrdered By: Omayra Rossi on 03-22-2025 Phencyclidine Ql (U) Negative < 25 ng/mL [facility] 12 Lead EKGon 03-21-2025 12 Lead EKG [facility] [address] [place] [address] 12 Lead EKG 03/21/251913 MR#: [id number] Acct: [id number] Name: SIDDHARTH MARVIN Rep #: [id number] : 1970 54 From: Mohan Josue MD Attending Dr: Dr. Екатерина Belcher DO Status: ADM I NO Ordering Dr: Kashif Wan DO Date: 03/21/25 Location: [facility] Sex: F C Admitted: 03/21/25 Test Reason : DYSRHYTHMIA Blood Pressure : */* mmHG Vent. Rate : 69 BPM Atrial Rate : 69 BPM P-R Int : 148 ms QRS Dur : 94 ms QT Int : 422 ms P-R-T Axes : 19 137 22 degrees QTcB Int : 452 ms Normal sinus rhythm Right axis deviation Abnormal ECG Confirmed by MOHAN JOSUE ([id number]), editor news HILARIO HOWARD ([id number]) on 03/22/2025 1:52:00 PM Referred By: TB Confirmed By: MOHAN JOSUE 03/22/25 1352 Date Mohan Josue MD CC: ASSOCIATE DATA SCIENTIST-C [place] Call; Dr. Екатерина Belcher DO; Dr. Kashif Wan DO Signed Normal [facility] Absolute lymphocyte countOrd ered By: Kashif Wan on 03-21-2025 Lymphocytes Auto (Unsp spec) [#/Vol] 5.19 10*3/uL High 0.83-4.51 [facility] Absolute neutrophil countOrd ered By: Kashif Wan on 03-21-2025 Neutrophils (Bld) [#/Vol] 6.4 10*3/uL 2.0-7.7 [facility] Alcohol, Blood (Medical)-Ser umon 03-21-2025 SERUM ETOH < 10.1 Normal <=10.0 [facility] Comment on above: Result Comment: This test is for medical purposes only. The legal definition of intoxication varies according to local law. Performed By: #### L 501.68112, L506.0400, L501.9520, L501.9985, L500.2500, L100.0100 #### [facility] [address] [place], [address] Anion gap in Serum or Plasma Ordered By: Kashif Wan on 03-21-2025 Anion gap [Moles/Vol] 15 mmol/L 5 [facility] Automated lymphocyte count a s percentage of total leukocytesOrdered By: Kashif Wan on 03-21-2025 Lymphocytes/100 WBC Auto (Unsp spec) 40.2 % [facility] BUN/creatinine ratioOrdered By: Kashif Wan on 03-21-2025 Urea nitrogen/Creatinine [Mass ratio] 19.3 mg/mg 05-15 [facility] Basic Metabolic Profile (BMP )on 03-21-2025 BUN/CRE 19.3 RATIO Normal 05-15 [facility] Comment on above: Performed By: #### L 501.19136, L506.0400, L501.9520, L501.9985, L500.2500, L100.0100 #### [facility] [address] [place], [address] Calcium [Mass/Vol] 10.1 mg/dL Normal 7.6-11.[address] [facility] Comment on above: Performed By: #### L 501.94460, L506.0400, L501.9520, L501.9985, L500.2500, L100.0100 #### [facility] [address] [place], [address] Chloride [Moles/Vol] 102 mmol/L Normal 98-108 [facility] Comment on above: Performed By: #### L 501.04922, L506.0400, L501.9520, L501.9985, L500.2500, L100.0100 #### [facility] [address] [place], [address] CO2 [Moles/Vol] 24.2 mmol/L Normal 21.0-32.0 [facility] Comment on above: Performed By: #### L 501.01873, L506.0400, L501.9520, L501.9985, L500.2500, L100.0100 #### [facility] [address] [place], [address] Creatinine [Mass/Vol] 0.64 mg/dL Low 0.70-1.20 [facility] Comment on above: Performed By: #### L 501.55580, L506.0400, L501.9520, L501.9985, L500.2500, L100.0100 #### [facility] [address] [place], [address] ECRCL 114.33 ml/min Normal 50-250 [facility] Comment on above: Performed By: #### L 501.08658, L506.0400, L501.9520, L501.9985, L500.2500, L100.0100 #### [facility] [address] [place], [address] GAP 15 Normal 5-15 [facility] Comment on above: Performed By: #### L 501.54140, L506.0400, L501.9520, L501.9985, L500.2500, L100.0100 #### [facility] [address] [place], [address] GFR/1.73 sq M.predicted among non-blacks MDRD (S/P/Bld) [Vol rate/Area] 104 mL/min/{1.73_m2} Normal >60 [facility] Comment on above: Result Comment: mL/m in/1.73m2 CKD-EPI Creatinine Equation (2020) Performed By: #### L 501.99805, L506.0400, L501.9520, L501.9985, L500.2500, L100.0100 #### [facility] [address] [place], [address] Glucose [Mass/Vol] 83 mg/dL Normal 70-[address] [facility] Comment on above: Performed By: #### L 501.44339, L506.0400, L501.9520, L501.9985, L500.2500, L100.0100 #### [facility] [address] [place], [address] Potassium [Moles/Vol] 4.0 mmol/L Normal 3.3-5.1 [facility] Comment on above: Result Comment: Hemo lysis present, Results??could be affected. ?? Performed By: #### L 501.71077, L506.0400, L501.9520, L501.9985, L500.2500, L100.0100 #### [facility] [address] [place], [address] Sodium [Moles/Vol] 140 mmol/L Normal 133-[address] [facility] Comment on above: Performed By: #### L 501.89146, L506.0400, L501.9520, L501.9985, L500.2500, L100.0100 #### [facility] [address] [place], [address] Urea nitrogen [Mass/Vol] 12 mg/dL Normal 4-19 [facility] Comment on above: Performed By: #### L 501.08534, L506.0400, L501.9520, L501.9985, L500.2500, L100.0100 #### [facility] [address] [place], [address] Basophil percentageOrdered B y: Kashif Wan on 03-21-2025 Basophils/100 WBC (Bld) 0.7 % 0-1 [facility] Bedside Glucoseon 03-21-2025 FINGERSTICK GLU 119 mg/dL High 74-106 [facility] Comment on above: Result Comment: JOSH GENAO OF PATIENT CARE PER NURSING PROTOCOL Performed By: #### L 501.080 #### [facility] [address] [place], [place], [address] Brain/Head without Contrasto n 03-21-2025 Brain/Head without Contrast [facility] Imaging Services [address] [place] [address] Brain/Head without Contrast MR#: [id number] Acct: [id number] Name: SIDDHARTH MARVIN Rep #: [id number] : 1970 F 54 From: Ranulfo Coburn MD PCP: GRIFFIN Andino Status: REG ER Study: Brain/Head without Contrast Date of Exam: 02/25 01/18 Exam# [id number] Ordering Dr: Kashif Wan DO PROCEDURE: CT BRAIN/HEAD WITHOUT CONTRAST 03/21/2025 REASON FOR EXAM: HEADACHE TECHNIQUE: CT BRAIN/HEAD WITHOUT CONTRAST Coronal and Sagittal reconstruction series were provided. One or more dose reduction techniques were used (e.g., Automated exposure control, adjustment of the mA and/or kV according to patient size, use of iterative reconstruction technique. RADIATION DOSE SUMMARY: CTDlvol: 44.99 mGy DLP: 796.11 mGycm COMPARISON: CT head 11/17/2022 FINDINGS: No acute intracranial hemorrhage, extra-axial collection, mass-effect, or hydrocephalus. Nonspecific partially empty sella turcica. Borderline low-lying cerebellar tonsils. There is a small ill-defined parenchymal hypodense focus within the right frontal bartholomew radiata white matter, which is new from prior exam, and probably related to chronic small-vessel ischemic change, however is indeterminate. No other regions of abnormal parenchymal attenuation appreciated. No acute territorial infarct. Unremarkable orbits. Mild mucosal thickening in the floors of the maxillary sinuses without fluid levels. No mastoid effusions. The skull base and calvarium are intact. CT/Brain/Head without Contrast IMPRESSION: 1. No acute intracranial hemorrhage, mass-effect, hydrocephalus, or territorial infarct. 2. Small indeterminate hypodense focus in the right frontal bartholomew radiata white matter, new since prior exam. Suggest contrast-enhanced MRI to further evaluate. 3. Partially empty sella, and borderline low-lying cerebellar tonsils, both of which are nonspecific but can be associated with headaches in the setting of elevated intracranial CSF pressure. Reading Location: [id number] CC: ASSOCIATE DATA SCIENTISTJeanne Call; Dr. Kashif Wan DO Perioperative Manager: Signed Normal [facility] CBC W/Diff, Automatedon 02-25 ATYPICAL LYMPH 2+ Normal [facility] Comment on above: Performed By: #### L 501.64485, L506.0400, L501.9520, L501.9985, L500.2500, L100.0100 #### [facility] [address] [place], [address] PLT EST ADEQUATE Normal ADEQ [facility] Comment on above: Performed By: #### L 501.15004, L506.0400, L501.9520, L501.9985, L500.2500, L100.0100 #### [facility] [address] [place], [address] Carbon dioxide, total [Moles /volume] in Central venous bloodOrdered By: Kashif Wan on 03-21-2025 CO2 [Moles/Vol] 24.2 mmol/L 21.0-32.0 [facility] Carotid Duplex Ultrasoundon 03-21-2025 Carotid Duplex Ultrasound [facility] [address] [place] [address] Carotid Duplex Ultrasound 03/22/25 1309 MR#: [id number] Acct: [id number] Name: SIDDHARTH MARVIN Rep #: [id number] : 1970 54 From: Enzo Johnson MD Attending Dr: Dr. Екатерина Belcher DO Status: DIS I NO Ordering Dr: Omayra Flores DO Date: 03/21/25 Location: [facility] Sex: F C Admitted: 03/21/25 Reason For Study Reason For Study: Evaluate for stenosis Rt. Velocities/BP Lt. Velocities/BP Prox CCA 69.1/16.3 cm/sec. Prox CCA 88.2/27.9 cm/sec. Mid CCA 60.5/16.3 cm/sec. Mid CCA 63.0/18.8 cm/sec. Dist CCA 66.7/18.8 cm/sec. Dist CCA 67.9/22.5 cm/sec. Prox ICA 72.8/24.9 cm/sec. Prox ICA 82.6/27.4 cm/sec. Mid ICA 99.2/38.9 cm/sec. Mid ICA 115.6/38.9 cm/sec. Dist ICA 90.0/29.8 cm/sec. Dist ICA 83.2/32.4 cm/sec. Rt. ICA/CCA = 1.6. Lt. ICA/CCA = 1.8. Prox ECA 85.1/11.4 cm/sec. Prox ECA 77.7/9.0 cm/sec. Rt. Vert. 46.2/18.8 cm/sec. Lt. Vert. 73.6/18.8 cm/sec. Right Extracranial There is homogeneous, smooth atherosclerotic plaque noted in the right common carotid artery. There is heterogeneous, irregular atherosclerotic plaque noted in the right internal carotid artery. There is intimal thickening but no significant atherosclerotic plaque noted in the right external carotid artery. Antegrade flow is noted in the right vertebral artery. Left Extracranial There is homogeneous, smooth atherosclerotic plaque noted in the left common carotid artery. There is homogeneous, smooth atherosclerotic plaque noted in the left internal carotid artery. There is heterogeneous, irregular atherosclerotic plaque noted in the left external carotid artery. Antegrade flow is noted in the left vertebral artery. Procedure Carotid Duplex 01683. This is a Carotid Duplex examination using B-mode, color flow and specral Doppler. Exam performed portable in patient room. VL/Carotid Duplex Ultrasound Interpretation Summary Mild (<50%) stenosis right extracranial internal carotid. Mild (<50%) stenosis left extracranial internal carotid. Patent and antegrade vertebrals bilaterally. Ordering Physician: Omayra Flores Performed By: Hollie Hallman, RVT 03/23/25 1529 Date Enzo Johnson MD CC: ASSOCIATE DATA SCIENTIST-C [place] Call; Dr. Omayra Flores DO; Dr. Екатерина Belcher DO Date Dictated: 03/22/25 1309 Date Transcribed: 03/23/25 1529 Perioperative Manager: Signed Normal [facility] Chest 1 View (Portable)on Chest 1 View (Portable) [facility] Imaging Services [address] [place] [address] Chest 1 View (Portable) MR#: [id number] Acct: [id number] Name: SIDDHARTH MARVIN Rep #: [id number] : 1970 F 54 From: Ranulfo Coburn MD PCP: GRIFFIN Andino Status: REG ER Study: Chest 1 View (Portable) Date of Exam: 03/21/25 Exam# [id number] Ordering Dr: Kashif Wan DO PROCEDURE: CHEST 1 VIEW (PORTABLE) 03/21/2025 REASON FOR EXAM: CHEST PAIN TECHNIQUE: Frontal view of the chest. COMPARISON: 05/03/2018 FINDINGS: Lungs/Pleura: Clear. No pneumothorax or sizable pleural effusion. Heart/Mediastinum: Mildly enlarged, although likely exaggerated by technique. Bones/Soft tissues: Mild degenerative changes of the thoracic spine. RAD/Chest 1 View (Portable) IMPRESSION: No evidence of acute cardiopulmonary disease. Reading Location: [facility] CC: ASSOCIATE DATA SCIENTIST-C Cortez Call; Dr. Kashif Wan DO Perioperative Manager: Signed Normal [facility] Chloride assayOrdered By: Humble Wan on 03-21-2025 Chloride [Moles/Vol] 102 mmol/L 98-108 [facility] Echo Completeon 03-21-2025 Echo Complete [facility] [address] [place] [address] Echo Complete 03/22/25 0814 MR#: [id number] Acct: [id number] Name: SIDDHARTH MARVIN Rep #: [id number] : 1970 54 From: Mohan Josue MD Attending Dr: Dr. Екатерина Belcher, Status: ADM I NO Ordering Dr: Omayra Flores DO Date: 03/21/25 Location: [facility] Sex: F C Admitted: 03/21/25 Reason For Study Reason For Study: TIA/CVA Procedure This was a 2D Doppler, Color Flow transthoracic echocardiogram. Exam performed portable in patient room. Left Ventricle Normal left ventricle. The left ventricle is normal in size, thickness, and systolic function. The left ventricular ejection fraction is 65 %. Normal diastololic function. No regional wall motion abnormalities noted. Right Ventricle Normal right ventricle. Normal systolic function. Atria Normal left atrium. Normal right atrium. Bubble study is positive for left to right shunt. Mitral Valve The mitral valve is structurally normal. No prolapse or stenosis seen. Trivial mitral valve insufficiency. Tricuspid Valve Normal tricuspid valve. Trivial tricuspid valve insufficiency. Aortic Valve Trisinus/trileaflet aortic valve. There is no aortic stenosis. No aortic valve insufficiency. Pulmonic Valve Normal pulmonic valve. Great Vessels Normal ascending aorta. The inferior vena cava is dilated. Inferior vena cava collapse with sniff. Pericardium/Pleural No pericardial effusion. Medication Performed a rapid injection of agitated mix of 9 cc saline and 1cc air to assess for atrial septal defect. MMode/2D Measurements Calculations LVIDd: 5.7 cm IVSd: 0.93 cm LVOT diam: 2.1 cm LVIDs: 4.0 cm LVPWd: 0.99 cm RVDd: 3.4 cm FS: 29.8 % LVOT area: 3.5 cm2 _ CO(Teich): 6.4 l/min asc Aorta Diam: 3.4 cm LAV(MOD-bp): 36.2 ml LAV(MOD-bp) Indexed: 17.6 ml/m2 LAV(MOD-sp2): 31.3 ml LAV(MOD-sp4): 39.6 ml _ CO(MOD-sp4): 2.7 l/min LVAd ap4: 21.4 cm2 LVAd ap2: 23.0 cm2 SV(MOD-sp4): 38.7 ml LVLd ap4: 6.9 cm LVLd ap2: 6.9 cm EDV(MOD-sp4): 57.7 ml EDV(MOD-sp2): 62.9 ml SI(MOD-sp4): 18.8 ml/m2 EDV(sp4-el): 56.6 ml EDV(sp2-el): 64.7 ml LVAs ap4: 10.8 cm2 LVAs ap2: 11.3 cm2 LVLs ap4: 5.6 cm LVLs ap2: 5.6 cm ESV(MOD-sp4): 19.0 ml ESV(MOD-sp2): 20.2 ml ESV(sp4-el): 17.9 ml ESV(sp2-el): 19.3 ml EF(MOD-sp4): 67.1 % EF(MOD-sp2): 67.9 % EF(sp4-el): 68.3 % _ SV(MOD-sp2): 42.7 ml SV(sp4-el): 38.7 ml Ao sinus diam: 3.2 cm SI(MOD-sp2): 20.7 ml/m2 _ Ao ST [place]: 2.7 cm LA dimension(2D): 4.2 cm LA A4 area: 15.3 cm2 _ RA A4 area: 13.9 cm2 TAPSE: 1.8 cm Time Measurements MV dec time: 0.22 sec Doppler Measurements Calculations MV E max maude: 67.3 cm/sec Lat Peak E' Maude: 8.8 cm/sec Med Peak E' Maude: 6.6 cm/sec MV A max maude: 79.0 cm/sec E/E' lat: 7.7 E/E' med: 10.2 MV E/A: 0.85 _ Ao V2 max: 161.6 cm/sec LV V1 max: 116.8 cm/sec MV dec slope: 309.3 cm/sec2 Ao max P.4 mmHg LV V1 max P.5 mmHg Ao V2 mean: 107.9 cm/sec LV V1 mean P.0 mmHg Ao mean P.3 mmHg LV V1 mean: 80.8 cm/sec Ao V2 VTI: 35.1 cm LV V1 VTI: 25.6 cm AV (velocity ratio): 0.73 KEYSHAWN(I,D): 2.5 cm2 KEYSHAWN(V,D): 2.5 cm2 _ CO(LVOT): 6.3 l/min PA V2 max: 73.4 cm/sec TR max maude: 201.4 cm/sec SV(LVOT): 88.7 ml TR max P.2 mmHg ECHO/Echo Complete Interpretation Summary The left ventricular ejection fraction is 65 %. Bubble study is positive for left to right shunt. No previous echo to compare Ordering Physician: Omayra Flores Performed By: Rea Talbert RDCS 03/22/25 1513 Date Mohan Josue MD CC: ASSOCIATE DATA SCIENTIST-C Cortez Call; Dr. Omayra Flores DO; Dr. Екатерина Belcher DO Date Dictated: 03/22/25 0814 Date Transcribed: 03/22/25 1513 Perioperative Manager: Signed Normal [facility] Emergency Department Summary on 03-21-2025 Emergency Department Summary [facility] Medical Records Department [address] [place] [address] Emergency Department Summary 03/21/25 MR#: [id number] Acct: [id number] Name: SIDDHARTH MARVIN Rep #: [id number] : 1970 54 From: Kashif Wan DO PCP: GRIFFIN Andino Status:REG ER Location: ED HPI History of Present Illness Chief Complaint: Headache Narrative Narrative: Patient is a 54-year-old female with past medical history of GERD, tobacco use, migraine headaches, type 2 diabetes who presents to the emergency department the chief complaint of discomfort in her head. She states that this been going on for years however over the last few months she feels like it has been more intermittent than it was in the past. States that her family numbers wanted her to be evaluated therefore she came here. Patient notes that she has not had any injuries to her head recently. She notes that she is on a blood thinner medications. She states that she not take anything for pain as she does not have a headache she states that just is a warm sensation. Patient states that she did not want anything for pain here in the emergency department as she does not like to take medication PFSH PFSH Medical History Tobacco use disorder, continuous Encounter for screening for malignant neoplasm of lung Wears glasses Heartburn Gastric reflux History of edema History of echocardiogram History of stress test Smoker Headache, migraine Type 2 diabetes mellitus Kidney infection Home Medications ???Medication ???Instructions ???Recorded ???Last Taken ???Type metformin 1,000 mg tablet 1,000 mg PO BID 03/21/25 Unknown H istory Allergy/AdvReac Type Severity Reaction Status Date / Time amoxicillin Allergy Rash Verified 03/21/25 16:31 Family History Father Diabetes Heart disease Mother COPD (chronic obstructive pulmonary disease) Surgical History History of tubal ligation ( 1995) History of ( 1989) Social History household members: none current occupational status: employed current occupation: [email or web address] Smoking Status: Current every day smoker tobacco type: cigarettes substance use type: does not use ROS ROS ED ROS Narrative Constitutional: Denies fevers, chills, lightness, dizziness Eyes: Denies double vision Cardiovascular: Denies chest pain Respiratory: Shortness of breath Abdomen: Denies nausea vomit diarrhea : Denies any urinary symptoms Neurological: Denies any numbness, weakness, tingling Musculoskeletal: Denies back pain Skin: Denies any rashes or lesions EXAM Physical Exam Narrative Exam Narrative: General: Patient was lying in bed rest comfortably did not appear to be in acute distress Head: Atraumatic, normocephalic Eyes: PERRL bilaterally, EOMI bilateral, no conjunctival injection noted Neck: Soft, supple, trachea midline Cardiovascular: Regular rate Respiratory: Clear to auscultation bilaterally Abdomen: No tenderness to palpation Extremities: +5/5 strength noted in the bilateral lower extremities, radial pulses +2/4 in above extremities, no pedal edema on exam Neurological: Patient on commands that she was at [facility] year is 2024 sensation grossly intact NIH of 0 GCS 15. Patient completed finger-nose testing bilaterally without any difficulty Skin: Warm, dry, intact no rashes or lesions noted Const Vital Signs: 03/21/25 16:29 03/21/25 18:33 03/21/25 18:33 Temperature 98.0 F Temperature Source Oral Pulse Rate 91 72 Respiratory Rate 16 18 Blood Pressure 154/109 H 156/86 H Blood Pressure Mean 124 109 Pulse Ox 98 97 97 Oxygen Delivery Method Room Air Room Air Room Air 03/21/25 20:00 03/21/25 20:54 Temperature 98.6 F Temperature Source Pulse Rate 69 70 Respiratory Rate 18 18 Blood Pressure 131/73 H 148/61 H Blood Pressure Mean 92 90 Pulse Ox 94 99 Oxygen Delivery Method Room Air MDM MDM MDM Narrative Medical decision making narrative: Patient is a 54-year-old female who presents to the emergency department with a sensation of warmth in her head. On the differential diagnosis includes but limited to intracranial mass, migraine headache although she states that she does not feel like she has a headache, intracranial hemorrhage, aneurysm, trigeminal neuralgia. Once workup is obtained reviewed she will be reevaluated. Patient once again states that she does not want take any medication for pain Patient CT and brain without contrast showed no acute intracranial hemorrhage mass effect or territorial infarct. Small indeterminate hyperd (more content not included)... Normal [facility] Eosinophil percentageOrdered By: Kashif Wan on 03-21-2025 Eosinophils/100 WBC (Bld) 3.3 % 0-5 [facility] Erythrocyte distribution wid th ratioOrdered By: Kashif Wan on 03-21-2025 Erythrocyte distribution width (RBC) [Ratio] 13.8 % 11.6-14.6 [facility] Erythrocyte distribution wid th standard deviationOrdered By: Kashif Wan on 03-21-2025 Erythrocyte distribution width (RBC) [Ratio] 44.8 fl High 35.1-43.9 [facility] Free T3on 03-21-2025 Free T3 [Mass/Vol] 3.3 pg/mL Normal 2.18-3.[address] [facility] Comment on above: Performed By: #### L 501.11945, L506.0400, L501.9520, L501.9985, L500.2500, L100.0100 #### [facility] [place], [address] Free [id number] By: Kashif hawk on 03-21-2025 Free T3 [Mass/Vol] 3.3 pg/mL 2.18-3.[address] [facility] Glomerular filtration rate ( GFR) estimation/1.73 sq m using serum, plasma, or whole bOrdered By: Kashif Wan on 03-21-2025 GFR/1.73 sq M.predicted among non-blacks MDRD (S/P/Bld) [Vol rate/Area] 104 mL/min/{1.73_m2} >60 [facility] Comment on above: mL/min/1.73m2 CKD-EP I Creatinine Equation (2020) H AND P Exam - [facility] 03-21-2025 H&P Exam - Hospitalist [facility] Medical Records Department [address] [place] [address] H P Exam - Hospitalist 03/21/252053 MR#: [id number] Acct: [id number] Name: SIDDHARTH MARVIN Rep #: [id number] : 1970 54 From: Omayra Flores DO PCP: PRISCILA AndinoC Status:ADM ROB Location: [place] [address] HPI - General General Date of Admission: 03/21/25 Date of Service: 03/21/25 Chief Complaint: Headache. HPI Narrative SIDDHARTH MARVIN, is a 54 F with a past medical history of morbid obesity (class III); with BMI of 41.3 this admission, DM-2; of unknown control on metformin BID, history of tobacco abuse, history of migraine headaches for years and history of GERD who presents to [facility] ER complaining of headache. Ms. Marvin reports her symptoms began a few months prior to admission with a gradual-worsening of her chronic headaches with increased intensity and frequency with not specifically pain - but a warm sensation in her head. She denies recent head trauma or other injury. She denies taking medicine to treat her symptoms because she does not like to take medications. Her family members wanted her to be evaluated further so they insisted she be brought here. There was no reports of fever, chills, nausea, vomiting, diarrhea, constipation, chest pain, palpitations, heart racing, lower extremity edema, dysuria, hematuria, rash or visual disturbances. In the ER she underwent a CT of the brain without contrast that revealed no acute ICH, mass-effect, hydrocephalus or territorial infarct but did reveal indeterminate hypodense focus in the Right bartholomew radiata white matter, mew since previous exam with contrast-enhanced MRI recommended to further evaluate with partially empty sella, and borderline low-lying cerebellar tonsils, both of which are nonspecific but can be associated with headaches om the setting of elevated intracranial CSF pressure in the setting of Worsening Headaches with Leukocytosis of 12.9K present on admission suspected to be due to acute-stress response with no signs of infection at this time. She was then admitted to the PCU under observation status for ongoing care for a stay that is expected to be less than 2 midnights. FOR[facility]LY [facility], [facility]1983 Medical History Tobacco use disorder, continuous Encounter for screening for malignant neoplasm of lung Wears glasses Heartburn Gastric reflux History of edema History of echocardiogram History of stress test Smoker Headache, migraine Type 2 diabetes mellitus Kidney infection Home Medications ???Medication ???Instructions ???Recorded ???Last Taken ???Type metformin 1,000 mg tablet 1,000 mg PO BID 03/21/25 Unknown H istory Allergy/AdvReac Type Severity Reaction Status Date / Time amoxicillin Allergy Rash Verified 03/21/25 16:31 Family History Father Diabetes Heart disease Mother COPD (chronic obstructive pulmonary disease) Surgical History History of tubal ligation ( 1995) History of ( 1989) Social History household members: none current occupational status: employed current occupation: [employer] Smoking Status: Current every day smoker tobacco type: cigarettes substance use type: does not use ROS ROS Narrative Review of Systems: Constitutional: Patient denies fever or chills. Eyes: Patient denies changes in vision or discharge from eyes. ENT: Patient denies runny nose, sore throat or ear pain. Resp: Patient denies SOB or cough. CV: Patient denies chest pain, palpitations or heart racing. GI: Patient denies abdominal pain, nausea, vomiting, diarrhea or constipation. : Patient denies dysuria or hematuria. MSK: Patient denies arthralgias or myalgias. Skin: Patient denies rash, abscess, wounds or jaundice. Psych: Patient denies symptoms of uncontrolled depression or anxiety. Neuro: Patient admits to worsening of headaches with increased intensity and frequency with warm sensation as per HPI. Allergy: Patient denies lip swelling, tongue swelling or urticaria. Hematology: Patient denies easy bleeding or easy bruisability. Endocrinology: Patient denies polyuria, polydipsia, polyphagia or heat/cold intolerance. 14 point ROS otherwise negative except for positives noted above in HPI. Vital Signs Vital Signs Vital Signs: 03/21/25 16:29 03/21/25 18:33 03/21/25 18:33 Temperature 98.0 F Temperature Source Oral Pulse Rate 91 72 Respiratory Rate 16 18 Blood Pressure 154/109 H 156/86 H Blood Pressure Mean 124 109 Pulse Ox 98 97 97 Oxygen Delivery Method Room Air Room Air Room Air 03/21/25 20:00 T (more content not included)... Normal [facility] Hematocrit Auto (Bld) [Volum e fraction]Ordered By: Kashif Wan on 03-21-2025 Hematocrit (Bld) [Volume fraction] 43.7 % 37-47 [facility] Hemoglobin A1con 03-21-2025 HbA1c (Bld) [Mass fraction] 6.0 % High <=5.6 [facility] Comment on above: Result Comment: Norm al < 5.7 % Prediabetic 5.7 - 6.4 % Diabetic >or= 6.5 % Please note range changes. Performed By: #### L 501.32070, L506.0400, L501.9520, L501.9985, L500.2500, L100.0100 #### [facility] [place], [address] Hemoglobin A1c percentageOrd ered By: Kashif Wan on 03-21-2025 HbA1c (Bld) [Mass fraction] 6.0 % High <5.7 [facility] Comment on above: Normal < 5.7 % Predi abetic 5.7 - 6.4 % Diabetic >or= 6.5 % Please note range changes. Hemoglobin measurementOrdere d By: Kashif Wan on 03-21-2025 Hemoglobin (Bld) [Mass/Vol] 14.3 g/dL 12.0-15.0 [facility] Immature granulocytes/100 WB C Auto (Bld)Ordered By: Kashif Wan on 03-21-2025 Immature granulocytes/100 WBC (Bld) 0.400 % 0.0-0.9 [facility] Comment on above: IG% - Immature Granu locytes (promyelocytes, myelocytes and metamyelocytes) > 1% indicates that a LEFT SHIFT is Present. MCV (mean corpuscular volume ) determinationOrdered By: Kashif Wan on 03-21-2025 MCV (RBC) [Entitic vol] 89.4 fL 81-99 [facility] Mean corpuscular hemoglobin (MCH) determinationOrdered By: Kashfi Wan on 03-21-2025 MCH (RBC) [Entitic mass] 29.2 pg 27.0-32.0 [facility] Mean corpuscular hemoglobin concentration (MCHC) determinationOrdered By: Kashif Wan on 03-21-2025 MCHC (RBC) [Mass/Vol] 32.7 g/dL 32-36 [facility] Mean platelet volume determi nationOrdered By: Kashif Wan on 03-21-2025 Platelet mean volume (Bld) [Entitic vol] 9.9 fL 6.2-12.0 [facility] Monocyte percentageOrdered B y: Kashif Wan on 03-21-2025 Monocytes/100 WBC (Bld) 6.0 % 0-10 [facility] Neutrophil percentageOrdered By: Kashif Wan on 03-21-2025 Neutrophils/100 WBC (Bld) 49.4 % 47-70 [facility] Nucleated red blood cell per centageOrdered By: Kashif Wan on 03-21-2025 Nucleated RBC/100 WBC (Bld) [Ratio] 0 % 0-5 [facility] Platelet countOrdered By: Humble Wan on 03-21-2025 Platelets (Bld) [#/Vol] 376 10*3/uL 150-450 [facility] Platelet estimateOrdered By: Kashif Wan on 03-21-2025 Platelets LM Ql (Bld) ADEQUATE ADEQ [facility] Potassium measurement (mass/ volume)Ordered By: Kashif Wan on 03-21-2025 Potassium (Unsp spec) [Mass/Vol] 4.0 mmol/L 3.3-5.1 [facility] Comment on above: Hemolysis present, R esults could be affected. RBC Auto (Bld) [#/Vol]Ordere d By: Kashif Wan on 03-21-2025 RBC (Bld) [#/Vol] 4.89 10*6/uL 4.2-5.4 [facility] Serum creatinine measurement (mass/volume)Ordered By: Kashif Wan on 03-21-2025 Creatinine [Mass/Vol] 0.64 mg/dL Low 0.70-1.20 [facility] Serum glucose measurement (m ass/volume)Ordered By: Kashif Wan on 03-21-2025 Glucose [Mass/Vol] 83 mg/dL 70-[address] [facility] Serum or plasma calcium velia urement (mass/volume)Ordered By: Kashif Wan on 03-21-2025 Calcium [Mass/Vol] 10.1 mg/dL 7.6-11.[address] [facility] Serum or plasma ethanol velia urement (mass/volume)Ordered By: Omayra Rossi on 03-21-2025 Ethanol [Mass/Vol] mg/dL <10.[address] [facility] Comment on above: This test is for med ical purposes only. The legal definition of intoxication varies according to local law. Serum or plasma urea nitroge n measurement (mass/volume)Ordered By: Kashif Wan on 03-21-2025 Urea nitrogen [Mass/Vol] 12 mg/dL 4-19 [facility] Sodium levelOrdered By: Melany Wan on 03-21-2025 Sodium [Moles/Vol] 140 mmol/L 133-[address] [facility] T4 Free Directon 03-21-2025 T4 FREE DIRECT 1.10 ng/dL Normal 0.76-1.46 [facility] Comment on above: Performed By: #### L 501.88783, L506.0400, L501.9520, L501.9985, L500.2500, L100.0100 #### [facility] [address] [place] [address]. [place], [address] T4 freeOrdered By: Kashif hawk on 03-21-2025 Free T4 [Mass/Vol] 1.10 ng/dL 0.76-1.[address] [facility] TSH DL <= 0.005 mIU/L QnOrde red By: Kashif Wan on 03-21-2025 TSH Qn 2.410 uIU/mL 0.300-4.200 [facility] Thyroid Stim Hormone (TSH)on 03-21-2025 TSH 2.410 uIU/mL Normal 0.300-4.200 [facility] Comment on above: Performed By: #### L 501.75766, L506.0400, L501.9520, L501.9985, L500.2500, L100.0100 #### [facility] [address] [place], [place], [id number] (536) Vitamin B12on 03-21-2025 Cobalamin (Vitamin B12) [Mass/Vol] 362 pg/mL Normal 180-914 [facility] Comment on above: Performed By: #### L 501.65644, L506.0400, L501.9520, L501.9985, L500.2500, L100.0100 #### [facility] [address] [place], [place], [address] Vitamin B12 ser/plasOrdered By: Omayra Rossi on 03-21-2025 Cobalamin (Vitamin B12) [Mass/Vol] 362 pg/mL 180-914 [facility] White blood cell (WBC) count Ordered By: Kashif Wan on 03-21-2025 WBC (Bld) [#/Vol] 12.9 10*3/uL High 4.4-11.0 [facility] Absolute lymphocyte countOrd ered By: Cortez Call on 03-20-2025 Lymphocytes Auto (Unsp spec) [#/Vol] 3.10 10*3/uL 0.83-4.51 [facility] Absolute neutrophil countOrd ered By: Cortez Call on 03-20-2025 Neutrophils (Bld) [#/Vol] 4.7 10*3/uL 2.0-7.7 [facility] Anion gap in Serum or Plasma Ordered By: Cortez Call on 03-20-2025 Anion gap [Moles/Vol] 14 mmol/L 5-15 [facility] Automated lymphocyte count a s percentage of total leukocytesOrdered By: Cortez Call on 03-20-2025 Lymphocytes/100 WBC Auto (Unsp spec) 35.8 % 19-41 [facility] BUN/creatinine ratioOrdered By: Cortez Call on 03-20-2025 Urea nitrogen/Creatinine [Mass ratio] 17.2 mg/mg 10-20 [facility] Basophil percentageOrdered B y: Cortez Call on 03-20-2025 Basophils/100 WBC (Bld) 0.7 % 0-1 [facility] Bilirubin, totalOrdered By: Cortez Call on 03-20-2025 Bilirubin [Mass/Vol] 0.33 mg/dL 0.00-1.30 [facility] CBC W/Diff, Automatedon 02-25 Absolute Lymph 3.10 X10 3/uL Normal 0.83-4.51 [facility] Comment on above: Performed By: #### L 501.22120, L506.0400, L501.9520, L501.9985, L500.2500, L100.0100 #### [facility] [address] [place], [address] Absolute Neut 4.7 X10 3/uL Normal 2.0-7.7 [facility] Comment on above: Performed By: #### L 501.96156, L506.0400, L501.9520, L501.9985, L500.2500, L100.0100 #### [facility] [address] [place], [address] Basophils/100 WBC (Bld) 0.7 % Normal 0-1 [facility] Comment on above: Performed By: #### L 501.88605, L506.0400, L501.9520, L501.9985, L500.2500, L100.0100 #### [facility] [address] [place], [address] Eosinophils/100 WBC (Bld) 3.6 % Normal 0-5 [facility] Comment on above: Performed By: #### L 501.94124, L506.0400, L501.9520, L501.9985, L500.2500, L100.0100 #### [facility] [address] [place], [address] Erythrocyte distribution width (RBC) [Ratio] 13.8 % Normal 11.6-14.6 [facility] Comment on above: Performed By: #### L 501.62141, L506.0400, L501.9520, L501.9985, L500.2500, L100.0100 #### [facility] [address] [place], [address] Hematocrit (Bld) [Volume fraction] 42.9 % Normal 37-47 [facility] Comment on above: Performed By: #### L 501.44555, L506.0400, L501.9520, L501.9985, L500.2500, L100.0100 #### [facility] [address] [facility] [place], [address] Hemoglobin (Bld) [Mass/Vol] 14.0 g/dL Normal 12.0-15.0 [facility] Comment on above: Performed By: #### L 501.16200, L506.0400, L501.9520, L501.9985, L500.2500, L100.0100 #### [facility] [address] [facility] [place], [address] IG% 0.300 Normal 0.0-0.9 [facility] Comment on above: Result Comment: IG% - Immature Granulocytes (promyelocytes, myelocytes and metamyelocytes) > 1% indicates that a LEFT SHIFT is Present. Performed By: #### L 501.03168, L506.0400, L501.9520, L501.9985, L500.2500, L100.0100 #### [facility] [address] [place], [address] Lymphocytes/100 WBC (Bld) 35.8 % Normal 19-41 [facility] Comment on above: Performed By: #### L 501.10348, L506.0400, L501.9520, L501.9985, L500.2500, L100.0100 #### [facility] [address] [place], [address] MCH (RBC) [Entitic mass] 29.5 pg Normal 27.0-32.0 [facility] Comment on above: Performed By: #### L 501.47361, L506.0400, L501.9520, L501.9985, L500.2500, L100.0100 #### [facility] [address] [place], [address] MCHC (RBC) [Mass/Vol] 32.6 g/dL Normal 32-36 [facility] Comment on above: Performed By: #### L 501.88232, L506.0400, L501.9520, L501.9985, L500.2500, L100.0100 #### [facility] [address] [place], [address] MCV (RBC) [Entitic vol] 90.5 fL Normal 81-99 [facility] Comment on above: Performed By: #### L 501.63426, L506.0400, L501.9520, L501.9985, L500.2500, L100.0100 #### [facility] [address] [place], [address] Monocytes/100 WBC (Bld) 5.9 % Normal 0-10 [facility] Comment on above: Performed By: #### L 501.97437, L506.0400, L501.9520, L501.9985, L500.2500, L100.0100 #### [facility] [address] [place], [address] Neutrophils/100 WBC (Bld) 53.7 % Normal 47-70 [facility] Comment on above: Performed By: #### L 501.91314, L506.0400, L501.9520, L501.9985, L500.2500, L100.0100 #### [facility] [address] [place], [address] Nucleated RBC (Bld) [#/Vol] 0 10*3/uL Normal 0-5 [facility] Comment on above: Performed By: #### L 501.81052, L506.0400, L501.9520, L501.9985, L500.2500, L100.0100 #### [facility] [address] [place], [address] Platelet mean volume (Bld) [Entitic vol] 10.6 fL Normal 6.2-12.0 [facility] Comment on above: Performed By: #### L 501.90990, L506.0400, L501.9520, L501.9985, L500.2500, L100.0100 #### [facility] [address] [place], [address] Platelets (Bld) [#/Vol] 350 10*3/uL Normal 150-450 [facility] Comment on above: Performed By: #### L 501.08830, L506.0400, L501.9520, L501.9985, L500.2500, L100.0100 #### [facility] [address] [place], [address] RBC (Bld) [#/Vol] 4.74 10*6/uL Normal 4.2-5.4 [facility] Comment on above: Performed By: #### L 501.61067, L506.0400, L501.9520, L501.9985, L500.2500, L100.0100 #### [facility] [address] [place], [address] RDW SD 45.8 fl High 35.1-43.9 [facility] Comment on above: Performed By: #### L 501.12316, L506.0400, L501.9520, L501.9985, L500.2500, L100.0100 #### [facility] [address] [place], [address] WBC (Bld) [#/Vol] 8.7 10*3/uL Normal 4.4-11.[address] [facility] Comment on above: Performed By: #### L 501.93206, L506.0400, L501.9520, L501.9985, L500.2500, L100.0100 #### [facility] [address] [place], [address] Calculated very low density lipoprotein (VLDL) cholesterol measurementOrdered By: Cortez aCll on 03-20-2025 Calculated very low density lipoprotein (VLDL) cholesterol measurement 45 mg/dL High 5-40 [facility] Carbon dioxide, total [Moles /volume] in Central venous bloodOrdered By: Cortez Call on 03-20-2025 CO2 [Moles/Vol] 23.8 mmol/L 21.0-32.0 [facility] Chloride assayOrdered By: Ra magda Call on 03-20-2025 Chloride [Moles/Vol] 103 mmol/L 98-108 [facility] Comprehensive Metabolic Prof ilon 03-20-2025 Albumin [Mass/Vol] 4.2 g/dL Normal 3.5-5.[address] [facility] Comment on above: Performed By: #### L 501.99290, L506.0400, L501.9520, L501.9985, L500.2500, L100.0100 #### [facility] [address] [place], [address] Albumin/Globulin [Mass ratio] 1.4 {ratio} Normal 0.9-2.4 [facility] Comment on above: Performed By: #### L 501.52975, L506.0400, L501.9520, L501.9985, L500.2500, L100.0100 #### [facility] [address] [place], [address] ALK PHOS 85 U/L Normal 35-104 [facility] Comment on above: Performed By: #### L 501.76356, L506.0400, L501.9520, L501.9985, L500.2500, L100.0100 #### [facility] [address] [place], [address] ALT [Catalytic activity/Vol] 26 U/L Normal <=34 [facility] Comment on above: Performed By: #### L 501.19506, L506.0400, L501.9520, L501.9985, L500.2500, L100.0100 #### [facility] [address] [place], [address] AST [Catalytic activity/Vol] 21 U/L Normal <=31 [facility] Comment on above: Performed By: #### L 501.04625, L506.0400, L501.9520, L501.9985, L500.2500, L100.0100 #### [facility] [address] [place], [address] Bilirubin [Mass/Vol] 0.33 mg/dL Normal 0.00-1.30 [facility] Comment on above: Performed By: #### L 501.06588, L506.0400, L501.9520, L501.9985, L500.2500, L100.0100 #### [facility] [address] [place], [address] BUN/CRE 17.2 RATIO Normal 10-20 [facility] Comment on above: Performed By: #### L 501.55816, L506.0400, L501.9520, L501.9985, L500.2500, L100.0100 #### [facility] [address] [place], [address] Calcium [Mass/Vol] 9.4 mg/dL Normal 7.6-11.[address] [facility] Comment on above: Performed By: #### L 501.29128, L506.0400, L501.9520, L501.9985, L500.2500, L100.0100 #### [facility] [address] [place], [address] Chloride [Moles/Vol] 103 mmol/L Normal 98-108 [facility] Comment on above: Performed By: #### L 501.99240, L506.0400, L501.9520, L501.9985, L500.2500, L100.0100 #### [facility] [address] [place], [address] CO2 [Moles/Vol] 23.8 mmol/L Normal 21.0-32.0 [facility] Comment on above: Performed By: #### L 501.52231, L506.0400, L501.9520, L501.9985, L500.2500, L100.0100 #### [facility] [address] [place], [address] Creatinine [Mass/Vol] 0.57 mg/dL Low 0.70-1.20 [facility] Comment on above: Performed By: #### L 501.87954, L506.0400, L501.9520, L501.9985, L500.2500, L100.0100 #### [facility] [address] [place], [address] GAP 14 Normal 5-15 [facility] Comment on above: Performed By: #### L 501.39754, L506.0400, L501.9520, L501.9985, L500.2500, L100.0100 #### [facility] [address] [place], [address] GFR/1.73 sq M.predicted among non-blacks MDRD (S/P/Bld) [Vol rate/Area] 107 mL/min/{1.73_m2} Normal >60 [facility] Comment on above: Result Comment: mL/m in/1.73m2 CKD-EPI Creatinine Equation (2020) Performed By: #### L 501.78119, L506.0400, L501.9520, L501.9985, L500.2500, L100.0100 #### [facility] [address] [place], [address] Globulin (S) [Mass/Vol] 3.0 g/dL Normal 2.2-4.2 [facility] Comment on above: Performed By: #### L 501.76547, L506.0400, L501.9520, L501.9985, L500.2500, L100.0100 #### [facility] [address] [place], [address] Glucose [Mass/Vol] 111 mg/dL High 70-[address] [facility] Comment on above: Performed By: #### L 501.13939, L506.0400, L501.9520, L501.9985, L500.2500, L100.0100 #### [facility] [address] [place], [address] Potassium [Moles/Vol] 4.2 mmol/L Normal 3.3-5.1 [facility] Comment on above: Performed By: #### L 501.34819, L506.0400, L501.9520, L501.9985, L500.2500, L100.0100 #### [facility] [address] [place], [address] Sodium [Moles/Vol] 141 mmol/L Normal 133-[address] [facility] Comment on above: Performed By: #### L 501.02848, L506.0400, L501.9520, L501.9985, L500.2500, L100.0100 #### [facility] [address] [place], [place], [address] T PROT 7.2 g/dL Normal 5.9-8.4 [facility] Comment on above: Performed By: #### L 501.29777, L506.0400, L501.9520, L501.9985, L500.2500, L100.0100 #### [facility] [address] [place], [address] Urea nitrogen [Mass/Vol] 10 mg/dL Normal 4-19 [facility] Comment on above: Performed By: #### L 501.82683, L506.0400, L501.9520, L501.9985, L500.2500, L100.0100 #### [facility] [address] [place], [address] Eosinophil percentageOrdered By: Cortez Call on 03-20-2025 Eosinophils/100 WBC (Bld) 3.6 % 0-5 [facility] Erythrocyte distribution wid th ratioOrdered By: [place] Oneyda on 03-20-2025 Erythrocyte distribution width (RBC) [Ratio] 13.8 % 11.6-14.6 [facility] Erythrocyte distribution wid th standard deviationOrdered By: Cortezbelinda Call on 03-20-2025 Erythrocyte distribution width (RBC) [Ratio] 45.8 fl High 35.1-43.9 [facility] Glomerular filtration rate ( GFR) estimation/1.73 sq m using serum, plasma, or whole bOrdered By: Cortez Call on 03-20-2025 GFR/1.73 sq M.predicted among non-blacks MDRD (S/P/Bld) [Vol rate/Area] 107 mL/min/{1.73_m2} >60 [facility] Comment on above: mL/min/1.73m2 CKD-EP I Creatinine Equation (2020) Hematocrit Auto (Bld) [Volum e fraction]Ordered By: Cortez Call on 03-20-2025 Hematocrit (Bld) [Volume fraction] 42.9 % 37-47 [facility] Hemoglobin measurementOrdere d By: Cortez Call on 03-20-2025 Hemoglobin (Bld) [Mass/Vol] 14.0 g/dL 12.0-15.0 [facility] Immature granulocytes/100 WB C Auto (Bld)Ordered By: Cortez Call on 03-20-2025 Immature granulocytes/100 WBC (Bld) 0.300 % 0.0-0.9 [facility] Comment on above: IG% - Immature Granu locytes (promyelocytes, myelocytes and metamyelocytes) > 1% indicates that a LEFT SHIFT is Present. LDL calc ser/plasOrdered By: Cortez Call on 03-20-2025 Cholesterol in LDL [Mass/Vol] 85 mg/dL [facility] Comment on above: Wovscasntj=726-212 m g/dL & Higher Agvu=847 mg/dL or greaterFriedwald Equation for LDL-C Laboratory - Chemistry and C hemistry - challengeOrdered By: Cortez Call on 03-20-2025 AST [Catalytic activity/Vol] 21 U/L <32 [facility] Lipid Profileon 03-20-2025 CHOL:HDL 3.59 Normal [facility] Comment on above: Performed By: #### L 501.91770, L506.0400, L501.9520, L501.9985, L500.2500, L100.0100 #### [facility] [address] [place], [address] Cholesterol [Mass/Vol] 180 mg/dL Normal <=200 [facility] Comment on above: Result Comment: Chol esterol level, Desirable <200 mg/dL Borderline high cholesterol 200-239 mg/dL High cholesterol >=240 mg/dL Recommendations of the NCEP Adult Treatment Panel for the following risk-cutoff thresholds for the [place] population. Performed By: #### L 501.26936, L506.0400, L501.9520, L501.9985, L500.2500, L100.0100 #### [facility] [address] [place], [address] Cholesterol in HDL [Mass/Vol] 50 mg/dL Normal [facility] Comment on above: Result Comment: Natalia onal Cholesterol Education Program (NCEP) guidelines: <40 mg/dL: Low HDL-cholesterol (major risk factor for CHD) >= 60 mg/dL: High HDL-cholesterol (negative risk factor for CHD) HDL-cholesterol is affected by a number of factors, e.g. smoking, exercise, hormones, sex and age. Performed By: #### L 501.17684, L506.0400, L501.9520, L501.9985, L500.2500, L100.0100 #### [facility] [address] [place], [address] Cholesterol in LDL [Mass/Vol] 85 mg/dL Normal [facility] Comment on above: Result Comment: Bord vvkljg=631-023 mg/dL Higher Jiaw=449 mg/dL or greater Friedwald Equation for LDL-C Performed By: #### L 501.62354, L506.0400, L501.9520, L501.9985, L500.2500, L100.0100 #### [facility] [address] [place], [address] Cholesterol in VLDL [Mass/Vol] 45 mg/dL High 5-40 [facility] Comment on above: Performed By: #### L 501.57361, L506.0400, L501.9520, L501.9985, L500.2500, L100.0100 #### [facility] [address] [place], [address] Triglyceride [Mass/Vol] 224 mg/dL High [facility] Comment on above: Result Comment: The drugs N-Acetylcysteine and Metamizole may falsely depress this assay. Normal range: <150 mg/dL Borderline High: 150-199 mg/dL High: 200-499 mg/dL Very High: >500 mg/dL Performed By: #### L 501.69347, L506.0400, L501.9520, L501.9985, L500.2500, L100.0100 #### [facility] [address] [place], [address] MCV (mean corpuscular volume ) determinationOrdered By: Cortez Call on 03-20-2025 MCV (RBC) [Entitic vol] 90.5 fL 81-99 [facility] Mean corpuscular hemoglobin (MCH) determinationOrdered By: Cortez Call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 bacteria in sediment TRACE Normal [facility] Comment on above: Performed By: #### 2 60821 ####[facility],[address] [place] [address] Urine, casts in sediment NONE Normal [facility] Comment on above: Performed By: #### 2 41644 ####[facility],[address] [place] [address] Urine, clarity clear Normal NORMAL: CLEAR [facility] Comment on above: Performed By: #### 2 97662 ####[facility],[address] [place] [address],[facility] [address] Urine, color YELLOW Normal NORMAL: YELLOW [facility] Comment on above: Performed By: #### 2 44599 ####[facility],[address] [place] [address] Urine, crystals in sediment NONE Normal [facility] Comment on above: Performed By: #### 2 53092 ####[facility],[address] [place] [address],[facility] [address] Urine, nitrite presence Negative Normal NORM AL: NEGATIVE [facility] Comment on above: Performed By: #### 2 97712 ####[facility],[address] [place] [address],[facility] [address] Urine, yeast presence in sediment NONE Normal [facility] Comment on above: Performed By: #### 2 74901 ####[facility],[address] [place] [address] Urobilinog 1 Abnormal NORMAL: NORMAL [facility] Comment on above: Performed By: #### 2 48292 ####[facility],[address] [place] [address] WBC (Leukocytes) 25 10*3/uL Abnormal NORMAL: NEGATIVE [facility] Comment on above: Performed By: #### 2 51443 ####[facility],[address] [place], [place] [id number] WBC (Leukocytes) 1-5 Normal 0-5/hpf [facility] Comment on above: Performed By: #### 2 64077 ####[facility],[address] [place], [place] [id number] Vital Signs Date Time Vital Sign Value Performing Clinician Facility 03-22-2025 15:58-0400 Body temperature 98.4 [degF] Cortez MOYA Work Phone: [facility] 03-22-2025 15:58-0400 Diastolic blood pressure 86 mm[Hg] Cortez Oneyda ASSOCIATE DATA SCIENTIST[employer]C Work Phone: [facility] 03-22-2025 15:58-0400 Heart rate 83 /min Cortez Oneyda ASSOCIATE DATA SCIENTIST[employer]C Work Phone: [facility] 03-22-2025 15:58-0400 Respiratory rate 12 /min Cortez Oneyda ASSOCIATE DATA SCIENTIST[employer]C Work Phone: [facility] 03-22-2025 15:58-0400 SaO2% (BldA) [Mass fraction] 98 % Cortez Oneyda ASSOCIATE DATA SCIENTIST-C Work Phone: [facility] 03-22-2025 15:58-0400 Systolic blood pressure 149 mm[Hg] Cortez Oneyda ASSOCIATE DATA SCIENTIST-C Work Phone: [facility] 03-22-2025 13:06-0400 Body height 160.02 cm Cortez Oneyda ASSOCIATE DATA SCIENTIST-C Work Phone: [facility] 03-22-2025 13:06-0400 Body weight 105.5 kg Cortez Oneyda ASSOCIATE DATA SCIENTIST-C Work Phone: [facility] 03-21-2025 22:12-0400 Body mass index (BMI) [Ratio] 41.2 kg/m2 Cortez Oneyda ASSOCIATE DATA SCIENTIST-C Work Phone: [facility] 03-21-2025 20:54-0400 Body temperature 98.6 [degF] Cortez Oneyda ASSOCIATE DATA SCIENTIST-C Work Phone: [facility] 03-21-2025 20:54-0400 Diastolic blood pressure 61 mm[Hg] Cortez Oneyda ASSOCIATE DATA SCIENTIST-C Work Phone: [facility] 03-21-2025 20:54-0400 Heart rate 70 /min Cortez Oneyda ASSOCIATE DATA SCIENTIST-C Work Phone: [facility] 03-21-2025 20:54-0400 Respiratory rate 18 /min Cortez Oneyda ASSOCIATE DATA SCIENTIST-C Work Phone: [facility] 03-21-2025 20:54-0400 SaO2% (BldA) [Mass fraction] 99 % Cortez Call ASSOCIATE DATA SCIENTIST-C Work Phone: [facility] 03-21-2025 20:54-0400 Systolic blood pressure 148 mm[Hg] Cortez Call ASSOCIATE DATA SCIENTIST-C Work Phone: [facility] 03-21-2025 16:29-0400 Body height 160.02 cm Cortez Call ASSOCIATE DATA SCIENTIST-C Work Phone: [facility] 03-21-2025 16:29-0400 Body mass index (BMI) [Ratio] 41.3 kg/m2 Cortez Call ASSOCIATE DATA SCIENTIST-C Work Phone: [facility] 03-21-2025 16:29-0400 Body weight 105.86 kg Cortez Call ASSOCIATE DATA SCIENTIST-C Work Phone: [facility] 05-02-2024 08:50-0400 Body temperature 97.7 [degF] NICOLETTECHOCO HERNANDEZ DO [facility] 05-02-2024 08:50-0400 Body weight 11.6 kg NICOLETTE HERNANDEZ DO [facility] 05-02-2024 08:50-0400 Diastolic Blood Pressure Non-Invasive 70 mm[Hg] NICOLETTE HERNANDEZ DO [facility] 05-02-2024 08:50-0400 Heart rate 98 /min NICOLETTE DAVID DO [facility] 05-02-2024 08:50-0400 Respiratory rate 16 /min NICOLETTE DAVID DO [facility] 05-02-2024 08:50-0400 Systolic Blood Pressure Non-Invasive 140 mm[Hg] NICOLETTE HERNANDEZ DO [facility] 11-17-2022 20:23-0400 Diastolic blood pressure 82 mm[Hg] [facility] 11-17-2022 20:23-0400 Systolic blood pressure 162 mm[Hg] [facility] 11-17-2022 19:31-0400 Heart rate 72 /min [facility] 11-17-2022 19:31-0400 Respiratory rate 18 /min [facility] 11-17-2022 19:31-0400 SaO2% (BldA) [Mass fraction] 96 % [facility] 11-17-2022 16:42-0400 Body height 160.02 cm [facility] 11-17-2022 16:42-0400 Body mass index (BMI) [Ratio] 45 kg/m2 [facility] 11-17-2022 16:42-0400 Body temperature 97.9 [degF] [facility] 11-17-2022 16:42-0400 Body weight 115.25 kg [facility] 11-04-2022 00:00-0400 Diastolic blood pressure 87 mm[Hg] No Pcp Required [facility] 11-04-2022 00:00-0400 Heart rate 80 /min No Pcp Required [facility] 11-04-2022 00:00-0400 Respiratory rate 17 /min No Pcp Required [facility] 11-04-2022 00:00-0400 SaO2% (BldA) [Mass fraction] 97 % No Pcp Required [facility] 11-04-2022 00:00-0400 Systolic blood pressure 127 mm[Hg] No Pcp Required [facility] 11-03-2022 22:31-0400 Body height 160 cm No Pcp Required [facility] 11-03-2022 22:31-0400 Body temperature 97.16 [degF] No Pcp Required [facility] 11-03-2022 22:31-0400 Body weight 113.5 kg No Pcp Required [facility] Encounters Encounter Date Encounter Type Care Provider Facility Start: 05-22-2025 ambulatory [facility] Facility: [facility] Start: 05-09-2025 End: 05-09-2025 ambulatory [facility] Facility:[facility] Start: 04-12-2025 End: 04-12-2025 Patient encounter procedure Antonio Bird PA -[facility] Work Phone: Start: 04-12-2025 End: 04-12-2025 ambulatory Cortez Call ASSOCIATE DATA SCIENTIST-C Work Phone: -[facility] Start: 03-24-2025 Encounter for genera l adult medical examination with abnormal findings Cortezbelinda Call [facility] Start: 03-22-2025 Non-patient / Non-visit Dr. Екатерина Belcher DO -[facility] Work Phone: Start: 03-22-2025 ambulatory Enzo Johnson Facility:[facility] Start: 03-22-2025 Non-patient / Non-visit Dr. Enzo ortiz MD -[facility] Start: 03-22-2025 ambulatory Cortez Call Facility:[facility] Start: 03-22-2025 Non-patient / Non-visit Dr. Mohan donahue MD -[facility] Start: 03-21-2025 End: 03-22-2025 ambulatory Jake Alonzo Facility:[facility] Start: 03-21-2025 End: 03-22-2025 Evaluation and management of inpatient Dr. Omayra Flores DO -[facility] Work Phone: Start: 03-21-2025 End: 03-22-2025 observation encounter Cortez Call ASSOCIATE DATA SCIENTIST-C Work Phone: -[facility] Start: 03-20-2025 End: 03-20-2025 ambulatory Cortezbelinda Call ASSOCIATE DATA SCIENTIST-C Work Phone: -Laboratory [facility] Delarosa [facility] Start: 03-20-2025 End: 03-20-2025 Patient encounter procedure Cortezbelinda Call ASSOCIATE DATA SCIENTIST-C -Laboratory [facility] Delarosa [facility] Start: 03-20-2025 End: 03-20-2025 ambulatory Cortez Oneyda Facility:[facility] Start: 06-17-2024 End: 06-17-2024 ambulatory [facility] Facility:[facility] Start: 05-02-2024 End: 05-02-2024 Emergency department patient visit NICOLETTE HERNANDEZ DO Facility:[facility] Start: 11-17-2022 End: 11-17-2022 Emergency department patient visit [facility]-Emergency Department Start: 11-03-2022 End: 11-04-2022 Emergency department patient visit Antoinette Sahu [facility] 03 Start: 07-25-2022 End: 07-25-2022 Emergency department patient visit MANSI HEBERT [facility] Start: 09-13-2017 End: 09-14-2017 Emergency department patient visit OMAYRA CHERRY [facility] Procedures Date Procedure Procedure Detail Performing Clinician Start: 03-22-2025 End: 03-22-2025 Cerebrospinal fluid culture Cortez Call ASSOCIATE DATA SCIENTIST-C Work Phone: Start: 03-22-2025 Gram stain microscopy R maodnna Call ASSOCIATE DATA SCIENTIST-C Work Phone: Start: 03-22-2025 Cell count, cerebros tara fluid Cortez Call ASSOCIATE DATA SCIENTIST-C Work Phone: Start: 03-22-2025 Measurement of prote in in cerebrospinal fluid specimen Cortez Nelsongar ASSOCIATE DATA SCIENTIST-C Work Phone: Start: 03-22-2025 Diagnostic lumbar puncture Cortez Call ASSOCIATE DATA SCIENTIST-C Work Phone: Start: 03-22-2025 MRI of brain with contrast Cortez Call ASSOCIATE DATA SCIENTIST-C Work Phone: Start: 03-22-2025 Methadone measuremen t, urine Cortez Nelsongar ASSOCIATE DATA SCIENTIST-C Work Phone: Start: 03-21-2025 Estimated creatinine clearance Cortez Call ASSOCIATE DATA SCIENTIST-C Work Phone: Start: 03-21-2025 Lymphocyte percent differential count Cortez Call ASSOCIATE DATA SCIENTIST-C Work Phone: Start: 03-21-2025 Plain chest X-ray Rafy Call ASSOCIATE DATA SCIENTIST-C Work Phone: Start: 03-21-2025 CT of head without contrast Cortez Call ASSOCIATE DATA SCIENTIST-C Work Phone: Start: 11-17-2022 CT of head without contrast Plan of Treatment Date Care Activity Detail Author Start: 03-22-2025 Patient discharge [facility] Start: 03-22-2025 Cerebrospinal fluid culture CSF Cult ure [facility] Start: 03-22-2025 CSF Culture CSF Culture [facility] Start: 03-22-2025 Bacterial culture [facility] Start: 03-21-2025 Following clinical p athway protocol [facility] Start: 03-21-2025 Aspiration precautions [facility] Start: 03-21-2025 Cardiac monitoring [facility] Start: 03-21-2025 Catheterization of vein [facility] Start: 03-21-2025 Consultation [facility] Start: 03-21-2025 Continuous pulse oximetry [facility] Start: 03-21-2025 Elevation of head of bed [facility] Start: 03-21-2025 Exercises [facility] Start: 03-21-2025 Notification of physician [facility] Start: 03-21-2025 Oxygen therapy [facility] Start: 03-21-2025 Patient referral to dietitian [facility] Start: 03-21-2025 Referral for physica l therapy [facility] Start: 03-21-2025 Referral to occupati onal therapist [facility] Start: 03-21-2025 Referral to service [facility] Start: 03-21-2025 Speech therapy assessment [facility] Start: 03-21-2025 Telemedicine consult ation with patient [facility] Start: 03-21-2025 Tobacco use cessatio n education [facility] Start: 03-21-2025 End: 03-21-2025 [facility] Start: 03-21-2025 Vital signs measurements [facility] Start: 03-21-2025 Diagnostic lumbar puncture [facility] Start: 03-21-2025 MRI of brain with contrast Brain WIT H Contrast [facility] Start: 03-21-2025 Urinalysis complete panel - Urine [facility] Start: 03-21-2025 Admission procedure [facility] Start: 03-21-2025 Hospital admission, emergency, from emergency room, medical nature [facility] Start: 03-21-2025 [facility] Amphetamines [Presen ce] in Urine by Screen method >1000 ng/mL [facility] Bacteria identified in Cerebral spinal fluid by Culture [facility] Benzodiazepine measu rement, urine [facility] Bilirubin measuremen t, urine [facility] Cocaine measurement, urine [facility] Cytology report of B carolyn fluid Cyto stain [facility] Ethanol [Mass/volume ] in Serum or Plasma [facility] fentaNYL [Presence] in Urine by Screen method [facility] Folate [Moles/volume ] in Serum or Plasma [facility] Hemoglobin [Presence ] in Urine [facility] Measurement of keton es in urine using dipstick [facility] Methadone measuremen t, urine [facility] Microscopic urinalysis [facility] Patient Education ED Concussion [facility] Work Phone: Patient referral [facility] Work Phone: pH of Urine [facility] Phencyclidine [Prese nce] in Urine [facility] Specific gravity of Urine [facility] Urine blood test [facility] Urine cannabinoid measurement [facility] Urine dipstick for glucose [facility] Urine dipstick for leukocyte esterase [facility] Urine dipstick for nitrite [facility] Urine dipstick for protein [facility] Urine examination [facility] Urine microscopy: epithelial cells [facility] Urine Microscopy: wh ite cells [facility] Urine opiate measurement [facility] Urobilinogen [Presen ce] in Urine [facility] Payers Date Payer Category Payer Private Health Insurance [id number] 2024 Self-pay [id number] 2024 Private Health Insurance [id number] 1970 Unknown [id number] 1970 Unknown [id number] Unknown [id number] Unknown See Registration System\SELF PAY Unknown [id number] Unknown [id number] Unknown [id number] .462 Unknown [id number] .462 Unknown [id number] .462 Unknown [id number] .462 Unknown [id number] .462 Unknown [id number] .462 Unknown [id number] .462 Unknown [id number] .462 Unknown [id number] .462 Unknown [id number] .462 Unknown [id number] .462 Social History Date Type Detail Facility [facility] Start: 11-17-2022 Tobacco smokin g consumption unknown [facility] Start: 05-03-2018 None [facility] Start: 05-03-2018 Spouse/ Signif icant Other [facility] Start: 05-04-2018 Cigarettes [facility] Start: 1970 Sex Assigned At Female [facility] Tobacco smoking status No Smoking Status Entered [facility] Start: 03-21-2025 End: 04-12-2025 Tobacco smoking status NHIS Smokes tobacco daily (finding) [facility] Sex Female [facility] Goals Date Patient Goal Desired Activity /State Functional Status Date Assessment Result Facility 03-22-2025 Functional status Ambulates [facility] Work Phone: 03-22-2025 Functional status Ambulates [facility] Work Phone: 05-02-2024 Functional Status ID band on, Call device within reach, Bed in low position, Wheels locked, personal items within reach [facility] Mental Status Date Assessment Result Facility 03-22-2025 Cognitive function Voice/Name [facility] Work Phone: 03-21-2025 Cognitive function Level Of Cons ciousness Awake;Alert;Appropriate;Follow s Commands [facility] Work Phone: 05-02-2024 Mental Status Oriented x 4 [facility] Clinical Notes 11-27-2020 to 03-22-2025 Note Date & Type Note Facility 03-22-2025 Consult note Note Date/Time March 22, 2025 2:03pm [facility] Medical Records Department [address] [place] [address] Consultation - Neurology 03/22/25 1259 MR#: [id number] Acct: [id number] Name: SIDDHARTH MARVIN Rep #:[id number] : 1970 54 From: Haydee Toro MD PCP: GRIFFIN Andino Status:ADM ROB Location: [place] [address] Assessment and Plan: Neuro Assessment/Plan OSMAN MARVIN, is a 54 woman with history of migraines who is presenting with 2 years of chronic sporadic headaches following TBI. Frequency is once every 1-2 months, lasting for a couple hours, not significant enough for her to stop her from daily activity or take meds, an resolve spontaneously. MRI brain with no findings to explain headache. LP with normal opening pressure. Headaches are likely chronic post traumatic headaches. I discussed with patient, given headache are insignificant in frequency and intensity, will defer Meds for now. She will ask her PCP for headache referral if these headache become more bothersome at any point. We will sign off. Please call with questions. I personally attended this patient and spent a total time of 45 minutes evaluating this patient including clinical assessment, review of chart, medical history imaging, and determining appropriate treatment and workup. HPI Consult Data Date of Consult: 03/22/25 HPI Narrative HPI Narrative: SIDDHARTH MRAVIN, is a 54 woman with history of migraines who is presenting with headache. Patient reports she has been having headache on and off for a couple years. This all started after she had a fall a couple years ago, she fell backwards down a flight of steps and hit her head all the way down. She went to the ER back then and workup was negative. On average once a month. Usually last for a couple hours. Located at the posterior/top of her head more towards the left side. Feels like dull aching pain. No N/V. 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 MRI cuate with no acute findings.There is 1.5 x 1.0 cm focus of encephalomalaciain the right periventricular deep white matter resembling old lacunar stroke. There is also Chiari malformation I LP with normal opening pressure PHYSICAL EXAM: Exam performed with help of the nurse/HOWARD present with patient on Tele site NEURO: AAOx3, follows commands, no aphasia/dysarthria EOMI, no gaze preference/nystagmus Face symmetric, Intact facial sensation. Tongue midline Motor: All extremities antigravity Coordination: FTN intact bilaterally PFSH Medical History Tobacco use disorder, continuous Encounter for screening for malignant neoplasm of lung Wears glasses Heartburn Gastric reflux History of edema History of echocardiogram History of stress test Smoker Headache, migraine Type 2 diabetes mellitus Kidney infection Home Medications ?Medication ?Instructions ?Recorded ?Last Taken ?Type metformin 1,000 mg tablet 1,000 mg PO BID 03/21/25 Unk nown History Allergy/AdvReac Type Severity Reaction Status Date / Time amoxicillin Allergy Rash Verified 03/21/25 16:31 Family History Father Diabetes Heart disease Mother COPD (chronic obstructive pulmonary disease) Surgical History History of tubal ligation (~1995) History of (~1989) Social History household members: none current occupational status: employed current occupation: [employer] Smoking Status: Current every day smoker tobacco type: cigarettes substance use type: does not use Vital Signs Vital Signs Vital Signs: 03/21/25 16:29 03/21/25 18:33 03/21/25 18:33 Temperature 98.0 F Temperature Source Oral Pulse Rate 91 72 Pulse Strength Respiratory Rate 16 18 Respiratory Effort Respiratory Depth Respiratory Pattern Blood Pressure 154/109 H 156/86 H Blood Pressure Mean 124 109 Blood Pressure Source Blood Pressure Position Blood Pressure Location Pulse Ox 98 97 97 Oxygen Delivery Method Room Air Room Air Room Air 03/21/25 20:00 03/21/25 20:54 03/21/25 22:12 Temperature 98.6 F 98.0 F Temperature Source Oral Pulse Rate 69 70 65 Pulse Strength Respiratory Rate 18 18 18 Respiratory Effort Respiratory Depth Respiratory Pattern Blood Pressure 131/73 H 148/61 H 155/84 H Blood Pressure Mean 92 90 107 Blood Pressure Source Monitor Blood Pressure Position Semi-Fowlers Blood Pressure Location Left Forearm Pulse Ox 94 99 96 Oxygen Delivery Method Room Air Room Air 03/21/25 23:00 03/22/25 02:00 03/22/25 06:00 Temperature 97.0 F L 96.8 F L Temperature Source Temporal Oral Pulse Rate 64 68 Pulse Strength Respiratory Rate 18 18 Respiratory Effort Normal Respiratory Depth Normal Respiratory Pattern Normal Blood Pressure 137/69 H 141/83 H Blood Pressure Mean 91 102 Blood Pressure Source Monitor Monitor Blood Pressure Position Semi-Fowlers Semi-Fowlers Blood Pressure Location Left Forearm Left Arm Pulse Ox 95 94 Oxygen Delivery Method Room Air Room Air Room Air 03/22/25 08:12 03/22/25 08:59 03/22/25 10:00 Temperature 98.2 F Temperature Source Oral Pulse Rate 65 Pulse Strength Normal (2+) Respiratory Rate 14 Respiratory Effort Respiratory Depth Respiratory Pattern Blood Pressure 171/94 H Blood Pressure Mean 119 Blood Pressure Source Monitor Blood Pressure Position Sitting Blood Pressure Location Left Forearm Pulse Ox 94 96 Oxygen Delivery Method Room Air Room Air Weight Weight: 105.5 kg Body Mass Index (BMI) 41.2 EEG Results Procedure Details EEG Procedure Details: SIDDHARTH MARVIN is a 54 year old F with a past medical history of , who presents for evaluation of Electroencephalogram on DATE at TIME Lab / Micro Data 03/21/25 18:35 03/21/25 18:35 Labs: Laboratory Results - last 24 hr 03/21/25 18:35: WBC 12.9 H, RBC 4.89, Hgb 14.3, Hct 43.7, MCV 89.4, MCH 29.2, MCHC 32.7, RDW Std Deviation 44.8 H, RDW Coeff of Bong 13.8, Plt Count 376, MPV 9.9, Immature Gran % (Auto) 0.400, Neut % (Auto) 49.4, Lymph % (Auto) 40.2, [place]% (Auto) 6.0, Eos % (Auto) 3.3, Baso % (Auto) 0.7, Absolute Neuts (auto) 6.4, Absolute Lymphs (auto) 5.19 H, Nucleated RBC % 0, Atypical Lymphocytes 2+, Platelet Estimate ADEQUATE, Sodium 140, Potassium 4.0, Chloride 102, Carbon Dioxide 24.2, Anion Gap 15, BUN 12, Creatinine 0.64 L, Estim Creat Clear Calc 114.33, Est GFR (MDRD) Non-Af 104, BUN/Creatinine Ratio 19.3, Glucose 83, Hemoglobin A1c 6.0 H, Calcium 10.1, Vitamin B12 362, TSH 2.410, Free T4 1.10, Free T3 pg/dL 3.3, Ethyl Alcohol < 10.1 03/21/25 22:43: POC Glucose 119 H 03/22/25 00:05: Urine Opiates Screen NEGATIVE, U Buprenorphine Qual NEGATIVE, UrOxycodone Screen NEGATIVE, Urine Methadone Screen NEGATIVE, Urine Fentanyl Screen NEGATIVE, Ur Barbiturates Screen NEGATIVE, Ur Phencyclidine Scrn NEGATIVE, Ur Amphetamines Screen NEGATIVE, U Benzodiazepines Scrn NEGATIVE, Urine Cocaine Screen NEGATIVE, U Cannabinoids Screen NEGATIVE 03/22/25 05:23: Triglycerides 207 H, Cholesterol 170, LDL Cholesterol, Calc 84, VLDL Cholesterol 41 H, HDL Cholesterol 44, Cholesterol/HDL Ratio 3.85, Serum Folate 8.81 03/22/25 06:27: POC Glucose 139 H 03/22/25 11:05: CSF Appearance CLEAR, CSF Color COLORLESS, CSF Cell Count Tube #4, CSF Total Cell Counted TNP, CSF Comment May follow, CSF Glucose 80 H, CSF Total Protein 27.0 03/22/25 12:05: POC Glucose 102 Imaging Radiology Impression Brain CT 03/21/25 17:20 IMPRESSION: 1. No acute intracranial hemorrhage, mass-effect, hydrocephalus, or territorial infarct. 2. Small indeterminate hypodense focus in the right frontal bartholomew radiata whitematter, new since prior exam. Suggest contrast-enhanced MRI to further evaluate. 3. Partially empty sella, and borderline low-lying cerebellar tonsils, both of which are nonspecific but can be associated with headaches in the setting of elevated intracranial CSF pressure. Reading Location: [facility] Chest X-Ray 03/21/25 18:25 IMPRESSION: No evidence of acute cardiopulmonary disease. Reading Location: [facility] Brain MRI 03/22/25 09:50 IMPRESSION: There is a 1.5 x 1.0 cm focus of encephalomalacia in the right periventricular deep white matter. An empty sella is noted. 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 Mucosal thickening is visible in the left maxillary sinus. There is fluid signal in a portion of the left mastoid air cells. Reading Location[facility] Lumbar Puncture Fluoroscopy 03/22/25 11:00 IMPRESSION: Successful fluoroscopically guided lumbar puncture, with opening and closing pressures as noted. Laboratory results pending. Reading Location: [facility] Active Medications Active Medications Active Medications: Current Medications Generic Name Dose Route Start Last Admin Trade Name Freq PRN Reason Stop Dose Admin Acetaminophen 650 mg 03/21/25 22:11 Acetaminophen 325 Mg Tablet PO Q4H PRN PRN Pain 1-10 Or Fever>99.6 Aspirin 81 mg 03/22/25 08:00 03/22/25 09:05 Aspirin 81 Mg Tab.Chew PO 81 mg BREAKFAST MIGUEL ANGEL Administration Atorvastatin Calcium 80 mg 03/21/25 21:25 03/21/25 23:31 Atorvastatin Calcium 80 Mg Tablet PO 80 mg QHS MIGUEL ANGEL Administration Enoxaparin Sodium 40 mg 03/22/25 10:00 03/22/25 11:57 Enoxaparin 40 Mg/0.4 Ml Syringe SC Not Given BID MIGUEL ANGEL Sodium Chloride 250 mls @ 15 mls/hr 03/21/25 22:28 IV .[id number] PRN Saline Flush Sodium Chloride 250 mls @ 15 mls/hr 03/21/25 22:28 IV .[id number] PRN Additional IVPB Infusion Ondansetron HCl 4 mg 03/21/25 22:11 Ondansetron 4 Mg/2 Ml Vial IV Q4H PRN PRN NAUSEA/VOMITING Sodium Chloride 10 - 40 ml 03/21/25 22:28 0.9% Saline Lock 10 Ml Syringe IV UD PRN SALINE FLUSH NIHSS NIHSS Nursing Documentation NIHSS Nursing Documentation: NIHSS: Ischemic Stroke/TIA Start: 03/21/25 22:11 Text: For PCU Patients: NIH and Neuro Check every 4 Status: Active hours, PRN and with change in RN caregiver. Freq: [id number] Protocol: Activity Type Activity Date Activity User E-sign Co-sign Detail Recorded Client Recorded Date Recorded By Document 03/22/25 08:59 [id number] 03/22/25 09:03 NB 03/22/25 08:59 NIH Stroke Scale [NIHSS] A score of 0 is normal or asymptomatic . Total possible score is 42. Inpatient: RN or Physician to activate a stroke alert for onset of new stroke symptoms or with NIHSS increase >/= 3 points. Following change in neurological status, NIHSS will be performed per physician order or more frequently PRN. -1a. Level of Consciousness 0 - Alert; keenly responsive -1b. LOC Questions 0 - Answers BOTH questions correctly -2. Best Gaze 0 - Normal -3. Visual 0 - No visual loss -5a. Left Arm 0 - No drift; arm holds 90 ( or 45) degrees for full 10 seconds -5b. Right Arm 0 - No drift; arm holds 90 ( or 45) degrees for full 10 seconds -6a. Left Leg 0 - No drift; leg holds 30- degree position for full 5 seconds -6b. Right Leg 0 - No drift; leg holds 30- degree position for full 5 seconds -7. Limb Ataxia 0 - Absent -8. Sensory 0 - Normal; no sensory loss -9. Best Language 0 - No aphasia; normal -10. Dysarthria 0 - Normal -11. Extinction and Inattention 0 - No abnormality -Total 0 Query Text:A score of 0 is normal or asymptomatic. Total possible score is 42 . ED: Notify Physician for NIHSS increase by > / = 3 points. Inpatient: RN or Physician to activate a stroke alert for NIHSS increase of > / = 3 points. Coma Scale [Assess] -Eye Opening Spontaneous -Motor Obeys Commands -Verbal Oriented [Total] -Coma Scale Total 15 03/22/25 1403 <Electronically signed by Hayede Toro MD> Cosigner Signature (if applicable): CC: GRIFFIN Call~ Signed [facility] Work Phone: 1(609) 460-400408-27-2025 Discharge summary [facility] Medical Records Department [address] [place] [address] Discharge Summary 03/22/25 1413 MR#: [id number] Acct: [id number] Name: SIDDHARTH MARVIN Rep #:[id number] : 1970 54 From: Екатерина Belcher DO PCP: GRIFFIN Andino Status:ADM ROB Location: [place] [address] Providers Date of Admission: 03/21/25 Date of Discharge: 03/22/25 Primary Care Physician: GRIFFIN Andino Consultations 03/21/25 22:11 Consult: Tele-Neurology Routine Consulting Provider: [facility] Reason for Consult: Acute Ischemic Stroke/TIA EMERGENT Consult: No MD Notified: Yes Date Notified: 03/22/25 Time Notified: 01:15 Method of Notification: Answering Service Method of Consult:: Telemedicine Nursing Unit Staff Notify [facility] of Tele-Neurology Consult: Yes Reason For Visit: WORSENING HEADACHE W/ ABNORMAL HEAD CT Diagnosis Discharge Diagnosis (1) Headache: Status: Acute Code(s): R51.9 - Headache, unspecified Qualifiers: Headache chronicity pattern: chronic headache Headache type: unspecified Intractability: not intractable Qualified Code(s): R51.9 - Headache, unspecified; G89.29 - Other chronic pain (2) History of migraine headaches: Status: Acute Code(s): Z86.69 - Personal history of other diseases of the nervous system and sense organs (3) Abnormal CT of the head: Status: Acute Code(s): R93.0 - Abnormal findings on diagnostic imaging of skull and head, not elsewhereclassified (4) Tobacco use disorder, continuous: Status: Acute Code(s): F17.209 - Nicotine dependence, unspecified, with unspecified nicotine-induced disorders (5) Morbid obesity: Status: Chronic Code(s): E66.01 - Morbid (severe) obesity due to excess calories Medications at Discharge Home Medications metformin 1,000 mg tablet 1,000 mg PO BID 03/21/25 losartan 50 mg tablet 50 mg PO BID #60 tabs 03/22/25 Weight / BMI Weight Weight: 105.5 kg Body Mass Index (BMI) 41.2 ABG / Lab / Microbiology Data 03/21/25 18:35 03/21/25 18:35 Laboratory: Laboratory Results - last 24 hr 03/21/25 18:35: WBC 12.9 H, RBC 4.89, Hgb 14.3, Hct 43.7, MCV 89.4, MCH 29.2, MCHC 32.7, RDW Std Deviation 44.8 H, RDW Coeff of Bong 13.8, Plt Count 376, MPV 9.9, Immature Gran % (Auto) 0.400, Neut % (Auto) 49.4, Lymph % (Auto) 40.2, [place]% (Auto) 6.0, Eos % (Auto) 3.3, Baso % (Auto) 0.7, Absolute Neuts (auto) 6.4, Absolute Lymphs (auto) 5.19 H, Nucleated RBC % 0, Atypical Lymphocytes 2+, Platelet Estimate ADEQUATE, Sodium 140, Potassium 4.0, Chloride 102, Carbon Dioxide 24.2, Anion Gap 15, BUN 12, Creatinine 0.64 L, Estim Creat Clear Calc 114.33, Est GFR (MDRD) Non-Af 104, BUN/Creatinine Ratio19.3, Glucose 83, Hemoglobin A1c 6.0 H, Calcium 10.1, Vitamin B12 362, TSH 2.410, Free T4 1.10, Free T3 pg/dL 3.3, Ethyl Alcohol < 10.1 03/21/25 22:43: POC Glucose 119 H 03/22/25 00:05: Urine Opiates Screen NEGATIVE, U Buprenorphine Qual NEGATIVE, UrOxycodone Screen NEGATIVE, Urine Methadone Screen NEGATIVE, Urine Fentanyl Screen NEGATIVE, Ur Barbiturates Screen NEGATIVE, Ur Phencyclidine Scrn NEGATIVE, Ur Amphetamines Screen NEGATIVE, U Benzodiazepines Scrn NEGATIVE, Urine Cocaine Screen NEGATIVE, U Cannabinoids Screen NEGATIVE 03/22/25 05:23: Triglycerides 207 H, Cholesterol 170, LDL Cholesterol, Calc 84, VLDL Cholesterol 41H, HDL Cholesterol 44, Cholesterol/HDL Ratio 3.85, Serum Folate 8.81 03/22/25 06:27: POC Glucose 139 H 03/22/25 11:05: CSF Appearance CLEAR, CSF Color COLORLESS, CSF WBC 2, CSF RBC 1 H, CSF Cell Count Tube # 4, CSF Total Cell Counted TNP, CSF Lymphocytes 100 H, CSF Comment Reviewed, CSF Glucose 80 H, CSF Total Protein 27.0 03/22/25 12:05: POC Glucose 102 Microbiology: Microbiology 03/22/25 11:05 Csf, Spinal Fluid Gram Stain - Final Radiography Diagnostic Testing: Radiology Impression Brain CT 03/21/25 17:20 IMPRESSION: 1. No acute intracranial hemorrhage, mass-effect, hydrocephalus, or territorial infarct. 2. Small indeterminate hypodense focus in the right frontal bartholomew radiata whitematter, new since prior exam. Suggest contrast-enhanced MRI to further evaluate. 3. Partially empty sella, and borderline low-lying cerebellar tonsils, both of which are nonspecific but can be associated with headaches in the setting of elevated intracranial CSF pressure. Reading Location: [facility] Chest X-Ray 03/21/25 18:25 IMPRESSION: No evidence of acute cardiopulmonary disease. Reading Location: [facility] Echocardiogram 03/21/25 21:24 Interpretation Summary The left ventricular ejection fraction is 65 %. Bubble study is positive for left to right shunt. No previous echo to compare Ordering Physician: Omayra Flores Performed By: Rea Talbert RDCS Brain MRI 03/22/25 09:50 IMPRESSION: There is a 1.5 x 1.0 cm focus of encephalomalacia in the right periventricular deep white matter. An empty sella is noted. 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 Mucosal thickening is visible in the left maxillary sinus. There is fluid signal in a portion of the left mastoid air cells. Reading Location: [facility] Lumbar Puncture Fluoroscopy 03/22/25 11:00 IMPRESSION: Successful fluoroscopically guided lumbar puncture, with opening and closing pressures as noted. Laboratory results pending. Reading Location: [place] [address] D/C Instructions Discharge Activity: Return to Normal Activity Return to work on: 03/23/25 DC O2, CPAP, BIPAP Needs Home O2 Discharge instructions: No Meaningful Use Info Meaningful Use Meaningful Use Diagnoses (Choose all that apply): None applicable Discharge Plan Admission Admit Date/Time: 03/21/25 21:17 Primary Reason for Your Visit: Headache Attending Provider: Екатерина Belcher Primary Care Provider: Cortez Call Consulting Providers: Jake Alonzo; Tri Thomson; Aminata العلي; Alona Crocker; Kacey Recinos; Nik Fragoso; Shayy Martins; Papo Rosen; Kong Russell; Wally Tellez; Sharon Dixon; Nino Reid; Chelle Wilson; Terese Desai; Teresa Bowen; Blayne Acosta; Haydee Toro; Javi Doll; Joan Belcher; Bethany Olson;Omayra Flores Discharge Orders/Prescriptions Prescriptions: New losartan 50 mg Tablet 50 mg PO BID Qty: 60 1RF Continued metformin 1,000 mg tablet 1,000 mg PO BID Referrals / Follow Up: Cortez Call NP-C [Primary Care Provider] - In 1 Week Disposition Disposition (needs filled in before D/C Order can be placed): Home, Self Care Charges/Coding Visit Charges Inpatient E&M: 91489 Disch Hosp >30min 03/22/25 1539 Cosigner Signature (if applicable): CC: GRIFFIN Call; Dr. Екатерина Belcher DO~ Signed [facility]08-27-2025 [facility] Medical Records Department [address] [place] [address] Discharge Summary 03/22/25 1539 MR#: [id number] Acct: [id number] Name: SIDDHARTH MARVIN Rep #: [id number] : 1970 54 From: Екатерина Belcher DO PCP: GRIFFIN Andino Status:DIS ROB Location: [place] [address] Providers Date of Admission: 03/21/25 Date of Discharge: 03/22/25 Primary Care Physician: GRIFFIN Andino Consultations 03/21/25 22:11 Consult: Tele-Neurology Routine Consulting Provider: [facility] Reason for Consult: Acute Ischemic Stroke/TIA EMERGENT Consult: No MD Notified: Yes Date Notified: 03/22/25 Time Notified: 01:15 Method of Notification: Answering Service Method of Consult:: Telemedicine Nursing Unit Staff Notify [facility] of Tele-Neurology Consult: Yes Reason For Visit: WORSENING HEADACHE W/ ABNORMAL HEAD CT Diagnosis Discharge Diagnosis (1) Headache: Status: Acute Code(s): R51.9 - Headache, unspecified Qualifiers: Headache type: unspecified Headache chronicity pattern: chronic headache Intractability: n ot intractable Qualified Code(s): R51.9 - Headache, unspecified; G89.29 - Other chronic pain (2) History of migraine headaches: Status: Acute Code(s): Z86.69 - Personal history of other diseases of the nervous system and sense organs (3) Abnormal CT of the head: Status: Acute Code(s): R93.0 - Abnormal findings on diagnostic imaging of skull and head, not elsewhere classified (4) Tobacco use disorder, continuous: Status: Acute Code(s): F17.209 - Nicotine dependence, unspecified, with unspecified nicotine-induced disorders (5) Morbid obesity: Status: Chronic Code(s): E66.01 - Morbid (severe) obesity due to excess calories Medications at Discharge Home Medications metformin 1,000 mg tablet 1,000 mg PO BID 03/21/25 losartan 50 mg tablet 50 mg PO BID #60 tabs 03/22/25 Hospital Course Procedures 2-D Echocardiogram, EKG and - (LP/CT brain/chest x-ray/MRI brain) Summary of Care Provided Minutes Spent on Discharge: 30 Hospital Course: Ms. Marvin is a 54-year-old white female who presented to the emergency department at [facility] on 03/21/2025 with chief complaint of headache. She has chronic headaches that have been gradually worsening over the past several months. They have increased in intensity and frequency but not specifically the amount of pain she is feeling. She complained of a warm sensation in her head. She had no recent trauma or other injuries. She had not been taking any medication for symptoms because she does not like to take medications. Family wanted her to be evaluated so they brought her in to emergency department. 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 Headache frequency is noted to be 1 headache every 1 to 2 months the last few hours but do not stop her from doing her daily activities. She was admitted to the floor for further workup as she had a CT that showed a partially empty sella with borderline low-lying cerebellar tonsils and indeterminant hypodense foci in the right bartholomew radiata. Vital signs were stable on admission other than her blood pressure seem to be fairly elevated and remained elevated throughout hospitalization so she was started on losartan 50 mg p.o. twice daily prior to discharge. Her CBC had a mildly elevated white count of 12.9 and was otherwise unremarkable. She did not have a left shift. Chemistry panel was unremarkable. Hemoglobin was A1c and patient is a known diabetic on metformin noting good control. Total cholesterol is 170 with an LDL of 84, HDL 44 and triglyceride level of 207. Serum folate was normal. B12 was normal. TSH was normal. She was admitted to U monitored on telemetry with no events. MRI of the brain showed no acute findings it did show a 1.5 x 1.8 cm foci of encephalomalacia in the right periventricular white matter, empty sella, Chiari I malformation that 7 mm on the right, mucosal thickening in the left neck and slight sinus and some fluid in the left mastoid air cells. Echocardiogram showed EF of 65% with positive PFO. LP was performed and opening pressures were normal. She was evaluated by [facility] neurology and they felt that her headaches were likely chronic posttraumatic headaches and given the and significant frequency and intensity medications were not initiated by neurology. Per discussion with neurology and the patient if her headaches become more bothersome at a point she will discuss with her primary care physician and referral for headache neurology. Neurology felt she was stable discharge home. Her only new medication was losartan help with her blood pressure. Prescription was sent to local pharmacy. I have asked her follow-up with her primary care physician in 1 week. Discharge diagnoses: Headache-resolved Empty sella Chiari I malformation Hypertension (more content not included)...[facility]08-27-2025 [facility] Medical Records Department [address] [place] [address] Discharge Summary 03/22/25 1413 MR#: [id number] Acct: [id number] Name: SIDDHARTH MARVIN Rep #: [id number] : 1970 54 From: Екатерина Belcher DO PCP: GRIFFIN Andino Status:ADM ROB Location: PCU [place] [address] Providers Date of Admission: 03/21/25 Date of Discharge: 03/22/25 Primary Care Physician: GRIFFIN Andino Consultations 03/21/25 22:11 Consult: Tele-Neurology Routine Consulting Provider: [facility] Reason for Consult: Acute Ischemic Stroke/TIA EMERGENT Consult: No MD Notified: Yes Date Notified: 03/22/25 Time Notified: 01:15 Method of Notification: Answering Service Method of Consult:: Telemedicine Nursing Unit Staff Notify [facility] of Tele-Neurology Consult: Yes Reason For Visit: WORSENING HEADACHE W/ ABNORMAL HEAD CT Diagnosis Discharge Diagnosis (1) Headache: Status: Acute Code(s): R51.9 - Headache, unspecified Qualifiers: Headache chronicity pattern: chronic headache Headache type: unspecified Intractability: n ot intractable Qualified Code(s): R51.9 - Headache, unspecified; G89.29 - Other chronic pain (2) History of migraine headaches: Status: Acute Code(s): Z86.69 - Personal history of other diseases of the nervous system and sense organs (3) Abnormal CT of the head: Status: Acute Code(s): R93.0 - Abnormal findings on diagnostic imaging of skull and head, not elsewhere classified (4) Tobacco use disorder, continuous: Status: Acute Code(s): F17.209 - Nicotine dependence, unspecified, with unspecified nicotine-induced disorders (5) Morbid obesity: Status: Chronic Code(s): E66.01 - Morbid (severe) obesity due to excess calories Medications at Discharge Home Medications metformin 1,000 mg tablet 1,000 mg PO BID 03/21/25 losartan 50 mg tablet 50 mg PO BID #60 tabs 03/22/25 Weight / BMI Weight Weight: 105.5 kg Body Mass Index (BMI) 41.2 ABG / Lab / Microbiology Data 03/21/25 18:35 03/21/25 18:35 Laboratory: Laboratory Results - last 24 hr 03/21/25 18:35: WBC 12.9 H, RBC 4.89, Hgb 14.3, Hct 43.7, MCV 89.4, MCH 29.2, MCHC 32.7, RDW Std Deviation 44.8 H, RDW Coeff of Bong 13.8, Plt Count 376, MPV 9.9, Immature Gran % (Auto) 0.400, Neut % (Auto) 49.4, Lymph % (Auto) 40.2, [place] % (Auto) 6.0, Eos % (Auto) 3.3, Baso % (Auto) 0.7, Absolute Neuts (auto) 6.4, Absolute Lymphs (auto) 5.19 H, Nucleated RBC % 0, Atypical Lymphocytes 2+, Platelet Estimate ADEQUATE, Sodium 140, Potassium 4.0, Chloride 102, Carbon Dioxide 24.2, Anion Gap 15, BUN 12, Creatinine 0.64 L, Estim Creat Clear Calc 114.33, Est GFR (MDRD) Non-Af 104, BUN/Creatinine Ratio 19.3, Glucose 83, Hemoglobin A1c 6.0 H, Calcium 10.1, Vitamin B12 362, TSH 2.410, Free T4 1.10, Free T3 pg/dL 3.3, Ethyl Alcohol < 10.1 03/21/25 22:43: POC Glucose 119 H 03/22/25 00:05: Urine Opiates Screen NEGATIVE, U Buprenorphine Qual NEGATIVE, Ur Oxycodone Screen NEGATIVE, Urine Methadone Screen NEGATIVE, Urine Fentanyl Screen NEGATIVE, Ur Barbiturates Screen NEGATIVE, Ur Phencyclidine Scrn NEGATIVE, Ur Amphetamines Screen NEGATIVE, U Benzodiazepines Scrn NEGATIVE, Urine Cocaine Screen NEGATIVE, U Cannabinoids Screen NEGATIVE 03/22/25 05:23: Triglycerides 207 H, Cholesterol 170, LDL Cholesterol, Calc 84, VLDL Cholesterol 41 H, HDL Cholesterol 44, Cholesterol/HDL Ratio 3.85, Serum Folate 8.81 03/22/25 06:27: POC Glucose 139 H 03/22/25 11:05: CSF Appearance CLEAR, CSF Color COLORLESS, CSF WBC 2, CSF RBC 1 H, CSF Cell Count Tube # 4, CSF Total Cell Counted TNP, CSF Lymphocytes 100 H, CSF Comment Reviewed, CSF Glucose 80 H, CSF Total Protein 27.0 03/22/25 12:05: POC Glucose 102 Microbiology: Microbiology 03/22/25 11:05 Csf, Spinal Fluid Gram Stain - Final Radiography Diagnostic Testing: Radiology Impression Brain CT 03/21/25 17:20 IMPRESSION: 1. No acute intracranial hemorrhage, mass-effect, hydrocephalus, or territorial infarct. 2. Small indeterminate hypodense focus in the right frontal bartholomew radiata white matter, new since prior exam. Suggest contrast-enhanced MRI to further evaluate. 3. Partially empty sella, and borderline low-lying cerebellar tonsils, both of which are nonspecific but can be associated with headaches in the setting of elevated intracranial CSF pressure. Reading Location: [facility] Chest X-Ray 03/21/25 18:25 IMPRESSION: No evidence of acute cardiopulmonary disease. Reading Location: [facility] Echocardiogram 03/21/25 21:24 Interpretation Summary The left ventricular ejection fraction is 65 %. Bubble study is positive for left to right shunt. No previous echo to compare (more content not included)...[facility] 03-22-2025 Consult note [facility] Medical Records Department [address] [place] [address] Consultation - Neurology 03/22/25 1259 MR#: [id number] Acct: [id number] Name: SIDDHARTH MARVIN Rep #:[id number] : 1970 54 From: Haydee Toro MD PCP: Cortez Call, ASSOCIATE DATA SCIENTIST-C Status:ADM ROB Location: [place] [address] Assessment and Plan: Neuro Assessment/Plan OSMAN MARVIN, is a 54 woman with history of migraines who is presenting with 2 years of chronic sporadic headaches following TBI. Frequency is once every 1-2 months, lasting for a couple hours, not significant enough for her to stop her from daily activity or take meds, an resolve spontaneously. MRI brain with no findings to explain headache. LP with normal opening pressure. Headaches are likely chronic post traumatic headaches. I discussed with patient, given headache are insignificant in frequency and intensity, will defer Meds for now. She will ask her PCP for headache referral if these headache become more bothersome at any point. We will sign off. Please call with questions. I personally attended this patient and spent a total time of 45 minutes evaluating this patient including clinical assessment, review of chart, medical history imaging, and determining appropriate treatment and workup. HPI Consult Data Date of Consult: 03/22/25 HPI Narrative HPI Narrative: SIDDHARTH MARVIN, is a 54 woman with history of migraines who is presenting with headache. Patient reports she has been having headache on and off for a couple years. This all started after she had a fall a couple years ago, she fell backwards down a flight of stepsand hit her head all the way down. She went to the ER back then and workup was negative. On average once a month. Usually last for a couple hours. Located at the posterior/top of her head more towards the left side. Feels like dull aching pain. No N/V. 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 MRI cuate with no acute findings.There is 1.5 x 1.0 cm focus of encephalomalaciain the right periventricular deep white matter resembling old lacunar stroke. There is also Chiari malformation I LP with normal opening pressure PHYSICAL EXAM: Exam performed with help of the nurse/HOWARD present with patient on Tele site NEURO: AAOx3, follows commands, no aphasia/dysarthria EOMI, no gaze preference/nystagmus Face symmetric, Intact facial sensation. Tongue midline Motor: All extremities antigravity Coordination: FTN intact bilaterally PFSH Medical History Tobacco use disorder, continuous Encounter for screening for malignant neoplasm of lung Wears glasses Heartburn Gastric reflux History of edema History of echocardiogram History of stress test Smoker Headache, migraine Type 2 diabetes mellitus Kidney infection Home Medications ?Medication ?Instructions ?Recorded ?Last Taken ?Type metformin 1,000 mg tablet 1,000 mg PO BID 03/21/25 Unk nown History Allergy/AdvReac Type Severity Reaction Status Date / Time amoxicillin Allergy Rash Verified 03/21/25 16:31 Family History Father Diabetes Heart disease Mother COPD (chronic obstructive pulmonary disease) Surgical History History of tubal ligation (~1995) History of (~1989) Social History household members: none current occupational status: employed current occupation: [email or web address] Smoking Status: Current every day smoker tobacco type: cigarettes substance use type: does not use Vital Signs Vital Signs Vital Signs: 03/21/25 16:29 03/21/25 18:33 03/21/25 18:33 Temperature 98.0 F Temperature Source Oral Pulse Rate 91 72 Pulse Strength Respiratory Rate 16 18 Respiratory Effort Respiratory Depth Respiratory Pattern Blood Pressure 154/109 H 156/86 H Blood Pressure Mean 124 109 Blood Pressure Source Blood Pressure Position Blood Pressure Location Pulse Ox 98 97 97 Oxygen Delivery Method Room Air Room Air Room Air 03/21/25 20:00 03/21/25 20:54 03/21/25 22:12 Temperature 98.6 F 98.0 F Temperature Source Oral Pulse Rate 69 70 65 Pulse Strength Respiratory Rate 18 18 18 Respiratory Effort Respiratory Depth Respiratory Pattern Blood Pressure 131/73 H 148/61 H 155/84 H Blood Pressure Mean 92 90 107 Blood Pressure Source Monitor Blood Pressure Position Semi-Fowlers Blood Pressure Location Left Forearm Pulse Ox 94 99 96 Oxygen Delivery Method Room Air Room Air 03/21/25 23:00 03/22/25 02:00 03/22/25 06:00 Temperature 97.0 F L 96.8 F L Temperature Source Temporal Oral Pulse Rate 64 68 Pulse Strength Respiratory Rate 18 18 Respiratory Effort Normal Respiratory Depth Normal Respiratory Pattern Normal Blood Pressure 137/69 H 141/83 H Blood Pressure Mean 91 102 Blood Pressure Source Monitor Monitor Blood Pressure Position Semi-Fowlers Semi-Fowlers Blood Pressure Location Left Forearm Left Arm Pulse Ox 95 94 Oxygen Delivery Method Room Air Room Air Room Air 03/22/25 08:12 03/22/25 08:59 03/22/25 10:00 Temperature 98.2 F Temperature Source Oral Pulse Rate 65 Pulse Strength Normal (2+) Respiratory Rate 14 Respiratory Effort Respiratory Depth Respiratory Pattern Blood Pressure 171/94 H Blood Pressure Mean 119 Blood Pressure Source Monitor Blood Pressure Position Sitting Blood Pressure Location Left Forearm Pulse Ox 94 96 Oxygen Delivery Method Room Air Room Air Weight Weight: 105.5 kg Body Mass Index (BMI) 41.2 EEG Results Procedure Details EEG Procedure Details: SIDDHARTH MARVIN is a 54 year old F with a past medical history of , who presents for evaluation of Electroencephalogram on DATE at TIME Lab / Micro Data 03/21/25 18:35 03/21/25 18:35 Labs: Laboratory Results - last 24 hr 03/21/25 18:35: WBC 12.9 H, RBC 4.89, Hgb 14.3, Hct 43.7, MCV 89.4, MCH 29.2, MCHC 32.7, RDW Std Deviation 44.8 H, RDW Coeff of Bong 13.8, Plt Count 376, MPV 9.9, Immature Gran % (Auto) 0.400, Neut % (Auto) 49.4, Lymph % (Auto) 40.2, [place]% (Auto) 6.0, Eos % (Auto) 3.3, Baso % (Auto) 0.7, Absolute Neuts (auto) 6.4, Absolute Lymphs (auto) 5.19 H, Nucleated RBC % 0, Atypical Lymphocytes 2+, Platelet Estimate ADEQUATE, Sodium 140, Potassium 4.0, Chloride 102, Carbon Dioxide 24.2, Anion Gap 15, BUN 12, Creatinine 0.64 L, Estim Creat Clear Calc 114.33, Est GFR (MDRD) Non-Af 104, BUN/Creatinine Ratio19.3, Glucose 83, Hemoglobin A1c 6.0 H, Calcium 10.1, Vitamin B12 362, TSH 2.410, Free T4 1.10, Free T3 pg/dL 3.3, Ethyl Alcohol < 10.1 03/21/25 22:43: POC Glucose 119 H 03/22/25 00:05: Urine Opiates Screen NEGATIVE, U Buprenorphine Qual NEGATIVE, UrOxycodone Screen NEGATIVE, Urine Methadone Screen NEGATIVE, Urine Fentanyl Screen NEGATIVE, Ur Barbiturates Screen NEGATIVE, Ur Phencyclidine Scrn NEGATIVE, Ur Amphetamines Screen NEGATIVE, U Benzodiazepines Scrn NEGATIVE, Urine Cocaine Screen NEGATIVE, U Cannabinoids Screen NEGATIVE 03/22/25 05:23: Triglycerides 207 H, Cholesterol 170, LDL Cholesterol, Calc 84, VLDL Cholesterol 41H, HDL Cholesterol 44, Cholesterol/HDL Ratio 3.85, Serum Folate 8.81 03/22/25 06:27: POC Glucose 139 H 03/22/25 11:05: CSF Appearance CLEAR, CSF Color COLORLESS, CSF Cell Count Tube #4, CSF Total Cell Counted TNP, CSF Comment May follow, CSF Glucose 80 H, CSF Total Protein 27.0 03/22/25 12:05: POC Glucose 102 Imaging Radiology Impression Brain CT 03/21/25 17:20 IMPRESSION: 1. No acute intracranial hemorrhage, mass-effect, hydrocephalus, or territorial infarct. 2. Small indeterminate hypodense focus in the right frontal bartholomew radiata whitematter, new since prior exam. Suggest contrast-enhanced MRI to further evaluate. 3. Partially empty sella, and borderline low-lying cerebellar tonsils, both of which are nonspecific but can be associated with headaches in the setting of elevated intracranial CSF pressure. Reading Location: [facility] Chest X-Ray 03/21/25 18:25 IMPRESSION: No evidence of acute cardiopulmonary disease. Reading Location: [facility] Brain MRI 03/22/25 09:50 IMPRESSION: There is a 1.5 x 1.0 cm focus of encephalomalacia in the right periventricular deep white matter. An empty sella is noted. 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 Mucosal thickening is visible in the left maxillary sinus. There is fluid signal in a portion of the left mastoid air cells. Reading Location: [facility] Lumbar Puncture Fluoroscopy 03/22/25 11:00 IMPRESSION: Successful fluoroscopically guided lumbar puncture, with opening and closing pressures as noted. Laboratory results pending. Reading Location: [facility] Active Medications Active Medications Active Medications: Current Medications Generic Name Dose Route Start Last Admin Trade Name Freq PRN Reason Stop Dose Admin Acetaminophen 650 mg 03/21/25 22:11 Acetaminophen 325 Mg Tablet PO Q4H PRN PRN Pain 1-10 Or Fever>99.6 Aspirin 81 mg 03/22/25 08:00 03/22/25 09:05 Aspirin 81 Mg Tab.Chew PO 81 mg BREAKFAST MIGUEL ANGEL Administration Atorvastatin Calcium 80 mg 03/21/25 21:25 03/21/25 23:31 Atorvastatin Calcium 80 Mg Tablet PO 80 mg QHS MIGUEL ANGEL Administration Enoxaparin Sodium 40 mg 03/22/25 10:00 03/22/25 11:57 Enoxaparin 40 Mg/0.4 Ml Syringe SC Not Given BID MIGUEL ANGEL Sodium Chloride 250 mls @ 15 mls/hr 03/21/25 22:28 IV .[id number] PRN Saline Flush Sodium Chloride 250 mls @ 15 mls/hr 03/21/25 22:28 IV .[id number] PRN Additional IVPB Infusion Ondansetron HCl 4 mg 03/21/25 22:11 Ondansetron 4 Mg/2 Ml Vial IV Q4H PRN PRN NAUSEA/VOMITING Sodium Chloride 10 - 40 ml 03/21/25 22:28 0.9% Saline Lock 10 Ml Syringe IV UD PRN SALINE FLUSH NIHSS NIHSS Nursing Documentation NIHSS Nursing Documentation: NIHSS: Ischemic Stroke/TIA Start: 03/21/25 22:11 Text: For PCU Patients: NIH and Neuro Check every 4 Status: Active hours, PRN and with change in RN caregiver. Freq: [id number] Protocol: Activity Type Activity Date Activity User E-sign Co-sign Detail Recorded Client Recorded Date Recorded By Document 03/22/25 08:59 NB [id number] 03/22/25 09:03 NB 03/22/25 08:59 NIH Stroke Scale [NIHSS] A score of 0 is normal or asymptomatic . Total possible score is 42. Inpatient: RN or Physician to activate a stroke alert for onset of new stroke symptoms or with NIHSS increase >/= 3 points. Following change in neurological status, NIHSS will be performed per physician order or more frequently PRN. -1a. Level of Consciousness 0 - Alert; keenly responsive -1b. LOC Questions 0 - Answers BOTH questions correctly -2. Best Gaze 0 - Normal -3. Visual 0 - No visual loss -5a. Left Arm 0 - No drift; arm holds 90 ( or 45) degrees for full 10 seconds -5b. Right Arm 0 - No drift; arm holds 90 ( or 45) degrees for full 10 seconds -6a. Left Leg 0 - No drift; leg holds 30- degree position for full 5 seconds -6b. Right Leg 0 - No drift; leg holds 30- degree position for full 5 seconds -7. Limb Ataxia 0 - Absent -8. Sensory 0 - Normal; no sensory loss -9. Best Language 0 - No aphasia; normal -10. Dysarthria 0 - Normal -11. Extinction and Inattention 0 - No abnormality -Total 0 Query Text:A score of 0 is normal or asymptomatic. Total possible score is 42 . ED: Notify Physician for NIHSS increase by > / = 3 points. Inpatient: RN or Physician to activate a stroke alert for NIHSS increase of > / = 3 points. Coma Scale [Assess] -Eye Opening Spontaneous -Motor Obeys Commands -Verbal Oriented [Total] -Coma Scale Total 15 03/22/25 1403 Cosigner Signature (if applicable): CC: GRIFFIN Call~ Signed [facility]08-27-2025 Hospital Discharge instructionsAdditional Instructions Date of Discharge: 03/22/25[facility] Work Phone: 1(383) 564-479408-27-2025 Radiology Diagnostic study note [facility] Imaging Services [address] [place] [address] Dx Lumbar Puncture w/IMG Guide MR#: [id number] Acct: [id number] Name: SIDDHARTH MARVIN Rep #: [id number] : 1970 F 54 From: Nigel Tapia MD PCP: GRIFFIN Andino Status: ADM ROB Study:Dx Lumbar Puncture w/IMG Guide Date of Exam: 03/22/25 Exam# [id number] Ordering Dr: Omayra Juárez DO PROCEDURE: DX LUMBAR PUNCTURE W/IMG GUIDE 03/22/2025 REASON FOR EXAM: WORSENING HEADACHES WITH ? INCREASED CSF PRESSURE TECHNIQUE: DX LUMBAR PUNCTURE W/IMG GUIDE Fluoroscopy time: 6 seconds. Dose: 9.9 mGy. COMPARISON: CT abdomen and pelvis 02/23/2024. FINDINGS: Procedure: Following informed consent, and using standard sterile technique, a fluoroscopically guided lumbar puncture was performed via a posterior oblique approach. 2% lidocaine local anesthesia was followed by placement of a 20 gauge spinal needle into the spinal canal at the L2 level. Opening pressure was 17 cm of water. Closing pressure was 3 cm of water. A total of 15.5 mL clear fluid was successfully removed, as sent to the laboratory for evaluation. No complication was encountered, and the patient left the department in good condition without significant complaint. RAD/Dx Lumbar Puncture w/IMG Guide IMPRESSION: Successful fluoroscopically guided lumbar puncture, with opening and closing pressures as noted. Laboratory results pending. Reading Location: [place] [address] CC: GRIFFIN Call; Dr. Omayra Flores DO ~ Perioperative Manager: Signed [facility]08-27-2025 History and physical note Author Omayra Rossi [facility] Note Date/Time March 22, 2025 6: 55am [facility] Medical Records Department [address] [place] [address] H&P Exam - Hospitalist 03/21/252053 MR#: [id number] Acct: [id number] Name: SIDDHARTH MARVIN Rep #:[id number] : 1970 54 From: Omayra Alva DO PCP: GRIFFIN Andino Status:ADM ROB Location: [place] [address] HPI - General General Date of Admission: 03/21/25 Date of Service: 03/21/25 Chief Complaint: Headache. HPI Narrative SIDDHARTH MARVIN, is a 54 F with a past medical history of morbid obesity (class III); with BMI of 41.3 this admission, DM-2; of unknown control on metformin BID, history of tobacco abuse, history of migraine headaches for years and history of GERD who presents to [facility] ER complaining of headache. Ms. Marvin reports her symptoms began a few months prior to admissionwith a gradual-worsening of her chronic headaches with increased intensity and frequency with not specifically pain - but a warm sensation in her head. She denies recent head trauma or other injury. She denies taking medicine to treat her symptoms because she does not like to take medications. Her family members wanted her to be evaluated further so they insisted she be brought here. There was no reports of fever, chills, nausea, vomiting, diarrhea, constipation, chestpain, palpitations, heart racing, lower extremity edema, dysuria, hematuria, rash or visual disturbances. In the ER she underwent a CT of the brain without contrast that revealed no acute ICH, mass-effect, hydrocephalus or territorial infarct but did reveal indeterminate hypodense focus in the Right bartholomew radiatawhite matter, mew since previous exam with contrast-enhanced MRI recommended to further evaluate with partially empty sella, and borderline low-lying cerebellartonsils, both of which are nonspecific but can be associated with headaches om the setting of elevated intracranial CSF pressure in the setting of Worsening Headaches with Leukocytosis of 12.9K present on admission suspected to be due toacute-stress response with no signs of infection at this time. She was then admitted to the PCU under observation status for ongoing care for a stay that isexpected to be less than 2 midnights. FORMERLY [facility], [facility]–1983 Medical History Tobacco use disorder, continuous Encounter for screening for malignant neoplasm of lung Wears glasses Heartburn Gastric reflux History of edema History of echocardiogram History of stress test Smoker Headache, migraine Type 2 diabetes mellitus Kidney infection Home Medications ?Medication ?Instructions ?Recorded ?Last Taken ?Type metformin 1,000 mg tablet 1,000 mg PO BID 03/21/25 Unk nown History Allergy/AdvReac Type Severity Reaction Status Date / Time amoxicillin Allergy Rash Verified 03/21/25 16:31 Family History Father Diabetes Heart disease Mother COPD (chronic obstructive pulmonary disease) Surgical History History of tubal ligation (~1995) History of (~1989) Social History household members: none current occupational status: employed current occupation: [email or web address] Smoking Status: Current every day smoker tobacco type: cigarettes substance use type: does not use ROS ROS Narrative Review of Systems: Constitutional: Patient denies fever or chills. Eyes: Patient denies changes in vision or discharge from eyes. ENT: Patient denies runny nose, sore throat or ear pain. Resp: Patient denies SOB or cough. CV: Patient denies chest pain, palpitations or heart racing. GI: Patient denies abdominal pain, nausea, vomiting, diarrhea or constipation. : Patient denies dysuria or hematuria. MSK: Patient denies arthralgias or myalgias. Skin: Patient denies rash, abscess, wounds or jaundice. Psych: Patient denies symptoms of uncontrolled depression or anxiety. Neuro: Patient admits to worsening of headaches with increased intensity and frequency with warm sensation as per HPI. Allergy: Patient denies lip swelling, tongue swelling or urticaria. Hematology: Patient denies easy bleeding or easy bruisability. Endocrinology: Patient denies polyuria, polydipsia, polyphagia or heat/cold intolerance. 14 point ROS otherwise negative except for positives noted above in HPI. Vital Signs Vital Signs Vital Signs: 03/21/25 16:29 03/21/25 18:33 03/21/25 18:33 Temperature 98.0 F Temperature Source Oral Pulse Rate 91 72 Respiratory Rate 16 18 Blood Pressure 154/109 H 156/86 H Blood Pressure Mean 124 109 Pulse Ox 98 97 97 Oxygen Delivery Method Room Air Room Air Room Air 03/21/25 20:00 Temperature Temperature Source Pulse Rate 69 Respiratory Rate 18 Blood Pressure 131/73 H Blood Pressure Mean 92 Pulse Ox 94 Oxygen Delivery Method Room Air Weight Weight: 233 lb 6.4 oz Body Mass Index (BMI) 41.3 Physical Exam Const alert, oriented x3, no apparent distress and healthy appearing Constitutional Narrative: Morbidly obese. General Appearance: cooperative HEENT normocephalic, head/scalp atraumatic and hearing grossly normal bilaterally Eyes PERRL, EOMs intact bilaterally and conjunctivae normal Neck no lymphadenopathy, supple and no JVD Resp normal respiratory effort, no use of accessory muscles and clear to auscultationbilaterally Cardio regular rate and regular rhythm GI normal to inspection, nondistended, normoactive bowel sounds, soft to palpation,non-tender and non-distended GI Narrative: Morbidly obese. Extremity normal to inspection, full ROM and no clubbing, cyanosis or edema Skin Skin Narrative: Patient has no evidence of rash, abscess, wounds or jaundice. Neuro oriented x3, CN's II-XII intact bilaterally, moves all extremities and no focal motor deficits Sensorium / Orientation: awake, alert, oriented to person, oriented to place andoriented to time Speech: speech normal Psych affect normal Results Medical Records Data Attestation: I reviewed the patient's medical records Lab / Micro Data Attestation: I reviewed the patient's lab results. 03/21/25 18:35 03/21/25 18:35 Labs: Laboratory Results - last 24 hr 03/21/25 18:35: WBC 12.9 H, RBC 4.89, Hgb 14.3, Hct 43.7, MCV 89.4, MCH 29.2, MCHC 32.7, RDW Std Deviation 44.8 H, RDW Coeff of Bong 13.8, Plt Count 376, MPV 9.9, Immature Gran % (Auto) 0.400, Neut % (Auto) 49.4, Lymph % (Auto) 40.2, [place]% (Auto) 6.0, Eos % (Auto) 3.3, Baso % (Auto) 0.7, Absolute Neuts (auto) 6.4, Absolute Lymphs (auto) 5.19 H, Nucleated RBC % 0, Atypical Lymphocytes 2+, Platelet Estimate ADEQUATE, Sodium 140, Potassium 4.0, Chloride 102, Carbon Dioxide 24.2, Anion Gap 15, BUN 12, Creatinine 0.64 L, Estim Creat Clear Calc 114.33, Est GFR (MDRD) Non-Af 104, BUN/Creatinine Ratio 19.3, Glucose 83, Hemoglobin A1c 6.0 H, Calcium 10.1, TSH 2.410, Free T4 1.10, Free T3 pg/dL 3.3 Imaging Radiology Impression Brain CT 03/21/25 17:20 IMPRESSION: 1. No acute intracranial hemorrhage, mass-effect, hydrocephalus, or territorial infarct. 2. Small indeterminate hypodense focus in the right frontal bartholomew radiata whitematter, new since prior exam. Suggest contrast-enhanced MRI to further evaluate. 3. Partially empty sella, and borderline low-lying cerebellar tonsils, both of which are nonspecific but can be associated with headaches in the setting of elevated intracranial CSF pressure. Reading Location: [facility] Chest X-Ray 03/21/25 18:25 IMPRESSION: No evidence of acute cardiopulmonary disease. Reading Location: [facility] Assessment & Plan Assessment/Plan (1) Headache: QUALIFIERS: Headache type: unspecified Headache chronicity pattern: chronic headache Intractability: not intractable Qualified Code(s): R51.9 - Headache, unspecified; G89.29 - Other chronic pain (2) History of migraine headaches: (3) Abnormal CT of the head: (4) Tobacco use disorder, continuous: (5) Morbid obesity: PLAN: Plan 1. CT of the brain without contrast that revealed no acute ICH, mass-effect, hydrocephalus or territorial infarct but did reveal indeterminate hypodense focus in the Right bartholomew radiata white matter, mew since previous exam with contrast- enhanced MRI recommended to further evaluate with partially empty sella, and borderline low-lying cerebellar tonsils, both of which are nonspecific but can be associated with headaches om the setting of elevated intracranial CSF pressure in the setting of Worsening Headaches with Leukocytosis of 12.9K present on admission suspected to be due to acute-stress response - Admit to PCU under observation status. Check MRI of the brain with IV contrast to evaluate apparently new lesion in Right bartholomew radiata as per radiologist's recommendations. Check LP at IR to evaluate for possible elevatedopening pressure. Check UA C&S to evaluate for possible underlying infection with increased WBC. Check TSH, B12, Folate, HgbA1c, Lipid Profile, MICAH and UDS. Continue ECASA and begin statin. Give acetaminophen prn pain or fever. Check echocardiogram to evaluate LVEF. Check carotid Doppler to evaluate for stenosis. Finally, we will consult [facility] teleneurology to evaluate this patient on-rounds in the AM for further recommendations with help appreciated in advance. 2. History of migraine headaches for years complicating #1 - Noted. 3. Chronic Tobacco Abuse compounding #1 & #2 - Tobacco Cessation was strongly encouraged with Nicotine patch offered to control cravings. 4. Morbid obesity (class III); with BMI of 41.3 this admission adding to the burden of disease outlined from #1 - #3 - Weight loss will be recommended. Check TSH. This complicates her case and may hamper recovery. 5. DM-2; of unknown control on metformin BID - Hold metformin and cover with SSI plus FSBS q. AC/HS. Check HgbA1c to objectively assess quality of diabetic control. 6. History of GERD - Continue PPI. 7. DVT prophylaxis - Enoxaparin 40 mg sq BID plus SCD's. Total time: Approximately (but not less than) 70 minutes. Charges/Coding Visit Charges OBSV E&M: 04567 Observ/hosp same date L2 03/22/25 0655 <Electronically signed by Omayra Flores DO> Cosigner Signature (if applicable): CC: GRIFFIN Call; Dr. Oamyra Flores DO~ Signed [facility] Work Phone: 1(757) 580-258808-27-2025 History and physical note [facility] Medical Records Department [address] [place] [address] H&P Exam - Hospitalist 03/21/252053 MR#: [id number] Acct: [id number] Name: SIDDHARTH MARVIN Rep #:[id number] : 1970 54 From: Omayra Alva DO PCP: GRIFFIN Andino Status:ADM ROB Location: [place] [address] HPI - General General Date of Admission: 03/21/25 Date of Service: 03/21/25 Chief Complaint: Headache. HPI Narrative SIDDHARTH MARVIN, is a 54 F with a past medical history of morbid obesity (class III); with BMI of 41.3 this admission, DM-2; of unknown control on metformin BID, history of tobacco abuse, history of migraine headaches for years and history of GERD who presents to [facility] ER complaining of headache. Ms. Marvin reports her symptoms began a few months prior to admissionwith a gradual-worsening of her chronic headaches with increased intensity and frequency with not specifically pain - but a warm sensation in her head. She denies recent head trauma or other injury. She denies taking medicine to treat her symptoms because she does not like to take medications. Her family members wanted her to be evaluated further so they insisted she be brought here. There was no reports of fever, chills, nausea, vomiting, diarrhea, constipation, chestpain, palpitations, heart racing, lower extremity edema, dysuria, hematuria, rash or visual disturbances. In the ER she underwent a CT of the brain without contrast that revealed no acute ICH, mass-effect, hydrocephalus or territorial infarct but did reveal indeterminate hypodense focus in the Right bartholomew radiatawhite matter, mew sinceprevious exam with contrast-enhanced MRI recommended to further evaluate with partially empty sella, and borderline low-lying cerebellartonsils, both of which are nonspecific but can be associated with headaches om the setting of elevated intracranial CSF pressure in the setting of Worsening Headaches with Leukocytosis of 12.9K present on admission suspected to be due toacute-stress response withno signs of infection at this time. She was then admitted to the PCU under observation status for ongoing care for a stay that isexpected to be less than 2 midnights. FORMERLY [facility], 1928–1983 Medical History Tobacco use disorder, continuous Encounter for screening for malignant neoplasm of lung Wears glasses Heartburn Gastric reflux History of edema History of echocardiogram History of stress test Smoker Headache, migraine Type 2 diabetes mellitus Kidney infection Home Medications ?Medication ?Instructions ?Recorded ?Last Taken ?Type metformin 1,000 mg tablet 1,000 mg PO BID 03/21/25 Unk nown History Allergy/AdvReac Type Severity Reaction Status Date / Time amoxicillin Allergy Rash Verified 03/21/25 16:31 Family History Father Diabetes Heart disease Mother COPD (chronic obstructive pulmonary disease) Surgical History History of tubal ligation (~1995) History of (~1989) Social History household members: none current occupational status: employed current occupation: [employer] Smoking Status: Current every day smoker tobacco type: cigarettes substance use type: does not use ROS ROS Narrative Review of Systems: Constitutional: Patient denies fever or chills. Eyes: Patient denies changes in vision or discharge from eyes. ENT: Patient denies runny nose, sore throat or ear pain. Resp: Patient denies SOB or cough. CV: Patient denies chest pain, palpitations or heart racing. GI: Patient denies abdominal pain, nausea, vomiting, diarrhea or constipation. : Patient denies dysuria or hematuria. MSK: Patient denies arthralgias or myalgias. Skin: Patient denies rash, abscess, wounds or jaundice. Psych: Patient denies symptoms of uncontrolled depression or anxiety. Neuro: Patient admits to worsening of headaches with increased intensity and frequency with warm sensation as per HPI. Allergy: Patient denies lip swelling, tongue swelling or urticaria. Hematology: Patient denies easy bleeding or easy bruisability. Endocrinology: Patient denies polyuria, polydipsia, polyphagia or heat/cold intolerance. 14 point ROS otherwise negative except for positives noted above in HPI. Vital Signs Vital Signs Vital Signs: 03/21/25 16:29 03/21/25 18:33 03/21/25 18:33 Temperature 98.0 F Temperature Source Oral Pulse Rate 91 72 Respiratory Rate 16 18 Blood Pressure 154/109 H 156/86 H Blood Pressure Mean 124 109 Pulse Ox 98 97 97 Oxygen Delivery Method Room Air Room Air Room Air 03/21/25 20:00 Temperature Temperature Source Pulse Rate 69 Respiratory Rate 18 Blood Pressure 131/73 H Blood Pressure Mean 92 Pulse Ox 94 Oxygen Delivery Method Room Air Weight Weight: 233 lb 6.4 oz Body Mass Index (BMI) 41.3 Physical Exam Const alert, oriented x3, no apparent distress and healthy appearing Constitutional Narrative: Morbidly obese. General Appearance: cooperative HEENT normocephalic, head/scalp atraumatic and hearing grossly normal bilaterally Eyes PERRL, EOMs intact bilaterally and conjunctivae normal Neck no lymphadenopathy, supple and no JVD Resp normal respiratory effort, no use of accessory muscles and clear to auscultationbilaterally Cardio regular rate and regular rhythm GI normal to inspection, nondistended, normoactive bowel sounds, soft to palpation,non-tender and non-distended GI Narrative: Morbidly obese. Extremity normal to inspection, full ROM and no clubbing, cyanosis or edema Skin Skin Narrative: Patient has no evidence of rash, abscess, wounds or jaundice. Neuro oriented x3, CN's II-XII intact bilaterally, moves all extremities and no focal motor deficits Sensorium / Orientation: awake, alert, oriented to person, oriented to place andoriented to time Speech: speech normal Psych affect normal Results Medical Records Data Attestation: I reviewed the patient's medical records Lab / Micro Data Attestation: I reviewed the patient's lab results. 03/21/25 18:35 03/21/25 18:35 Labs: Laboratory Results - last 24 hr 03/21/25 18:35: WBC 12.9 H, RBC 4.89, Hgb 14.3, Hct 43.7, MCV 89.4, MCH 29.2, MCHC 32.7, RDW Std Deviation 44.8 H, RDW Coeff of Bong 13.8, Plt Count 376, MPV 9.9, Immature Gran % (Auto) 0.400, Neut % (Auto) 49.4, Lymph % (Auto) 40.2, [place]% (Auto) 6.0, Eos % (Auto) 3.3, Baso % (Auto) 0.7, Absolute Neuts (auto) 6.4, Absolute Lymphs (auto) 5.19 H, Nucleated RBC % 0, Atypical Lymphocytes 2+, Platelet Estimate ADEQUATE, Sodium 140, Potassium 4.0, Chloride 102, Carbon Dioxide 24.2, Anion Gap 15, BUN 12, Creatinine 0.64 L, Estim Creat Clear Calc 114.33, Est GFR (MDRD) Non-Af 104, BUN/Creatinine Ratio19.3, Glucose 83, Hemoglobin A1c 6.0 H, Calcium 10.1, TSH 2.410, Free T4 1.10, Free T3 pg/dL 3.3 Imaging Radiology Impression Brain CT 03/21/25 17:20 IMPRESSION: 1. No acute intracranial hemorrhage, mass-effect, hydrocephalus, or territorial infarct. 2. Small indeterminate hypodense focus in the right frontal bartholomew radiata whitematter, new since prior exam. Suggest contrast-enhanced MRI to further evaluate. 3. Partially empty sella, and borderline low-lying cerebellar tonsils, both of which are nonspecific but can be associated with headaches in the setting of elevated intracranial CSF pressure. Reading Location: [facility] Chest X-Ray 03/21/25 18:25 IMPRESSION: No evidence of acute cardiopulmonary disease. Reading Location: [facility] Assessment & Plan Assessment/Plan (1) Headache: QUALIFIERS: Headache type: unspecified Headache chronicity pattern: chronic headache Intractability: not intractable Qualified Code(s): R51.9 - Headache, unspecified; G89.29 - Other chronic pain (2) History of migraine headaches: (3) Abnormal CT of the head: (4) Tobacco use disorder, continuous: (5) Morbid obesity: PLAN: Plan 1. CT of the brain without contrast that revealed no acute ICH, mass-effect, hydrocephalus or territorial infarct but did reveal indeterminate hypodense focus in the Right bartholomew radiata white matter, mew since previous exam with contrast-enhanced MRI recommended to further evaluate with partially empty sella, and borderline low-lying cerebellar tonsils, both of which are nonspecific but can be associated with headaches om the setting of elevated intracranial CSF pressure in the setting of Worsening Headaches with Leukocytosis of 12.9K present on admission suspected to be due to acute-stress r esponse - Admit to PCU under observation status. Check MRI of the brain with IV contrast to evaluate apparently new lesion in Right bartholomew radiata as per radiologist's recommendations. Check LP at IRto evaluate for possible elevatedopening pressure. Check UA C&S to evaluate for possible underlying infection with increased WBC. Check TSH, B12, Folate, HgbA1c, Lipid Profile, MICAH and UDS. Continue ECASA and begin statin. Give acetaminophen prn pain or fever. Check echocardiogram to evaluate LVEF. Check carotid Doppler to evaluate for stenosis. Finally, we will consult [facility] tel[facility] to evaluate this patient on-rounds in the AM for further recommendations with help appreciated in advance . 2. History of migraine headaches for years complicating #1 - Noted. 3. Chronic Tobacco Abuse compounding #1 & #2 - Tobacco Cessation was strongly encouraged with Nicotine patch offered to control cravings. 4. Morbid obesity (class III); with BMI of 41.3 this admission adding to the burden of disease outlined from #1 - #3 - Weight loss will be recommended. Check TSH. This complicates her case and may hamper recovery. 5. DM-2; of unknown control on metformin BID - Hold metformin and cover with SSI plus FSBS q. AC/HS. Check HgbA1c to objectively assess quality of diabetic control. 6. History of GERD - Continue PPI. 7. DVT prophylaxis - Enoxaparin 40 mg sq BID plus SCD's. Total time: Approximately (but not less than) 70 minutes. Charges/Coding Visit Charges OBSV E&M: 37763 Observ/hosp same date L2 03/22/25 0655 Cosigner Signature (if applicable): CC: GRIFFIN Call; Dr. Omayra Flores, DO~ Signed [facility]08-26-2025 Evaluation note* Diagnosis Onset Date Resolution Status Admit Date Abnormal CT of the head acute A ugust 2024 9:17pm Headache acute March 21, 2 025 9:17pm History of migraine headaches acute March 21, 2025 9:17pm Tobacco use disorder, continuous acute March 21 9:17pm Hypertension chronic March 21, 2025 9:17pm Morbid obesity chronic February 9:17pm [facility] Work Phone: 1(990) 164-813308-26-2025 Evaluation note* Diagnosis Onset Date Resolution Status Admit Date Headache resolved March 21, 2 025 9:17pm Abnormal CT of the head inactive A ugust 2024 9:17pm History of migraine headaches inacti ve March 21, 2025 9:17pm Hypertension inactive March 21, 2025 9:17pm Morbid obesity inactive February 9:17pm Tobacco use disorder, continuous inactive March 21 9:17pm [facility] [employer] Work Phone: 1(204) 227-942908-26-2025 Discharge summary Author Kashif Wan [facility] Note Date/Time March 21, 2025 8: 55pm [facility] Medical Records Department [address] [place] [address] Emergency Department Summary 03/21/25 MR#: [id number] Acct: [id number] Name: SIDDHARTH MARVIN Rep #:[id number] : 1970 54 From: Kashif Wan DO PCP: GRIFFIN Andino Status:REG ER Location: ED HPI History of Present Illness Chief Complaint: Headache Narrative Narrative: Patient is a 54-year-old female with past medical history of GERD, tobacco use, migraine headaches, type 2 diabetes who presents to the emergency department thechi complaint of discomfort in her head. She states that this been going on for years however over the last few months she feels like it has been more intermittent than it was in the past. States that her family numbers wanted herto be evaluated therefore she came here. Patient notes that she has not had anyinjuries to her head recently. She notes that she is on a blood thinner medications. She states that she not take anything for pain as she does not have a headache she states that just is a warm sensation. Patient states that she did not want anything for pain here in the emergency department as she does not like to take medication PFSH PFS Medical History Tobacco use disorder, continuous Encounter for screening for malignant neoplasm of lung Wears glasses Heartburn Gastric reflux History of edema History of echocardiogram History of stress test Smoker Headache, migraine Type 2 diabetes mellitus Kidney infection Home Medications ?Medication ?Instructions ?Recorded ?Last Taken ?Type metformin 1,000 mg tablet 1,000 mg PO BID 03/21/25 Unk nown History Allergy/AdvReac Type Severity Reaction Status Date / Time amoxicillin Allergy Rash Verified 03/21/25 16:31 Family History Father Diabetes Heart disease Mother COPD (chronic obstructive pulmonary disease) Surgical History History of tubal ligation (~1995) History of (~1989) Social History household members: none current occupational status: employed current occupation: [email or web address] Smoking Status: Current every day smoker tobacco type: cigarettes substance use type: does not use ROS ROS ED ROS Narrative Constitutional: Denies fevers, chills, lightness, dizziness Eyes: Denies double vision Cardiovascular: Denies chest pain Respiratory: Shortness of breath Abdomen: Denies nausea vomit diarrhea : Denies any urinary symptoms Neurological: Denies any numbness, weakness, tingling Musculoskeletal: Denies back pain Skin: Denies any rashes or lesions EXAM Physical Exam Narrative Exam Narrative: General: Patient was lying in bed rest comfortably did not appear to be in acutedistress Head: Atraumatic, normocephalic Eyes: PERRL bilaterally, EOMI bilateral, no conjunctival injection noted Neck: Soft, supple, trachea midline Cardiovascular: Regular rate Respiratory: Clear to auscultation bilaterally Abdomen: No tenderness to palpation Extremities: +5/5 strength noted in the bilateral lower extremities, radial pulses +2/4 in above extremities, no pedal edema on exam Neurological: Patient on commands that she was at [facility] year is 2024 sensation grossly intact NIH of 0 GCS 15. Patient completed finger-nose testingbilaterally without any difficulty Skin: Warm, dry, intact no rashes or lesions noted Const Vital Signs: 03/21/25 16:29 03/21/25 18:33 03/21/25 18:33 Temperature 98.0 F Temperature Source Oral Pulse Rate 91 72 Respiratory Rate 16 18 Blood Pressure 154/109 H 156/86 H Blood Pressure Mean 124 109 Pulse Ox 98 97 97 Oxygen Delivery Method Room Air Room Air Room Air 03/21/25 20:00 03/21/25 20:54 Temperature 98.6 F Temperature Source Pulse Rate 69 70 Respiratory Rate 18 18 Blood Pressure 131/73 H 148/61 H Blood Pressure Mean 92 90 Pulse Ox 94 99 Oxygen Delivery Method Room Air MDM MDM MDM Narrative Medical decision making narrative: Patient is a 54-year-old female who presents to the emergency department with a sensation of warmth in her head. On the differential diagnosis includes but limited to intracranial mass, migraine headache although she states that she does not feel like she has a headache, intracranial hemorrhage, aneurysm, trigeminal neuralgia. Once workup is obtained reviewed she will be reevaluated. Patient once again states that she does not want take any medication for pain Patient CT and brain without contrast showed no acute intracranial hemorrhage mass effect or territorial infarct. Small indeterminate hyperdense focus in theright frontal bartholomew radiata white matter new since prior exam suggesting an MRIto further evaluate. Partially empty sella and borderline low-lying cerebellar tonsils both of which are nonspecific but can be associate with headaches in thesetting of elevated intracranial CSF pressure. Given the abnormality of the small and indeterminate hypodense focus this could be related to a previous stroke and she was noted be hypertensive here in the emergency department and she is not any blood pressure medication and she is also diabetic do believe she would likely benefit from admission for a stroke workup. Remainder of the workup was added on which showed a white blood count of 12.9, he was 14.3, platelet count 376. Patient sodium normal at 140, potassium normalat 4, creatinine was 0.64. Patient's hemoglobin A1c was 6. Patient TSH normal at 2.41, free T4 and T3 was noted be 1.10 and 3.3 respectively. Patient chest x-ray reviewed by myself by radiology which showed no acute cardiopulmonary processes. Patient's EKG showed sinus rhythm rate of 69 bpm. At this point time will discuss case with hospitalist for admission for observation for stroke workup with the new finding on her CT her head and her headaches/sensation increasing recently. Patient was given 325 mg aspirin. Discussed case with hospitalist Dr. Curtis who accept patient for admission. Patient notified is agreeable spinal course concerns answered. Lab Data Labs: Laboratory Results - last 24 hr 03/21/25 18:35 WBC 12.9 H RBC 4.89 Hgb 14.3 Hct 43.7 MCV 89.4 MCH 29.2 MCHC 32.7 RDW Std Deviation 44.8 H RDW Coeff of Bong 13.8 Plt Count 376 MPV 9.9 Immature Gran % (Auto) 0.400 Neut % (Auto) 49.4 Lymph % (Auto) 40.2 [place] % (Auto) 6.0 Eos % (Auto) 3.3 Baso % (Auto) 0.7 Absolute Neuts (auto) 6.4 Absolute Lymphs (auto) 5.19 H Nucleated RBC % 0 Atypical Lymphocytes 2+ Platelet Estimate ADEQUATE Sodium 140 Potassium 4.0 Chloride 102 Carbon Dioxide 24.2 Anion Gap 15 BUN 12 Creatinine 0.64 L Estim Creat Clear Calc 114.33 Est GFR (MDRD) Non-Af 104 BUN/Creatinine Ratio 19.3 Glucose 83 Hemoglobin A1c 6.0 H Calcium 10.1 TSH 2.410 Free T4 1.10 Free T3 pg/dL 3.3 Radiography Diagnostic Testing: Clinical Impression(s) from Imaging Studies Brain CT 03/21/25 17:20 IMPRESSION: 1. No acute intracranial hemorrhage, mass-effect, hydrocephalus, or territorial infarct. 2. Small indeterminate hypodense focus in the right frontal bartholomew radiata whitematter, new since prior exam. Suggest contrast-enhanced MRI to further evaluate. 3. Partially empty sella, and borderline low-lying cerebellar tonsils, both of which are nonspecific but can be associated with headaches in the setting of elevated intracranial CSF pressure. Reading Location: [facility] Chest X-Ray 03/21/25 18:25 IMPRESSION: No evidence of acute cardiopulmonary disease. Reading Location: [facility] Discharge Plan Triage Chief Complaint: Headache ED Provider: Kashif Wan Dx/Rx/DC Orders Clinical Impression: Headache, Hypertension, Abnormal CT of the head Prescriptions: No Action metformin 1,000 mg tablet 1,000 mg PO BID Primary Care Provider: Cortez Call Referrals: Cortez Call, ASSOCIATE DATA SCIENTIST-C [Primary Care Provider] - Print Language: Tongan Disposition Disposition: Home, Self Care What to do if you have Problems For any increased pain, shortness of breath, bleeding, nausea or vomiting, chestpain, or any unexpected problems, contact your Primary Care Provider. Call [facility] ([phone]) or report to the closest Emergency Room. Call 911 if necessary. 03/21/252054 <Electronically signed by Kashif Wan DO> Cosigner Signature (if applicable): CC: GRIFFIN Call ~ Signed [facility] Work Phone: 1(937) 947-261208-26-2025 Discharge summary [facility] Medical Records Department [address] [place] [address] Emergency Department Summary 03/21/25 MR#: [id number] Acct: [id number] Name: SIDDHARTH MARVIN Rep #:[id number] : 1970 54 From: Kashif Wan DO PCP: GRIFFIN Andino Status:REG ER Location: ED HPI History of Present Illness Chief Complaint: Headache Narrative Narrative: Patient is a 54-year-old female with past medical history of GERD, tobacco use, migraine headaches,type 2 diabetes who presents to the emergency department thechief complaint of discomfort in her head. She states that this been going on for years however over the last few months she feels like it has been more intermittent than it was in the past. States that her family numbers wanted herto be evaluated therefore she came here. Patient notes that she has not had anyinjuries to her head recently. She notes that she is on a blood thinner medications. She states that she not take anything for pain as she does not have a headache she states that just is a warm sensation. Patient states that she did not want anything for pain here in the emergency department as she does not like to take medication PFSH PFS Medical History Tobacco use disorder, continuous Encounter for screening for malignant neoplasm of lung Wears glasses Heartburn Gastric reflux History of edema History of echocardiogram History of stress test Smoker Headache, migraine Type 2 diabetes mellitus Kidney infection Home Medications ?Medication ?Instructions ?Recorded ?Last Taken ?Type metformin 1,000 mg tablet 1,000 mg PO BID 03/21/25 Unk nown History Allergy/AdvReac Type Severity Reaction Status Date / Time amoxicillin Allergy Rash Verified 03/21/25 16:31 Family History Father Diabetes Heart disease Mother COPD (chronic obstructive pulmonary disease) Surgical History History of tubal ligation (~1995) History of (~1989) Social History household members: none current occupational status: employed current occupation: [email or web address] Smoking Status: Current every day smoker tobacco type: cigarettes substance use type: does not use ROS ROS ED ROS Narrative Constitutional: Denies fevers, chills, lightness, dizziness Eyes: Denies double vision Cardiovascular: Denies chest pain Respiratory: Shortness of breath Abdomen: Denies nausea vomit diarrhea : Denies any urinary symptoms Neurological: Denies any numbness, weakness, tingling Musculoskeletal: Denies back pain Skin: Denies any rashes or lesions EXAM Physical Exam Narrative Exam Narrative: General: Patient was lying in bed rest comfortably did not appear to be in acutedistress Head: Atraumatic, normocephalic Eyes: PERRL bilaterally, EOMI bilateral, no conjunctival injection noted Neck: Soft, supple, trachea midline Cardiovascular: Regular rate Respiratory: Clear to auscultation bilaterally Abdomen: No tenderness to palpation Extremities: +5/5 strength noted in the bilateral lower extremities, radial pulses +2/4 in above extremities, no pedal edema on exam Neurological: Patient on commands that she was at [facility] year is 2024 sensation grossly intact NIH of 0 GCS 15. Patient completed finger-nose testingbilaterally without any difficulty Skin: Warm, dry, intact no rashes or lesions noted Const Vital Signs: 03/21/25 16:29 03/21/25 18:33 03/21/25 18:33 Temperature 98.0 F Temperature Source Oral Pulse Rate 91 72 Respiratory Rate 16 18 Blood Pressure 154/109 H 156/86 H Blood Pressure Mean 124 109 Pulse Ox 98 97 97 Oxygen Delivery Method Room Air Room Air Room Air 03/21/25 20:00 03/21/25 20:54 Temperature 98.6 F Temperature Source Pulse Rate 69 70 Respiratory Rate 18 18 Blood Pressure 131/73 H 148/61 H Blood Pressure Mean 92 90 Pulse Ox 94 99 Oxygen Delivery Method Room Air MDM MDM MDM Narrative Medical decision making narrative: Patient is a 54-year-old female who presents to the emergency department with a sensation of warmthin her head. On the differential diagnosis includes but limited to intracranial mass, migraine headache although she states that she does not feel like she has a headache, intracranial hemorrhage, aneurysm, trigeminal neuralgia. Once workup is obtained reviewed she will be reevaluated. Patient onceagain states that she does not want take any medication for pain Patient CT and brain without contrast showed no acute intracranial hemorrhage mass effect or territorial infarct. Small indeterminate hyperdense focus in theright frontal bartholomew radiata white matter new since prior exam suggesting an MRIto further evaluate. Partially empty sella and borderline low-lying cerebellar tonsils both of which are nonspecific but can be associate with headaches in thesetting of elevated intracranial CSF pressure. Given the abnormality of the small and indeterminate hypodense focus this could be related to a previous stroke and she was noted be hypertensive here in the emergency department and she is not any blood pressure medication and she is also diabetic do believe she would likely benefit from admissionfor a stroke workup. Remainder of the workup was added on which showed a white blood count of 12.9, he was 14.3, platelet count 376. Patient sodium normal at 140, potassium normalat 4, creatinine was 0.64. Patient's hemoglobin A1c was 6. Patient TSH normal at 2.41, free T4 and T3 was noted be 1.10 and 3.3 respectively.Patient chest x-ray reviewed by myself by radiology which showed no acute cardiopulmonary processes. Patient's EKG showed sinus rhythm rate of 69 bpm. At this point time will discuss case with hospitalist for admission for observation for stroke workup with the new finding on her CT her head and her headaches/sensation increasing recently. Patient was given 325 mg aspirin. Discussed case with hospitalist Dr. Curtis who accept patient for admission. Patient notified isagreeable spinal course concerns answered. Lab Data Labs: Laboratory Results - last 24 hr 03/21/25 18:35 WBC 12.9 H RBC 4.89 Hgb 14.3 Hct 43.7 MCV 89.4 MCH 29.2 MCHC 32.7 RDW Std Deviation 44.8 H RDW Coeff of Bong 13.8 Plt Count 376 MPV 9.9 Immature Gran % (Auto) 0.400 Neut % (Auto) 49.4 Lymph % (Auto) 40.2 [place] % (Auto) 6.0 Eos % (Auto) 3.3 Baso % (Auto) 0.7 Absolute Neuts (auto) 6.4 Absolute Lymphs (auto) 5.19 H Nucleated RBC % 0 Atypical Lymphocytes 2+ Platelet Estimate ADEQUATE Sodium 140 Potassium 4.0 Chloride 102 Carbon Dioxide 24.2 Anion Gap 15 BUN 12 Creatinine 0.64 L Estim Creat Clear Calc 114.33 Est GFR (MDRD) Non-Af 104 BUN/Creatinine Ratio 19.3 Glucose 83 Hemoglobin A1c 6.0 H Calcium 10.1 TSH 2.410 Free T4 1.10 Free T3 pg/dL 3.3 Radiography Diagnostic Testing: Clinical Impression(s) from Imaging Studies Brain CT 03/21/25 17:20 IMPRESSION: 1. No acute intracranial hemorrhage, mass-effect, hydrocephalus, or territorial infarct. 2. Small indeterminate hypodense focus in the right frontal bartholomew radiata whitematter, new since prior exam. Suggest contrast-enhanced MRI to further evaluate. 3. Partially empty sella, and borderline low-lying cerebellar tonsils, both of which are nonspecific but can be associated with headaches in the setting of elevated intracranial CSF pressure. Reading Location: [facility] Chest X-Ray 03/21/25 18:25 IMPRESSION: No evidence of acute cardiopulmonary disease. Reading Location: [facility] Discharge Plan Triage Chief Complaint: Headache ED Provider: Kashif Wan Dx/Rx/DC Orders Clinical Impression: Headache, Hypertension, Abnormal CT of the head Prescriptions: No Action metformin 1,000 mg tablet 1,000 mg PO BID Primary Care Provider: Cortez Call Referrals: Cortez Call, ASSOCIATE DATA SCIENTIST-C [Primary Care Provider] - Print Language: Tongan Disposition Disposition: Home, Self Care What to do if you have Problems For any increased pain, shortness of breath, bleeding, nausea or vomiting, chestpain, or any unexpected problems, contact your Primary Care Provider. Call [facility] ([phone]) or report tothe closest Emergency Room. Call 911 if necessary. 03/21/252054 Cosigner Signature (if applicable): CC: GRIFFIN Call ~ Signed [facility]08-26-2025 Radiology Diagnostic study note [facility] Imaging Services [address] [place] [id number] Chest 1 View (Portable) MR#: [id number] Acct: [id number] Name: SIDDHARTH MARVIN Rep #: [id number] : 1970 F 54 From: Calvin Coburn MD PCP: GRIFFIN Andino Status: REG ER Study:Chest 1 View (Portable) Date of Exam: 03/21/25 Exam# [id number] Ordering Dr: Bernardo Wan DO PROCEDURE: CHEST 1 VIEW (PORTABLE) 03/21/2025 REASON FOR EXAM: CHEST PAIN TECHNIQUE: Frontal view of the chest. COMPARISON: 05/03/2018 FINDINGS: Lungs/Pleura: Clear. No pneumothorax or sizable pleural effusion. Heart/Mediastinum: Mildly enlarged, although likely exaggerated by technique. Bones/Soft tissues: Mild degenerative changes of the thoracic spine. RAD/Chest 1 View (Portable) IMPRESSION: No evidence of acute cardiopulmonary disease. Reading Location: [facility] CC: GRIFFIN Call; Dr. Kashif Wan DO ~ Perioperative Manager: Signed [facility]08-26-2025 Radiology Diagnostic study note [facility] Imaging Services [address] [place] [address] Brain/Head without Contrast MR#: [id number] Acct: [id number] Name: SIDDHARTH MARVIN Rep #: [id number] : 1970 F 54 From: Calvin Coburn MD PCP: GRIFFIN Andino Status: REG ER Study:Brain/Head without Contrast Date of Exa m: 03/21/25 Exam# [id number] Ordering Dr: Bernardo Wan DO PROCEDURE: CT BRAIN/HEAD WITHOUT CONTRAST 03/21/2025 REASON FOR EXAM: HEADACHE TECHNIQUE: CT BRAIN/HEAD WITHOUT CONTRAST Coronal and Sagittal reconstruction series were provided. One or more dose reduction techniques were used (e.g., Automated exposure control, adjustment of the mA and/or kV according to patient size, use of iterative reconstruction technique. RADIATION DOSE SUMMARY: CTDlvol: 44.99 mGy DLP: 796.11 mGycm COMPARISON: CT head 11/17/2022 FINDINGS: No acute intracranial hemorrhage, extra-axial collection, mass-effect, or hydrocephalus. Nonspecific partially empty sella turcica. Borderline low-lying cerebellar tonsils. There is a small ill-defined parenchymal hypodense focus within the right frontal bartholomew radiata white matter, which is new from prior exam, and probably related to chronic small-vessel ischemic change, however is indeterminate.No other regions of abnormal parenchymal attenuation appreciated. No acute territorial infarct. Unremarkable orbits. Mild mucosal thickening in the floors of the maxillary sinuses without fluid levels. No mastoid effusions. The skull base and calvarium are intact. CT/Brain/Head without Contrast IMPRESSION: 1. No acute intracranial hemorrhage, mass-effect, hydrocephalus, or territorial infarct. 2. Small indeterminate hypodense focus in the right frontal bartholomew radiata whitematter, new since prior exam. Suggest contrast-enhanced MRI to further evaluate. 3. Partially empty sella, and borderline low-lying cerebellar tonsils, both of which are nonspecific but can be associated with headaches in the setting of elevated intracranial CSF pressure. Reading Location: [facility] CC: PRISCILAC Cortez Call; Dr. Kashif Wan DO ~ Perioperative Manager: Signed [facility]08-26-2025 Discharge summary Author Kashif Wan [facility] Note Date/Time March 21, 2025 8: 55pm [facility] Medical Records Department [address] [place] [address] Emergency Department Summary 03/21/25 MR#: [id number] Acct: [id number] Name: SIDDHARTH MARVIN Rep #:[id number] : 1970 54 From: Kashif Wan DO PCP: GRIFFIN Andino Status:REG ER Location: ED HPI History of Present Illness Chief Complaint: Headache Narrative Narrative: Patient is a 54-year-old female with past medical history of GERD, tobacco use, migraine headaches, type 2 diabetes who presents to the emergency department thechief complaint of discomfort in her head. She states that this been going on for years however over the last few months she feels like it has been more intermittent than it was in the past. States that her family numbers wanted herto be evaluated therefore she came here. Patient notes that she has not had anyinjuries to her head recently. She notes that she is on a blood thinner medications. She states that she not take anything for pain as she does not have a headache she states that just is a warm sensation. Patient states that she did not want anything for pain here in the emergency department as she does not like to take medication PFSH [facility]LY [facility], 1928[facility]1983 Medical History Tobacco use disorder, continuous Encounter for screening for malignant neoplasm of lung Wears glasses Heartburn Gastric reflux History of edema History of echocardiogram History of stress test Smoker Headache, migraine Type 2 diabetes mellitus Kidney infection Home Medications ?Medication ?Instructions ?Recorded ?Last Taken ?Type metformin 1,000 mg tablet 1,000 mg PO BID 03/21/25 Unk nown History Allergy/AdvReac Type Severity Reaction Status Date / Time amoxicillin Allergy Rash Verified 03/21/25 16:31 Family History Father Diabetes Heart disease Mother COPD (chronic obstructive pulmonary disease) Surgical History History of tubal ligation (~1995) History of (~1989) Social History household members: none current occupational status: employed current occupation: [email or web address] Smoking Status: Current every day smoker tobacco type: cigarettes substance use type: does not use ROS ROS ED ROS Narrative Constitutional: Denies fevers, chills, lightness, dizziness Eyes: Denies double vision Cardiovascular: Denies chest pain Respiratory: Shortness of breath Abdomen: Denies nausea vomit diarrhea : Denies any urinary symptoms Neurological: Denies any numbness, weakness, tingling Musculoskeletal: Denies back pain Skin: Denies any rashes or lesions EXAM Physical Exam Narrative Exam Narrative: General: Patient was lying in bed rest comfortably did not appear to be in acutedistress Head: Atraumatic, normocephalic Eyes: PERRL bilaterally, EOMI bilateral, no conjunctival injection noted Neck: Soft, supple, trachea midline Cardiovascular: Regular rate Respiratory: Clear to auscultation bilaterally Abdomen: No tenderness to palpation Extremities: +5/5 strength noted in the bilateral lower extremities, radial pulses +2/4 in above extremities, no pedal edema on exam Neurological: Patient on commands that she was at [facility] year is 2024 sensation grossly intact NIH of 0 GCS 15. Patient completed finger-nose testingbilaterally without any difficulty Skin: Warm, dry, intact no rashes or lesions noted Const Vital Signs: 03/21/25 16:29 03/21/25 18:33 03/21/25 18:33 Temperature 98.0 F Temperature Source Oral Pulse Rate 91 72 Respiratory Rate 16 18 Blood Pressure 154/109 H 156/86 H Blood Pressure Mean 124 109 Pulse Ox 98 97 97 Oxygen Delivery Method Room Air Room Air Room Air 03/21/25 20:00 03/21/25 20:54 Temperature 98.6 F Temperature Source Pulse Rate 69 70 Respiratory Rate 18 18 Blood Pressure 131/73 H 148/61 H Blood Pressure Mean 92 90 Pulse Ox 94 99 Oxygen Delivery Method Room Air MDM MDM MDM Narrative Medical decision making narrative: Patient is a 54-year-old female who presents to the emergency department with a sensation of warmth in her head. On the differential diagnosis includes but limited to intracranial mass, migraine headache although she states that she does not feel like she has a headache, intracranial hemorrhage, aneurysm, trigeminal neuralgia. Once workup is obtained reviewed she will be reevaluated. Patient once again states that she does not want take any medication for pain Patient CT and brain without contrast showed no acute intracranial hemorrhage mass effect or territorial infarct. Small indeterminate hyperdense focus in theright frontal bartholomew radiata white matter new since prior exam suggesting an MRIto further evaluate. Partially empty sella and borderline low-lying cerebellar tonsils both of which are nonspecific but can be associate with headaches in thesetting of elevated intracranial CSF pressure. Given the abnormality of the small and indeterminate hypodense focus this could be related to a previous stroke and she was noted be hypertensive here in the emergency department and she is not any blood pressure medication and she is also diabetic do believe she would likely benefit from admission for a stroke workup. Remainder of the workup was added on which showed a white blood count of 12.9, he was 14.3, platelet count 376. Patient sodium normal at 140, potassium normalat 4, creatinine was 0.64. Patient's hemoglobin A1c was 6. Patient TSH normal at 2.41, free T4 and T3 was noted be 1.10 and 3.3 respectively. Patient chest x-ray reviewed by myself by radiology which showed no acute cardiopulmonary processes. Patient's EKG showed sinus rhythm rate of 69 bpm. At this point time will discuss case with hospitalist for admission for observation for stroke workup with the new finding on her CT her head and her headaches/sensation increasing recently. Patient was given 325 mg aspirin. Discussed case with hospitalist Dr. Curtis who accept patient for admission. Patient notified is agreeable spinal course concerns answered. Lab Data Labs: Laboratory Results - last 24 hr 03/21/25 18:35 WBC 12.9 H RBC 4.89 Hgb 14.3 Hct 43.7 MCV 89.4 MCH 29.2 MCHC 32.7 RDW Std Deviation 44.8 H RDW Coeff of Bong 13.8 Plt Count 376 MPV 9.9 Immature Gran % (Auto) 0.400 Neut % (Auto) 49.4 Lymph % (Auto) 40.2 [place] % (Auto) 6.0 Eos % (Auto) 3.3 Baso % (Auto) 0.7 Absolute Neuts (auto) 6.4 Absolute Lymphs (auto) 5.19 H Nucleated RBC % 0 Atypical Lymphocytes 2+ Platelet Estimate ADEQUATE Sodium 140 Potassium 4.0 Chloride 102 Carbon Dioxide 24.2 Anion Gap 15 BUN 12 Creatinine 0.64 L Estim Creat Clear Calc 114.33 Est GFR (MDRD) Non-Af 104 BUN/Creatinine Ratio 19.3 Glucose 83 Hemoglobin A1c 6.0 H Calcium 10.1 TSH 2.410 Free T4 1.10 Free T3 pg/dL 3.3 Radiography Diagnostic Testing: Clinical Impression(s) from Imaging Studies Brain CT 03/21/25 17:20 IMPRESSION: 1. No acute intracranial hemorrhage, mass-effect, hydrocephalus, or territorial infarct. 2. Small indeterminate hypodense focus in the right frontal bartholomew radiata whitematter, new since prior exam. Suggest contrast-enhanced MRI to further evaluate. 3. Partially empty sella, and borderline low-lying cerebellar tonsils, both of which are nonspecific but can be associated with headaches in the setting of elevated intracranial CSF pressure. Reading Location: [facility] Chest X-Ray 03/21/25 18:25 IMPRESSION: No evidence of acute cardiopulmonary disease. Reading Location: [facility] Discharge Plan Triage Chief Complaint: Headache ED Provider: Kashif Wan Dx/Rx/DC Orders Clinical Impression: Headache, Hypertension, Abnormal CT of the head Prescriptions: No Action metformin 1,000 mg tablet 1,000 mg PO BID Primary Care Provider: Cortez Call Referrals: Cortez Call, GRIFFIN [Primary Care Provider] - Print Language: Tongan Disposition Disposition: Home, Self Care What to do if you have Problems For any increased pain, shortness of breath, bleeding, nausea or vomiting, chestpain, or any unexpected problems, contact your Primary Care Provider. Call [facility] ([phone]) or report to the closest Emergency Room. Call 911 if necessary. 03/21/252054 <Electronically signed by Kashif Wan DO> Cosigner Signature (if applicable): CC: GRIFFIN Call ~ Signed [facility] Work Phone: 1(178) 104-576010-07-2024 Hospital Discharge instructions Patient Education 05/02/2024 09:11:28 Hives (Adult) [...] breathing or swallowing Dizziness, weakness, or fainting [id number] [employer]. [address] [place] [address]. All rights reserved. This information is not intended as a substitute for professional medical care. Always follow yourhealthcare professional's instructions. 05/02/2024 09:11:26 Allergic Reaction, Other (General) General Allergic Reactions An allergic reaction is a set of symptoms caused by an allergen. An allergen is something that causes a person s immune system to react. When a person comes in contact with an allergen, it causes thebody to release chemicals. These include the chemical [...] things that can cause a reaction that youmay not be able to figure out. The [...] products Chemicals or dyes in clothing, linen, supervising floorperson, hair dyes, soaps, iodine Many viruses and [...] damage the skin. Oral diphenhydramine is an [id number]-[id number] antihistamine sold at pharmacy and grocery stores. Unless a prescription antihistamine was given, diphenhydramine may be used to reduce itching if large areas of the skin are involved. It may make you sleepy. So be careful using it in the daytime or when going to school, working, or driving. Note: Don t use diphenhydramine if you have glaucoma or if youare a man with trouble urinating due to [...] or swallowing, ask your provider about carrying auto- injectable epinephrine. Call 911 Call 911 if any [...] hours, or as directed by your provider [phone] [employer]. [address] [place] [address]. All rights reserved. This information is not intended as a substitute for professional medical care. Always follow yourhealthcare professional's instructions. Follow Up Care 05/02/2024 08:47:57 With:follow up with your dentist thursday as discussed Address:Unknown When:2-4 days With:Go to emergency room if symptoms worsen Address:Unknown When:2-4 days With:CORTEZ CALL Address: [address] [place] [phone] When:2-4 days [facility] 10-07-2024 Note Discharge Instructions Thank you for allowing [facility] to assist you with your healthcare needs. The following is importantdischarge information regarding your hospital visit. Diagnosis from Today's Visit Allergic reaction Urticaria What to Do Next Instructions from Your Care Team Please take steroids and antibiotics as prescribed. Please avoid gluing your dentures back in as this may be contributing to recurrence of hives and allergic reaction symptoms. Please take Pepcid andZyrtec or Claritin daily as Zyrtec and Claritin [...] Up with CORTEZ CALL When:Within 2-4 days Where:[facility] [place] [address]- [phone] Allergies No Known Medication Allergies Medications Please ask your primary doctor or pharmacist before taking any other medication not listed, including over the counter drugs, herbal medications, vitamins and or supplements as they may interact withyour home medications. What How Much When Instructions [...] providers or retail pharmacies. Medication Leaflets prednisone (PRED hemanth Owens What is the most important information [...] blood cell disorders, kidney disorders, leukemia, lymphoma, multi ple sclerosis, organ transplant rejection, swelling from a brain tumor or injury. Prednisone may also be used for purposes not listed in this medication guide. What should I discuss with my healthcare provider before taking prednisone? You should not use prednisone if you are allergic to it, or if you have a fungal infection anywherein your body. Steroid medication can weaken your [...] you may get an infection more easily. Callyour doctor if you have signs of infection [...] to thinning skin, easy bruising, changes in bodyfat (especially in your face, neck, back, and [...] can be serious or even fatal in peoplewho are using steroid medicine. Avoid drinking alcohol. [...] skin discoloration, craving salty foods, and feeling light- headed; or low potassium level--leg cramps, constipation, irregular heartbeats, fluttering in your chest, increased thirst or urination, numbness or tingling, muscle weakness or limp feeling. Prednisone can affect growth in children. Tell your doctor if your child is not growing at a normalrate while using this medicine. Common side effects [...] may report side effects to FDA at 5-906-FKJ-8190. What other drugs will affect prednisone? Sometimes [...] may affect prednisone. This includes prescription and hfsh-zkd-pukqmoo medicines, vitamins, and herbal products. Not all [...] to ensure that the information provided by [employer]. ('[employer]') is accurate, up-to-date, and complete, but no guarantee is made to that effect. Drug information contained herein may be time sensitive. [employer] information has been compiled for use by healthcare practitioners and consumers in the [place] and therefore [employer] does not warrant that uses outside of the [place] are appropriate, unless specifically indicated otherwise. [employer] drug information does not endorse drugs, diagnose patients or recommend therapy. [employer] drug information isan informational resource designed to assist licensed healthcare practitioners in caring for their p atients and/or to serve consumers viewing this service as a supplement to, and not a substitute for, the expertise, skill, knowledge and judgment of healthcare practitioners. The absence of a warningfor a given drug or drug combination in no way should be construed to indicate that the drug or drug combination is safe, effective or appropriate for any given patient. [employer] does not assume any responsibility for any aspect of healthcare administered with the aid of information [employer] provides. The information contained herein is not intended to cover all possible uses, directions, precautions, warnings, drug interactions, allergic reactions, or adverse effects. If you have questions about the drugs you are taking, check with your doctor, nurse or pharmacist. Copyright 6672-8856 [facility]. Version: 10.. Revision Date: 10/21/2018. amoxicillin and [...] pill whole, or break the pill in halfand take both halves one at a time. Tell your doctor if you have trouble swallowing a whole or halfpill. You must chew the chewable tablet before [...] body. Symptoms may include skin rash, fever, swollenglands, muscle aches, severe weakness, unusual bruising, or [...] may report side effects to FDA at 7-475-ZOB-9037. What other drugs will affect amoxicillin and clavulanate potassium? Tell your doctor about all your other medicines, especially: allopurinol; probenecid; or a blood thinner--warfarin, Coumadin, Jantoven. This list is not complete. Other drugs may affect amoxicillin and clavulanate potassium, including prescription and wfal-toh-hkvdbxy medicines, vitamins, and herbal products. Not all [...] to ensure that the information provided by [employer]. ('[employer]') is accurate, up-to-date, and complete, but no guarantee is made to that effect. Drug information contained herein may be time sensitive. [employer] information has been compiled for use by healthcare practitioners and consumers in the [place] and therefore [employer] does not warrant that uses outside of the [place] are appropriate, unless specifically indicated otherwise. [employer] drug information does not endorse drugs, diagnose patients or recommend therapy. [employer] drug information isan informational resource designed to assist licensed healthcare practitioners in caring for their p atients and/or to serve consumers viewing this service as a supplement to, and not a substitute for, the expertise, skill, knowledge and judgment of healthcare practitioners. The absence of a warningfor a given drug or drug combination in no way should be construed to indicate that the drug or drug combination is safe, effective or appropriate for any given patient. [employer] does not assume any responsibility for any aspect of healthcare administered with the aid of information [employer] provides. The information contained herein is not intended to cover all possible uses, directions, precautions, warnings, drug interactions, allergic reactions, or adverse effects. If you have questions about the drugs you are taking, check with your doctor, nurse or pharmacist. Copyright 6697-1964 [employer]. Version: 14.. Revision Date: 05/02/2022. Education Materials [...] breathing or swallowing Dizziness, weakness, or fainting 0831-2235 [employer]. [address] [place] [address]. All rights reserved. This information is not intended as a substitute for professional medical care. Always follow yourhealthcare professional's instructions. General Allergic Reactions An allergic reaction is a set of symptoms caused by an allergen. An allergen is something that causes a person s immune system to react. When a person comes in contact with an allergen, it causes thebody to release chemicals. These include the chemical [...] things that can cause a reaction that youmay not be able to figure out. The [...] products Chemicals or dyes in clothing, linen, supervising floorperson, hair dyes, soaps, iodine Many viruses and [...] damage the skin. Oral diphenhydramine is an qvnr-wdt-iovcitk antihistamine sold at pharmacy and grocery stores. Unless a prescription antihistamine was given, diphenhydramine may be used to reduce itching if large areas of the skin are involved. It may make you sleepy. So be careful using it in the daytime or when going to school, working, or driving. Note: Don t use diphenhydramine if you have glaucoma or if youare a man with trouble urinating due to [...] or swallowing, ask your provider about carrying auto- injectable epinephrine. Call 911 Call 911 if any [...] hours, or as directed by your provider 6537-7553 [employer]. [address] [place] [address]. All rights reserved. This information is not intended as a substitute for professional medical care. Always follow yourhealthcare professional's instructions. Additional Information VACCINATE! IT SAVES LIVES! Members of the community who have not yet received the COVID-19 vaccine and would like to receive it can visit one of [facility] vaccine clinics. There are many vaccine clinic locations within the [facility]. For locations and available times, please visit www.gettheshot.coronavirus.[place].gov/. It is important to note that some COVID mobile vaccine clinics are held outdoors and may be canceled in rainy or stormy conditions. To learn more about pediatric vaccinations (ages 5-11), we invite you to visit the [facility] webpage. https://www.[facility].org/pages/5780-Vvweh-Pzkuqmmpfsh-Wyerodfsbw-Ltbmy-Ngi stions.htmlTo learn more about the COVID-19 vaccine, we invite you to visit the CDC website for a list of frequently asked questions. https://www.cdc.gov/coronavirus/2019-ncov/vaccines/faq.html [employer] Patient Portal Access Instructions: Stay connected with your healthcare team and access your personal medical information anytime with the [employer] Patient Portal. If you would like a full copy of your medical records please contact the [facility] Medical Records Department Thursday through Thursday between 8a.m. and 4:30p.m. Please follow the directions below to access the portal: 1.Access the email account you provided upon registration to the [facility].2.Look for an invitation email from [facility].3.Open the email and access the invitation link: Accept Invitation to [facility]4.Fill in the required wagner to create your account. Sign into www.[employer] with your username and password that you [...] you will allow to register on the [facility] Patient Portal for access to your information. You can also access the [facility] Patient Portal on the Health [employer] howard. Simply click on Health Records under Mail'Inside and then click on the [employer] logo. HOW TO SAFELY DISPOSE OF PRESCRIPTION MEDICATIONS Please use one of the following methods to safely dispose of your unused medications. 1.Use a drug disposal kit: the drug disposal pouch allows you to safely discard your old and unuseddrugs. Ask your nurse to give you one when you are discharged.2.Visit a local take-back location: Many local pharmacies and police departments have programs that collect old and unwanted prescriptiondrugs. Call your local pharmacy or go to http://Homeschool Snowboarding.4Cable TV/2B2Pu2r to find one close to you.3.Make use of household items: Use cat litter or old coffee grounds to dispose medications if other options arenot available. Mix your drugs with these household products, seal them in an airtight container andthrow it into the garbage. Call [facility]: [phone] to be sure your drugs can be [...] drowsiness, such as benzodiazepines, also known as benzos,including diazepam and alprazolam, muscle relaxants or sleep aids. Never sell or share prescriptionopioids. This is illegal. Store opioids in a [...] aware that I should contact my doctor. Patient/Cake Decorator Signature: Date/Time: Relationship to Patient: Witness Name/Signature: Date/Time: [facility]04-24-[address] De Dios [facility] November 17, 2022 8:07pm Note Date/Time November 17, 2022 7:0 1pm [facility] Medical Records Department [address] [place] [address] Emergency Department Summary 11/17/22 MR#: [id number] Acct: [id number] Name: SIDDHARTH MARVIN Rep #:[id number] : 1970 52 From: Blayne De Dios MD PCP: Care Physician,No Primary Status :[facility] ER Location: ED HPI History of Present [...] 19:21 EDT Reading Location ID and State: [facility] [place] / [place] , Service support , Discharge Plan Triage Chief Complaint: Head Injury ED Provider: Blayne De Dios Dx/Rx/DC Orders Clinical Impression: Fall from steps, Closed head injury, Concussion Instructions: ED Concussion Prescriptions: New ondansetron [ondansetron] 4 mg tablet,disintegrating 4 mg PO Q8H PRN PRN (Reason: Nausea) Qty: 10 0RF Primary Care Provider: Care Physician,No Primary Referrals: Frida Haq MD [Med Staff - Discharge Planner] - 1 Week if not improving Care Physician,No Primary [Primary Care Provider] - Disposition Disposition: Home, Self Care What to do if you have Problems For any increased pain, shortness of breath, bleeding, nausea or vomiting, chestpain, or any unexpected problems, contact your Primary Care Provider. Call [facility] ([phone]) or report to the closest Emergency Room. Call 911 if necessary. 11/17/222006 <Electronically signed by Blayne De Dios MD> Megan Signature (if applicable): CC: No Primary Care Physician ~ Signed [facility] Work Phone: 1(191) 494-684207-23-2021 NotePatient Outreach (INTMMN) SIDDHARTH MARVIN ([id number]) 1970 F Date Time Provider Department 02/15/21 HAMMAD HAMMOND INTMMN During your visit today, we recorded the following information about you: Allergies As of Date: 02/15/2021 (No Known Allergies) Date Reviewed: 09/16/2018 Reviewed by: Castro Michele (Ana) Janett BAEZ - Fully Assessed Visit Diagnosis:Encounter for screening mammogram for breast cancer [Z12.31] Order(s):[facility] SCREENING [[id number]] Order #: [id number] FUTURE Prescriptions as of 02/18/2021 - levonorgestrel [...] [G47.33] Encounter Status:Closed by MAREK SCHAEFFER on 02/18/21[facility] 11-27-2020 NotePatient Outreach (FAMPBR) SIDDHARTH MARVIN ([id number]) 1970 F Date Time Provider Department 11/27/20 [...] future healthcare decisions with a power of tax attorney, living will, or advance directives? Referrals: N/A Message Sent to Practice: NO Navigation Signature: WESTLEY Pearce November 27, 2020 11:17 AM Allergies As of Date: 11/27/2020 (No Known Allergies) Date Reviewed: 09/16/2018 Reviewed by: Castro Michele (Ana) Janett BAEZ - Fully Assessed Reason for Visit: Population [...] [G47.33] Encounter Status:Closed by LYUDMILA JESSICA on 11/27/20[facility]05-04-2021 NoteHNO ID: [id number] Author: WESTLEY Pearce Service: ? Author Type: Patient Cushion Assembler Type: Progress Notes Filed: 11/27/2020 12:56 PM [...] future healthcare decisions with a power of tax attorney, living will, or advance directives? Referrals: N/A Message Sent to Practice: NO Navigation Signature: WESTLEY Pearce November 27, 2020 11:17 [facility] summary Author Екатерина Belcher [facility] Note Date/Time March 22, 2025 3: 39pm [facility] Medical Records Department [address] [place] [address] Discharge Summary 03/22/25 1413 MR#: [id number] Acct: [id number] Name: SIDDHARTH MARVIN Rep #:[id number] : 1970 54 From: Екатерина Belcher DO PCP: GRIFFIN Andino Status:ADM ROB Location: [place] [address] Providers Date of Admission: 03/21/25 Date of Discharge: 03/22/25 Primary Care Physician: GRIFFIN Andino Consultations 03/21/25 22:11 Consult: Tele-Neurology Routine Consulting Provider: [facility] Reason for Consult: Acute Ischemic Stroke/TIA EMERGENT Consult: No MD Notified: Yes Date Notified: 03/22/25 Time Notified: 01:15 Method of Notification: Answering Service Method of Consult:: Telemedicine Nursing Unit Staff Notify [facility] of Tele-Neurology Consult: Yes Reason For Visit: WORSENING HEADACHE W/ ABNORMAL HEAD CT Diagnosis Discharge Diagnosis (1) Headache: Status: Acute Code(s): R51.9 - Headache, unspecified Qualifiers: Headache chronicity pattern: chronic headache Headache type: unspecified Intractability: not intractable Qualified Code(s): R51.9 - Headache, unspecified; G89.29 - Other chronic pain (2) History of migraine headaches: Status: Acute Code(s): Z86.69 - Personal history of other diseases of the nervous system and sense organs (3) Abnormal CT of the head: Status: Acute Code(s): R93.0 - Abnormal findings on diagnostic imaging of skull and head, not elsewhereclassified (4) Tobacco use disorder, continuous: Status: Acute Code(s): F17.209 - Nicotine dependence, unspecified, with unspecified nicotine-induced disorders (5) Morbid obesity: Status: Chronic Code(s): E66.01 - Morbid (severe) obesity due to excess calories Medications at Discharge Home Medications metformin 1,000 mg tablet 1,000 mg PO BID 03/21/25 losartan 50 mg tablet 50 mg PO BID #60 tabs 03/22/25 Weight / BMI Weight Weight: 105.5 kg Body Mass Index (BMI) 41.2 ABG / Lab / Microbiology Data 03/21/25 18:35 03/21/25 18:35 Laboratory: Laboratory Results - last 24 hr 03/21/25 18:35: WBC 12.9 H, RBC 4.89, Hgb 14.3, Hct 43.7, MCV 89.4, MCH 29.2, MCHC 32.7, RDW Std Deviation 44.8 H, RDW Coeff of Bong 13.8, Plt Count 376, MPV 9.9, Immature Gran % (Auto) 0.400, Neut % (Auto) 49.4, Lymph % (Auto) 40.2, [place]% (Auto) 6.0, Eos % (Auto) 3.3, Baso % (Auto) 0.7, Absolute Neuts (auto) 6.4, Absolute Lymphs (auto) 5.19 H, Nucleated RBC % 0, Atypical Lymphocytes 2+, Platelet Estimate ADEQUATE, Sodium 140, Potassium 4.0, Chloride 102, Carbon Dioxide 24.2, Anion Gap 15, BUN 12, Creatinine 0.64 L, Estim Creat Clear Calc 114.33, Est GFR (MDRD) Non-Af 104, BUN/Creatinine Ratio 19.3, Glucose 83, Hemoglobin A1c 6.0 H, Calcium 10.1, Vitamin B12 362, TSH 2.410, Free T4 1.10, Free T3 pg/dL 3.3, Ethyl Alcohol < 10.1 03/21/25 22:43: POC Glucose 119 H 03/22/25 00:05: Urine Opiates Screen NEGATIVE, U Buprenorphine Qual NEGATIVE, UrOxycodone Screen NEGATIVE, Urine Methadone Screen NEGATIVE, Urine Fentanyl Screen NEGATIVE, Ur Barbiturates Screen NEGATIVE, Ur Phencyclidine Scrn NEGATIVE, Ur Amphetamines Screen NEGATIVE, U Benzodiazepines Scrn NEGATIVE, Urine Cocaine Screen NEGATIVE, U Cannabinoids Screen NEGATIVE 03/22/25 05:23: Triglycerides 207 H, Cholesterol 170, LDL Cholesterol, Calc 84, VLDL Cholesterol 41 H, HDL Cholesterol 44, Cholesterol/HDL Ratio 3.85, Serum Folate 8.81 03/22/25 06:27: POC Glucose 139 H 03/22/25 11:05: CSF Appearance CLEAR, CSF Color COLORLESS, CSF WBC 2, CSF RBC 1 H, CSF Cell Count Tube # 4, CSF Total Cell Counted TNP, CSF Lymphocytes 100 H, CSF Comment Reviewed, CSF Glucose 80 H, CSF Total Protein 27.0 03/22/25 12:05: POC Glucose 102 Microbiology: Microbiology 03/22/25 11:05 Csf, Spinal Fluid Gram Stain - Final Radiography Diagnostic Testing: Radiology Impression Brain CT 03/21/25 17:20 IMPRESSION: 1. No acute intracranial hemorrhage, mass-effect, hydrocephalus, or territorial infarct. 2. Small indeterminate hypodense focus in the right frontal bartholomew radiata whitematter, new since prior exam. Suggest contrast-enhanced MRI to further evaluate. 3. Partially empty sella, and borderline low-lying cerebellar tonsils, both of which are nonspecific but can be associated with headaches in the setting of elevated intracranial CSF pressure. Reading Location: [facility] Chest X-Ray 03/21/25 18:25 IMPRESSION: No evidence of acute cardiopulmonary disease. Reading Location: [facility] Echocardiogram 03/21/25 21:24 Interpretation Summary The left ventricular ejection fraction is 65 %. Bubble study is positive for left to right shunt. No previous echo to compare Ordering Physician: Omayra Flores Performed By: Rea Talbert RDCS Brain MRI 03/22/25 09:50 IMPRESSION: There is a 1.5 x 1.0 cm focus of encephalomalacia in the right periventricular deep white matter. An empty sella is noted. 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 Mucosal thickening is visible in the left maxillary sinus. There is fluid signal in a portion of the left mastoid air cells. Reading Location: [facility] Lumbar Puncture Fluoroscopy 03/22/25 11:00 IMPRESSION: Successful fluoroscopically guided lumbar puncture, with opening and closing pressures as noted. Laboratory results pending. Reading Location: [facility] D/C Instructions Discharge Activity: Return to Normal Activity Return to work on: 03/23/25 DC O2, CPAP, BIPAP Needs Home O2 Discharge instructions: No Meaningful Use Info Meaningful Use Meaningful Use Diagnoses (Choose all that apply): None applicable Discharge Plan Admission Admit Date/Time: 03/21/25 21:17 Primary Reason for Your Visit: Headache Attending Provider: Екатерина Belcehr Primary Care Provider: Cortez Call Consulting Providers: Jake Alonzo; Tri Thomson; Aminata العلي; Alona Crocker; Kacey Recinos; Nik Fragoso; Shayy Martins; Papo Rosen; Kong Russell; Wally Tellez; Sharon Dixon; Nino Reid; Chelle Wilson; Terese Desai; Teresa Bowen; Blayne Acosta; Haydee Toro; Javi Doll; Joan Belcher; Bethany Olson;Omayra Flores Discharge Orders/Prescriptions Prescriptions: New losartan 50 mg Tablet 50 mg PO BID Qty: 60 1RF Continued metformin 1,000 mg tablet 1,000 mg PO BID Referrals / Follow Up: Cortez Call, ASSOCIATE DATA SCIENTIST-C [Primary Care Provider] - In 1 Week Disposition Disposition (needs filled in before D/C Order can be placed): Home, Self Care Charges/Coding Visit Charges Inpatient E&M: 47797 Disch Hosp >30min 03/22/25 1539 <Electronically signed by Екатерина Belcher DO> Cosigner Signature (if applicable): CC: GRIFFIN Call; Dr. Екатерина Belcher, ~ Signed [facility] Work Phone: Evaluation + Plan note No data available for this section [facility] Evaluation noteNo assessment information available [facility] Work Phone: Evaluation note* Diagnosis Onset Date Resolution Status Admit Date Abnormal CT of the head acute A ugust 2024 9:17pm Headache acute March 21, 025 9:17pm Tobacco use disorder, continuous acute March 21 9:17pm Hypertension chronic March 21, 2025 9:17pm Morbid obesity chronic February 9:17pm [facility] Work Phone: Reason for referral (narrative)No reason for referral information [facility]WTwin City [facility] Work Phone: Summary Purpose Family History No Family History Records Found Relationship Condition Age at Onset Recorded Date/T zoila Unknown Family History?COPD Unknown May 03, 2018 6:21pm Family History?Heart Disease Unknown May 03, 2018 6:21pm Relationship Condition Age at Onset Recorded Date/T zoila father Diabetes mellitus Unknown Cardiac disease Unknown mother Chronic obstructive pulmonary disease Unk nown Advance Directives No Advanced Directives Records Found Advance Directive Response Recorded Date/ Time Living Will No November 17, 2022 7:31pm Power of Cryogenics Engineer No November 17 7:31pm Advance Directive Response Recorded Date/ Time Do you have a Healthcare Power of Cryogenics Engineer? No March 21, 2025 4:48pm Advance Directive Response Recorded Date/ Time Do you have a Healthcare Power of Cryogenics Engineer? No March 21, 2025 10:12pm Chief Complaint and Reason for Visit Chief Complaint HEAD INJURY Chief Complaint Admit Date WORSENING HEADACHE W/ ABNORMAL HEAD CT A ugust 2024 9:17pm Reason for Visit Admit Date Abnormal CT of the head March 21 9:17pm Headache March 21, 2025 9: 17pm Tobacco use disorder, continuous March 21, 2025 9:17pm Hypertension March 21, 2025 9: 17pm Morbid obesity March 21, 2025 9: 17pm Chief Complaint Admit Date WORSENING HEADACHE W/ ABNORMAL HEAD CT [facility] 2024 9:17pm WORSENING HEADACHE W/ ABNORMAL HEAD CT [facility] 2024 2:13pm Reason for Visit Admit Date Abnormal CT of the head March 21 9:17pm Headache March 21, 2025 9: 17pm History of migraine headaches February 9:17pm Tobacco use disorder, continuous March 21, 2025 9:17pm Hypertension March 21, 2025 9: 17pm Morbid obesity March 21, 2025 9: 17pm Chief Complaint Admit Date WORSENING HEADACHE W/ ABNORMAL HEAD CT [facility] 2024 9:17pm WORSENING HEADACHE W/ ABNORMAL HEAD CT [facility] 2024 2:13pm PE/NON DOT DRUG April 12, 2025 11:24am Reason for Visit Admit Date Headache March 21, 2025 9: 17pm Abnormal CT of the head March 21 9:17pm History of migraine headaches February 9:17pm Hypertension March 21, 2025 9: 17pm Morbid obesity March 21, 2025 9: 17pm Tobacco use disorder, continuous March 21, 2025 9:17pm Chief Complaint Admit Date WORSENING HEADACHE W/ ABNORMAL HEAD CT [facility] 2024 9:17pm WORSENING HEADACHE W/ ABNORMAL HEAD CT [facility] 2024 2:13pm PE NON DOT DRUG/ COUNSELING CTR Septembe r 2024 11:24am Additional Source Comments INFORMATION SOURCE (unrecogn ized section and content) DATE CREATED AUTHOR 01/15/2018 Kumar [facility] [facility] DATE CREATED AUTHOR AUTHOR'S ORGANIZ ATION 08/26/2021 [facility] DATE CREATED AUTHOR AUTHOR'S ORGANIZ ATION 08/20/2022 [facility] DATE CREATED AUTHOR AUTHOR'S ORGANIZ ATION 11/07/2022 [facility] DATE CREATED AUTHOR AUTHOR'S ORGANIZ ATION 05/07/2024 [facility] DATE CREATED AUTHOR AUTHOR'S ORGANIZ ATION 05/18/2025 [facility] <item> Privacy Markings (unrecogniz ed section [...] Blayne De Dios MD Emergency Provider Active Team Status: Active Member Role/Relationship Status Dates Cortezbelinda Call , ASSOCIATE DATA SCIENTIST-C Primary Care Provider Active Team Status: Active Member Role/Relationship Status Dates Cortezbelinda Call , ASSOCIATE DATA SCIENTIST-C Primary Care Provider Active Start: March 20, 2025 Cortezbelinda Call , ASSOCIATE DATA SCIENTIST-C Attending Provider Active St art: March 20, 2025 Team Status: Active Member Role/Relationship Status Dates Cortez Call , ASSOCIATE DATA SCIENTIST-C Primary Care Provider Active Start: March 21, 2025 Dr. Kashif Wan DO Emergency Provider Active Start: March 21, 2025 Dr. Omayra Flores DO Admit Provider Active Start: March 21, 2025 Dr. Omayra Flores DO Attending Provider Active Start: March 21, 2025 Team Status: Inactive Member Role/Relationship Status Dates Cortez Call , ASSOCIATE DATA SCIENTIST-C Primary Care Provider Active Start: March 21, 2025 End: March 22, 2025 Dr. Kashif Wan DO Emergency Provider Active Start: March 21, 2025 End: March 22, 2025 Dr. Omayra Flores DO Admit Provider Active Start: March 21, 2025 End: March 22, 2025 Dr. Omayra Flores DO Other Provider Active Start: March 21, 2025 End: March 22, 2025 Jake Alonzo MD Other Provider Active Start: 2024 End: March 22, 2025 Dr. Tri Thomson MD Other Provider Active Start: March 21, 2025 End: March 22, 2025 Aminata العلي MD Other Provider Active Start : March 21, 2025 End: March 22, 2025 Dr. Alona Crocker DO Other Provider Active St art: March 21, 2025 End: March 22, 2025 Dr. Kacey Recinos MD Other Provider Active Start: March 21, 2025 End: March 22, 2025 Dr. Nik Fragoso MD Other Provider Active Sta rt: March 21, 2025 End: March 22, 2025 Dr. Shayy Martins MD Other Provider Active Start : March 21, 2025 End: March 22, 2025 Dr. Papo Rosen MD Other Provider Active Start: March 21, 2025 End: March 22, 2025 Dr. Kong Russell MD Other Provider Active Start : March 21, 2025 End: March 22, 2025 Dr. Wally Tellez MD Other Provider Active Sta rt: March 21, 2025 End: March 22, 2025 Sharon Dixon MD Other Provider Active Start : March 21, 2025 End: March 22, 2025 Dr. Nino Reid MD Other Provider Active St art: March 21, 2025 End: March 22, 2025 Dr. Chelle Wilson MD Other Provider Active Start : March 21, 2025 End: March 22, 2025 Dr. Terese Desai MD Other Provider Active Sta rt: March 21, 2025 End: March 22, 2025 Dr. Teresa Bowen MD Other Provider Active Start: March 21, 2025 End: March 22, 2025 Dr. Blayne Acosta MD Other Provider Active St art: March 21, 2025 End: March 22, 2025 Dr. Haydee Toro MD Other Provider Active Star t: March 21, 2025 End: March 22, 2025 Dr. Javi Doll MD Other Provider Active St art: March 21, 2025 End: March 22, 2025 Dr. Joan Belcher MD Other Provider Active Start: March 21, 2025 End: March 22, 2025 Bethany Olson MD Other Provider Active Start: March 21, 2025 End: March 22, 2025 Dr. Екатерина Belcher DO Attending Provider Active S tart: March 21, 2025 End: March 22, 2025 Team Status: Active Member Role/Relationship Status Dates Cortez Call , ASSOCIATE DATA SCIENTIST-C Primary Care Provider Active Start: March 22, 2025 Dr. Mohan Josue MD Attending Provider Active Start: March 22, 2025 Team Status: Active Member Role/Relationship Status Dates Cortez Call ASSOCIATE DATA SCIENTIST-C Primary Care Provider Active Start: March 22, 2025 Dr. Kashif Wan DO Emergency Provider Active Start: March 22, 2025 Dr. Omayra Flores DO Admit Provider Active Start: March 22, 2025 Dr. Omayra Flores DO Other Provider Active Start: March 22, 2025 Jake Alonzo MD Other Provider Active Start: 2024 Dr. Tri Thomson MD Other Provider Active Start: March 22, 2025 Aminata العلي MD Other Provider Active Start : March 22, 2025 Dr. Alona Crocker DO Other Provider Active St art: March 22, 2025 Dr. Kacey Recinos MD Other Provider Active Start: March 22, 2025 Dr. Nik Fragoso MD Other Provider Active Sta rt: March 22, 2025 Dr. Shayy Martins MD Other Provider Active Start : March 22, 2025 Dr. Papo Rosen MD Other Provider Active Start: March 22, 2025 Dr. Kong Russell MD Other Provider Active Start : March 22, 2025 Dr. Wally Tellez MD Other Provider Active Sta rt: March 22, 2025 Sharon Dixon MD Other Provider Active Start : March 22, 2025 Dr. Nino Reid MD Other Provider Active St art: March 22, 2025 Dr. Chelle Wilson MD Other Provider Active Start : March 22, 2025 Dr. Terese Desai MD Other Provider Active Sta rt: March 22, 2025 Dr. Teresa Bowen MD Other Provider Active Start: March 22, 2025 Dr. Blayne Acosta MD Other Provider Active St art: March 22, 2025 Dr. Haydee Toro MD Other Provider Active Star t: March 22, 2025 Dr. Javi Doll MD Other Provider Active St art: March 22, 2025 Dr. Joan Belcher MD Other Provider Active Start: March 22, 2025 Bethany Olson MD Other Provider Active Start: March 22, 2025 Dr. Екатерина Belcher DO Attending Provider Active S tart: March 22, 2025 Dr. Екатерина Belcher DO Other Provider Active Start : March 22, 2025 Team Status: Inactive Member Role/Relationship Status Dates Cortezbelinda Call , ASSOCIATE DATA SCIENTIST-C Primary Care Provider Active Start: March 20, 2025 End: March 20, 2025 Cortez Call ASSOCIATE DATA SCIENTIST-C Attending Provider Active St art: March 20, 2025 End: March 20, 2025 Team Status: Active Member Role/Relationship Status Dates Cortez Call ASSOCIATE DATA SCIENTIST-C Primary Care Provider Active Start: March 22, 2025 Dr. Enzo Johnson MD Attending Provider Active S tart: March 22, 2025 Team Status: Active Member Role/Relationship Status Dates Cortez Call ASSOCIATE DATA SCIENTIST-C Primary Care Provider Active Start: March 22, 2025 Dr. Kashif Wan DO Emergency Provider Active Start: March 22, 2025 Dr. Omayra Flores DO Admit Provider Active Start: March 22, 2025 Dr. Omayra Flores DO Other Provider Active Start: March 22, 2025 Jake Alonzo MD Other Provider Active Start: 2024 Dr. Tri Thomson MD Other Provider Active Start: March 22, 2025 Aminata العلي MD Other Provider Active Start : March 22, 2025 Dr. Alona Crocker DO Other Provider Active St art: March 22, 2025 Dr. Kacey Recinos MD Other Provider Active Start: March 22, 2025 Dr. Nik Fragoso MD Other Provider Active Sta rt: March 22, 2025 Dr. Shayy Martins MD Other Provider Active Start : March 22, 2025 Dr. Papo Rosen MD Other Provider Active Start: March 22, 2025 Dr. Kong Russell MD Other Provider Active Start : March 22, 2025 Dr. Wally Tellez MD Other Provider Active Sta rt: March 22, 2025 Sharon Dixon MD Other Provider Active Start : March 22, 2025 Dr. Nino Reid MD Other Provider Active St art: March 22, 2025 Dr. Chelle Wilson MD Other Provider Active Start : March 22, 2025 Dr. Terese Desai MD Other Provider Active Sta rt: March 22, 2025 Dr. Teresa Bowen MD Other Provider Active Start: March 22, 2025 Dr. Blayne Acosta MD Other Provider Active St art: March 22, 2025 Dr. Haydee Toro MD Other Provider Active Star t: March 22, 2025 Dr. Javi Doll MD Other Provider Active St art: March 22, 2025 Dr. Joan Belcher MD Other Provider Active Start: March 22, 2025 Bethany Olson MD Other Provider Active Start: March 22, 2025 Dr. Екатерина Belcher DO Attending Provider Active S tart: March 22, 2025 Dr. Екатерина Belcher DO Other Provider Active Start : March 22, 2025 Team Status: Active Member Role/Relationship Status Dates Cortez Call NP-C Primary care physician Active Team Status: Inactive Member Role/Relationship Status Dates Cortez Call NP-C Primary care physician Active Start: March 20, 2025 End: March 20, 2025 GRIFFIN Andino Attending physician Active S tart: March 20, 2025 End: March 20, 2025 Team Status: Inactive Member Role/Relationship Status Dates Cortez Call NP-C Primary care physician Active Start: March 21, 2025 End: March 22, 2025 Dr. Kashif Wan , Emergency Departme nt Physician Active Start: March 21, 2025 End: March 22, 2025 Dr. Omayra Flores DO Admitting physician Active Start: March 21, 2025 End: March 22, 2025 Dr. Omayra Flores DO Nurse Practitioner Active Start: March 21, 2025 End: March 22, 2025 Jake Alonzo MD Nurse Practitioner Active Start : March 21, 2025 End: March 22, 2025 Dr. Tri Thomson MD Nurse Practitioner Active St art: March 21, 2025 End: March 22, 2025 Aminata العلي MD Nurse Practitioner Active S tart: March 21, 2025 End: March 22, 2025 Dr. Alona Crocker DO Nurse Practitioner Active Start: March 21, 2025 End: March 22, 2025 Dr. Kacey Recinos MD Nurse Practitioner Active St art: March 21, 2025 End: March 22, 2025 Dr. Nik Fragoso MD Nurse Practitioner Active Start: March 21, 2025 End: March 22, 2025 Dr. Shayy Martins MD Nurse Practitioner Active S tart: March 21, 2025 End: March 22, 2025 Dr. Papo Rosen MD Nurse Practitioner Active St art: March 21, 2025 End: March 22, 2025 Dr. Kong Russell MD Nurse Practitioner Active S tart: March 21, 2025 End: March 22, 2025 Dr. Wally Tellez MD Nurse Practitioner Active Start: March 21, 2025 End: March 22, 2025 Sharon Dixon MD Nurse Practitioner Active S tart: March 21, 2025 End: March 22, 2025 Dr. Nino Reid MD Nurse Practitioner Active Start: March 21, 2025 End: March 22, 2025 Dr. Chelle Wilson MD Nurse Practitioner Active S tart: March 21, 2025 End: March 22, 2025 Dr. Terese Desai MD Nurse Practitioner Active Start: March 21, 2025 End: March 22, 2025 Dr. Teresa Bowen MD Nurse Practitioner Active Start: March 21, 2025 End: March 22, 2025 Dr. Blayne Acosta MD Nurse Practitioner Active Start: March 21, 2025 End: March 22, 2025 Dr. Haydee Toro MD Nurse Practitioner Active Start: March 21, 2025 End: March 22, 2025 Dr. Javi Doll MD Nurse Practitioner Active Start: March 21, 2025 End: March 22, 2025 Dr. Joan Belcher MD Nurse Practitioner Active St art: March 21, 2025 End: March 22, 2025 Bethayn Olson MD Nurse Practitioner Active St art: March 21, 2025 End: March 22, 2025 Dr. Екатерина Belcher DO Attending physician Active Start: March 21, 2025 End: March 22, 2025 Team Status: Active Member Role/Relationship Status Dates Cortez Call , ASSOCIATE DATA SCIENTIST-C Primary care physician Active Start: March 22, 2025 Dr. Luis F Reyes MD Attending physician Active Start: March 22, 2025 Team Status: Active Member Role/Relationship Status Dates Cortez Call , ASSOCIATE DATA SCIENTIST-C Primary care physician Active Start: March 22, 2025 Dr. Enzo Johnson MD Attending physician Active Start: March 22, 2025 Team Status: Active Member Role/Relationship Status Dates Cortez Call , ASSOCIATE DATA SCIENTIST-C Primary care physician Active Start: March 22, 2025 Dr. Kashif Wan DO Emergency Departme nt Physician Active Start: March 22, 2025 Dr. Omayra Flores DO Admitting physician Active Start: March 22, 2025 Dr. Omayra Flores DO Nurse Practitioner Active Start: March 22, 2025 Jake Alonzo MD Nurse Practitioner Active Start : March 22, 2025 Dr. Tri Thomson MD Nurse Practitioner Active St art: March 22, 2025 Aminata العلي MD Nurse Practitioner Active S tart: March 22, 2025 Dr. Alona Crocker DO Nurse Practitioner Active Start: March 22, 2025 Dr. Kacey Recinos MD Nurse Practitioner Active St art: March 22, 2025 Dr. Nik Fragoso MD Nurse Practitioner Active Start: March 22, 2025 Dr. Shayy Martins MD Nurse Practitioner Active S tart: March 22, 2025 Dr. Papo Rosen MD Nurse Practitioner Active St art: March 22, 2025 Dr. Kong Russell MD Nurse Practitioner Active S tart: March 22, 2025 Dr. Wally Tellez MD Nurse Practitioner Active Start: March 22, 2025 Sharon Dixon MD Nurse Practitioner Active S tart: March 22, 2025 Dr. Nino Reid MD Nurse Practitioner Active Start: March 22, 2025 Dr. Chelle Wilson MD Nurse Practitioner Active S tart: March 22, 2025 Dr. Terese Desai MD Nurse Practitioner Active Start: March 22, 2025 Dr. Teresa Bowen MD Nurse Practitioner Active Start: March 22, 2025 Dr. Blayne Acosta MD Nurse Practitioner Active Start: March 22, 2025 Dr. Haydee Toro MD Nurse Practitioner Active Start: March 22, 2025 Dr. Javi Doll MD Nurse Practitioner Active Start: March 22, 2025 Dr. Joan Belcher MD Nurse Practitioner Active St art: March 22, 2025 Bethany Olson MD Nurse Practitioner Active St art: March 22, 2025 Dr. Екатерина Belcher DO Attending physician Active Start: March 22, 2025 Dr. Екатерина Belcher DO Nurse Practitioner Active S tart: March 22, 2025 Team Status: Inactive Member Role/Relationship Status Dates GRIFFIN Andino Primary care physician Active Start: April 12, 2025 End: April 12, 2025 GRIFFIN Andino Referring Provider Active St art: April 12, 2025 End: April 12, 2025 Antonio AWAN, PA Attending physician Active Start: April 12, 2025 End: April 12, 2025 Goals (unrecognized section and content) Goals may be documented in a n alternate section No data available for this sectionGoals may be documented in an alternate section FOR RECORDS PERTAINING TO PATIENTS WHO [...] BE BASED ON THE PRIMARY CLINICAL RECORDS. [employer] provides no warranty or guarantee of the accuracy or completeness of information in this document.
== END | disposition home or self-care (01) ==
PROVIDERS: PCP Nurse Practitioner Family
DX: R51.9 Headache, unspecified (principal); Z87.820 Personal history of traumatic brain injury; Z84.89 Family history of other specified conditions
CPT/HCPCS: 95819